=== PATIENT | female | born 1975 | race Caucasian/White ===

== ENCOUNTER 2018-06-25 12:13 | Emergency (ER) | payer SELFPAY ==
[2018-06-25 12:13] VITALS: BP 193/118; PULSE 82; RESP 16; TEMP 36.4; O2SAT 99; BMI 32.0
--- NOTE | 2018-06-25 12:44 | EKG12_ITS ---
Test Reason : Blood Pressure : / mmHG Vent. Rate : 066 BPM Atrial Rate : 066 BPM P-R Int : 138 ms QRS Dur : 080 ms QT Int : 394 ms P-R-T Axes : 026 -02 018 degrees QTc Int : 413 ms Normal sinus rhythm Normal ECG Confirmed by ZORAN HERNANDEZ, GRAEME ([id number]), multimedia editor BRETT DEL VALLE ([id number]) on 06/28/2018 2:37:04 PM Referred By: REINA Confirmed By:GRAEME MEEHAN MD
--- NOTE | 2018-06-25 12:44 | RAD_ITS ---
STUDY: X-RAY CHEST REASON FOR EXAM: Female, 42 years old. Chest pain. TECHNIQUE: PA and lateral views of the chest. COMPARISON: 05/19/2015. FINDINGS: The lungs are clear and expanded. There is no demonstrated pleural abnormality. Normal size heart. Normal mediastinum and cj. Normal visualized pulmonary arteries. Normal visualized aortic arch and descending thoracic aorta. There is a mild dextroscoliosis of the thoracic spine. Normal visualized ribs, clavicles, and shoulders. There is no demonstrated abnormality of the visualized soft tissue structures of the upper abdomen. RAD/Chest PA and Lateral IMPRESSION: No active pulmonary disease. Electronically Signed: Herberth Buckner MD at 13:16 EDT Tel , Service support ,
--- NOTE | 2018-06-25 12:48 | ED.DCSUM_ITS ---
- ER Visit Summary Date of Service: 06/25/18 Chief Complaint: [] Intermittent shortness of breath for over a year History of Present Illness: The patient is a 42 F [] patient reports for about a year or more she has had intermittent shortness of breath and chronic cough she is an evaluation the past was unremarkable, she reports for the last 2 weeks she has had which she feels is inked increasing exacerbations of intermittent shortness of breath that primarily occur in the morning, she also feels if she sleeps better if she sleeps upright, she has no history of cardiopulmonary disease, and history of LA PE DVT COPD asthma valvular heart disease, she denies any weight gain leg edema fever chronic cough is dry nonproductive, no chest or abdominal pain, she came in to be evaluated for all the above Physical Examination: [] On exam she had her vital signs are within normal range her blood pressure slightly high at 160/80 she has no known history of hypertension her pulse ox is 98% on room air and the rest of her vital signs are within normal range HEENT neck exam are negative the lungs sound clear the heart tones are normal the abdomen soft nontender upper lower extremities and back are unremarkable neurologically normal moving all 4 pulses are symmetric she sitting in the bed and she has no complaints no shortness of breath Test Results: [] Emergency Department Course and Treatment: [] Symptoms are long-standing for unspecified reasons they seem more bothersome to her over the last week or 2 no exacerbating factors, given all of her the the above screening labs x-ray Patient screening labs EKG chest x-ray are all generally unremarkable except her d-dimer returned at 0.5, high normal 0.49, discussed with her obtaining CTA to evaluate for PE other abnormality, that could be life-threatening, she declined that preferred outpatient management Is been in the emergency department her baseline blood pressure is been about 120/80 there are times when her blood pressure goes up to 170/80 and then spontaneously returns back to baseline she has no known history of hypertension, Given all the above she is comfortable discharge for outpatient management she does not have any providers, she is referred to pulmonary for the intermittent dyspnea and chronic cough and also primary care for further management all the above and she will return for change in symptoms, I explained to her that the emergency department setting cannot determine if an individual has hypertension and hence she needs to follow-up with her primary care providers and she will do so in the interim she will alter her diet to low-salt exercise and again return for change in symptoms Treatment Plan: [] Disposition: [] Home stable Impression: [] Intermittent dyspnea etiology unclear This note was generated with [employer] dictation software. It may contain incorrect words, spelling, and punctuation that were not noted in review of the chart prior to signing ED Disposition - Plan for ED Patient: Chief Complaint: Chest Pain
[2018-06-25 12:49] VITALS: O2SAT 97
[2018-06-25 12:55] LABS: Absolute Lymphocyte Count 1.87 X10^3/ul (0.83-4.51); Absolute Neutrophil Count 3.5 X10^3/uL (2.0-7.7); Basophil# 0.02 X10^3/uL; Basophil% 0.3 % (0-1); Eosinophil# 0.35 X10^3/uL; Eosinophils% 5.6 % (0-5); Hemoglobin 12.1 g/dl (12.0-15.0); Lymphocyte # 1.87 X10^3/ul (4.0); Mean Corp Hgb Conc 32.7 g/gl (32-36); Mean Corpuscular Hgb 27.4 pg (27.0-32.0); Mean Corpuscular Volume 83.7 fL (81-99); Mean Platelet Vol. 10.1 fl (6.2-12.0); Monocyte# 0.47 X10^3/uL; Monocyte% 7.5 % (0-10); Neutrophil # 3.52 X10^3/uL (2.7-7.7); Neutrophil % 56.4 % (47-70); Platelet Count 274 K/mm3 (150-450); RBC Distribution Width CV 13.3 % (11.6-14.6); RBC Distribution Width SD 40.6 fl (35.1-43.9); Red Blood Count 4.42 M/mm3 (4.2-5.4); White Blood Count 6.2 K/mm3 (4.4-11.0)
[2018-06-25 12:57] LABS: POSITIVE COUNT NO; POSITIVE DIFFERENTIAL NO; POSITIVE MORPHOLOGY NO
[2018-06-25 13:13] VITALS: BP 175/106; PULSE 70; PULSE 78; RESP 13; RESP 16; O2SAT 99
[2018-06-25 13:13] LABS: Anion Gap 10 (5-15); BUN 10 mg/dL (7-18); BUN/Creat Ratio 12.5 RATIO (10-20); Calcium,Total 8.1 mg/dL (8.5-10.1); Chloride 106 mmol/L (98-107); EST Glomerular Filtration Rate 83 mL/min (>60); Est Glom Filt Rate - Afr Amer 101 mL/min (>60); Estimated Creatinine Clearance 71.71 ml/min; Glucose 90 mg/dL (74-106); Potassium 3.7 mmol/L (3.5-5.1); Sodium Level 141 mmol/L (136-145)
[2018-06-25] MEDS: Ipratropium/Albuterol Sulfate 3 ML AMPUL.NEB INHALATION (13:13)
[2018-06-25 13:22] LABS: BNP,B-Type NATRIURETIC PEPTIDE 48.7 pg/mL (0-100)
--- NOTE | 2018-06-25 13:45 | ED.DEP ---
ED Disposition - Plan for ED Patient: Chief Complaint: Chest Pain Instructions: ED Dyspnea Shortness of Breath Referrals: Jai Archer MD [Primary Care Provider] - Julio Cain MD [STAFF PHYSICIAN] -
[2018-06-25 14:03] VITALS: BP 161/101; PULSE 84; RESP 20; O2SAT 97
--- NOTE | 2018-06-25 14:03 | ED.RN ---
REVIEWED D/C INSTRUCTIONS, FOLLOW UP CARE, AND S/S THAT WOULD WARRANT A RETURN TO THE ED WITH PT. PT VERBALIZED AN UNDERSTANDING AND DENIES FURTHER QUESTIONS FOR THIS RN. PT SKIN P/W/D, RESP EVEN AND UNLABORED, PT A&O X 3, NO DISTRESS NOTED. PT AMBULATED OUT OF ED, GAIT STEADY.
== END 2018-06-25 14:04 | disposition home or self-care (01) ==
PROVIDERS: Emergency Provider Emergency Medicine; Family Provider Family Medicine; PCP Family Medicine
DX: R06.00 Dyspnea, unspecified (principal); R05 Cough
CPT/HCPCS: 71046; 80048; 83880; 84484; 85025; 85379; 93005; 94640; 99284; A4216

== ENCOUNTER 2018-09-17 19:49 | Observation (INO) | payer SELFPAY ==
[2018-09-17] VITALS (9 sets, daily range): BP systolic 122–162; BP diastolic 74–119; PULSE 62–81; RESP 14–16; TEMP 36.4; O2SAT 97–100; BMI 30.9
--- NOTE | 2018-09-17 19:59 | CT_ITS ---
STUDY: CT ABDOMEN AND PELVIS WITHOUT CONTRAST REASON FOR EXAM: Female, 43 years old. Abdominal pain with nausea, vomiting and diarrhea for several days RADIATION DOSAGE (If Supplied By Facility): CTDIvol = ( 9.29 ) mGy, DLP = ( 489.64 ) mGycm TECHNIQUE: Transaxial images were obtained from the dome of the diaphragm to the symphysis pubis without oral contrast, and without intravenous contrast. Sagittal and coronal images were reconstructed. Individualized dose optimization techniques were used for this CT. COMPARISON: 01/11/2016 FINDINGS: The visualized lung bases are unremarkable. The visualized portions of the heart are within normal limits. Normal liver. Normal gallbladder and extrahepatic biliary system. Normal spleen. Normal pancreas. Normal bilateral adrenal glands. Normal right kidney. Normal left kidney. Normal visualized stomach. Normal small intestine. There are multiple colonic diverticula consistent with diverticulosis. The appendix is visualized and appears normal. Normal abdominal aorta. Normal inferior vena cava. Normal retroperitoneum. Normal urinary bladder. There is absence of the uterus consistent with a prior hysterectomy. 2.4 x 3.7 cm soft tissue mass in the left inguinal region has increased in size since the prior study. The mass appears to be contiguous with a left inguinal hernia (coronal image 40). Normal osseous structures. CT/Abdomen/Pelvis without Cont IMPRESSION: 1. No bowel wall thickening or bowel obstruction seen. Normal CT appearance of the appendix. 2. Left inguinal hernia with slightly larger soft tissue mass measuring 2.4 x 3.7 cm, as compared to the prior CT. The soft tissue structure could represent a large reactive lymph node/adenitis versus herniated intrapelvic structure such as ovary (uterus is not visible, correlate with surgical history). Unlikely to account for patient's presenting symptoms for the study. Electronically Signed: Sammy Jeronimo MD at 20:51 EST , Service support ,
--- NOTE | 2018-09-17 20:00 | ED.VISSUMM ---
- ER Visit Summary Date of Service: 09/17/18 Chief Complaint: [] Left lower quadrant pain since History of Present Illness: The patient is a 43 F [] who reports she ate a hamburger late and began having left-sided abdominal pain vomited once that day that symptoms seem to improve but intermittently she has had crampy left lower abdominal pain since the above, symptoms intensified today and she came in for evaluation, she has had 3 loose diarrheal bowel movements no blood no fever no cough no current nausea or vomiting, she is a prior hysterectomy her left ovary still in place, she has never had a colonoscopy, she has no GI conditions, she did was not exposed any tainted food or sick individuals or antibiotics she points directly to her left lower quadrant Physical Examination: [] 162/92, afebrile General, no distress resting comfortably HEENT is generally unremarkable The neck is supple no adenopathy Cardiovascular, regular rate and rhythm Lungs, clear bilateral Abdomen, soft there is mild pain to the left lower abdomen , she has some guarding, no rebound, there is a fullness nodularity to the left inguinal crease she is not sure she has had that before, she assures me her bowel habits been normal Extremities, no clubbing cyanosis or edema Neurologic, awake alert answering questions appropriately moving all 4 extremities Test Results: [] Emergency Department Course and Treatment: [] Screening labs IV fluids pain management CT CT scan shows left inguinal hernia with possibly the left ovary in the hernia sac, versus lymph node etc., see that report her labs are otherwise all unremarkable I spoke with Dr. Arteaga on-call for gynecology he recommended we contact general surgery, I paged Dr. Odell discussed the case with her in detail given all the above she recommended transfer to a facility that could evaluate the patient acutely tonight, I spoke with the patient she is acceptable for transfer to [facility], we spoke with [facility] transfer line they asked that all of her data be sent to them and will be arranging her transfer [facility] transfer line called back I was asked to speak with Dr. RENEE UMANZOR, who is the surgeon on-call who wanted additional information about the patient. I described the patient's history exam findings labs CAT scan etc. this physician felt that the patient could be managed at [facility] refused to accept her in transfer. I explained to him that the surgeon on-call felt for a variety of reasons, that it would be optimal for the patient to be transferred, [facility] understanding they had the capability to manage her, were open for transfers there were no equipment failures other hazards etc. but Dr Graves refused to accept her in transfer, I explained the potential EMTALA implications of his refusal to accept the patient when the transferring facility, [facility], had the capability to manage the patient's condition. Dr. Graves then stated that I was trying to dump her on [facility] due to insurance reasons, the transfer line individual was on the line with us I never mentioned the patient's insurance nor do I know what her insurance status is and I explained to him that her insurance status had nothing to do with the transfer it was related to concern to provide her optimal care on the part of the on-call surgeon that transfer was appropriate for optimal care. Dr. Graves then gave us his phone #[phone] and asked that the on-call surgeon Dr. Odell contact him. I spoke with Dr. Odell she will contact him and transfer options will be determined then. Addendum; Dr. Odell did come in to evaluate the patient asked that the patient be given conscious sedation for attempted reduction, the patient was underwent standard protocol for conscious sedation hyperoxygenation monitoring of her vital signs etc. she was given incremental doses of propofol Versed fentanyl and the doctor attempted reduction patient tolerated the procedure well with no complications vital signs all remained stable I explained to Dr. Odell that we could consider transfer to a different facility since [facility] Dr Graves had refused to accept her, and she stated she would evaluate all of the options herself and determine the patient's best disposition plan Treatment Plan: [] Disposition: [] Transfer to [facility] pending direct conversation between on-call physician and [facility] surgeon as above versus other treatment options or transfer options as above Impression: [] Left lower abdominal pain, left-sided inguinal hernia possibly incarcerated This note was generated with [employer] dictation software. It may contain incorrect words, spelling, and punctuation that were not noted in review of the chart prior to signing ED Disposition - Plan for ED Patient: Chief Complaint: Abd Pain Referrals: Jai Archer MD [Primary Care Provider] -
[2018-09-17] MEDS: Ondansetron 4 MG/2 ML Vial IV (20:13)
[2018-09-17] MEDS: 0.9% Normal Saline 1,000 ML 125 ML IV (20:13)
[2018-09-17 20:14] LABS: Bacteria 0 SEEN /hpf (None Seen); Mucous, Urine 0 SEEN /hpf (<or=2+); Red Blood Cells-Urine 0 SEEN /hpf (0-5)
[2018-09-17] MEDS: morphine 8 MG/ML Syringe IV ×2 (20:16→22:16)
[2018-09-17 20:20] LABS: Color, Urine Yellow (Yellow); Glucose, Dipstick Normal (Normal); Ketone-Dipstick Negative (Negative); Leukocyte Esterase-Dipstick Negative /ul (Negative); Nitrite-Dipstick Negative (Negative); Occult Blood-Urine Negative /ul (Negative); Protein-Dipstick Negative (Negative); Urine Bilirubin Dipstick Negative (Negative); Urine Clarity Clear (Clear); Urine Urobilinogen Normal (Normal)
[2018-09-17 20:27] LABS: Absolute Lymphocyte Count 2.79 X10^3/ul (0.83-4.51); Absolute Neutrophil Count 5.8 X10^3/uL (2.0-7.7); Basophil# 0.02 X10^3/uL; Basophil% 0.2 % (0-1); Eosinophil# 0.32 X10^3/uL; Eosinophils% 3.3 % (0-5); Hematocrit 39.5 % (37-47); Hemoglobin 12.9 g/dl (12.0-15.0); Lymphocyte # 2.79 X10^3/ul (4.0); Lymphocyte % 28.6 % (19-41); Mean Corp Hgb Conc 32.7 g/gl (32-36); Mean Corpuscular Hgb 27.2 pg (27.0-32.0); Mean Corpuscular Volume 83.3 fL (81-99); Mean Platelet Vol. 10.6 fl (6.2-12.0); Monocyte# 0.88 X10^3/uL; Neutrophil # 5.75 X10^3/uL (2.7-7.7); Neutrophil % 58.9 % (47-70); Platelet Count 275 K/mm3 (150-450); RBC Distribution Width CV 12.8 % (11.6-14.6); RBC Distribution Width SD 38.9 fl (35.1-43.9); Red Blood Count 4.74 M/mm3 (4.2-5.4); White Blood Count 9.8 K/mm3 (4.4-11.0)
[2018-09-17 20:28] LABS: POSITIVE COUNT NO; POSITIVE DIFFERENTIAL NO; POSITIVE MORPHOLOGY NO
[2018-09-17 20:30] LABS: Squamous Epithelial Cells - UA 0-5 SEEN /hpf (5-10); White Blood Cells 0-5 SEEN /hpf (0-5)
[2018-09-17 20:42] LABS: AST(SGOT) 17 U/L (15-37); Alanine Aminotransfer ALT/SGPT 23 U/L (13-56); Albumin, Serum 3.5 g/dL (3.2-5.0); Alkaline Phosphatase 58 U/L (45-117); Anion Gap 8 (5-15); BUN 16 mg/dL (7-18); BUN/Creat Ratio 17.4 RATIO (10-20); Bilirubin, Direct 0.13 mg/dL (0.00-0.30); Calcium,Total 8.8 mg/dL (8.5-10.1); Chloride 106 mmol/L (98-107); Creatinine, Serum 0.92 mg/dL (0.55-1.02); EST Glomerular Filtration Rate 71 mL/min (>60); Est Glom Filt Rate - Afr Amer 85 mL/min (>60); Estimated Creatinine Clearance 67.38 ml/min; Globulin 3.4 g/dL (2.2-4.2); Glucose 99 mg/dL (74-106); Lipase 153 U/L (73-393); Potassium 3.7 mmol/L (3.5-5.1); Protein, Total 6.9 g/dL (6.4-8.2); Sodium Level 138 mmol/L (136-145)
[2018-09-17] MEDS: fentaNYL 100 MCG/2 ML Ampul IV (23:21)
[2018-09-17] MEDS: Midazolam 2 MG/2 ML Syringe 2.5 MG IV (23:23)
[2018-09-17] MEDS: Propofol 200 MG/20 ML Vial 80 MG IV BOLUS (23:24)
--- NOTE | 2018-09-17 23:33 | PCM.HP.STD ---
History of Present Illness Date of Admission: 09/17/18 The patient is a 43 year old F presented to the ER due to left groin/lower quadrant crampiness and occasional sharp pain with coughing. Patient states that last she had possible food poisoning with some nausea and vomiting and then this she noticed left lower quadrant/groin discomfort which continued and today she started to feel like she did have some nausea again so came to the ER. She states the pain can range from 6?10/10. Patient underwent a CT abdomen pelvis was questioned whether there is a soft tissue mass possibly an ovary in the left inguinal hernia. On previous CTs patient did have a left inguinal hernia with appeared to be more like fluid in 2016. Patient denied noticing any kind of lump in the left groin until she came to the ER and it was pointed out by the ER doctor. Patient denies any actual abdominal pain or nausea or vomiting besides on Past Medical History Past Medical History (Chronic Problems): Chronic Problems GERD (gastroesophageal reflux disease) (Chronic) Allergies No Known Allergies Allergy (Verified 09/17/18 19:50) Home Medications: Ambulatory Orders Medication Instructions Recorded Omeprazole [Prilosec] 40 mg PO DAILY 01/11/16 Esomeprazole Mag Trihydrate 40 mg PO DAILY 06/25/18 [Nexium] Omeprazole [Prilosec] 40 mg PO BID 30 Days cap 09/19/18 Oxycodone HCl/Acetaminophen 1 - 2 tablet PO Q4H PRN PRN 4 Days 09/19/18 [Percocet 5/325] #40 tablet Surgical History: hysterectomy - With the possible right oophorectomy patient believes she still has the left, tonsillectomy, - - Psychiatric History: No pertinent psych hx 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 WELT 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 history Lives: With Family Smoking Status: Never smoker - *Family History Maternal History Items: No pertinent history Paternal History Items: Heart Disease Review of Systems Constitutional: Denies: Fever Eyes: Denies: Blurred vision VTE Information - Inpt Only VTE Present on Admission: Yes VTE Mechan Device Prophylaxis: SCD's VTE Pharm Prophylaxis ordered?: No Reason prophylaxis not ordered:: Treatment Not Indicated - Physical Exam General: Alert, Oriented x3, Cooperative, No apparent distress HEENT: Atraumatic Lungs: Normal air movement Cardiovascular: Regular rate Abdomen: Soft, Non Tender, Non-Distended, - - Left groin, positive bulge, tender to palpation, unable to reduce even with conscious sedation given by the ER doctor Extremities: No clubbing, No cyanosis, No edema Neurological: Cranial nerves II-XII grossly intact Psych/Mental Status: Normal Affect Vital Signs Temp Pulse Resp BP Pulse Ox 97.5 F L 76 14 159/81 H 100 09/17/18 19:50 09/17/18 23:23 09/17/18 23:23 09/17/18 23:23 09/17/18 23:20 Oxygen Flow Rate (L/min) [3] 15 Oxygen Flow Rate (L/min) [2] 15 Oxygen Flow Rate (L/min) [1 ( 15 Initial Baseline)] Oxygen Flow Rate (L/min) 15 Oxygen Delivery Method [3] Non-Rebreather Oxygen Delivery Method [2] Non-Rebreather Oxygen Delivery Method [1 ( Non-Rebreather Initial Baseline)] Oxygen Delivery Method Non-Rebreather Weight: 180 lb Body Mass Index (BMI) 30.9 Laboratory Tests Past 24 Hrs 09/17/18 09/17/18 09/17/18 20:05 20:12 20:12 WBC 9.8 RBC 4.74 Hgb 12.9 Hct 39.5 MCV 83.3 MCH 27.2 MCHC 32.7 RDW 12.8 RDW Differential 38.9 Plt Count 275 MPV 10.6 Immature Gran % (Auto) 0.000 Neut % (Auto) 58.9 Lymph % (Auto) 28.6 Worth % (Auto) 9.0 Eos % (Auto) 3.3 Baso % (Auto) 0.2 Absolute Neuts (auto) 5.8 Absolute Lymphs (auto) 2.79 Total Counted Not Reportable Sodium 138 Potassium 3.7 Chloride 106 Carbon Dioxide 24.0 Anion Gap 8 BUN 16 Creatinine 0.92 Estim Creat Clear Calc 67.38 Est GFR (MDRD) Af Amer 85 Est GFR (MDRD) Non-Af 71 BUN/Creatinine Ratio 17.4 Glucose 99 Calcium 8.8 Total Bilirubin 0.30 Direct Bilirubin 0.13 AST 17 ALT 23 Alkaline Phosphatase 58 Total Protein 6.9 Albumin 3.5 Globulin 3.4 Lipase 153 Urine Color Yellow Urine Clarity Clear Urine pH 6.0 Ur Specific [place] 1.020 Urine Protein Negative Urine Glucose (UA) Normal Urine Ketones Negative Urine Occult Blood Negative Urine Nitrite Negative Urine Bilirubin Negative Urine Urobilinogen Normal Ur Leukocyte Esterase Negative Urine RBC 0 SEEN Urine WBC 0-5 SEEN Ur Squamous Epith Cells 0-5 SEEN Urine Bacteria 0 SEEN Urine Mucus 0 SEEN Assessment/Plan All Active Problems Chest pain (Acute) 43-year-old female with incarcerated left inguinal hernia, wbc wnl 1. Left inguinal hernia?incarcerated, current labs are within normal limits, there is not appear to be bowel in the hernia unsure if it could possibly be the left ovary. Unable to reduce in the ER even with the help of conscious sedation. Reviewed the CT a/p w another radiologist and there is the right ovary present & pt states one was removed during hysterectomy and he also doesn't think that the left inguinal hernia contains an ovary. 2. We will keep the patient n.p.o./IV fluids and plan for surgery in the morning. Open left inguinal hernia repair, possible mesh, possible diagnostic laparoscopy. Discussed risks including but not limited to, injury to other organ (i.e. possible left ovary, small bowel, etc.), inflammation unable to place mesh, recurrent hernia which would be possibly more likely if no mesh was placed, bleeding/hematoma, infection. 3. Continue pain control with Dilaudid IV Ijeoma Escobedo M.D. Pager: [phone] [facility] [address] [place] [address], [facility], [address] [place] [address] Office: [phone] Code Visit Inpatient E&M: 27468 Init Hosp L2
--- NOTE | 2018-09-17 23:39 | HP.PCM_ITS ---
History of Present Illness Date of Admission: 09/17/18 The patient is a 43 year old F presented to the ER due to left groin/lower quadrant crampiness and occasional sharp pain with coughing. Patient states that last she had possible food poisoning with some nausea and vomiting and then this she noticed left lower quadrant/groin discomfort which continued and today she started to feel like she did have some nausea again so came to the ER. She states the pain can range from 6?10/10. Patient underwent a CT abdomen pelvis was questioned whether there is a soft tissue mass possibly an ovary in the left inguinal hernia. On previous CTs patient did have a left inguinal hernia with appeared to be more like fluid in 2016. Patient denied noticing any kind of lump in the left groin until she came to the ER and it was pointed out by the ER doctor. Patient denies any actual abdominal pain or nausea or vomiting besides on Past Medical History Past Medical History (Chronic Problems): Chronic Problems GERD (gastroesophageal reflux disease) (Chronic) Allergies No Known Allergies Allergy (Verified 09/17/18 19:50) Home Medications: Ambulatory Orders Medication Instructions Recorded Omeprazole [Prilosec] 40 mg PO DAILY 01/11/16 Esomeprazole Mag Trihydrate 40 mg PO DAILY 06/25/18 [Nexium] Omeprazole [Prilosec] 40 mg PO BID 30 Days cap 09/19/18 Oxycodone HCl/Acetaminophen 1 - 2 tablet PO Q4H PRN PRN 4 Days 09/19/18 [Percocet 5/325] #40 tablet Surgical History: hysterectomy - With the possible right oophorectomy patient believes she still has the left, tonsillectomy, - - Psychiatric History: No pertinent psych hx MANAGER CASE MANAGEMENT History: No pertinent MANAGER CASE MANAGEMENT history Lives: With Family Smoking Status: Never smoker - *Family History Maternal History Items: No pertinent history Paternal History Items: Heart Disease Review of Systems Constitutional: Denies: Fever Eyes: Denies: Blurred vision VTE Information - Inpt Only VTE Present on Admission: Yes VTE Mechan Device Prophylaxis: SCD's VTE Pharm Prophylaxis ordered?: No Reason prophylaxis not ordered:: Treatment Not Indicated - Physical Exam General: Alert, Oriented x3, Cooperative, No apparent distress HEENT: Atraumatic Lungs: Normal air movement Cardiovascular: Regular rate Abdomen: Soft, Non Tender, Non-Distended, - - Left groin, positive bulge, tender to palpation, unable to reduce even with conscious sedation given by the ER doctor Extremities: No clubbing, No cyanosis, No edema Neurological: Cranial nerves II-XII grossly intact Psych/Mental Status: Normal Affect Vital Signs Temp Pulse Resp BP Pulse Ox 97.5 F L 76 14 159/81 H 100 09/17/18 19:50 09/17/18 23:23 09/17/18 23:23 09/17/18 23:23 09/17/18 23:20 Oxygen Flow Rate (L/min) [3] 15 Oxygen Flow Rate (L/min) [2] 15 Oxygen Flow Rate (L/min) [1 ( 15 Initial Baseline)] Oxygen Flow Rate (L/min) 15 Oxygen Delivery Method [3] Non-Rebreather Oxygen Delivery Method [2] Non-Rebreather Oxygen Delivery Method [1 ( Non-Rebreather Initial Baseline)] Oxygen Delivery Method Non-Rebreather Weight: 180 lb Body Mass Index (BMI) 30.9 Laboratory Tests Past 24 Hrs 09/17/18 09/17/18 09/17/18 20:05 20:12 20:12 WBC 9.8 RBC 4.74 Hgb 12.9 Hct 39.5 MCV 83.3 MCH 27.2 MCHC 32.7 RDW 12.8 RDW Differential 38.9 Plt Count 275 MPV 10.6 Immature Gran % (Auto) 0.000 Neut % (Auto) 58.9 Lymph % (Auto) 28.6 Wirt % (Auto) 9.0 Eos % (Auto) 3.3 Baso % (Auto) 0.2 Absolute Neuts (auto) 5.8 Absolute Lymphs (auto) 2.79 Total Counted Not Reportable Sodium 138 Potassium 3.7 Chloride 106 Carbon Dioxide 24.0 Anion Gap 8 BUN 16 Creatinine 0.92 Estim Creat Clear Calc 67.38 Est GFR (MDRD) Af Amer 85 Est GFR (MDRD) Non-Af 71 BUN/Creatinine Ratio 17.4 Glucose 99 Calcium 8.8 Total Bilirubin 0.30 Direct Bilirubin 0.13 AST 17 ALT 23 Alkaline Phosphatase 58 Total Protein 6.9 Albumin 3.5 Globulin 3.4 Lipase 153 Urine Color Yellow Urine Clarity Clear Urine pH 6.0 Ur Specific [place] 1.020 Urine Protein Negative Urine Glucose (UA) Normal Urine Ketones Negative Urine Occult Blood Negative Urine Nitrite Negative Urine Bilirubin Negative Urine Urobilinogen Normal Ur Leukocyte Esterase Negative Urine RBC 0 SEEN Urine WBC 0-5 SEEN Ur Squamous Epith Cells 0-5 SEEN Urine Bacteria 0 SEEN Urine Mucus 0 SEEN Assessment/Plan All Active Problems Chest pain (Acute) 43-year-old female with incarcerated left inguinal hernia, wbc wnl 1. Left inguinal hernia?incarcerated, current labs are within normal limits, there is not appear to be bowel in the hernia unsure if it could possibly be the left ovary. Unable to reduce in the ER even with the help of conscious sedation. Reviewed the CT a/p w another radiologist and there is the right ovary present & pt states one was removed during hysterectomy and he also doesn't think that the left inguinal hernia contains an ovary. 2. We will keep the patient n.p.o./IV fluids and plan for surgery in the morning. Open left inguinal hernia repair, possible mesh, possible diagnostic laparoscopy. Discussed risks including but not limited to, injury to other organ (i.e. possible left ovary, small bowel, etc.), inflammation unable to place mesh, recurrent hernia which would be possibly more likely if no mesh was placed, bleeding/hematoma, infection. 3. Continue pain control with Dilaudid IV Ijeoma Escobedo M.D. Pager: [phone] [facility] [address] [place] [address], [facility], [address] [place] [address] Office: [phone] Code Visit Inpatient E&M: 27283 Init Hosp L2
[2018-09-18] VITALS (12 sets, daily range): BP systolic 109–160; BP diastolic 71–99; PULSE 52–84; RESP 16–18; TEMP 36.3–37.2; O2SAT 92–98; BMI 31.7
[2018-09-18] MEDS: HYDROmorphone 0.5 MG/0.5 ML SYRINGE IV ×7 (00:04→23:57)
--- NOTE | 2018-09-18 00:29 | NURSING ---
Per Dr. Escobedo's request, I called lab to advise them that the physician would like the labs done at 0500 rather than 0555. Lab acknowledged understanding.
--- NOTE | 2018-09-18 00:31 | NURSING ---
Lab called and stated that they were going to draw the pt's labs at 0400 so that they could be sure to get results in early.
[2018-09-18] MEDS: Lactated Ringers 1,000 ML 125 ML IV ×2 (00:58→08:16)
[2018-09-18 04:18] LABS: Absolute Lymphocyte Count 2.15 X10^3/ul (0.83-4.51); Absolute Neutrophil Count 4.3 X10^3/uL (2.0-7.7); Basophil# 0.02 X10^3/uL; Basophil% 0.3 % (0-1); Eosinophil# 0.21 X10^3/uL; Eosinophils% 2.8 % (0-5); Hematocrit 33.7 % (37-47); Lymphocyte # 2.15 X10^3/ul (4.0); Lymphocyte % 28.9 % (19-41); Mean Corp Hgb Conc 32.6 g/gl (32-36); Mean Corpuscular Hgb 27.6 pg (27.0-32.0); Mean Corpuscular Volume 84.5 fL (81-99); Mean Platelet Vol. 10.6 fl (6.2-12.0); Monocyte# 0.72 X10^3/uL; Monocyte% 9.7 % (0-10); Neutrophil # 4.32 X10^3/uL (2.7-7.7); Neutrophil % 58.2 % (47-70); Platelet Count 217 K/mm3 (150-450); Red Blood Count 3.99 M/mm3 (4.2-5.4); White Blood Count 7.4 K/mm3 (4.4-11.0)
[2018-09-18 04:27] LABS: Anion Gap 8 (5-15); BUN 12 mg/dL (7-18); BUN/Creat Ratio 14.3 RATIO (10-20); Calcium,Total 7.6 mg/dL (8.5-10.1); Chloride 109 mmol/L (98-107); Creatinine, Serum 0.84 mg/dL (0.55-1.02); EST Glomerular Filtration Rate 78 mL/min (>60); Est Glom Filt Rate - Afr Amer 95 mL/min (>60); Glucose 105 mg/dL (74-106); Potassium 3.8 mmol/L (3.5-5.1); Sodium Level 142 mmol/L (136-145)
[2018-09-18 04:33] LABS: POSITIVE COUNT NO; POSITIVE DIFFERENTIAL NO; POSITIVE MORPHOLOGY NO
--- NOTE | 2018-09-18 06:46 | PCM.PN.SRG ---
Subjective: Patient still complaining of pain in the left groin, denies any nausea or vomiting, pain controlled with pain meds. - Physical Exam General: Alert, Oriented x3, Cooperative, No apparent distress Abdomen: Soft, Non Tender, Non-Distended, - - Positive bulge in the left groin, none reducible Vital Signs Temp Pulse Resp BP Pulse Ox 97.9 F 72 16 112/74 97 09/18/18 04:22 09/18/18 04:22 09/18/18 04:22 09/18/18 04:22 09/18/18 04:22 Oxygen Flow Rate (L/min) [3] 15 Oxygen Flow Rate (L/min) [2] 15 Oxygen Flow Rate (L/min) [1 ( 15 Initial Baseline)] Oxygen Flow Rate (L/min) 2 Oxygen Delivery Method [3] Non-Rebreather Oxygen Delivery Method [2] Non-Rebreather Oxygen Delivery Method [1 ( Non-Rebreather Initial Baseline)] Oxygen Delivery Method Room Air Weight: 179 lb 3.773 oz Body Mass Index (BMI) 31.7 Intake and Output for Last 24 Hours 09/16/18 09/17/18 09/18/18 23:59 23:59 23:59 Intake Total 768 / 768 Balance 768 / 768 Laboratory Tests Past 24 Hrs 09/17/18 09/17/18 09/17/18 20:05 20:12 20:12 WBC 9.8 RBC 4.74 Hgb 12.9 Hct 39.5 MCV 83.3 MCH 27.2 MCHC 32.7 RDW 12.8 RDW Differential 38.9 Plt Count 275 MPV 10.6 Immature Gran % (Auto) 0.000 Neut % (Auto) 58.9 Lymph % (Auto) 28.6 Logan % (Auto) 9.0 Eos % (Auto) 3.3 Baso % (Auto) 0.2 Absolute Neuts (auto) 5.8 Absolute Lymphs (auto) 2.79 Total Counted Not Reportable Sodium 138 Potassium 3.7 Chloride 106 Carbon Dioxide 24.0 Anion Gap 8 BUN 16 Creatinine 0.92 Estim Creat Clear Calc 67.38 Est GFR (MDRD) Af Amer 85 Est GFR (MDRD) Non-Af 71 BUN/Creatinine Ratio 17.4 Glucose 99 Calcium 8.8 Total Bilirubin 0.30 Direct Bilirubin 0.13 AST 17 ALT 23 Alkaline Phosphatase 58 Total Protein 6.9 Albumin 3.5 Globulin 3.4 Lipase 153 Urine Color Yellow Urine Clarity Clear Urine pH 6.0 Ur Specific [place] 1.020 Urine Protein Negative Urine Glucose (UA) Normal Urine Ketones Negative Urine Occult Blood Negative Urine Nitrite Negative Urine Bilirubin Negative Urine Urobilinogen Normal Ur Leukocyte Esterase Negative Urine RBC 0 SEEN Urine WBC 0-5 SEEN Ur Squamous Epith Cells 0-5 SEEN Urine Bacteria 0 SEEN Urine Mucus 0 SEEN 09/18/18 09/18/18 03:38 03:38 WBC 7.4 RBC 3.99 L Hgb 11.0 L Hct 33.7 L MCV 84.5 MCH 27.6 MCHC 32.6 RDW 13.0 RDW Differential 40.0 Plt Count 217 MPV 10.6 Immature Gran % (Auto) 0.100 Neut % (Auto) 58.2 Lymph % (Auto) 28.9 Logan % (Auto) 9.7 Eos % (Auto) 2.8 Baso % (Auto) 0.3 Absolute Neuts (auto) 4.3 Absolute Lymphs (auto) 2.15 Total Counted Not Reportable Sodium 142 Potassium 3.8 Chloride 109 H Carbon Dioxide 25.0 Anion Gap 8 BUN 12 Creatinine 0.84 Estim Creat Clear Calc 70.70 Est GFR (MDRD) Af Amer 95 Est GFR (MDRD) Non-Af 78 BUN/Creatinine Ratio 14.3 Glucose 105 Calcium 7.6 L Total Bilirubin Direct Bilirubin AST ALT Alkaline Phosphatase Total Protein Albumin Globulin Lipase Urine Color Urine Clarity Urine pH Ur Specific [place] Urine Protein Urine Glucose (UA) Urine Ketones Urine Occult Blood Urine Nitrite Urine Bilirubin Urine Urobilinogen Ur Leukocyte Esterase Urine RBC Urine WBC Ur Squamous Epith Cells Urine Bacteria Urine Mucus Medical Necessity - Tobacco Use Smoking Status: Never smoker Assessment/Plan All Active Problems Chest pain (Acute) 43-year-old female with incarcerated left inguinal hernia 1. Left inguinal hernia?incarcerated, labs within normal limits 2. We will keep the patient n.p.o./IV fluids and plan for surgery today. Open left inguinal hernia repair, possible mesh, possible diagnostic laparoscopy possible exploratory laparotomy. Discussed risks including but not limited to, injury to other organ (i.e. colon, small bowel, etc.), inflammation unable to place mesh, recurrent hernia which would be possibly more likely if no mesh was placed, bleeding/hematoma, infection. 3. Continue pain control with Dilaudid IV Ijeoma Escobedo M.D. Pager: [phone] [facility] [address] [place] [address], [facility], [address] [place] [address] Office: [phone]
--- NOTE | 2018-09-18 06:49 | PN.SURG_ITS ---
Subjective: Patient still complaining of pain in the left groin, denies any nausea or vomiting, pain controlled with pain meds. - Physical Exam General: Alert, Oriented x3, Cooperative, No apparent distress Abdomen: Soft, Non Tender, Non-Distended, - - Positive bulge in the left groin, none reducible Vital Signs Temp Pulse Resp BP Pulse Ox 97.9 F 72 16 112/74 97 09/18/18 04:22 09/18/18 04:22 09/18/18 04:22 09/18/18 04:22 09/18/18 04:22 Oxygen Flow Rate (L/min) [3] 15 Oxygen Flow Rate (L/min) [2] 15 Oxygen Flow Rate (L/min) [1 ( 15 Initial Baseline)] Oxygen Flow Rate (L/min) 2 Oxygen Delivery Method [3] Non-Rebreather Oxygen Delivery Method [2] Non-Rebreather Oxygen Delivery Method [1 ( Non-Rebreather Initial Baseline)] Oxygen Delivery Method Room Air Weight: 179 lb 3.773 oz Body Mass Index (BMI) 31.7 Intake and Output for Last 24 Hours 09/16/18 09/17/18 09/18/18 23:59 23:59 23:59 Intake Total 768 / 768 Balance 768 / 768 Laboratory Tests Past 24 Hrs 09/17/18 09/17/18 09/17/18 20:05 20:12 20:12 WBC 9.8 RBC 4.74 Hgb 12.9 Hct 39.5 MCV 83.3 MCH 27.2 MCHC 32.7 RDW 12.8 RDW Differential 38.9 Plt Count 275 MPV 10.6 Immature Gran % (Auto) 0.000 Neut % (Auto) 58.9 Lymph % (Auto) 28.6 [place] % (Auto) 9.0 Eos % (Auto) 3.3 Baso % (Auto) 0.2 Absolute Neuts (auto) 5.8 Absolute Lymphs (auto) 2.79 Total Counted Not Reportable Sodium 138 Potassium 3.7 Chloride 106 Carbon Dioxide 24.0 Anion Gap 8 BUN 16 Creatinine 0.92 Estim Creat Clear Calc 67.38 Est GFR (MDRD) Af Amer 85 Est GFR (MDRD) Non-Af 71 BUN/Creatinine Ratio 17.4 Glucose 99 Calcium 8.8 Total Bilirubin 0.30 Direct Bilirubin 0.13 AST 17 ALT 23 Alkaline Phosphatase 58 Total Protein 6.9 Albumin 3.5 Globulin 3.4 Lipase 153 Urine Color Yellow Urine Clarity Clear Urine pH 6.0 Ur Specific [place] 1.020 Urine Protein Negative Urine Glucose (UA) Normal Urine Ketones Negative Urine Occult Blood Negative Urine Nitrite Negative Urine Bilirubin Negative Urine Urobilinogen Normal Ur Leukocyte Esterase Negative Urine RBC 0 SEEN Urine WBC 0-5 SEEN Ur Squamous Epith Cells 0-5 SEEN Urine Bacteria 0 SEEN Urine Mucus 0 SEEN 09/18/18 09/18/18 03:38 03:38 WBC 7.4 RBC 3.99 L Hgb 11.0 L Hct 33.7 L MCV 84.5 MCH 27.6 MCHC 32.6 RDW 13.0 RDW Differential 40.0 Plt Count 217 MPV 10.6 Immature Gran % (Auto) 0.100 Neut % (Auto) 58.2 Lymph % (Auto) 28.9 [place] % (Auto) 9.7 Eos % (Auto) 2.8 Baso % (Auto) 0.3 Absolute Neuts (auto) 4.3 Absolute Lymphs (auto) 2.15 Total Counted Not Reportable Sodium 142 Potassium 3.8 Chloride 109 H Carbon Dioxide 25.0 Anion Gap 8 BUN 12 Creatinine 0.84 Estim Creat Clear Calc 70.70 Est GFR (MDRD) Af Amer 95 Est GFR (MDRD) Non-Af 78 BUN/Creatinine Ratio 14.3 Glucose 105 Calcium 7.6 L Total Bilirubin Direct Bilirubin AST ALT Alkaline Phosphatase Total Protein Albumin Globulin Lipase Urine Color Urine Clarity Urine pH Ur Specific [place] Urine Protein Urine Glucose (UA) Urine Ketones Urine Occult Blood Urine Nitrite Urine Bilirubin Urine Urobilinogen Ur Leukocyte Esterase Urine RBC Urine WBC Ur Squamous Epith Cells Urine Bacteria Urine Mucus Medical Necessity - Tobacco Use Smoking Status: Never smoker Assessment/Plan All Active Problems Chest pain (Acute) 43-year-old female with incarcerated left inguinal hernia 1. Left inguinal hernia?incarcerated, labs within normal limits 2. We will keep the patient n.p.o./IV fluids and plan for surgery today. Open left inguinal hernia repair, possible mesh, possible diagnostic laparoscopy possible exploratory laparotomy. Discussed risks including but not limited to, injury to other organ (i.e. colon, small bowel, etc.), inflammation unable to place mesh, recurrent hernia which would be possibly more likely if no mesh was placed, bleeding/hematoma, infection. 3. Continue pain control with Dilaudid IV Ijeoma Escobedo M.D. Pager: [phone] [facility] [address] [place] [address], [facility], [address] [place] [address] Office: [phone]
--- NOTE | 2018-09-18 12:00 | CASEMGMT ---
Social Work Note SW met with pt as pt is listed as self-pay. SW introduced self and role at [facility]. Pt confirms that she is self-pay and PFS was in to speak with pt earlier today. Pt states that she completed Medicaid application and HCAP application with PFS. SW provided pt with financial resources including [employer], [employer], [facility], and prescription assistance resources. Pt denied additional needs or concerns at this time. Cherri Leong DUCT LAYER HELPER, MANAGER PE
--- NOTE | 2018-09-18 13:48 | NURSING ---
report called to [facility]A [place]ri[place] in for surgery
[2018-09-18] MEDS: Cefazolin 2 GM in 0.9% Normal Saline 100 ML IV (15:45)
[2018-09-18] MEDS: Bupiv/Epi 0.5% Mpf 30 ML Vial (16:06)
--- NOTE | 2018-09-18 16:49 | PCM.OPRPT ---
Report of Operation Date of Procedure: 09/18/18 Pre-Operative Diagnosis: Incarcerated left inguinal hernia Post-Operative Diagnosis: Incarcerated left femoral hernia Surgery/Procedure Performed:: Open left femoral hernia repair with mesh it applications manager: Erlinda Muse Type of Anesthesia:: General/Supplemental Anesthesiologist: Dionisio Burroughs Special Medications: Ancef 2 g IV x1 Specimen's removed: None Estimated Blood Loss (mL): <10 cc Fluids Replaced: 800 cc Description of Procedure: Indications: This is a 43-year-old female who who had left groin pain with a bulge, CT abdomen pelvis was consistent with left inguinal hernia, with a normal white blood cell count and no evidence of bowel including in the hernia on CT. Left inguinal hernia repair with possible mesh was elected with possible diagnostic laparoscopy. Description procedure: The patient was taken to the operating room. A timeout was completed verifying correct patient, procedure, site, positioning, and special equipment prior to beginning procedure. General anesthesia was induced. The bilateral groins and abdomen was prepped and draped in usual sterile fashion. An incision was marked in the natural skin crease and planned in the near the pubic tubercle on the left groin. A field block was produced by raising skin wheals along the proposed incision in a skin wound was raised about 1 cm medial to the anterior superior iliac spine using 0.5% Marcaine for a total of 20 mL. Skin incision was made with the knife and deepened through the Janet and Camper's fascia with electrocautery until the aponeurosis of the external oblique was a identified. This was cleaned; however the bulge was actually coming from below the inguinal ligament. The neck of the femoral hernia was able to be dissected and a finger was able to be passed into the abdomen through the femoral canal. The herniated contents appeared to be viable abdominal adipose tissue. This was able to be carefully reduced into the abdomen without needing to enlarge the femoral hernia neck. Ultra Pro Prolene mesh was rolled into a cigarette and placed into the femoral canal after all the contents were fully reduced. This was secured to the inguinal ligament and circumferentially careful to avoid the femoral vessels with 2-0 interrupted silk sutures. Hemostasis was checked and assured. The cavity was was irrigated with saline. Janet's fascia was closed with interrupted sutures of 3-0 Vicryl. Skin was closed running subcuticular suture of 4-0 Monocryl with Steri-Strips gauze and Tegaderm. Patient was extubated. Patient tolerated the procedure well and sent to the postanesthesia care in stable condition. Grafts/Implants Used: Ethicon ultra pro Prolene mesh - Complications none
--- NOTE | 2018-09-18 16:59 | DCINST_ITS ---
Discharge Diet: Light diet - advance as tolerated Discharge Activity: May not drive while taking narcotic pain medications. May shower in (days): 1 Lifting Restrictions: no lifting >20 lbs for 4 weeks, no strenous exercise for 8 weeks Call your doctor if your incision/area has: Continuous Slow Oozing, Sudden Increased Bleeding, Increased Pain/ Swelling, Increased Redness, Foul Smelling Discharge, Swelling at the incision site Call your doctor if you observe: Fever of 101 or Higher Remove Dressing in (days):: 2 Allergies/Adverse Reactions: Allergies No Known Allergies Allergy (Verified 09/17/18 19:50) Medications to take at Discharge Omeprazole [Prilosec] 40 mg PO DAILY 01/11/16 Esomeprazole Mag Trihydrate [Nexium] 40 mg PO DAILY 06/25/18 Omeprazole [Prilosec] 40 mg PO BID 30 Days cap 09/19/18 Oxycodone HCl/Acetaminophen [Percocet 5/325] 1 - 2 tablet PO Q4H PRN PRN 4 Days #40 tablet 09/19/18 The following prescriptions were given: Oxycodone HCl/Acetaminophen [Percocet 5/325] 1 - 2 tablet PO Q4H PRN PRN 4 Days #40 tablet PRN Reason: Pain Omeprazole [Prilosec] 40 mg PO BID 30 Days cap Primary Care Physician: Jai Archer MD [Primary Care Provider] - Test Results: Test results from this visit will be discussed in further detail at your follow- up appointment, if applicable. Please Follow Up With: Ijeoma Escobedo MD - After 5:00pm and on the weekends call [phone] with any concerns When: Call the office [phone] for appointment in 2 weeks. Proposed Discharge Date: 09/19/18
[2018-09-18] MEDS: oxyCODONE 5 MG Tablet PO ×2 (18:42→23:06)
[2018-09-18] MEDS: 0.9% NaCl Peripheral Flush Adult/Peds IV ×2 (20:05→23:58)
[2018-09-18] MEDS: Famotidine 20 MG Tablet PO (22:14)
[2018-09-19 04:10] VITALS: BP 108/85; PULSE 54; RESP 16; TEMP 36.9; O2SAT 94
[2018-09-19] MEDS: oxyCODONE 5 MG Tablet PO ×2 (04:14→08:23)
[2018-09-19] MEDS: 0.9% NaCl Peripheral Flush Adult/Peds IV (06:44)
[2018-09-19] MEDS: HYDROmorphone 0.5 MG/0.5 ML SYRINGE IV (06:44)
--- NOTE | 2018-09-19 07:36 | PCM.PN.SRG ---
Subjective: c/o Left groin pain, controlled w meds, kian PO - Physical Exam General: Alert, Oriented x3, Cooperative, No apparent distress Abdomen: Soft, Non Tender, Non-Distended, - - +ttp left groin, incision dressed c/d/i Extremities: No clubbing, No cyanosis, No edema Vital Signs Temp Pulse Resp BP Pulse Ox 98.5 F 54 L 16 108/85 H 94 09/19/18 04:10 09/19/18 04:10 09/19/18 04:10 09/19/18 04:10 09/19/18 04:10 Oxygen Flow Rate (L/min) [3] 15 Oxygen Flow Rate (L/min) [2] 15 Oxygen Flow Rate (L/min) [1 ( 15 Initial Baseline)] Oxygen Flow Rate (L/min) 1 Oxygen Delivery Method [3] Non-Rebreather Oxygen Delivery Method [2] Non-Rebreather Oxygen Delivery Method [1 ( Non-Rebreather Initial Baseline)] Oxygen Delivery Method Room Air Weight: 179 lb 3.773 oz Body Mass Index (BMI) 31.7 Intake and Output for Last 24 Hours 09/17/18 09/18/18 09/19/18 23:59 23:59 23:59 Intake Total 2589 / 2589 430 / 430 Balance 2589 / 2589 430 / 430 Medical Necessity - Tobacco Use Smoking Status: Never smoker Assessment/Plan All Active Problems Chest pain (Acute) 43-year-old female with incarcerated left femoral hernia, POD 1 s/p left femoral hernia repair w mesh 1. regular diet 2. Continue pain control with oxyIR, tylenol, ibu 3. If tolerates diet able to ambulate and pain controlled okay to DC home Ijeoma Escobedo M.D. Pager: [phone] [facility] [address] [place] [address], [facility], [address] [place] [address] Office: [phone]
--- NOTE | 2018-09-19 07:40 | PN.SURG_ITS ---
Subjective: c/o Left groin pain, controlled w meds, kian PO - Physical Exam General: Alert, Oriented x3, Cooperative, No apparent distress Abdomen: Soft, Non Tender, Non-Distended, - - +ttp left groin, incision dressed c/d/i Extremities: No clubbing, No cyanosis, No edema Vital Signs Temp Pulse Resp BP Pulse Ox 98.5 F 54 L 16 108/85 H 94 09/19/18 04:10 09/19/18 04:10 09/19/18 04:10 09/19/18 04:10 09/19/18 04:10 Oxygen Flow Rate (L/min) [3] 15 Oxygen Flow Rate (L/min) [2] 15 Oxygen Flow Rate (L/min) [1 ( 15 Initial Baseline)] Oxygen Flow Rate (L/min) 1 Oxygen Delivery Method [3] Non-Rebreather Oxygen Delivery Method [2] Non-Rebreather Oxygen Delivery Method [1 ( Non-Rebreather Initial Baseline)] Oxygen Delivery Method Room Air Weight: 179 lb 3.773 oz Body Mass Index (BMI) 31.7 Intake and Output for Last 24 Hours 09/17/18 09/18/18 09/19/18 23:59 23:59 23:59 Intake Total 2589 / 2589 430 / 430 Balance 2589 / 2589 430 / 430 Medical Necessity - Tobacco Use Smoking Status: Never smoker Assessment/Plan All Active Problems Chest pain (Acute) 43-year-old female with incarcerated left femoral hernia, POD 1 s/p left femoral hernia repair w mesh 1. regular diet 2. Continue pain control with oxyIR, tylenol, ibu 3. If tolerates diet able to ambulate and pain controlled okay to DC home Ijeoma Escobedo M.D. Pager: [phone] [facility] [address] [place] [address], [facility], [address] [place] [address] Office: [phone]
[2018-09-19] MEDS: Famotidine 20 MG Tablet PO (08:18)
[2018-09-19] MEDS: Acetaminophen 500 MG Tablet 1000 MG PO (08:22)
[2018-09-19 09:11] VITALS: BP 120/70; PULSE 60; RESP 18; TEMP 36.4; O2SAT 97
[2018-09-19] MEDS: Ibuprofen 600 MG Tablet PO (09:20)
[2018-09-19] MEDS: Gabapentin 300 MG Capsule PO (11:17)
== END 2018-09-19 12:08 | disposition home or self-care (01) ==
LOC: ED 22:43 → MS3 09-18 00:03
PROVIDERS: Admitting Provider Surgery; Emergency Provider Emergency Medicine; Family Provider Family Medicine; PCP Family Medicine; Referring Provider Surgery; Visit Provider Surgery
PROC: (CPT 49553; principal; 2018-09-18 14:30)
DX: K41.30 Unilateral femoral hernia, with obstruction, without gangrene, not specified as recurrent (principal); K21.9 Gastro-esophageal reflux disease without esophagitis; Z79.899 Other long term (current) drug therapy
CPT/HCPCS: 00830; 49553; 36415; 74176; 80048; 80076; 81001; 83690; 85025; 96361; 96365; 96366; 96375; 96376; 99218; 99283; J7030; J7120; A4216; C1781; G0378; J2405

== ENCOUNTER 2019-06-04 14:26 | Emergency (ER) | payer SELFPAY ==
[2018-09-18 13:36] VITALS: BMI 31.7
[2019-06-04 14:28] VITALS: BP 165/105; PULSE 85; RESP 16; TEMP 36.6; O2SAT 98; BMI 30.9
--- NOTE | 2019-06-04 14:41 | RAD_ITS ---
STUDY: X-RAY - LEFT ANKLE REASON FOR EXAM: Female, 43 years old. Pain following a fall. TECHNIQUE: 3 view(s) of the ankle. COMPARISON: None. FINDINGS: Normal visualized distal tibia and fibula. Normal medial and lateral malleoli. Normal tibiotalar articulation and ankle mortise. A spur is seen at the insertion of the Achilles tendon. The visualized subtalar, talonavicular, calcaneocuboid and tarsal articulations are normal. Diffuse lateral soft tissue swelling. Small joint effusion. RAD/Ankle min 3 Views IMPRESSION: Diffuse lateral soft tissue swelling and small joint effusion. Electronically Signed: Gene Prince, at 15:35 EDT , Service support ,
--- NOTE | 2019-06-04 14:41 | RAD_ITS ---
STUDY: X-RAY - LEFT TIBIA AND FIBULA REASON FOR EXAM: Female, 43 years old. Pain following a fall. TECHNIQUE: 2 view(s) of the tibia and fibula were obtained. COMPARISON: None. FINDINGS: Normal visualized tibia. Normal visualized fibula. The soft tissue structures are unremarkable. RAD/Tibia & Fibula 2 Views IMPRESSION: Normal x-ray examination of the tibia and fibula. Electronically Signed: Gene Prince, at 15:34 EDT , Service support ,
--- NOTE | 2019-06-04 14:47 | ED.VISSUMM ---
- ER Visit Summary Date of Service: 06/04/19 Chief Complaint: Ankle injury History of Present Illness: The patient is a 43 F states that she was walking by her camper today when she stepped in a hole sustaining an inversion injury. Patient notes pain from the knee down. No bleeding. No head injury. She denies any other injuries. Physical Examination: Afebrile vital signs stable Patient has tenderness over the fibular head. There is no tibial shaft pain. She has swelling over the lateral malleolus and tenderness. No fifth metatarsal tenderness. Neurovascular intact. The posterior medial malleolus symptoms. Test Results: X-rays of the tib-fib and ankle were obtained. This showed soft tissue swelling but no fracture. Emergency Department Course and Treatment: Aircast was applied.. The patient has crutches at home. She will follow-up with primary care if not improving. Ricem therapy. Impression: 1. Left ankle sprain This note was generated with [employer] dictation software. It may contain incorrect words, spelling, and punctuation that were not noted in review of the chart prior to signing ED Disposition - Plan for ED Patient: Disposition: Home or Assisted Living Instructions: Sprain, Ankle, with X-Ray Referrals: Jai Archer MD [NON-STAFF] - 10-14 Days if not better
[2019-06-04] MEDS: Ibuprofen 600 MG Tablet PO (15:24)
== END 2019-06-04 16:08 | disposition home or self-care (01) ==
PROVIDERS: Emergency Provider Emergency Medicine
DX: S93.402A Sprain of unspecified ligament of left ankle, initial encounter (principal); X50.1XXA Overexertion from prolonged static or awkward postures, initial encounter; Y93.01 Activity, walking, marching and hiking; Y92.9 Unspecified place or not applicable
CPT/HCPCS: 73590; 73610; 99283

== ENCOUNTER 2019-08-20 10:57 | Emergency (ER) | payer MEDICAID, SELFPAY ==
[2019-08-20 10:58] VITALS: BP 159/101; PULSE 82; RESP 16; TEMP 37.1; O2SAT 98; BMI 29.1
--- NOTE | 2019-08-20 11:06 | EKG12_ITS ---
Test Reason : CP Blood Pressure : / mmHG Vent. Rate : 070 BPM Atrial Rate : 070 BPM P-R Int : 142 ms QRS Dur : 082 ms QT Int : 396 ms P-R-T Axes : 040 001 031 degrees QTc Int : 427 ms Normal sinus rhythm Normal ECG Confirmed by UVALDO HERNANDEZ, KARO ([id number]), editor publications NERI BENAVIDES ([id number]) on 08/21/2019 1:53:04 PM Referred By: FLO Confirmed By:KARO BAILON MD
--- NOTE | 2019-08-20 11:06 | RAD_ITS ---
STUDY: X-RAY CHEST REASON FOR EXAM: Female, 43 years old. Cough and shortness of breath. TECHNIQUE: PA and lateral views of the chest. COMPARISON: Comparison is made with prior examination of June 25, 2018. FINDINGS: EKG electrodes are seen. The lungs are clear and expanded. Scattered calcified granulomas. There is no demonstrated pleural abnormality. Normal size heart. Normal mediastinum and cj. Normal visualized pulmonary arteries. Normal visualized aortic arch and descending thoracic aorta. Normal visualized thoracic spine. Normal visualized ribs, clavicles, and shoulders. There is no demonstrated abnormality of the visualized soft tissue structures of the upper abdomen. RAD/Chest PA and Lateral IMPRESSION: Normal x-ray examination of the chest. Electronically Signed: Gene Prince, at 12:15 EST , Service support ,
--- NOTE | 2019-08-20 11:07 | ED.DCSUM_ITS ---
- ER Visit Summary Date of Service: 08/20/19 Chief Complaint: Cough, left lower rib pain History of Present Illness: The patient is a 43 F who complains of a cough for 6 months. She states that her cough is productive and has been constantly annoying her for 6 months. 3 days ago she developed pain in the left lower ribs after coughing. This pain is not worse with coughing and movement. She took Aleve for it with no relief. She states that she has been waking up in the morning with bruises all over her body. She denies any trauma. She states that she also has nausea and vomits every night. She does not have a doctor and has not seen anybody about this. She denies any health problems. She has had a hysterectomy in the past. Physical Examination: Vital signs reviewed. HEENT exam unremarkable. Heart is regular rate and rhythm without murmurs. Lungs are clear to auscultation. She does have chest tenderness in the left lower rib area anteriorly to the axilla. Abdomen is soft and nontender. Extremities reveal no edema. Skin exam normal. Neurologic exam normal. Test Results: EKG is sinus rhythm with no ST changes. Chest x-ray normal. Laboratory studies normal. Emergency Department Course and Treatment: The patient is PERC negative. I feel this is likely a rib strain. I will give her an albuterol inhaler to help with her cough. Lidocaine patches to help with the rib pain. She will continue NSAIDs. I will give her a PCP to follow-up with. Treatment Plan: [] Disposition: Discharge Impression: Left rib pain This note was generated with [employer] dictation software. It may contain incorrect words, spelling, and punctuation that were not noted in review of the chart prior to signing ED Disposition - Plan for ED Patient: Referrals: Care Physician,No Primary [Primary Care Provider] -
[2019-08-20 11:25] VITALS: BP 156/114; PULSE 70; RESP 20; O2SAT 95
[2019-08-20 11:26] LABS: Absolute Lymphocyte Count 1.47 X10^3/uL (0.83-4.51); Absolute Neutrophil Count 3.6 X10^3/uL (2.0-7.7); Basophil# 0.03 X10^3/uL; Basophil% 0.5 % (0-1); Eosinophil# 0.31 X10^3/uL; Eosinophils% 5.2 % (0-5); Hematocrit 40.6 % (37-47); Hemoglobin 13.2 g/dL (12.0-15.0); Lymphocyte # 1.47 X10^3/ul (4.0); Lymphocyte % 24.9 % (19-41); Mean Corp Hgb Conc 32.5 g/dL (32-36); Mean Corpuscular Hgb 27.5 pg (27.0-32.0); Mean Corpuscular Volume 84.6 fL (81-99); Mean Platelet Vol. 10.2 fl (6.2-12.0); Monocyte# 0.45 X10^3/uL; Monocyte% 7.6 % (0-10); NRBC Flagged by Analyzer 0 % (0-5); Neutrophil # 3.64 X10^3/uL (2.7-7.7); Neutrophil % 61.6 % (47-70); Platelet Count 297 K/mm3 (150-450); RBC Distribution Width CV 12.3 % (11.6-14.6); RBC Distribution Width SD 37.6 fl (35.1-43.9); White Blood Count 5.9 K/mm3 (4.4-11.0)
[2019-08-20] MEDS: Ketorolac 30 MG/ML Syringe IV (11:29)
[2019-08-20 11:43] LABS: BUN 10 mg/dL (7-18); Creatinine, Serum 1.07 mg/dL (0.55-1.02); Estimated Creatinine Clearance 60.37 ml/min; Glucose 91 mg/dL (74-106)
[2019-08-20 11:44] LABS: Anion Gap 7 (5-15); BUN/Creat Ratio 9.3 RATIO (10-20); Calcium,Total 8.7 mg/dL (8.5-10.1); Chloride 105 mmol/L (98-107); EST Glomerular Filtration Rate 59 mL/min (>60); Est Glom Filt Rate - Afr Amer 71 mL/min (>60); Potassium 3.8 mmol/L (3.5-5.1); Sodium Level 138 mmol/L (136-145)
[2019-08-20 12:00] VITALS: BP 141/102; PULSE 67; RESP 12; O2SAT 96
--- NOTE | 2019-08-20 12:32 | ED.DEP ---
ED Disposition - Plan for ED Patient: Disposition: Home or Assisted Living Instructions: Rib Contusion Prescriptions: Lidocaine [Lidoderm Patch] 1 patch TOPICAL DAILY #10 patch Prescription Printed Albuterol Inhaler [Ventolin Hfa] 1 - 2 puff INHALATION Q4H PRN PRN #1 inhaler PRN Reason: Wheezing Prescription Printed Referrals: Care Physician,No Primary [Primary Care Provider] -
[2019-08-20 12:38] VITALS: BP 152/105; PULSE 68; RESP 14; O2SAT 97
--- NOTE | 2019-08-20 12:44 | ED.RN ---
REVIEWED D/C INSTRUCTIONS, FOLLOW UP CARE, PRESCRIPTIONS, AND S/S THAT WOULD WARRANT A RETURN TO THE ED WITH PT. PT VERBALIZED AN UNDERSTANDING AND DENIES FURTHER QUESTIONS FOR THIS RN. PT SKIN P/W/D, RESP EVEN AND UNLABORED, PT A7O X 3, NO DISTRESS NOTED. PT AMBULATED OUT OF ED, GAIT STEADY.
== END 2019-08-20 12:45 | disposition home or self-care (01) ==
PROVIDERS: Emergency Provider Emergency Medicine
DX: R07.81 Pleurodynia (principal); R05 Cough; R11.2 Nausea with vomiting, unspecified
CPT/HCPCS: 71046; 80048; 84484; 85025; 93005; 96374; 99284; A4216

== ENCOUNTER 2019-08-28 10:59 | Emergency (ER) | payer MEDICAID, SELFPAY ==
[2019-08-28 11:02] VITALS: BP 136/93; PULSE 83; RESP 16; TEMP 36.4; O2SAT 100; BMI 29.1
--- NOTE | 2019-08-28 11:21 | EKG12_ITS ---
Test Reason : FLANK PAIN Blood Pressure : / mmHG Vent. Rate : 068 BPM Atrial Rate : 068 BPM P-R Int : 132 ms QRS Dur : 088 ms QT Int : 406 ms P-R-T Axes : 012 004 026 degrees QTc Int : 431 ms Normal sinus rhythm Normal ECG Confirmed by MARITA HERNANDEZ, ZHOU ([id number]), map editor NERI BENAVIDES ([id number]) on 08/31/2019 12:18:26 PM Referred By: SHAN/MATA Confirmed By:CONOR KIRKLAND MD
--- NOTE | 2019-08-28 11:22 | CT_ITS ---
STUDY: CTA CHEST REASON FOR EXAM: Female, 43 years old. Left lower chest pain. Hemoptysis. RADIATION DOSAGE (If Supplied By Facility): CTDIvol = ( 10.16 ) mGy, DLP = ( 322.50 ) mGycm TECHNIQUE: The examination was performed with the intravenous administration of IV Isovue 370 100. Post-processing of the angiographic images was performed, with multiplanar reformation and 3D reconstruction. Individualized dose optimization techniques were used for this CT. COMPARISON: 08/20/2019. FINDINGS: HEART: Normal heart size. No significant coronary artery disease. No pericardial effusion. Minimal contrast reflux into the hepatic IVC. AORTA/GREAT VESSELS: Adequate contrast enhancement. No aneurysm. No dissection. Vascular calcifications. PULMONARY ARTERIES: Adequate contrast enhancement. No acute pulmonary embolism. LUNGS/AIRWAYS/PLEURA: Central airways patent. No focal patchy airspace opacities. No suspicious lung nodules. No lung mass. No pneumothorax. No pleural effusion. Granuloma (axial image 134 series 2). MEDIASTINUM/THYROID: Normal thyroid. Shotty mediastinal lymph nodes. No mediastinal hematoma. No pneumomediastinum. SOFT TISSUES: No acute process. OSSEOUS STRUCTURES: Mild degenerative findings. No acute process. Nonaggressive appearing sclerotic densities at the C6 vertebral body (sagittal image 157 series 602 and T3 posterior elements (sagittal image 59 series 602). No fracture. No cortical destruction. No dislocation. UPPER ABDOMEN/ESOPHAGUS: Small hiatal hernia. No acute process. CT/CTA Chest W/WO Contrast IMPRESSION: No acute pulmonary embolism, aortic aneurysm or aortic dissection No pneumonia, pleural effusion or pneumothorax Electronically Signed: Roland Suarez DO at 12:22 EST Tel , Service support ,
[2019-08-28 11:43] LABS: Absolute Lymphocyte Count 1.99 X10^3/uL (0.83-4.51); Absolute Neutrophil Count 4.8 X10^3/uL (2.0-7.7); Basophil# 0.04 X10^3/uL; Basophil% 0.5 % (0-1); Eosinophil# 0.51 X10^3/uL; Eosinophils% 6.4 % (0-5); Hematocrit 39.3 % (37-47); Hemoglobin 12.8 g/dL (12.0-15.0); Lymphocyte # 1.99 X10^3/ul (4.0); Lymphocyte % 25.2 % (19-41); Mean Corp Hgb Conc 32.6 g/dL (32-36); Mean Corpuscular Hgb 27.1 pg (27.0-32.0); Mean Corpuscular Volume 83.3 fL (81-99); Mean Platelet Vol. 10.6 fl (6.2-12.0); Monocyte# 0.61 X10^3/uL; Monocyte% 7.7 % (0-10); NRBC Flagged by Analyzer 0 % (0-5); Neutrophil # 4.75 X10^3/uL (2.7-7.7); Neutrophil % 60.1 % (47-70); Platelet Count 283 K/mm3 (150-450); RBC Distribution Width CV 12.6 % (11.6-14.6); RBC Distribution Width SD 38.4 fl (35.1-43.9); Red Blood Count 4.72 M/mm3 (4.2-5.4); White Blood Count 7.9 K/mm3 (4.4-11.0)
[2019-08-28 11:46] LABS: International Normalized Ratio 1.1; Prothrombin Time (Protime)PT. 13.6 SECONDS (11.7-14.9)
[2019-08-28 11:47] LABS: Partial Thromboplast Time 24.7 Seconds (24.1-36.2)
--- NOTE | 2019-08-28 11:47 | ED.VIS.GEN ---
History of Present Illness Chief Complaint: Other, Pain/Inj Informant: Patient Onset: Weeks - 1 Narrative: Presents here for evaluation persistent left lower chest pain for the past week. Reports that concerns of a lump there. Reports was having a cough. Reports seen in the ED at that time with the work-up that was negative. States she is concerned that there is more bulging of the left lower chest region that would come and go however none currently. Denies trauma. Reports intermittent hemoptysis. No tobacco history. No recent travel, surgeries, or immobilizations. No history of PE or DVT. Denies fever or rash in the area. No previous similar symptoms prior to a week ago. Just got established with insurance, however is unable to get in with a PCP at this point. Records reviewed from 8 days ago in the ED she had a cardiac work-up at negative. She was PERC negative at that time. Discharge with lidocaine patch inhaler, NSAIDs , and treatment for rib strain. Prior similar symptoms: Yes Past Medical History - Allergies and Home Meds Allergies/Adverse Reactions: Allergies No Known Allergies Allergy (Verified 08/28/19 11:02) Primary Care Physician: Care Physician,No Primary [Primary Care Provider] - Surgical History: hysterectomy - With the possible right oophorectomy patient believes she still has the left, tonsillectomy, - - Smoking Status: Never smoker - Family History Maternal Family History: Reports: No pertinent history Paternal Family History: Reports: Heart Disease Review of Systems General: Denies: Chills, Fever, Sweats Eyes: Denies: Visual changes - bilaterally, Diplopia ENT: Denies: Rhinorrhea, Sore throat Cardiovascular: Reports: Chest pain. Denies: Palpitations Respiratory: Reports: Cough. Denies: Dyspnea, Dyspnea on exertion Gastrointestinal: Denies: Abdominal pain, Nausea, Vomiting, Diarrhea, Melena, Hematochezia Genitourinary: Denies: Dysuria, Hematuria, Frequency Musculoskeletal: Denies: Back pain, Extremity Pain Skin: Denies: Rash, Wounds Neurological: Denies: Headache, Weakness, Numbness Physical Exam Vital Signs/Narrative: Vital Signs Temp Pulse Resp BP Pulse Ox 08/28/19 11:02 97.5 F L 83 16 136/93 H 100 Inital Vital Signs reviewed: Yes General: Well nourished, Well developed, No Acute Distress Head: Normocephalic, Atraumatic Eyes: Perrl, EOMI ENT: Moist mucous membranes, No rhinorrhea Neck: Supple, Nontender Cardiovascular: Regular rate, Regular rhythm, No murmurs Respiratory: No distress, CTA bilaterally, Chest tenderness, - - Reproducible left lower rib tenderness with no crepitus or ecchymosis. There is no rash. There is no abnormal bulging. Abdomen: Soft, Nontender, Nondistended, Normal bowel sounds Back: Nontender, Normal Inspection Extremities: Nontender, No edema Skin: Normal color, No rash Neurological: Alert, Oriented x3, Cranial nerves II-XII grossly intact, Normal Strength, Normal Sensation Psychological: Normal affect, Normal Mood Diagnostic/Tx/Re-eval Clinical Impression(s) from Imaging Studies Chest CTA 08/28/19 11:22 IMPRESSION: No acute pulmonary embolism, aortic aneurysm or aortic dissection No pneumonia, pleural effusion or pneumothorax Electronically Signed: Roland Suarez DO at 12:22 EST Tel , Service support , Abnormal Lab Results 08/28/19 08/28/19 08/28/19 11:30 11:30 11:30 WBC 7.9 RBC 4.72 Hgb 12.8 Hct 39.3 MCV 83.3 MCH 27.1 MCHC 32.6 RDW Std Deviation 38.4 RDW Coeff of [facility] 12.6 Plt Count 283 MPV 10.6 Immature Gran % (Auto) 0.100 Neut % (Auto) 60.1 Lymph % (Auto) 25.2 [place] % (Auto) 7.7 Eos % (Auto) 6.4 H Baso % (Auto) 0.5 Absolute Neuts (auto) 4.8 Absolute Lymphs (auto) 1.99 Nucleated RBC % 0 PT 13.6 INR 1.1 APTT 24.7 Sodium 138 Potassium 3.6 Chloride 106 Carbon Dioxide 26.0 Anion Gap 6 BUN 9 Creatinine 0.84 Estim Creat Clear Calc 76.90 Est GFR (MDRD) Af Amer 94 Est GFR (MDRD) Non-Af 78 BUN/Creatinine Ratio 10.7 Glucose 97 Calcium 8.9 Troponin I < 0.015 - EKG Initial EKG Interpretation: Sinus Rhythm - Sinus rate of 68, no ST changes. - Medical Decision Making Patient reproducible pain, however having continued persistent symptoms. She now reports hemoptysis and is currently PERC positive. With her persistent symptoms discussed cardiac work-up with CT scan for further evaluation. EKG with no acute changes. Cardiac work-up negative. CT scan negative for any acute process. Reports coughing for 6 months, will treat with antibiotics due to prolonged symptoms. Also short prescription for additional pain control. She will follow-up as an outpatient. She will monitor for any rash. All questions were answered. ED Disposition - Plan for ED Patient: Disposition: Home or Assisted Living Diagnosis: Chest wall pain, Bronchitis Instructions: Chest Wall Strain, Acute Bronchitis Prescriptions: Oxycodone HCl/Acetaminophen [Percocet 5/325] 1 tablet PO Q6H PRN PRN 3 Days #12 tablet PRN Reason: Pain Azithromycin [Zithromax Z-Hugo] 250 mg PO UD #1 box Referrals: Care Physician,No Primary [Primary Care Provider] - Additional Instructions: CTA chest negative. Follow up with your doctor.
[2019-08-28 11:52] LABS: Anion Gap 6 (5-15); BUN 9 mg/dL (7-18); BUN/Creat Ratio 10.7 RATIO (10-20); Calcium,Total 8.9 mg/dL (8.5-10.1); Chloride 106 mmol/L (98-107); Creatinine, Serum 0.84 mg/dL (0.55-1.02); EST Glomerular Filtration Rate 78 mL/min (>60); Est Glom Filt Rate - Afr Amer 94 mL/min (>60); Glucose 97 mg/dL (74-106); Potassium 3.6 mmol/L (3.5-5.1); Sodium Level 138 mmol/L (136-145)
[2019-08-28 13:08] VITALS: BP 159/89; PULSE 78; RESP 16; O2SAT 97
== END 2019-08-28 13:09 | disposition home or self-care (01) ==
PROVIDERS: Emergency Provider Emergency Medicine
DX: J40 Bronchitis, not specified as acute or chronic (principal); R07.89 Other chest pain
CPT/HCPCS: 71275; 80048; 84484; 85025; 85610; 85730; 93005; 99284; Q9967; A4216

== ENCOUNTER 2020-05-12 10:44 | Emergency (ER) | payer MEDICAID, SELFPAY ==
[2020-05-12 10:46] VITALS: BP 155/101; PULSE 72; RESP 17; TEMP 36.1; O2SAT 98; BMI 27.4
--- NOTE | 2020-05-12 11:10 | ED.DCSUM_ITS ---
History of Present Illness Chief Complaint: Abd Pain Informant: Patient Narrative: Patient is a 44-year-old female who presents to the emergency department for left lower quadrant abdominal pain. This has been present over the past week. She currently rates it as a 7 out of 10. She describes as a sharp pain. No radiation to her back. [place] does make the symptoms worse. She has had a few episodes of vomiting with this. She is been having 4-5 episodes of loose bowel movements per day. No blood in the stool or black tarry bowel movements. Nobody has similar symptoms. She denies any fevers or chills. She has had this pain before in the past that she relates to a history of ovarian cysts. She has had these operated on before. She does have a history of hysterectomy as well as hernia with mesh repair. She did develop some bleeding with intercourse as well recently. She denies any chest pain or shortness of breath. She has been taking Aleve for this which has not been giving much relief. She denies any recent traveling or antibiotic use. She denies any cough, cold, congestion. 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 Past Medical History - Allergies and Home Meds Allergies/Adverse Reactions: Allergies No Known Allergies Allergy (Verified 05/12/20 10:45) Primary Care Physician: Care Physician,No Primary [Primary Care Provider] - Prior records reviewed: Yes Surgical History: hysterectomy - With the possible right oophorectomy patient believes she still has the left, tonsillectomy, - - Smoking Status: Never smoker Drugs: None - Family History Maternal Family History: Reports: No pertinent history Paternal Family History: Reports: Heart Disease Review of Systems All systems negative except as indicated General: Denies: Chills, Fever, Sweats Eyes: Denies: Visual changes - bilaterally, Diplopia ENT: Denies: Rhinorrhea, Sore throat Cardiovascular: Denies: Chest pain, Palpitations Respiratory: Denies: Dyspnea, Cough, Dyspnea on exertion Gastrointestinal: Reports: Abdominal pain, Nausea, Vomiting, Diarrhea. Denies: Melena, Hematochezia Genitourinary: Denies: Dysuria, Hematuria, Frequency Musculoskeletal: Denies: Back pain, Extremity Pain Skin: Denies: Rash, Wounds Neurological: Denies: Headache, Weakness, Numbness Physical Exam Vital Signs/Narrative: Vital Signs Temp Pulse Resp BP Pulse Ox 05/12/20 10:46 96.9 F L 72 17 155/101 H 98 Inital Vital Signs reviewed: Yes General: Well nourished, Well developed, No Acute Distress Head: Normocephalic, Atraumatic Eyes: Perrl, EOMI ENT: Moist mucous membranes, No rhinorrhea Neck: Supple, Nontender Cardiovascular: Regular rate, Regular rhythm, No murmurs Respiratory: No distress, CTA bilaterally, Chest nontender Abdomen: Soft, Nondistended, Normal bowel sounds, Tender - Left lower quadrant to deep palpation.. Negative for: Guarding, Rebound tenderness, Vang's sign Back: Nontender, Normal Inspection Extremities: Nontender, No edema Skin: Normal color, No rash Neurological: Alert, Oriented x3, Cranial nerves II-XII grossly intact, Normal Strength, Normal Sensation Psychological: Normal affect, Normal Mood Diagnostic/Tx/Re-eval - Medical Decision Making Patient presents to the emerge department for abdominal pain and nausea/vomiting/diarrhea. Upon arrival vital signs within normal limits. She does not appear in any acute distress is nontoxic-appearing. She does have some left lower quadrant pain. She has had this pain before. Will check basic lab work along with ultrasound of the pelvis. Patient given Toradol and Zofran for symptomatic treatment. Urinalysis had bacteria and leukocyte Estrace without any white blood cells. She denies any dysuria or suprapubic pain. Will culture and hold off on treating with antibiotics. Initially planned on doing ultrasound but patient states that her left ovary uterus were removed. The left side is where her pain is that so instead we did a CT scan. This did not show any repeat hernia. She does have some diverticulosis without evidence of diverticulitis. Otherwise unremarkable CT sc an of the abdomen/pelvis. Toradol did give some slight relief. 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 Warning signs and symptoms for which to return to the emergency department are reviewed. At this time will discharge home in stable condition. She understands and is agreeable this plan. ED Disposition - Plan for ED Patient: Disposition: Home or Assisted Living Diagnosis: Abdominal pain, Dyspareunia Instructions: ED Abdominal Pain Unkn Cause Fem Referrals: Care Physician,No Primary [Primary Care Provider] - Bailey Dean MD [STAFF PHYSICIAN] -
[2020-05-12 11:51] LABS: Absolute Lymphocyte Count 1.39 X10^3/uL (0.83-4.51); Absolute Neutrophil Count 3.7 X10^3/uL (2.0-7.7); Basophil# 0.03 X10^3/uL; Basophil% 0.5 % (0-1); Eosinophil# 0.14 X10^3/uL; Eosinophils% 2.5 % (0-5); Hematocrit 39.6 % (37-47); Hemoglobin 12.7 g/dL (12.0-15.0); Lymphocyte # 1.39 X10^3/ul (4.0); Lymphocyte % 24.5 % (19-41); Mean Corp Hgb Conc 32.1 g/dL (32-36); Mean Corpuscular Hgb 27.7 pg (27.0-32.0); Mean Corpuscular Volume 86.3 fL (81-99); Mean Platelet Vol. 10.6 fl (6.2-12.0); Monocyte# 0.42 X10^3/uL; Monocyte% 7.4 % (0-10); NRBC Flagged by Analyzer 0 % (0-5); Neutrophil # 3.67 X10^3/uL (2.7-7.7); Neutrophil % 64.6 % (47-70); Platelet Count 274 K/mm3 (150-450); RBC Distribution Width CV 12.6 % (11.6-14.6); RBC Distribution Width SD 39.6 fl (35.1-43.9); Red Blood Count 4.59 M/mm3 (4.2-5.4); White Blood Count 5.7 K/mm3 (4.4-11.0)
[2020-05-12] MEDS: Ondansetron 4 MG/2 ML Vial IM (11:51)
[2020-05-12] MEDS: Ketorolac 30 MG/ML Syringe IM (11:51)
--- NOTE | 2020-05-12 12:04 | CT_ITS ---
STUDY: CT ABDOMEN AND PELVIS WITH CONTRAST REASON FOR EXAM: Female, 44 years old. LLQ PAIN, HX- HERNIA, DIVERTICULITIS, N/V/D X 2 WKS, BLEEDING WITH INTERCOURSE, PREV HYSTER, RADIATION DOSAGE (If Supplied By Facility): CTDIvol = ( 11.31 ) mGy, DLP = ( 678.65 ) mGycm TECHNIQUE: Transaxial images were obtained from the dome of the diaphragm to the symphysis pubis with oral contrast. Oral GASTROGRAFIN, 100 ML ISOVUE 300 was administered. Sagittal and coronal images were reconstructed. Individualized dose optimization techniques were used for this CT. COMPARISON: Comparison is made with prior examination dated 09/17/2018. FINDINGS: The visualized lung bases are unremarkable. The visualized portions of the heart are within normal limits. Normal liver. Normal gallbladder and extrahepatic biliary system. Normal spleen. Normal pancreas. Normal bilateral adrenal glands. Normal right kidney. Normal left kidney. Normal visualized stomach. Normal small intestine. There are scattered colonic diverticula consistent with diverticulosis. The appendix is visualized and appears normal. Normal abdominal aorta. Normal inferior vena cava. Normal retroperitoneum. Normal urinary bladder. There is absence of the uterus consistent with a prior hysterectomy. Normal abdominal wall. Status post left inguinal hernia repair. Normal osseous structures. CT/Abdomen/Pelvis WITH Contrast IMPRESSION: Scattered sigmoid diverticula. Electronically Signed: Gene Prince, at 14:28 EDT , Service support ,
[2020-05-12 12:05] LABS: AST(SGOT) 30 U/L (15-37); Alanine Aminotransfer ALT/SGPT 31 U/L (13-56); Albumin, Serum 3.4 g/dL (3.2-5.0); Alkaline Phosphatase 45 U/L (45-117); Anion Gap 5 (5-15); BUN 11 mg/dL (7-18); BUN/Creat Ratio 8.8 RATIO (10-20); Calcium,Total 8.4 mg/dL (8.5-10.1); Chloride 109 mmol/L (98-107); Creatinine, Serum 1.25 mg/dL (0.55-1.02); EST Glomerular Filtration Rate 49 mL/min (>60); Est Glom Filt Rate - Afr Amer 59 mL/min (>60); Estimated Creatinine Clearance 51.14 ml/min; Globulin 3.3 g/dL (2.2-4.2); Glucose 105 mg/dL (74-106); Lipase 121 U/L (73-393); Potassium 3.6 mmol/L (3.5-5.1); Protein, Total 6.7 g/dL (6.4-8.2); Sodium Level 142 mmol/L (136-145)
[2020-05-12 13:42] VITALS: RESP 18
[2020-05-12 14:08] LABS: Internal QC Validated? YES +Cl - CLEAR BKGD; Pregnancy, Urine Negative Negative
[2020-05-12 14:45] LABS: Mucous, Urine 0 SEEN /hpf (<or=2+); Red Blood Cells-Urine 0 SEEN /hpf (0-5); Squamous Epithelial Cells - UA 0 SEEN /hpf (5-10)
[2020-05-12 14:50] LABS: Color, Urine Yellow (Yellow); Glucose, Dipstick Normal (Normal); Ketone-Dipstick Negative (Negative); Leukocyte Esterase-Dipstick 500 /ul (Negative); Nitrite-Dipstick Negative (Negative); Occult Blood-Urine Negative /ul (Negative); Protein-Dipstick Negative (Negative); Specific Gravity, Urine 1.025 (1.002-1.030); Urine Bilirubin Dipstick Negative (Negative); Urine Clarity Turbid (Clear); Urine Urobilinogen Normal (Normal)
[2020-05-12 14:56] LABS: Amorphous Sediment 3+; Bacteria 2+ /hpf (None Seen); White Blood Cells 0-5 SEEN /hpf (0-5)
[2020-05-12 15:22] VITALS: RESP 18
== END 2020-05-12 15:23 | disposition home or self-care (01) ==
PROVIDERS: Emergency Provider Emergency Medicine
DX: R10.32 Left lower quadrant pain (principal); N94.10 Unspecified dyspareunia; R11.2 Nausea with vomiting, unspecified; R19.7 Diarrhea, unspecified; K57.30 Diverticulosis of large intestine without perforation or abscess without bleeding
CPT/HCPCS: 74177; 80053; 81001; 81025; 83690; 85025; 87086; 87088; 96372; 99283; Q9967; A4216; J2405

== ENCOUNTER → 2020-06-04 13:11 | Outpatient (CLI) | payer MEDICAID, SELFPAY ==
[2020-05-19 14:31] VITALS: BMI 27.9
--- NOTE | 2020-06-04 13:30 | SP.MBSS_ITS ---
PRIMARY / SECONDARY DIAGNOSIS: dysphagia (R13.10) CURRENT DIET (SOLIDS): regular textures (IDDSI: 7) CURRENT DIET (LIQUIDS): thin liquid diets (IDDSI: 0) DENTITION: natural upper / lower dentition MENTAL STATUS: intact RESPIRATORY STATUS: O2 via room air CURRENT FUNCTIONAL AMBULATION CATEGORY (FAC): 5 (ambulator- independent) REASON FOR REFERRAL: The Patient is a 44 year old female referred for a modified barium swallow (MBS) study to objectively assess the Patients oropharyngeal swallow function under fluoroscopy secondary to reported chronic coughing likely attributed to uncontrolled gastroesophageal reflux disease, with workup to rule out oropharyngeal phase dysphagia. MEDICAL HISTORY: Asthma, pneumonia, gastroesophageal reflux disease, anemia, diverticulitis PREVIOUS MODIFIED BARIUM SWALLOW STUDY RESULTS: None ASSESSMENT PARAMETERS: The Patient participated in a Modified Barium Swallow (MBS) study on 06/04/2020. This study was recorded in the lateral view and images were sent to PACs for storage. Scoring was completed through each trial using the 8- point Penetration-Aspiration Scale (PAS) and summarized via the Modified Barium Swallow Impairment Profile (MBSImP) and the Bolus Residue Scale (BRS), with severity scoring through the Dysphagia Severity Rating Scale (DSRS) and the Dysphagia Classification Scale (DCS), and recommended diet textures through the International Dysphagia Diet Standardisation Initiative (IDDSI) RESULTS OF THE EVALUATION: The Patient presents with mastication and deglutition abilities found to be grossly within functional limits (DSRS: 1) OBJECTIVE ASSESSMENT OF SWALLOW FUNCTION (QUANTITATIVE ? PER TRIAL): PENETRATION / ASPIRATION SCALE (CHIRINOS): 1 = does not enter airway 2 = enters airway/above vocal folds/ejected 3 = enters airway/above vocal folds/not ejected 4 = enters airway/contacts vocal folds/ejected 5 = enters airway/contacts vocal folds/not ejected 6 = enters airway/below vocal folds/ejected 7 = enters airway/below vocal folds/not ejected despite effort 8 = enters airway/below vocal folds/no effort PENETRATION / ASPIRATION SCALE (SCORE): Thin liquid - 5 mL tsp.: 1 Thin liquids via cup (single sip): 1 Thin liquids via cup (single sip): 1 Thin liquids via cup (single sip): 1 Pudding via spoon: 1 Regular textured cookie: 1 Thin liquids via straw (single sip): 1 OBJECTIVE ASSESSMENT OF SWALLOW FUNCTION (QUANTITATIVE ? AGGREGATE): MODIFIED BARIUM SWALLOW IMPAIRMENT PROFILE (MBSImP) LABIAL SEAL: 0 (of 4) no labial escape TONGUE CONTROL: 0 (of 3) cohesive bolus BOLUS PREPARATION / MASTICATION: 0 (of 3) timely and efficient BOLUS TRANSPORT / LINGUAL MOTION: 0 (of 4) brisk tongue motion ORAL RESIDUE: 1 (of 4) trace residue lining oral structures INITIATION OF PHARYNGEAL SWALLOW: 3 (of 4) pyriforms SOFT PALATE ELEVATION: 0 (of 4) no bolus between soft palate & pharyngeal wall LARYNGEAL ELEVATION: 1 (of 3) partial superior movement / approximation ANTERIOR HYOID EXCURSION: 1 (of 2) partial movement EPIGLOTTIC MOVEMENT: 0 (of 2) complete inversion LARYNGEAL VESTIBULE CLOSURE: 0 (of 2) complete closure PHARYNGEAL STRIPPING WAVE: 0 (of 2) present / complete PE SEGMENT OPENIN (of 3) minimal distension / duration; marked obstruction TONGUE BASE RETRACTION: 1 (of 4) trace column of contrast PHARYNGEAL RESIDUE: 1 (of 4) trace residue ESOPHAGEAL BOLUS CLEARANCE: could not view BOLUS RESIDUE SCALE (BRS): BRS SCORE: 1 (of 6) BRS SCORE DESCRIPTION: no residue OBJECTIVE ASSESSMENT OF SWALLOW FUNCTION (SEVERITY GRADING): DYSPHAGIA SEVERITY RATING SCALE (DSRS): DSRS CLASSIFICATION: 1 (within functional limits) DSRS CLASSIFICATION CHARACTERISTICS: instrumental exam shows slight deviance from a normal swallow; patient may report a change in sensation during swallow; no change in diet is required. DYSPHAGIA CLASSIFICATION SCALE (DCS): DCS CLASSIFICATION: D0 (normal) DCS CLASSIFICATION CHARACTERISTICS: without stasis or food consistency restrictions OBJECTIVE ASSESSMENT OF SWALLOW FUNCTION (QUALITATIVE): ORAL PREPARATORY PHASE: sufficient mastication rate and quality; sufficient anterior oral containment during oral manipulation; preserved management of breathing / bolus formation without disrupted E ? S ? E pattern ORAL TRANSITIONAL PHASE: no presence of transitional incompetence; no bolus consolidation impairments; sufficient oral containment across textures with no presence of premature posterior bolus loss PHARYNGEAL PHASE: mild pharyngeal phase dyssynchrony with no functional impact; appropriate hyolaryngeal excursion and laryngeal vestibule closure / pressure; appropriate pharyngeal motility; appropriate velopharyngeal functioning; ESOPHAGEAL PHASE: no obvious esophageal phase abnormalities observed. CONTRIBUTING / COMPLICATING FACTORS AND NOTABLE FINDINGS: intermittent coughing prior to, during, and following the study, with no attribution to intake; noted cervical osteophyte located at the C-6 level with mild bulge in soft tissue minimal to no impact on pharyngeal motility INTERVENTION RECOMMENDATIONS AND CONSIDERATIONS: The Patient presents with mastication and deglutition abilities found to be grossly within functional limits. No penetration or aspiration appreciated throughout consistencies trialed. POST ASSESSMENT EDUCATION: The results and recommendations were discussed with the Patient immediately following MBS completion, with the Patient verbalizing understanding and agreement with all recommendations and education provided. DIET TEXTURE RECOMMENDATIONS: Will recommend a regular textured (IDDSI: 7), thin liquid diet (IDDSI: 0) diet RECOMMENDED COMPENSATORY STRATEGIES: Reduced bolus volume / rate of ingestion, seated upright at 90 degrees during PO intake, remain upright for 30-60 minutes post meal (GERD precaution) IMAGE COUNT: [phone] Rosas M.A., YIN-JEWELRY APPRAISER, CBIS MBSImP Certified, LSVT Certified [facility] Speech-Language Pathology Department Email: [email or web address]
== END ==
PROVIDERS: Referring Provider Internal Medicine Critical Care Medicine; Visit Provider Internal Medicine Critical Care Medicine
DX: R13.10 Dysphagia, unspecified (principal)
CPT/HCPCS: 74230; 92611

== ENCOUNTER 2020-06-05 07:53 | Day surgery (SDC) | payer MEDICAID, SELFPAY ==
--- NOTE | 2020-05-19 06:25 | HP_ITS ---
Intake Vital Signs 05/19/20 Height 5 ft 5 in 05/19/20 Weight: 168 lb 05/19/20 BMI 27.9 05/19/20 BP 161/104 H 05/19/20 Blood Pressure Location Rt brachial 05/19/20 Position Sitting 05/19/20 Respiration 16 05/19/20 Pulse 80 05/19/20 Pulse Source Monitor 05/19/20 Temp 97.7 F L 05/19/20 Temp Source Temporal 05/19/20 Pulse Oximetry (%) 99 05/19/20 Oxygen Delivery Method room air Intake Visit Reasons: Esophagogastroduodenoscopy Chief Complaint: GERD/ Dysphagia Architectural Representative Required: No Is patient in pain?: No (LLQ pain) Allergies No Known Allergies Allergy (Verified 05/15/20 07:23) Medications albuterol sulfate 90 mcg/actuation aerosol inhaler 2 puff INHALATION Q4H PRN #1 device 05/15/20 [Rx Confirmed 05/19/20] omeprazole magnesium 20 mg tablet,delayed release 40 mg PO DAILY #60 tab 05/15/20 [Rx Confirmed 05/19/20] PFSH Medical History Diarrhea (Acute) Nausea & vomiting (Acute) LLQ abdominal pain (Acute) SOB (shortness of breath) (Acute) Anxiety (Acute) High blood pressure (Chronic) Dysphagia (Acute) Diverticulitis (Acute) Asthma (Acute) Pneumonia (Acute) Anemia (Acute) GERD (gastroesophageal reflux disease) (Acute) GERD (gastroesophageal reflux disease) (Chronic) Chest pain (Acute) Surgical History Hx of tonsillectomy (Resolved) H/O: hysterectomy (Resolved) history of femoral hernia repair (Resolved ~09/2018) Family History Father Heart disease COPD (chronic obstructive pulmonary disease) Asthma CVA (cerebral vascular accident) Sister Diabetes GERD (gastroesophageal reflux disease) Cancer Skin Cancer Social History (Updated 05/19/20 @ 18:[address] Filiberto Grimaldo MD) Smoking Status: Never smoker HPI HPI HPI: STEPHY RAMOSINGTON, is a 44 F who presents to the office today for HPI HPI Surgical H&P: Yes HPI: STEPHY MARTE, is a 44 F who presents to the office today for Reflux. The patient notes that she has been having cough and she has severe reflux at baseline. She is on a PPI and she says that it is not sufficient and she has regurgitation of food as well as severe acid reflux especially when laying down. She also has pain with eating. She also reports that she has dysphasia and she has been unable to swallow certain things especially liquids. ROS General General: No weight change or fatigue HEENT HEENT: Yes difficulty swallowing Skin Skin: Yes rash Cardio Cardiovascular: Yes high blood pressure; no murmur, pacemaker, heart disease, atrial fibrillation, heart attack, heart stent, palpitations, shortness of breat with exertion or chest pain Psych Psychiatric: Yes depression and anxiety Resp Respiratory: Yes shortness of breath, No sleep apnea, Yes cough, No COPD, Yes asthma, No emphysema, No wheezing Gastro Gastrointestinal: Yes abdominal pain, Yes nausea or vomiting, Yes diarrhea, Yes constipation, No blood in stool, Yes acid reflux, No hemorrhoids, No ulcers, No gallbladder problem, No black,tarry stools Yusuf Hematologic: No blood thinners, Yes anemia Exam Const General: cooperative Orientation: alert, oriented x3 Resp Effort & Inspection: normal respiratory effort Auscultation: clear to auscultation bilaterally Cardio Rate: regular rate Rhythm: regular rhythm Heart Sounds: no murmurs GI Inspection: non-distended Palpation: soft, nontender Assessment & Plan Problems 1. Diarrhea, unspecified type R19.7 2. Nausea and vomiting, intractability of vomiting not specified, unspecified vomiting type R11.2 3. Gastroesophageal reflux disease, esophagitis presence not specified K21.9 Plan The patient notes that she has severe acid reflux with cough. She says the PPI has not been sufficient. She was referred due to her chronic cough. She says that she has dysphasia and she is seeing someone else for this as well. She says she has difficulty swallowing. She also reports regurgitation nausea and vomiting. She has occasional diarrhea alternating with constipation. I discussed EGD with the patient but the patient would also be possibly interested in fundoplication. I discussed preoperative evaluation for fundoplication and I discussed EGD including pH probe as well as manometry. The patient would like to have fundoplication as an option and she will proceed with EGD with pH probe and manometry. I explained endoscopy in detail to the patient. I explained the risks including but not limited to stroke or heart attack with anesthesia, perforation of the GI tract, bleeding, infection. I explained that any of these could necessitate further emergency surgery. The patient understands and all questions were answered sufficiently. The patient wishes to proceed with procedure. We discussed the current risks associated with COVID-19. While it is understood that there is a community spread of COVID-19, the risk of bushra COVID-19 while at [facility] ([facility]) is very low; however, the risk cannot be completely mitigated because of the community spread of the disease. We discussed in detail the risk of exposure to and/or potential harm posed by the COVID-19 virus with having a surgery/procedure at this time versus the risk of delaying the surgery/procedure. It is not possible to know either the risk of delaying the surgery or procedure or chance of getting an infection with perfect accuracy, but a joint decision was made to proceed at this time with the scheduled surgery/procedure as indicated on the consent form. Patient was notified that we will need to comply with any screening or testing [facility] wishes to perform or that surgery may be delayed for any positive results. Filiberto Grimaldo MD Pager: [facility] [address] [place] [address], [address] [place] [address] Office: Orders Orders: EGD Today K21.9 Esophageal Manometry Today K21.9 Coding Level of Care Code Off vis,new,level 3 Diagnoses Diarrhea, unspecified type R19.7 ??Diarrhea type: unspecified type Nausea and vomiting, intractability of vomiting not specified, unspecified vomiting type R11.2 ??Vomiting Intractability: unspecified ??Vomiting type: unspecified Gastroesophageal reflux disease, esophagitis presence not specified K21.9 ??Esophagitis presence: esophagitis presence not specified 05/19/20 6019 <Electronically signed by Filiberto torres MD> Date _ Filiberto Grimaldo MD
[2020-05-19 14:31] VITALS: BMI 27.9
[2020-06-05 08:50] VITALS: BP 160/122; PULSE 80; RESP 16; TEMP 36.8; O2SAT 98
== END 2020-06-05 08:50 | disposition home or self-care (01) ==
LOC: EN 07:53
PROVIDERS: Referring Provider Surgery; Visit Provider Surgery
PROC: F00ZJWZ Instrumental Swallowing and Oral Function Assessment using Swallowing Equipment (ICD-10-PCS; CPT 43235; principal; 2020-06-05 07:55)
DX: K21.9 Gastro-esophageal reflux disease without esophagitis (principal); Z11.59 Encounter for screening for other viral diseases
CPT/HCPCS: 91010; 91013; 87635; 94799; U0003

== ENCOUNTER 2020-06-06 09:08 | Day surgery (SDC) | payer MEDICAID, SELFPAY ==
--- NOTE | 2020-05-19 06:25 | HP_ITS ---
Intake Vital Signs 05/19/20 Height 5 ft 5 in 05/19/20 Weight: 168 lb 05/19/20 BMI 27.9 05/19/20 BP 161/104 H 05/19/20 Blood Pressure Location Rt brachial 05/19/20 Position Sitting 05/19/20 Respiration 16 05/19/20 Pulse 80 05/19/20 Pulse Source Monitor 05/19/20 Temp 97.7 F L 05/19/20 Temp Source Temporal 05/19/20 Pulse Oximetry (%) 99 05/19/20 Oxygen Delivery Method room air Intake Visit Reasons: Esophagogastroduodenoscopy Chief Complaint: GERD/ Dysphagia Chrome Polisher Required: No Is patient in pain?: No (LLQ pain) Allergies No Known Allergies Allergy (Verified 05/15/20 07:23) Medications albuterol sulfate 90 mcg/actuation aerosol inhaler 2 puff INHALATION Q4H PRN #1 device 05/15/20 [Rx Confirmed 05/19/20] omeprazole magnesium 20 mg tablet,delayed release 40 mg PO DAILY #60 tab 05/15/20 [Rx Confirmed 05/19/20] PFSH Medical History Diarrhea (Acute) Nausea & vomiting (Acute) LLQ abdominal pain (Acute) SOB (shortness of breath) (Acute) Anxiety (Acute) High blood pressure (Chronic) Dysphagia (Acute) Diverticulitis (Acute) Asthma (Acute) Pneumonia (Acute) Anemia (Acute) GERD (gastroesophageal reflux disease) (Acute) GERD (gastroesophageal reflux disease) (Chronic) Chest pain (Acute) Surgical History Hx of tonsillectomy (Resolved) H/O: hysterectomy (Resolved) history of femoral hernia repair (Resolved ~09/2018) Family History Father Heart disease COPD (chronic obstructive pulmonary disease) Asthma CVA (cerebral vascular accident) Sister Diabetes GERD (gastroesophageal reflux disease) Cancer Skin Cancer Social History (Updated 05/19/20 @ 18:[address] Filiberto Grimaldo MD) Smoking Status: Never smoker HPI HPI HPI: STEPHY RAMOSINGTON, is a 44 F who presents to the office today for HPI HPI Surgical H&P: Yes HPI: STEPHY MARTE, is a 44 F who presents to the office today for Reflux. The patient notes that she has been having cough and she has severe reflux at baseline. She is on a PPI and she says that it is not sufficient and she has regurgitation of food as well as severe acid reflux especially when laying down. She also has pain with eating. She also reports that she has dysphasia and she has been unable to swallow certain things especially liquids. ROS General General: No weight change or fatigue HEENT HEENT: Yes difficulty swallowing Skin Skin: Yes rash Cardio Cardiovascular: Yes high blood pressure; no murmur, pacemaker, heart disease, atrial fibrillation, heart attack, heart stent, palpitations, shortness of breat with exertion or chest pain Psych Psychiatric: Yes depression and anxiety Resp Respiratory: Yes shortness of breath, No sleep apnea, Yes cough, No COPD, Yes asthma, No emphysema, No wheezing Gastro Gastrointestinal: Yes abdominal pain, Yes nausea or vomiting, Yes diarrhea, Yes constipation, No blood in stool, Yes acid reflux, No hemorrhoids, No ulcers, No gallbladder problem, No black,tarry stools Yusuf Hematologic: No blood thinners, Yes anemia Exam Const General: cooperative Orientation: alert, oriented x3 Resp Effort & Inspection: normal respiratory effort Auscultation: clear to auscultation bilaterally Cardio Rate: regular rate Rhythm: regular rhythm Heart Sounds: no murmurs GI Inspection: non-distended Palpation: soft, nontender Assessment & Plan Problems 1. Diarrhea, unspecified type R19.7 2. Nausea and vomiting, intractability of vomiting not specified, unspecified vomiting type R11.2 3. Gastroesophageal reflux disease, esophagitis presence not specified K21.9 Plan The patient notes that she has severe acid reflux with cough. She says the PPI has not been sufficient. She was referred due to her chronic cough. She says that she has dysphasia and she is seeing someone else for this as well. She says she has difficulty swallowing. She also reports regurgitation nausea and vomiting. She has occasional diarrhea alternating with constipation. I discussed EGD with the patient but the patient would also be possibly interested in fundoplication. I discussed preoperative evaluation for fundoplication and I discussed EGD including pH probe as well as manometry. The patient would like to have fundoplication as an option and she will proceed with EGD with pH probe and manometry. I explained endoscopy in detail to the patient. I explained the risks including but not limited to stroke or heart attack with anesthesia, perforation of the GI tract, bleeding, infection. I explained that any of these could necessitate further emergency surgery. The patient understands and all questions were answered sufficiently. The patient wishes to proceed with procedure. We discussed the current risks associated with COVID-19. While it is understood that there is a community spread of COVID-19, the risk of bushra COVID-19 while at [facility] ([facility]) is very low; however, the risk cannot be completely mitigated because of the community spread of the disease. We discussed in detail the risk of exposure to and/or potential harm posed by the COVID-19 virus with having a surgery/procedure at this time versus the risk of delaying the surgery/procedure. It is not possible to know either the risk of delaying the surgery or procedure or chance of getting an infection with perfect accuracy, but a joint decision was made to proceed at this time with the scheduled surgery/procedure as indicated on the consent form. Patient was notified that we will need to comply with any screening or testing [facility] wishes to perform or that surgery may be delayed for any positive results. Filiberto Grimaldo MD Pager: [facility] [address] [place] [address], [address] [place] [address] Office: Orders Orders: EGD Today K21.9 Esophageal Manometry Today K21.9 Coding Level of Care Code Off vis,new,level 3 Diagnoses Diarrhea, unspecified type R19.7 ??Diarrhea type: unspecified type Nausea and vomiting, intractability of vomiting not specified, unspecified vomiting type R11.2 ??Vomiting Intractability: unspecified ??Vomiting type: unspecified Gastroesophageal reflux disease, esophagitis presence not specified K21.9 ??Esophagitis presence: esophagitis presence not specified 05/19/20 2108 <Electronically signed by Filiberto torres MD> Date _ Filiberto Grimaldo MD I have re-examined the patient. There are no clinical changes since date of exam.
[2020-05-19 14:31] VITALS: BMI 27.9
--- NOTE | 2020-06-06 | ESO_PTH ---
PATIENT: STEPHY MARTE LOC: EN U#:[id number] AGE/SX: 44/F ROOM: RE06/06/[address]: Dr. Filiberto Grimaldo MD : 1975 BED: DIS: 06/06/2020 SPEC #: [id number] RECD: 06/06/20 13:49 STATUS: FELICIANO KHAI #: [id number] MONA: 06/06/20 00:[address]: Filiberto Grimaldo DEPT: SURGICAL PATHOLOGY RECD BY: Ed Barrios ENTERED: 06/06/20 13:50 SP TYPE: DONNY LAM DR: No Primary Care Phys Tissues: Esophagus, NOS Procedures: Special Stain Group II Surgery Specimen Level IV Alcian Blue/PAS (control) HEADER OPERATION: [place] [place] DIAGNOSIS: GERD, dysphagia TISSUE SUBMITTED: Proximal esophageal biopsy MICROSCOPIC DIAGNOSIS Proximal esophagus, biopsy: Consistent with reflux esophagitis. Junctional mucosa with mild chronic inflammation. No evidence of goblet cell metaplasia. See comment. AM:mannie 06/09/20 COMMENT Alcian blue/PAS stain with matched control supports the above diagnosis. MICROSCOPIC DESCRIPTION Slides are reviewed. GROSS DESCRIPTION Received in fixative is one container labeled with the patient's name and designated proximal esophageal biopsy. The specimen consists of multiple irregular fragments of light zhao soft tissue that in aggregate measure 0.7 x 0.3 x 0.1 cm. The specimen is totally submitted in one cassette. / AM:mannie 06/06/20 TC:3 CPT: 73858, 29913
[2020-06-06 09:31] VITALS: BP 154/103; PULSE 65; RESP 14; TEMP 36.7; O2SAT 100; BMI 27.6
[2020-06-06] MEDS: Lactated Ringers 1,000 ML 100 ML IV (09:49)
--- NOTE | 2020-06-06 10:32 | OP.CCLET_ITS ---
06/06/2020 No Primary Care Physician Re : Upper GI endoscopy procedure for Hortencia Brennan Dear Care Physician This procedure was performed on Saturday, June 06, 2020. 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 Biopsied. - Small hiatal hernia. - Normal examined duodenum. - The BALL pH capsule was positioned 30 cm from the incisors, which was 6 cm proximal to the GE junction. Recommendations : - Discharge patient to home. - Resume previous diet. - Continue present medications. - Await pathology results. - Refer to Primary care physcian at appointment to be scheduled. My findings are described in the full procedure note, which is enclosed. If I can be of further assistance, please feel free to contact me at Doctor phone number(s): , Work: . Sincerely, Filiberto Grimaldo MD 06/06/2020 10:31:57 AM This report has been signed electronically.
--- NOTE | 2020-06-06 10:32 | OP.EGD_ITS ---
Patient Name: Hortencia Brennna Procedure Date: 06/06/2020 10:04 AM Date of : 1975 Age: 44 Procedure: Upper GI endoscopy Indications: Suspected gastro-esophageal reflux disease, Gastro-esophageal reflux disease Providers: Filiberto Grimaldo MD Referring MD: Filiberto Grimaldo MD Medicines: Monitored Anesthesia Care Patient Profile: This is a 44 year old female. Refer to note in patient chart for documentation of history and physical. Complications: No immediate complications. Estimated blood loss: Minimal. Procedure: Pre-Anesthesia Assessment: - Prior to the procedure, a History and Physical was performed, and patient medications and allergies were reviewed. The patient's tolerance of previous anesthesia was also reviewed. The risks and benefits of the procedure and the sedation options and risks were discussed with the patient. All questions were answered, and informed consent was obtained. Prior Anticoagulants: The patient has taken no previous anticoagulant or antiplatelet agents. After reviewing the risks and benefits, the patient was deemed in satisfactory condition to undergo the procedure. After obtaining informed consent, the endoscope was passed under direct vision. Throughout the procedure, the patient's blood pressure, pulse, and oxygen saturations were monitored continuously. The gastroscope was introduced through the mouth, and advanced to the second part of duodenum. The upper GI endoscopy was accomplished without difficulty. The patient tolerated the procedure well. Scope In: 10:18:35 AM Scope Out: 10:25:37 AM Total Procedure Duration Time 0 hours 7 minutes 2 seconds Findings: [place] of salmon-colored mucosa were present at 15 cm. No other visible abnormalities were present. The maximum longitudinal extent of these esophageal mucosal changes was 4 cm in length. Biopsies were taken with a cold forceps for histology. A small hiatal hernia was present. The examined duodenum was normal. The BALL capsule with delivery system was introduced through the mouth and advanced into the esophagus, such that the BALL pH capsule was positioned 30 cm from the incisors, which was 6 cm proximal to the GE junction. Suction was applied to the well of the BALL pH capsule to suck in the adjacent mucosa of the esophagus using the external vacuum pump set at a minimum vacuum pressure of 550 mmHg for 30 seconds. The BALL pH capsule was then deployed by depressing the plunger on top of the handle to advance the locking pin into the mucosa, thereby attaching the capsule to the esophagus. The plunger was then rotated a quarter turn clockwise to release the capsule from the delivery system. The delivery system was then withdrawn. Endoscopy was utilized for probe placement and diagnostic evaluation. The scope was reinserted to evaluate placement of the BALL capsule. Visualization showed the BALL capsule to be in an appropriate position. 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 Biopsied. - Small hiatal hernia. - Normal examined duodenum. - The BALL pH capsule was positioned 30 cm from the incisors, which was 6 cm proximal to the GE junction. Recommendation: - Discharge patient to home. - Resume previous diet. - Continue present medications. - Await pathology results. - Refer to Primary care physcian at appointment to be scheduled. Procedure Code(s): --- Professional --- 97200, Esophagogastroduodenoscopy, flexible, transoral; with biopsy, single or multiple 20114, 51, Esophagus, gastroesophageal reflux test; with mucosal attached telemetry pH electrode placement, recording, analysis and interpretation Diagnosis Code(s): --- Professional --- K22.8, Other specified diseases of esophagus K44.9, Diaphragmatic hernia without obstruction or gangrene K21.9, Gastro-esophageal reflux disease without esophagitis CPT copyright 2017 [employer]. All rights reserved. The codes documented in this report are preliminary and upon shirt operator review may be revised to meet current compliance requirements. Filiberto Grimaldo MD 06/06/2020 10:31:57 AM This report has been signed electronically. Number of Addenda: 0 Note Initiated On: 06/06/2020 10:04 AM
[2020-06-06 10:37] VITALS: BP 122/87; BP 154/87; PULSE 85; RESP 16; TEMP 37.2; O2SAT 96
[2020-06-06 10:40] VITALS: BP 118/84; BP 154/87; PULSE 70; RESP 16; O2SAT 97
[2020-06-06 10:45] VITALS: BP 138/94; BP 154/87; PULSE 68; RESP 16; O2SAT 97
[2020-06-06 10:48] VITALS: BP 130/80; BP 154/87; PULSE 68; RESP 16; TEMP 37; O2SAT 97
[2020-06-06 11:31] VITALS: BP 154/87
== END 2020-06-06 11:33 | disposition home or self-care (01) ==
LOC: EN 09:09 → AC 09:11
PROVIDERS: Referring Provider Surgery; Visit Provider Surgery
PROC: (CPT 43239; principal; 2020-06-06 10:25)
DX: K22.8 Other specified diseases of esophagus (principal); K21.9 Gastro-esophageal reflux disease without esophagitis; K44.9 Diaphragmatic hernia without obstruction or gangrene; J45.909 Unspecified asthma, uncomplicated; Z87.01 Personal history of pneumonia (recurrent); Z86.2 Personal history of diseases of the blood and blood-forming organs and certain disorders involving the immune mechanism; Z87.19 Personal history of other diseases of the digestive system; Z85.828 Personal history of other malignant neoplasm of skin
CPT/HCPCS: 43239; 91035; 88305; 88313; J7120; J2405

== ENCOUNTER → 2020-07-24 06:51 | Outpatient (CLI) | payer MEDICAID, SELFPAY ==
--- NOTE | 2020-07-24 15:35 | PFTCOMP_ITS ---
COMPLETE PULMONARY FUNCTION TEST INTERPRETATION Brief HPI: Patient is a 44 year old female, currently under the care of Dr. Ty, who presents to [facility] for complete pulmonary function tests secondary to diagnosis of cough. Respiratory therapist reports good effort and reproducible results. However, patient was able to exhale only 1-1/2 to 2 seconds, likely underestimating FVC Interpretation: Forced expiration spirometry shows no large airways obstructive ventilatory defect with an FEV1 of 82% predicted. There is no significant bronchodilator response by strict ATS criteria. Spirograms are of poor quality and do not plateau, likely underestimating FVC. The respiratory flow volume loop shows a normal pattern. Lung volumes by body plethysmography show a normal total lung capacity at 4.16 L, 86% predicted. All other lung volumes are within normal limits. Diffusion capacity by carbon monoxide is normal at 91% predicted. The airway resistance is slightly elevated. No previous pulmonary function tests were available for review. Impression: These pulmonary function tests are grossly within normal limits.
== END ==
PROVIDERS: Referring Provider Internal Medicine Critical Care Medicine; Visit Provider Internal Medicine Critical Care Medicine
DX: R05 Cough (principal)
CPT/HCPCS: 94060; 94726; 94729

== ENCOUNTER → 2020-08-20 10:40 | Outpatient (CLI) | payer MEDICAID, SELFPAY ==
[2020-08-20 10:06] VITALS: BMI 28.2
[2020-08-20 12:13] LABS: HIV - WCH Non-Reactive (Nonreactive)
[2020-08-21 01:21] LABS: Rapid Plasmin Reagin (RPR) NONREACTIVE (NONREACTIVE)
[2020-08-22 04:12] LABS: HCV Quant. RNA PCR HCV Not Detected IU/mL (.)
[2020-08-22 08:41] LABS: HSV 2 IgG < 0.91 index (0.00-0.90)
[2020-08-22 20:08] LABS: Chlamydia By Nucleic Acid AMP Negative (Negative)
[2020-08-22 22:12] LABS: Gonococcus By Nucleic Acid AMP Negative (Negative)
== END ==
PROVIDERS: Referring Provider Nurse Practitioner Women's Health; Visit Provider Nurse Practitioner Women's Health
DX: N89.8 Other specified noninflammatory disorders of vagina (principal); Z11.3 Encounter for screening for infections with a predominantly sexual mode of transmission
CPT/HCPCS: 36415; 86592; 86695; 86696; 86703; 87070; 87205; 87491; 87522; 87591

== ENCOUNTER → 2020-10-01 10:38 | Outpatient (CLI) | payer MEDICAID, SELFPAY ==
[2020-08-20 10:06] VITALS: BMI 28.2
--- NOTE | 2020-10-01 10:39 | BI_ITS ---
MAMMOGRAPHY - BILATERAL SCREENING REASON FOR EXAM: Female, 45 years old. Routine annual screening examination. PERTINENT HISTORY: Aunt with breast cancer. TECHNIQUE: Digital bilateral breast catalina (3D mammographic acquisition) in the CC and MLO projections. 2-D mediolateral oblique (MLO) and craniocaudad (CC) views of both breasts were obtained. CAD: Full Field Digital Mammography with Computer Added Detection was performed. COMPARISON: Comparison is made with prior outside examination dated 02/16/2016. FINDINGS: Breast Composition: The breasts are heterogeneously dense, which may obscure small masses. There are no dominant masses or suspicious calcifications. No other significant abnormalities are identified. There has been no significant change since the prior study. BI/SCREEN MAMM (CAD) W/CATALINA BILAT IMPRESSION: Stable bilateral screening mammogram. Yearly follow-up mammogram recommended. (A) ASSESSMENT CATEGORY: BIRADS Category 1: Negative. A letter regarding these results will be sent to the patient by the facility within 30 days. Approximately 10% of breast cancers are not detected by mammography. A normal mammogram should not delay biopsy of a clinically suspicious abnormality. [id number] Electronically Signed: Gene Prince, at 13:04 EST , Service support ,
== END ==
PROVIDERS: Referring Provider Nurse Practitioner Women's Health; Visit Provider Nurse Practitioner Women's Health
DX: Z12.31 Encounter for screening mammogram for malignant neoplasm of breast (principal)
CPT/HCPCS: 77063; 77067

== ENCOUNTER → 2020-11-04 13:59 | Outpatient (CLI) | payer MEDICAID, SELFPAY ==
[2020-11-04 13:19] VITALS: BMI 28.3
[2020-11-04 15:40] LABS: Absolute Lymphocyte Count 1.64 X10^3/uL (0.83-4.51); Absolute Neutrophil Count 4.7 X10^3/uL (2.0-7.7); Basophil# 0.04 X10^3/uL; Basophil% 0.5 % (0-1); Eosinophil# 0.54 X10^3/uL; Eosinophils% 7.1 % (0-5); Hematocrit 39.4 % (37-47); Hemoglobin 12.3 g/dL (12.0-15.0); Lymphocyte # 1.64 X10^3/ul (4.0); Lymphocyte % 21.6 % (19-41); Mean Corp Hgb Conc 31.2 g/dL (32-36); Mean Corpuscular Hgb 27.2 pg (27.0-32.0); Mean Platelet Vol. 10.9 fl (6.2-12.0); Monocyte# 0.61 X10^3/uL; NRBC Flagged by Analyzer 0 % (0-5); Neutrophil # 4.72 X10^3/uL (2.7-7.7); Neutrophil % 62.4 % (47-70); Platelet Count 282 K/mm3 (150-450); RBC Distribution Width CV 12.7 % (11.6-14.6); RBC Distribution Width SD 40.6 fl (35.1-43.9); Red Blood Count 4.53 M/mm3 (4.2-5.4); White Blood Count 7.6 K/mm3 (4.4-11.0)
[2020-11-04 16:17] LABS: ALB/GLOB Ratio 1.1 RATIO (0.9-2.4); AST(SGOT) 17 U/L (15-37); Alanine Aminotransfer ALT/SGPT 29 U/L (13-56); Albumin, Serum 3.7 g/dL (3.2-5.0); Alkaline Phosphatase 55 U/L (45-117); Anion Gap 6 (5-15); BUN 20 mg/dL (7-18); BUN/Creat Ratio 21.4 RATIO (10-20); Chloride 105 mmol/L (98-107); Cholesterol 188 mg/dL (200); Creatinine, Serum 0.94 mg/dL (0.55-1.02); EST Glomerular Filtration Rate 69 mL/min (>60); Est Glom Filt Rate - Afr Amer 83 mL/min (>60); Globulin 3.5 g/dL (2.2-4.2); Glucose 97 mg/dL (74-106); High Density Lipoprotein 64 mg/dL; Potassium 4.3 mmol/L (3.5-5.1); Protein, Total 7.2 g/dL (6.4-8.2); Sodium Level 138 mmol/L (136-145); Triglycerides 245 mg/dL; Very Low Density Lipoprotein 49 mg/dL (5-40)
== END ==
PROVIDERS: PCP Internal Medicine; Referring Provider Internal Medicine; Visit Provider Internal Medicine
DX: I10 Essential (primary) hypertension (principal)
CPT/HCPCS: 36415; 80053; 80061; 85025

== ENCOUNTER → 2020-12-10 11:22 | Outpatient (CLI) | payer MEDICAID, SELFPAY ==
[2020-12-10 11:08] VITALS: BMI 28.3
[2020-12-10 12:05] LABS: Absolute Lymphocyte Count 1.37 X10^3/uL (0.83-4.51); Absolute Neutrophil Count 2.8 X10^3/uL (2.0-7.7); Basophil# 0.03 X10^3/uL; Basophil% 0.6 % (0-1); Eosinophil# 0.43 X10^3/uL; Eosinophils% 8.4 % (0-5); Hematocrit 44.2 % (37-47); Lymphocyte # 1.37 X10^3/ul (4.0); Lymphocyte % 26.7 % (19-41); Mean Corp Hgb Conc 31.7 g/dL (32-36); Mean Corpuscular Hgb 27.6 pg (27.0-32.0); Mean Corpuscular Volume 87.2 fL (81-99); Mean Platelet Vol. 10.4 fl (6.2-12.0); Monocyte# 0.47 X10^3/uL; Monocyte% 9.2 % (0-10); NRBC Flagged by Analyzer 0 % (0-5); Neutrophil # 2.81 X10^3/uL (2.7-7.7); Neutrophil % 54.7 % (47-70); Platelet Count 303 K/mm3 (150-450); RBC Distribution Width CV 12.7 % (11.6-14.6); RBC Distribution Width SD 40.1 fl (35.1-43.9); Red Blood Count 5.07 M/mm3 (4.2-5.4); White Blood Count 5.1 K/mm3 (4.4-11.0)
[2020-12-10 12:36] LABS: Anion Gap 7 (5-15); BUN 13 mg/dL (7-18); Chloride 103 mmol/L (98-107); EST Glomerular Filtration Rate 63 mL/min (>60); Est Glom Filt Rate - Afr Amer 77 mL/min (>60); Glucose 111 mg/dL (74-106); Potassium 4.3 mmol/L (3.5-5.1); Sodium Level 140 mmol/L (136-145)
== END ==
PROVIDERS: PCP Internal Medicine; Referring Provider Internal Medicine; Visit Provider Internal Medicine
DX: I10 Essential (primary) hypertension (principal); R07.9 Chest pain, unspecified
CPT/HCPCS: 36415; 80048; 84484; 85025

== ENCOUNTER → 2020-12-10 12:20 | Outpatient (CLI) | payer MEDICAID, SELFPAY ==
[2020-12-10 11:08] VITALS: BMI 28.3
--- NOTE | 2020-12-10 12:21 | EKG12_ITS ---
Test Reason : HTN Blood Pressure : / mmHG Vent. Rate : 069 BPM Atrial Rate : 069 BPM P-R Int : 146 ms QRS Dur : 086 ms QT Int : 416 ms P-R-T Axes : 056 021 033 degrees QTc Int : 445 ms Normal sinus rhythm Normal ECG Confirmed by ZORAN HERNANDEZ, GRAEME ([id number]), editorial director NERI BENAVIDES ([id number]) on 12/11/2020 1:06:28 PM Referred By: Shaheed Marie Confirmed By:GRAEME MEEHAN MD
== END ==
PROVIDERS: PCP Internal Medicine; Referring Provider Internal Medicine; Visit Provider Internal Medicine
DX: I10 Essential (primary) hypertension (principal); R07.9 Chest pain, unspecified
CPT/HCPCS: 36415; 80048; 84484; 85025; 93005

== ENCOUNTER → 2021-08-31 11:56 | Outpatient (CLI) | payer MEDICAID, SELFPAY ==
[2021-08-31 15:08] LABS: Absolute Lymphocyte Count 1.26 X10^3/uL (0.83-4.51); Absolute Neutrophil Count 3.9 X10^3/uL (2.0-7.7); Basophil# 0.01 X10^3/uL; Basophil% 0.2 % (0-1); Eosinophil# 0.23 X10^3/uL; Eosinophils% 3.9 % (0-5); Hematocrit 42.8 % (37-47); Hemoglobin 13.5 g/dL (12.0-15.0); Lymphocyte # 1.26 X10^3/ul (0.83-4.51); Lymphocyte % 21.5 % (19-41); Mean Corp Hgb Conc 31.5 g/dL (32-36); Mean Corpuscular Hgb 26.9 pg (27.0-32.0); Mean Corpuscular Volume 85.3 fL (81-99); Mean Platelet Vol. 10.7 fl (6.2-12.0); Monocyte# 0.47 X10^3/uL; NRBC Flagged by Analyzer 0 % (0-5); Neutrophil # 3.86 X10^3/uL (2.7-7.7); Neutrophil % 66.1 % (47-70); Platelet Count 299 K/mm3 (150-450); RBC Distribution Width CV 12.9 % (11.6-14.6); RBC Distribution Width SD 39.9 fl (35.1-43.9); Red Blood Count 5.02 M/mm3 (4.2-5.4); White Blood Count 5.9 K/mm3 (4.4-11.0)
[2021-08-31 15:24] LABS: Vitamin D,25 Hydroxy 10.9 ng/mL
[2021-08-31 15:35] LABS: AST(SGOT) 18 U/L (15-37); Alanine Aminotransfer ALT/SGPT 22 U/L (13-56); Albumin, Serum 3.6 g/dL (3.2-5.0); Alkaline Phosphatase 47 U/L (45-117); Anion Gap 7 (5-15); BUN 16 mg/dL (7-18); BUN/Creat Ratio 19.2 RATIO (10-20); Calcium,Total 9.1 mg/dL (8.5-10.1); Chloride 102 mmol/L (98-107); Creatinine, Serum 0.83 mg/dL (0.55-1.02); EST Glomerular Filtration Rate 78 mL/min (>60); Est Glom Filt Rate - Afr Amer 94 mL/min (>60); Globulin 3.7 g/dL (2.2-4.2); Glucose 116 mg/dL (74-106); Protein, Total 7.3 g/dL (6.4-8.2); Sodium Level 137 mmol/L (136-145); T4 Free Direct 0.96 ng/dL (0.76-1.46); Thyroid Stim Hormone (TSH) 2.38 uIU/mL (0.358-3.74)
== END ==
PROVIDERS: PCP Internal Medicine; Referring Provider Physician Assistant; Visit Provider Physician Assistant
DX: F32.A Depression, unspecified (principal); I10 Essential (primary) hypertension; F41.9 Anxiety disorder, unspecified; R53.83 Other fatigue
CPT/HCPCS: 36415; 80053; 82306; 84439; 84443; 85025

== ENCOUNTER 2022-01-18 14:44 | Outpatient (CLI) | payer MEDICAID, SELFPAY ==
--- NOTE | 2022-01-18 14:46 | BI_ITS ---
MAMMOGRAPHY - BILATERAL SCREENING REASON FOR EXAM: Female, 46 years old. Routine annual screening examination. PERTINENT HISTORY: Mother with breast cancer. Aunt with breast cancer. TECHNIQUE: Digital bilateral breast catalina (3D mammographic acquisition) in the CC and MLO projections. 2-D mediolateral oblique (MLO) and craniocaudad (CC) views of both breasts were obtained. CAD: Full Field Digital Mammography with Computer Added Detection was performed. COMPARISON: Comparison is made with prior examination dated 10/01/2020. FINDINGS: Breast Composition: The breasts are heterogeneously dense, which may obscure small masses. There are no dominant masses or suspicious calcifications. Stable small benign-appearing bilateral axillary lymph nodes. No other significant abnormalities are identified. There has been no significant change since the prior study. BI/SCRN MAMM (CAD)W/CATALINA BILAT IMPRESSION: Stable bilateral screening mammogram. Yearly follow-up mammogram recommended. (A) ASSESSMENT CATEGORY: BIRADS Category 2: Benign. A letter regarding these results will be sent to the patient by the facility within 30 days. Approximately 10% of breast cancers are not detected by mammography. A normal mammogram should not delay biopsy of a clinically suspicious abnormality. [id number] Electronically Signed: Gene Prince MD at 15:38 EDT ,
== END 2022-01-18 23:59 | disposition home or self-care (01) ==
PROVIDERS: PCP Internal Medicine; Visit Provider Physician Assistant
DX: Z12.31 Encounter for screening mammogram for malignant neoplasm of breast (principal)
CPT/HCPCS: 77063; 77067

== ENCOUNTER → 2022-02-12 | Outpatient (CLI) | payer MEDICAID, SELFPAY ==
[2022-02-12 12:08] LABS: Bacteria 0 SEEN /hpf (None Seen); Mucous, Urine 0 SEEN /hpf (<or=2+); Red Blood Cells-Urine 0 SEEN /hpf (0-5)
[2022-02-12 12:34] LABS: Absolute Lymphocyte Count 1.18 X10^3/uL (0.83-4.51); Absolute Neutrophil Count 7.1 X10^3/uL (2.0-7.7); Basophil# 0.05 X10^3/uL; Basophil% 0.5 % (0-1); Eosinophil# 0.19 X10^3/uL; Hematocrit 41.4 % (37-47); Hemoglobin 13.2 g/dL (12.0-15.0); Lymphocyte # 1.18 X10^3/ul (0.83-4.51); Lymphocyte % 12.5 % (19-41); Mean Corp Hgb Conc 31.9 g/dL (32-36); Mean Corpuscular Hgb 27.8 pg (27.0-32.0); Mean Corpuscular Volume 87.2 fL (81-99); Mean Platelet Vol. 10.6 fl (6.2-12.0); Monocyte# 0.88 X10^3/uL; Monocyte% 9.3 % (0-10); NRBC Flagged by Analyzer 0 % (0-5); Neutrophil # 7.11 X10^3/uL (2.7-7.7); Neutrophil % 75.2 % (47-70); Platelet Count 282 K/mm3 (150-450); RBC Distribution Width CV 12.3 % (11.6-14.6); RBC Distribution Width SD 39.5 fl (35.1-43.9); Red Blood Count 4.75 M/mm3 (4.2-5.4); White Blood Count 9.5 K/mm3 (4.4-11.0)
[2022-02-12 13:01] LABS: ALB/GLOB Ratio 0.9 RATIO (0.9-2.4); AST(SGOT) 14 U/L (15-37); Alanine Aminotransfer ALT/SGPT 22 U/L (13-56); Albumin, Serum 3.5 g/dL (3.2-5.0); Alkaline Phosphatase 55 U/L (45-117); Anion Gap 6 (5-15); BUN 14 mg/dL (7-18); Calcium,Total 9.1 mg/dL (8.5-10.1); Chloride 105 mmol/L (98-107); EST Glomerular Filtration Rate 63 mL/min (>60); Est Glom Filt Rate - Afr Amer 77 mL/min (>60); Globulin 3.7 g/dL (2.2-4.2); Glucose 88 mg/dL (74-106); Protein, Total 7.2 g/dL (6.4-8.2); Sodium Level 142 mmol/L (136-145)
[2022-02-12 14:53] LABS: Color, Urine Yellow (Yellow); Glucose, Dipstick Normal (Normal); Ketone-Dipstick Negative (Negative); Leukocyte Esterase-Dipstick 25 /ul (Negative); Nitrite-Dipstick Negative (Negative); Occult Blood-Urine Negative /ul (Negative); Protein-Dipstick Negative (Negative); Specific Gravity, Urine 1.015 (1.002-1.030); Urine Bilirubin Dipstick Negative (Negative); Urine Clarity Clear (Clear); Urine Urobilinogen Normal (Normal)
[2022-02-12 14:58] LABS: Squamous Epithelial Cells - UA 5-10 SEEN /hpf (5-10)
[2022-02-12 14:59] LABS: Amorphous Sediment 1+; White Blood Cells 0-5 SEEN /hpf (0-5)
== END | disposition home or self-care (01) ==
LOC: BIMLAB 11:45
PROVIDERS: PCP Internal Medicine; Referring Provider Physician Assistant; Visit Provider Physician Assistant
DX: R35.0 Frequency of micturition (principal); R50.9 Fever, unspecified; R05.9 Cough, unspecified; R06.02 Shortness of breath; I10 Essential (primary) hypertension; J02.9 Acute pharyngitis, unspecified; Z13.29 Encounter for screening for other suspected endocrine disorder; R68.89 Other general symptoms and signs
CPT/HCPCS: 87635; 36415; 80053; 81001; 84443; 85025; 87086; 87088; U0003; U0005

== ENCOUNTER → 2022-07-15 | Outpatient (CLI) | payer MEDICAID, SELFPAY ==
--- NOTE | 2022-07-15 09:11 | BI_ITS ---
MAMMOGRAPHY - UNILATERAL DIAGNOSTIC: LEFT BREAST REASON FOR EXAM: Female, 46 years old. Pain in the lower outer aspect of the left breast. PERTINENT HISTORY: Aunt with breast cancer. TECHNIQUE: Digital unilateral breast alvaro (3D mammographic acquisition) in the CC and MLO projections. 2-D mediolateral oblique (MLO) and craniocaudad (CC) views of both breasts were obtained. CAD: Full Field Digital Mammography with Computer Added Detection was performed. COMPARISON: Comparison is made with prior examination of 10/01/2020 and 01/18/2022. FINDINGS: Breast Composition: The breasts are heterogeneously dense, which may obscure small masses. There are no dominant masses or suspicious calcifications. No other significant abnormalities are identified. There has been no significant change since the prior study. BI/DIAG MAMM W/CAD, UNILAT IMPRESSION: Stable unilateral diagnostic mammogram. With the patient''s history of pain in the lower outer quadrant of the left breast, targeted ultrasound is recommended. ASSESSMENT CATEGORY: BIRADS Category 0: Incomplete. Need additional imaging evaluation. A letter regarding these results will be sent to the patient by the facility within 30 days. Approximately 10% of breast cancers are not detected by mammography. A normal mammogram should not delay biopsy of a clinically suspicious abnormality. Electronically Signed: Gene Prince MD at 10:54 EDT ,
--- NOTE | 2022-07-15 09:11 | US_ITS ---
STUDY: ULTRASOUND BREAST - LEFT REASON FOR EXAM: Female, 46 years old. Pain in the left breast. TECHNIQUE: Axial and longitudinal images of the LEFT breast were performed with a high resolution ultrasound transducer. # OF IMAGES: 39 COMPARISON: Comparison is made with prior mammogram done earlier in the day. FINDINGS: LEFT Breast: The lower half of the left breast was examined with ultrasound. There is a 6 mm x 10 mm x 5 mm cyst at the 4 o''clock position the breast at 3 cm from nipple. US/Breast Limited Unilateral IMPRESSION: 6 mm x 10 mm x 5 mm cyst at the 4 o''clock position of the breast at 3 cm from the nipple. ASSESSMENT CATEGORY: BIRADS Category 2: Benign. A letter regarding these results will be sent to the patient by the facility within 30 days. Electronically Signed: Gene Prince MD at 10:55 EDT ,
== END | disposition home or self-care (01) ==
PROVIDERS: PCP Internal Medicine; Visit Provider Nurse Practitioner Women's Health
DX: N64.4 Mastodynia (principal)
CPT/HCPCS: 77061; 76642; 77065; G0279

== ENCOUNTER → 2022-08-05 | Outpatient (CLI) | payer MEDICAID, SELFPAY ==
[2022-08-06 22:06] LABS: Chlamydia By Nucleic Acid AMP Negative (Negative)
[2022-08-07 09:50] LABS: Gonococcus By Nucleic Acid AMP Negative (Negative)
== END | disposition home or self-care (01) ==
LOC: LABSPEC 12:10
PROVIDERS: PCP Internal Medicine; Referring Provider Nurse Practitioner Women's Health; Visit Provider Nurse Practitioner Women's Health
DX: R30.0 Dysuria (principal); N89.8 Other specified noninflammatory disorders of vagina
CPT/HCPCS: 87070; 87086; 87088; 87205; 87491; 87591

== ENCOUNTER 2022-09-30 10:13 | Emergency (ER) | payer MEDICAID, SELFPAY ==
[2022-09-30 10:14] VITALS: BP 189/131; PULSE 89; RESP 16; TEMP 36.1; O2SAT 100; BMI 29.2
[2022-09-30 10:24] VITALS: BP 110/93; PULSE 82; RESP 19; O2SAT 98
[2022-09-30] MEDS: Mag Hydrox/Al Hydrox/Simeth 30 ML UDC PO (11:10)
[2022-09-30 11:13] VITALS: PULSE 70; RESP 14; O2SAT 97
[2022-09-30 11:14] LABS: Absolute Lymphocyte Count 0.96 X10^3/uL (0.83-4.51); Absolute Neutrophil Count 4.4 X10^3/uL (2.0-7.7); Basophil# 0.03 X10^3/uL; Basophil% 0.5 % (0-1); Eosinophil# 0.25 X10^3/uL; Hemoglobin 13.6 g/dL (12.0-15.0); Lymphocyte # 0.96 X10^3/ul (0.83-4.51); Lymphocyte % 15.3 % (19-41); Mean Corp Hgb Conc 31.6 g/dL (32-36); Mean Corpuscular Hgb 27.3 pg (27.0-32.0); Mean Corpuscular Volume 86.3 fL (81-99); Mean Platelet Vol. 10.8 fl (6.2-12.0); Monocyte# 0.61 X10^3/uL; Monocyte% 9.7 % (0-10); NRBC Flagged by Analyzer 0 % (0-5); Neutrophil # 4.39 X10^3/uL (2.7-7.7); Neutrophil % 70.2 % (47-70); Platelet Count 285 K/mm3 (150-450); RBC Distribution Width CV 12.9 % (11.6-14.6); RBC Distribution Width SD 40.2 fl (35.1-43.9); Red Blood Count 4.98 M/mm3 (4.2-5.4); White Blood Count 6.3 K/mm3 (4.4-11.0)
--- NOTE | 2022-09-30 11:20 | RAD_ITS ---
STUDY: X-RAY CHEST REASON FOR EXAM: Female, 47 years old. Chest pain left TECHNIQUE: PA and lateral views of the chest. COMPARISON: Comparison is made with prior study dated 08/20/2019. FINDINGS: EKG electrodes are seen. The lungs are clear and expanded. There is no demonstrated pleural abnormality. Normal size heart. Normal mediastinum and cj. Normal visualized pulmonary arteries. Normal visualized aortic arch and descending thoracic aorta. There is a mild dextroscoliosis of the thoracic spine. Normal visualized ribs, clavicles, and shoulders. There is no demonstrated abnormality of the visualized soft tissue structures of the upper abdomen. RAD/Chest PA and Lateral IMPRESSION: No acute abnormality is seen. Electronically Signed: Gene Prince MD at 12:21 EST ,
--- NOTE | 2022-09-30 11:25 | ED.VIS.CHEST ---
HPI History of Present Illness Chief Complaint: Chest Pain Informant: patient Onset/Context/Timing Onset: Days (2-3) Activity at onset: gradual and onset Timing: Continuous Quality: Positive for - (Squeezing) Location: Left Chest (Without radiation or discomfort elsewhere) Current Severity: Moderate Maximum Severity: Moderate Worsened By: Breathing (Sometimes, a little) and - (Lying down especially on either her left or her right side); Not Worsened By Exertion, Movement of Arm or Movement of Torso Relieved By: Nothing (Except sitting up when she was lying down before) Associated Symptoms: Positive for Dyspnea and Cough (Chronic unchanged nonproductive); Negative for Nausea, Vomiting, Diaphoresis, Fever, Lightheadedness or Palpitations Narrative Narrative: Patient experiencing left sided chest discomfort and feels like it is on the inside. Sometimes it is a little worse when she takes a deep breath but for the most part it is nonpleuritic and feels like squeezing. It is worse when she lies on her side and states as a result she is having trouble sleeping the last night or 2. She does not feel like she is sick with a respiratory illness. She has a chronic cough and states it does not seem any worse. She denies any leg swelling or pain, recent travel out of the area, immobilization, hospitalization, or surgery in the last several months, nor did she have a history of a DVT or PE or any other heart problems. She takes medicine for reflux and hypertension and nothing else and she is compliant with her medications. She states my reflux doctor told me not to take any antiacids. CVD Risk Factors: Positive for Hypertension; Negative for Diabetes, Hypercholesterolemia, Family History 1' </=55 or Smoking PE Risk Factors: Negative for Recent Travel/Surgery, Recent Immobilization, Prior DVT or PE, Cancer or OCP + Smoking + >/=35 PFSH PFSH Medical History Anemia Anxiety Asthma Carpal tunnel syndrome Diverticulitis GERD (gastroesophageal reflux disease) Headache, migraine High blood pressure history of breast lump/cyst History of gout Hypertension Hypertension Skin cancer skin cancer removal SOB (shortness of breath) Home Medications sumatriptan succinate 25 mg tablet (Imitrex) See Rx Instructions PO .COMPLEX #14 tabs 11/04/20 [Rx Last Taken Unknown] valacyclovir 1 gram tablet 1,000 mg PO Q12H PRN Mouth sores #60 tabs 11/04/20 [Rx Last Taken Unknown] blood pressure monitor #1 ea 09/08/21 [Rx Last Taken Unknown] duloxetine 30 mg capsule,delayed release (Cymbalta) 30 mg PO DAILY mood #60 caps 03/15/22 [Rx Last Taken Unknown] meloxicam 15 mg tablet 15 mg PO DAILY PRN pain #30 tabs 03/15/22 [Rx Last Taken Unknown] hydrochlorothiazide 25 mg tablet 25 mg PO DAILY 06/08/22 [History Last Taken Unknown] losartan 50 mg tablet 50 mg PO DAILY 06/08/22 [History Last Taken Unknown] albuterol sulfate 90 mcg/actuation aerosol inhaler 2 puff inhalation Q4H PRN cough #17 grams 07/17/22 [Rx Last Taken Unknown] omeprazole 40 mg capsule,delayed release 40 mg PO BID #180 caps 07/17/22 [Rx Last Taken Unknown] ibuprofen 600 mg tablet 600 mg PO Q8H PRN PRN pain #20 TABLETS 09/30/22 [Rx Last Taken Unknown] Allergy/AdvReac Type Severity Reaction Status Date / Time No Known Allergies Allergy Verified 09/22/22 08:17 Family History (Updated 09/22/22 @ 08:16 by Delicia Blankenship) Father Heart disease COPD (chronic obstructive pulmonary disease) Asthma CVA (cerebral vascular accident) Colon polyps Sister Diabetes GERD (gastroesophageal reflux disease) Cancer Skin Cancer Surgical History H/O: hysterectomy History of hernia repair Hx of tonsillectomy S/P Social History household members: significant other, children and other number of children: 3 current occupational status: unemployed history of recent travel: No sexually active: Yes other: oldest child - Lili adopted Smoking Status: Never smoker alcohol intake: current alcohol intake frequency: a few times a week substance use type: marijuana caffeine: Yes what type of physical activity do you participate in: none frequency: does not exercise seatbelt use: always do you feel safe at home: Yes additional social history: seperated ROS ROS ED Constitutional Constitutional ED: Denies chills or fever(s) Eyes Eyes: Denies change in vision or diplopia ENT ENT ED: Denies rhinorrhea or sore throat Cardiovascular Cardiovascular: Reports chest pain; Denies leg edema, orthopnea or palpitations Respiratory/Chest Respiratory/Chest: Reports cough, dyspnea and dyspnea on exertion; Denies orthopnea or sputum Gastrointestinal Gastrointestinal: Denies abdominal pain, diarrhea, nausea or vomiting Genitourinary Genitourinary ED: Denies dysuria or hematuria Musculoskeletal Musculoskeletal: Denies back pain or neck pain Integumentary Denies abscess or rash Neurologic Neurologic: Denies headache(s), paresthesias or weakness Psychiatric Psychiatric: Denies anxiety or suicidal thoughts EXAM Physical Exam Const Vital Signs: 09/30/22 10:14 09/30/22 10:24 09/30/22 10:24 Temperature 97.0 F L Temperature Source Temporal Pulse Rate 89 82 Respiratory Rate 16 19 H Respiratory Effort Normal Non-Labored Short of Breath Blood Pressure 189/131 H 110/93 H Blood Pressure Mean 150 98 Pulse Ox 100 98 Oxygen Delivery Method Room Air Room Air 09/30/22 11:02 09/30/22 11:13 Temperature Temperature Source Pulse Rate 70 Respiratory Rate 14 Respiratory Effort Blood Pressure Blood Pressure Mean Pulse Ox 97 Oxygen Delivery Method Room Air Room Air Positive well nourished and well developed General Appearance ED: well developed and NAD HEENT Reports moist mucous membranes normocephalic and atraumatic Eyes PERRL and EOMs intact bilaterally Neck full ROM, no lymphadenopathy, supple and no JVD Chest Wall inspection of chest normal Chest Narrative: Mildly tender left chest where she is having discomfort as well as her left upper back in the ribs below the scapula but she states this does not necessarily reproduce her pain. Resp normal respiratory effort and clear to auscultation bilaterally Cardio regular rate, regular rhythm and no murmurs Rate: Negative for tachycardic GI non-tender and non-distended Auscultation: normoactive bowel sounds Palpation: soft Back/Spine no CVA tenderness General Back: other FROM Extremity normal to inspection, no calf tenderness and no pedal edema General Extremety ED: Negative for edema, pulses abnormal or tenderness General Extremity: Negative for edema or pulses abnormal Neuro oriented x3, CN's II-XII intact bilaterally and no sensory deficits noted Sensorium / Orientation: awake and alert Motor Exam: strength 5/5 throughout Psych mental status grossly normal Skin no rashes or lesions noted and no wounds Heart Score History: Slightly/Non-Suspicious ECG: Normal Age: >45 - <65 years Risk Factors: 1 or 2 Risk Factors Troponin: </= Normal Limit Score: 2 MDM MDM MDM Narrative Medical decision making narrative: Work-up obtained, chest x-ray normal, potassium a little low unsure how that is related but I do not think it necessarily needs to be replaced right now since she does not have a reason for it to necessarily be low and her kidney function is normal, her troponin and EKG are normal, 2 view chest x-ray my interpretation normal radiology in agreement. No sign of pneumothorax or other shadows that are abnormal. Patient was given a GI cocktail which did not change anything and on reevaluation she states it is now more opposite that area of her chest and the left upper back and is more pleuritic. Her PERC score is 0. Therefore I do not think she needs further work-up for pulmonary embolus and I think this is probably pleurisy. We will give her a dose of Toradol and a prescription for high-dose ibuprofen advised to follow-up if she does not have resolution there is no evidence of pericarditis on her EKG which is normal. Lab Data Attestation: I reviewed the patient's lab results. Labs: Laboratory Results - last 24 hr 09/30/22 09/30/22 10:15 10:15 WBC 6.3 RBC 4.98 Hgb 13.6 Hct 43.0 MCV 86.3 MCH 27.3 MCHC 31.6 L RDW Std Deviation 40.2 RDW Coeff of [facility] 12.9 Plt Count 285 MPV 10.8 Immature Gran % (Auto) 0.300 Neut % (Auto) 70.2 H Lymph % (Auto) 15.3 L [place] % (Auto) 9.7 Eos % (Auto) 4.0 Baso % (Auto) 0.5 Absolute Neuts (auto) 4.4 Absolute Lymphs (auto) 0.96 Nucleated RBC % 0 Sodium 139 Potassium 3.0 L Chloride 105 Carbon Dioxide 28.0 Anion Gap 6 BUN 6 L Creatinine 0.95 Estim Creat Clear Calc 62.54 Est GFR (MDRD) Af Amer 81 Est GFR (MDRD) Non-Af 67 BUN/Creatinine Ratio 6.3 L Glucose 115 H Calcium 8.8 Troponin I High Sens 5 Radiography Diagnostic Testing: Clinical Impression(s) from Imaging Studies Chest X-Ray 09/30/22 11:20 IMPRESSION: No acute abnormality is seen. Electronically Signed: Gene Prince MD at 12:21 EST , Rhythm Strip Rhythm Strip: Sinus Rhythm Rate: 85 Ectopy: None EKG Initial EKG: Attestation: I personally reviewed and interpreted this EKG as follows: Interpretation: Sinus Rhythm and No Acute Injury Pattern Comments: Normal EKG Prior EKG tracings: available for review Prior: Unchanged Discharge Plan Triage Chief Complaint: Chest Pain ED Provider: Salvador Espinoza Dx/Rx/DC Orders Clinical Impression: Pleurisy Instructions: ED Pleurisy Prescriptions: New ibuprofen 600 mg tablet 600 mg PO Q8H PRN PRN (Reason: pain) Qty: 20 0RF No Action valacyclovir 1 gram tablet 1,000 mg PO Q12H PRN (Reason: Mouth sores) Qty: 60 1RF Rx Instructions: Use as needed for mouth sores. Do not take with Tizanidine sumatriptan succinate [Imitrex] 25 mg tablet See Rx Instructions PO .COMPLEX Qty: 14 0RF Rx Instructions: take 1 tab at onset of headache; if no relief may repeat 1 tab after at least 2 hrs; max = 4 tabs/24 hr PO duloxetine [Cymbalta] 30 mg capsule,delayed release(DR/EC) 30 mg PO DAILY Qty: 60 1RF losartan 50 mg tablet 50 mg PO DAILY hydrochlorothiazide 25 mg tablet 25 mg PO DAILY albuterol sulfate 90 mcg/actuation HFA aerosol inhaler 2 puff INHALATION Q4H PRN (Reason: cough) Qty: 17 3RF Rx Instructions: administer with spacer omeprazole 40 mg capsule,delayed release(DR/EC) 40 mg PO BID Qty: 180 0RF (DME) blood pressure monitor Kit See Rx Instructions .ROUTE .MEDSUPPLY Qty: 1 0RF Rx Instructions: Check blood pressure twice a day meloxicam 15 mg tablet 15 mg PO DAILY PRN (Reason: pain) Qty: 30 1RF Primary Care Provider: Shaheed Marie Referrals: Shaheed Marie MD [Primary Care Provider] - 3-5 Days if not improving Activity Restrictions/Additional Instructions: If you are still taking meloxicam, do not take the prescription along with it. One of the other. Disposition Disposition: Home, Self Care
[2022-09-30 11:27] LABS: Anion Gap 6 (5-15); BUN 6 mg/dL (7-18); BUN/Creat Ratio 6.3 RATIO (10-20); Calcium,Total 8.8 mg/dL (8.5-10.1); Chloride 105 mmol/L (98-107); Creatinine, Serum 0.95 mg/dL (0.55-1.02); EST Glomerular Filtration Rate 67 mL/min (>60); Est Glom Filt Rate - Afr Amer 81 mL/min (>60); Estimated Creatinine Clearance 62.54 ml/min; Glucose 115 mg/dL (74-106); Sodium Level 139 mmol/L (136-145); Troponin-I HS 5 pg/mL (3.0-54.0)
[2022-09-30 14:32] VITALS: BP 174/104; PULSE 74; O2SAT 97
[2022-09-30] MEDS: Ketorolac 30 MG/ML Syringe IV (14:46)
--- NOTE | 2022-09-30 14:56 | NURSING ---
pt with mod anxiety. refusing to wait a bit after iv toradol given to see if would help with pain 04/18. bp elavated d/t having worked self up and stated, im always like this. i cant just sit for hours like this. ill just go home and start the ibuprofen and drink some wine haha instructed to wait 8hrs before ibuprofen since toradol just given.
== END 2022-09-30 15:01 | disposition home or self-care (01) ==
PROVIDERS: Emergency Provider Emergency Medicine; PCP Internal Medicine; Visit Provider Emergency Medicine
DX: R09.1 Pleurisy (principal); F12.90 Cannabis use, unspecified, uncomplicated; K21.9 Gastro-esophageal reflux disease without esophagitis; Z79.899 Other long term (current) drug therapy
CPT/HCPCS: 71046; 80048; 84484; 85025; 93005; 96374; 99285; A4216

== ENCOUNTER 2022-11-11 09:49 | Day surgery (SDC) | payer MEDICAID, SELFPAY ==
--- NOTE | 2022-11-11 10:00 | PCM.HP.STD ---
HPI - General General Date of Admission: 11/11/22 Date of Service: 11/11/22 Chief Complaint: Screening colonoscopy HPI Narrative STEPHY MARTE, is a 47 F who presents today for screening colonoscopy and regarding a family history of polyps in her father. She is not having abdominal pain. She is not have any nausea vomiting or diarrhea. She not having any pressure in her abdomen. She is tolerating a good diet. All other 16 review systems negative except as per positive mentioned HPI. PFS Medical History Alcohol use Anemia Anxiety Anxiety Asthma Asthma Back pain Carpal tunnel syndrome Chronic cough Difficulty swallowing Diverticulitis Easy bruising Gastric reflux GERD (gastroesophageal reflux disease) Headache, migraine High blood pressure history of breast lump/cyst History of diverticulitis History of gout History of stress test Hypertension Hypertension Hypertension Low iron Marijuana use Migraine headache Non-smoker Shortness of breath on exertion Skin cancer skin cancer removal SOB (shortness of breath) Home Medications blood pressure monitor #1 ea 09/08/21 [Rx Last Taken Unknown] albuterol sulfate 90 mcg/actuation aerosol inhaler 2 puff inhalation Q4H PRN cough #17 grams 07/17/22 [Rx Last Taken Unknown] omeprazole 40 mg capsule,delayed release 40 mg PO BID #180 caps 07/17/22 [Rx Last Taken Unknown] ibuprofen 600 mg tablet 600 mg PO Q8H PRN PRN pain #20 TABLETS 09/30/22 [Rx Last Taken Unknown] sumatriptan succinate 25 mg tablet (Imitrex) 25 mg PO PRN PRN MIGRAINES 11/08/22 [History Last Taken Unknown] losartan 100 mg-hydrochlorothiazide 25 mg tablet 1 tab PO DAILY 11/11/22 [History Last Taken Unknown] Allergy/AdvReac Type Severity Reaction Status Date / Time No Known Allergies Allergy Verified 11/11/22 10:04 Family History Father Heart disease COPD (chronic obstructive pulmonary disease) Asthma CVA (cerebral vascular accident) Colon polyps Sister Diabetes GERD (gastroesophageal reflux disease) Cancer Skin Cancer Surgical History H/O: hysterectomy History of hernia repair Hx of esophagogastroduodenoscopy Hx of inguinal hernia repair Hx of tonsillectomy S/P Social History household members: significant other, children and other number of children: 3 current occupational status: unemployed history of recent travel: No sexually active: Yes other: oldest child - Lili adopted Smoking Status: Never smoker alcohol intake: current alcohol intake frequency: a few times a week substance use type: marijuana caffeine: Yes what type of physical activity do you participate in: none frequency: does not exercise seatbelt use: always do you feel safe at home: Yes additional social history: seperated ROS Review of Systems ROS Unobtainable: other Constitutional Constitutional: Denies fatigue, fever(s), poor appetite, weight gain or weight loss ENT HEENT: Denies mouth lesions Cardiovascular Cardiovascular: Denies abdominal bloating, abdominal edema or abdominal pain Respiratory/Chest Respiratory/Chest: Denies change in mental status, change in phlegm color, chest congestion or chest tightness Gastrointestinal Gastrointestinal: Denies belching, bloating, change in bowel habits, change in stool character, chewing difficulty, coffee ground emesis, constipation, cramping, diarrhea, dyspepsia, dysphagia, early satiety, excessive flatus, fecal incontinence, heartburn, hematemesis, hematochezia, hemorrhoids, loose stools, melena, nausea, odynophagia, rectal bleeding, tenesmus, vomiting or weight changes Genitourinary Genitourinary: Denies abdominal discomfort, burning urination or itching Musculoskeletal Musculoskeletal: Reports as per HPI; Denies muscle weakness or myalgias Integumentary Integumentary: Denies jaundice Neurologic Neurologic: Denies lack of coordination or weakness Psychiatric Psychiatric: Denies confusion, depression, memory loss, mood swings, paranoia or suicidal ideation Endocrine Endocrinology: Denies systems reviewed and no addt'l complaints, except as documented Hematologic/Lymphatic Hematologic/Lymphatic: Denies anemia, easy bleeding, easy bruising or lymphadenopathy Allergic/Immunologic Allergic/Immunologic: Denies systems reviewed and no addt'l complaints, except as documented Vital Signs Vital Signs Vital Signs: Weight Weight: 182 lb 15.739 oz Body Mass Index (BMI) 31.4 Physical Exam Const alert General Appearance: cooperative Orientation / Consciousness: oriented to person HEENT hearing grossly normal bilaterally Head and Scalp: normal to inspection Face and Sinus: face symmetric Nose: external nose normal Mouth: oral and palatal mucosa normal Eyes conjunctivae normal General Eye: normal appearance of both eyes Neck full ROM General: normal visual inspection Lymph Lymphatic: no lymphadenopathy noted Chest inspection of chest normal and palpation of chest normal Chest: symmetrical chest wall rise Resp normal respiratory effort Effort and Inspection: able to speak in complete sentences Cardio regular rate GI non-distended Percussion: normal to percussion Rectal Exam: deferred Neuro Speech: speech normal Gait (Neuro): normal gait Assessment & Plan Assessment/Plan (1) Encounter for screening for malignant neoplasm of colon: PLAN: She will undergo screening colonoscopy. She was explained alternatives, risk, benefits including not withstanding bleeding, infection, sepsis, perforation, need for emergent urgent . She will have an ASA 1.
[2022-11-11] MEDS: Lactated Ringers 1,000 ML 15 ML IV (10:05)
[2022-11-11 10:23] VITALS: BP 151/83; PULSE 74; RESP 16; TEMP 36.9; O2SAT 96; BMI 31.4
--- NOTE | 2022-11-11 11:15 | COLBX_PTH ---
PATIENT: STEPHY MARTE LOC: EN U#:[id number] AGE/SX: 47/F ROOM: RE11/11/[address]: Dr. Avelino Magdaleno DO : 1975 BED: DIS: 11/11/2022 SPEC #: [id number] RECD: 11/11/22 14:08 STATUS: FELICIANO KHAI #: [id number] MONA: 11/11/22 11:[address]: Avelino Magdaleno DEPT: SURGICAL PATHOLOGY RECD BY: Rafiq Cordoba ENTERED: 11/12/22 12:43 SP TYPE: COLON BX OTHR DR: Dr. Shaheed Marie MD Tissues: Ascending colon Procedures: Surgery Specimen Level IV HEADER OPERATION: Colonoscopy ? open access (MAC) PRE-OP DIAGNOSIS: Screening TISSUE SUBMITTED: Ascending colon biopsy MICROSCOPIC DIAGNOSIS Ascending colon, biopsy: Tubular adenoma. AM:mannie 11/15/2022 MICROSCOPIC DESCRIPTION Slides are reviewed. GROSS DESCRIPTION Received in fixative is one container labeled with the patient's name and designated ascending colon biopsy. The specimen consists of one irregular fragment of light zhao soft tissue that measures 0.3 x 0.3 x 0.1 cm. The specimen is totally submitted in one cassette. / SJ:rg 11/12/2022 TC:5 CPT: 66243
--- NOTE | 2022-11-11 11:34 | OP.COLON_ITS ---
Patient Name: Hortencia Brennan Procedure Date: 11/11/2022 11:11 AM Date of : 1975 Age: 47 Procedure: Colonoscopy Indications: Screening for colorectal malignant neoplasm Providers: Avelino Magdaleno DO Medicines: Monitored Anesthesia Care Patient Profile: This is a 47 year old female. Refer to note in patient chart for documentation of history and physical. Last Colonoscopy: none. The patient's first colonoscopy is today. Complications: No immediate complications. Procedure: Pre-Anesthesia Assessment: - Prior to the procedure, a History and Physical was performed, and patient medications and allergies were reviewed. The risks and benefits of the procedure and the sedation options and risks were discussed with the patient. All questions were answered and informed consent was obtained. Patient identification and proposed procedure were verified by the physician in the pre-procedure area. Mental Status Examination: alert and oriented. Airway Examination: normal oropharyngeal airway and neck mobility. Respiratory Examination: clear to auscultation. CV Examination: normal. Prophylactic Antibiotics: The patient does not require prophylactic antibiotics. Prior Anticoagulants: The patient has taken no previous anticoagulant or antiplatelet agents. After reviewing the risks and benefits, the patient was deemed in satisfactory condition to undergo the procedure. The anesthesia plan was to use monitored anesthesia care (MAC). Immediately prior to administration of medications, the patient was re-assessed for adequacy to receive sedatives. The heart rate, respiratory rate, oxygen saturations, blood pressure, adequacy of pulmonary ventilation, and response to care were monitored throughout the procedure. The physical status of the patient was re-assessed after the procedure. After I obtained informed consent, the scope was passed under direct vision. Throughout the procedure, the patient's blood pressure, pulse, and oxygen saturations were monitored continuously. The Colonoscope was introduced through the anus and advanced to the cecum, identified by appendiceal orifice and ileocecal valve. The colonoscopy was performed without difficulty. The patient tolerated the procedure well. The quality of the bowel preparation was adequate. Scope In: 11:20:50 AM Scope Withdrawal Time 0 hours 7 minutes 32 seconds Scope Out: 11:30:22 AM Total Procedure Duration Time 0 hours 9 minutes 32 seconds Findings: The perianal and digital rectal examinations were normal. A few small and large-mouthed diverticula were found in the recto-sigmoid colon and sigmoid colon. A 5 mm polyp was found in the ascending colon. The polyp was sessile. The polyp was removed with a jumbo cold forceps. Resection and retrieval were complete. Verification of patient identification for the specimen was done. Estimated blood loss was minimal. Impression: - Diverticulosis in the recto-sigmoid colon and in the sigmoid colon. - One 5 mm polyp in the ascending colon, removed with a jumbo cold forceps. Resected and retrieved. Recommendation: - Repeat colonoscopy in 5 years for surveillance. - Continue present medications. Procedure Code(s): --- Professional --- 44747, Colonoscopy, flexible; with biopsy, single or multiple CPT copyright 2017 [employer]. All rights reserved. The codes documented in this report are preliminary and upon nib inspector review may be revised to meet current compliance requirements. Avelino Magdaleno DO 11/11/2022 11:34:29 AM This report has been signed electronically. Number of Addenda: 0 Note Initiated On: 11/11/2022 11:11 AM
[2022-11-11 11:35] VITALS: BP 114/91; BP 151/83; PULSE 81; RESP 16; TEMP 37; O2SAT 96
--- NOTE | 2022-11-11 11:35 | OP.CCLET_ITS ---
11/11/2022 Shaheed Marie MD [address] [place] [address] [place] [address] Re : Colonoscopy procedure for Hortencia Brennan Dear Dr. Marie This procedure was performed on November. My impressions and recommendations are as follows: Impressions : - Diverticulosis in the recto-sigmoid colon and in the sigmoid colon. - One 5 mm polyp in the ascending colon, removed with a jumbo cold forceps. Resected and retrieved. Recommendations : - Repeat colonoscopy in 5 years for surveillance. - Continue present medications. My findings are described in the full procedure note, which is enclosed. If I can be of further assistance, please feel free to contact me at . Sincerely, Avelino Magdaleno, 11/11/2022 11:34:29 AM This report has been signed electronically.
[2022-11-11 11:40] VITALS: BP 121/88; BP 151/83; PULSE 66; RESP 16; O2SAT 97
[2022-11-11 11:45] VITALS: BP 126/90; BP 151/83; PULSE 68; RESP 16; O2SAT 95
[2022-11-11 11:50] VITALS: BP 131/83; BP 151/83; PULSE 61; RESP 16; TEMP 36.8; O2SAT 100
[2022-11-11 12:12] VITALS: BP 151/83
== END 2022-11-11 12:29 | disposition home or self-care (01) ==
LOC: EN 09:50 → AC 09:52
PROVIDERS: PCP Internal Medicine; Referring Provider Internal Medicine Gastroenterology; Visit Provider Internal Medicine Gastroenterology
PROC: 0DJD8ZZ Inspection of Lower Intestinal Tract, Via Natural or Artificial Opening Endoscopic (ICD-10-PCS; CPT 45378; principal; 2022-11-11 11:10)
DX: Z12.11 Encounter for screening for malignant neoplasm of colon (principal); D12.2 Benign neoplasm of ascending colon; K57.30 Diverticulosis of large intestine without perforation or abscess without bleeding; I10 Essential (primary) hypertension; K21.9 Gastro-esophageal reflux disease without esophagitis; J45.909 Unspecified asthma, uncomplicated; F41.9 Anxiety disorder, unspecified; Z83.71 Family history of colonic polyps
CPT/HCPCS: 45380; 88305; J7120; J2405

== ENCOUNTER → 2022-11-17 | Outpatient (CLI) | payer MEDICAID, SELFPAY ==
--- NOTE | 2022-11-18 10:22 | PFT ---
INTRODUCTION: The patient is a 47-year-old female that presents for pulmonary function studies secondary to a diagnosis of chronic cough. Respiratory therapy reported good patient effort. Bronchodilators were used during testing. INTERPRETATION: Forced expiration spirometry demonstrates no evidence of a large airways obstructive ventilatory defect. There was no significant response to aerosolized bronchodilators. Spirograms are of good quality and plateau normally. Body plethysmography was performed and revealed lung volumes to be within normal limits. Diffusing capacity by single breath CO is also within normal limits. IMPRESSION: Grossly normal pulmonary function studies.
== END | disposition home or self-care (01) ==
PROVIDERS: PCP Internal Medicine; Visit Provider Physician Assistant
DX: R05.3 Chronic cough (principal)
CPT/HCPCS: 94060; 94726; 94729

== ENCOUNTER → 2023-07-26 | Outpatient (CLI) | payer MEDICAID, SELFPAY ==
[2023-07-26 12:09] LABS: HIV - WCH Non-Reactive (Nonreactive); Hepatitis C Antibody Non-Reactive (Nonreactive); Syphilis Antibodies Non-reactive
[2023-07-27 07:08] LABS: HSV 2 IgG < 0.91 index (0.00-0.90)
== END | disposition home or self-care (01) ==
PROVIDERS: PCP Internal Medicine; Referring Provider Nurse Practitioner Women's Health; Visit Provider Nurse Practitioner Women's Health
DX: Z20.2 Contact with and (suspected) exposure to infections with a predominantly sexual mode of transmission (principal)
CPT/HCPCS: 36415; 86695; 86696; 86703; 86780; 86803; 87491; 87591

== ENCOUNTER → 2023-07-26 | Outpatient (CLI) | payer MEDICAID, SELFPAY ==
[2023-07-28 22:06] LABS: Chlamydia By Nucleic Acid AMP Negative (Negative); Gonococcus By Nucleic Acid AMP Negative (Negative)
== END | disposition home or self-care (01) ==
LOC: LABSPEC 15:57
PROVIDERS: PCP Internal Medicine; Referring Provider Nurse Practitioner Women's Health; Visit Provider Nurse Practitioner Women's Health
DX: Z20.2 Contact with and (suspected) exposure to infections with a predominantly sexual mode of transmission (principal)
CPT/HCPCS: 87491; 87591

== ENCOUNTER → 2023-08-18 | Outpatient (CLI) | payer MEDICAID, SELFPAY ==
--- NOTE | 2023-08-18 14:27 | BI_ITS ---
MAMMOGRAPHY - BILATERAL DIAGNOSTIC REASON FOR EXAM: Female, 47 years old. Left breast pain. PERTINENT HISTORY: Mother with breast cancer. Aunt with breast cancer. TECHNIQUE: Digital bilateral breast alvaro (3D mammographic acquisition) in the CC and MLO projections. 2-D mediolateral oblique (MLO) and craniocaudad (CC) views of both breasts were obtained. CAD: Full Field Digital Mammography with Computer Added Detection was performed. COMPARISON: Comparison is made with prior study July 15, 2022. FINDINGS: Breast Composition: The breasts are heterogeneously dense, which may obscure small masses. There is an 8.4 mm x 7.4 mm well-defined nodule in the slightly inferior lateral aspect of the left breast. Correlation with ultrasound is recommended. No other significant abnormalities are identified. BI/DIAG MAMM W/CAD, BILAT IMPRESSION: 8.4 mm x 7.4 mm well-defined nodule in the slightly inferior lateral aspect of the left breast. Correlation with ultrasound is recommended. ASSESSMENT CATEGORY: BIRADS Category 0: Incomplete. Need additional imaging evaluation. A letter regarding these results will be sent to the patient by the facility within 30 days. Approximately 10% of breast cancers are not detected by mammography. A normal mammogram should not delay biopsy of a clinically suspicious abnormality. Electronically Signed: Gene Prince MD at 15:38 EST ,
--- NOTE | 2023-08-18 14:27 | US_ITS ---
STUDY: ULTRASOUND BREAST - LEFT REASON FOR EXAM: Female, 47 years old. Pain in the left breast. TECHNIQUE: Axial and longitudinal images of the LEFT breast were performed with a high resolution ultrasound transducer. # OF IMAGES: 23 COMPARISON: Comparison is made with prior mammogram done earlier today and prior sonogram dated July 15, 2022. FINDINGS: LEFT Breast: The lower outer quadrant of the left breast was examined with ultrasound. There is a 7 mm x 9 mm x 4 mm cyst at the 4:00 position of the breast at 2 cm from the nipple. US/Breast Limited Unilateral IMPRESSION: 7 mm x 9 mm x 4 mm cyst at the 4:00 position of the breast at 2 cm from the nipple. ASSESSMENT CATEGORY: BIRADS Category 2: Benign. A letter regarding these results will be sent to the patient by the facility within 30 days. Electronically Signed: Gene Prince MD at 15:23 EST ,
== END | disposition home or self-care (01) ==
LOC: OPBI 14:26
PROVIDERS: PCP Internal Medicine; Referring Provider Nurse Practitioner Women's Health; Visit Provider Nurse Practitioner Women's Health
DX: N64.4 Mastodynia (principal)
CPT/HCPCS: 77062; 76642; 77066; G0279

== ENCOUNTER 2023-10-11 08:52 | Emergency (ER) | payer MEDICAID, SELFPAY ==
[2023-10-11 08:53] VITALS: BP 166/117; PULSE 94; RESP 16; TEMP 36.2; O2SAT 99; BMI 30.6
--- NOTE | 2023-10-11 09:05 | RAD_ITS ---
STUDY: X-RAY CHEST REASON FOR EXAM: Female, 48 years old. Left chest pain. TECHNIQUE: Frontal and lateral views of the chest. COMPARISON: September 30, 2022. FINDINGS: The lungs are clear and expanded. There is no demonstrated pleural abnormality. Normal size heart. Normal mediastinum and cj. Normal visualized pulmonary arteries. Normal visualized aortic arch and descending thoracic aorta. Normal visualized thoracic spine. Normal visualized ribs, clavicles, and shoulders. No abnormality of the visualized soft tissue structures of the upper abdomen. RAD/Chest PA and Lateral IMPRESSION: No interval change and no acute or active cardiopulmonary disease. Electronically Signed: Taye Pak MD at 9:28 EST ,
--- NOTE | 2023-10-11 09:06 | EDS_ITS ---
HPI History of Present Illness Chief Complaint: Chest Pain Informant: patient Narrative Narrative: Patient presents to the emergency department for pain in her left chest that has been there for 2 months. She states recently it started going into her left upper back. She states it feels like it is on the inside. It is there most of the time. Initially she thought it had something to do with her breast because it was just beneath it, so she saw her instructional technologist and had both an ultrasound and a mammogram and they were both fine. She states sometimes when the pain gets worse it takes her breath away makes her little short of breath but the discomfort is nonpleuritic does not get worse when she moves. She states it tends to hurt the worst at night and in the morning. No exertional worsening. No history of blood clots no recent leg pain or swelling, no recent long travel prior to the onset of this, no recent hospitalizations or surgeries. She states she has a known history of reflux and she takes omeprazole 40 mg twice a day. She also takes a lot of ibuprofen and has basically been taking that or Aleve for this pain and has not tried anything else. [facility] Medical History Alcohol use Anemia Anxiety Anxiety Asthma Asthma Back pain Carpal tunnel syndrome Chronic cough Difficulty swallowing Diverticulitis Easy bruising Gastric reflux GERD (gastroesophageal reflux disease) Headache, migraine history of breast lump/cyst History of diverticulitis History of gout History of stress test Hypertension Hypertension Hypertension Low iron Marijuana use Migraine headache Non-smoker Shortness of breath on exertion Skin cancer skin cancer removal SOB (shortness of breath) Home Medications blood pressure monitor #1 ea 09/08/21 [Rx Last Taken Unknown] sumatriptan succinate 25 mg tablet (Imitrex) 25 mg PO PRN PRN MIGRAINES 11/08/22 [History Last Taken Unknown] losartan 100 mg-hydrochlorothiazide 25 mg tablet 1 tab PO DAILY 11/11/22 [History Last Taken Unknown] albuterol sulfate 90 mcg/actuation aerosol inhaler 2 puff inhalation Q4H PRN cough #17 grams 06/10/23 [Rx Last Taken Unknown] ibuprofen 600 mg tablet 600 mg PO TID PRN pain #20 TABLETS 07/26/23 [Rx Last Taken Unknown] omeprazole 40 mg capsule,delayed release 40 mg PO BID #180 caps 07/26/23 [Rx L ast Taken Unknown] Allergy/AdvReac Type Severity Reaction Status Date / Time No Known Allergies Allergy Verified 10/11/23 09:27 Family History Father Heart disease COPD (chronic obstructive pulmonary disease) Asthma CVA (cerebral vascular accident) Colon polyps Sister Diabetes GERD (gastroesophageal reflux disease) Cancer Skin Cancer Surgical History H/O: hysterectomy History of hernia repair Hx of esophagogastroduodenoscopy Hx of inguinal hernia repair Hx of tonsillectomy S/P Social History household members: significant other, children and other number of children: 3 current occupational status: unemployed history of recent travel: No sexually active: Yes other: oldest child - Lili adopted Smoking Status: Never smoker alcohol intake: current alcohol intake frequency: a few times a week substance use type: marijuana caffeine: Yes what type of physical activity do you participate in: none frequency: does not exercise seatbelt use: always do you feel safe at home: Yes additional social history: seperated ROS ROS ED Constitutional Constitutional ED: Denies chills or fever(s) Eyes Eyes: Denies change in vision or diplopia ENT ENT ED: Denies rhinorrhea or sore throat Cardiovascular Cardiovascular: Reports chest pain; Denies leg edema or palpitations Respiratory/Chest Respiratory/Chest: Denies cough or dyspnea on exertion Gastrointestinal Gastrointestinal: Denies abdominal pain, diarrhea, nausea or vomiting Genitourinary Genitourinary ED: Denies dysuria or hematuria Musculoskeletal Musculoskeletal: Reports back pain; Denies neck pain Integumentary Denies abscess or rash Neurologic Neurologic: Denies headache(s), paresthesias or weakness Psychiatric Psychiatric: Denies suicidal ideation or suicidal thoughts EXAM Physical Exam Const Vital Signs: 10/11/23 08:53 10/11/23 09:30 10/11/23 11:00 Temperature 97.1 F L Temperature Source Temporal Pulse Rate 94 66 Respiratory Rate 16 20 H Blood Pressure 166/117 H 162/102 H Blood Pressure Mean 133 122 Pulse Ox 99 99 Oxygen Delivery Method Room Air Room Air Positive well nourished and well developed General Appearance ED: well developed and NAD HEENT Reports moist mucous membranes normocephalic and atraumatic Eyes PERRL and EOMs intact bilaterally Neck full ROM and supple Chest Wall inspection of chest normal and palpation of chest normal Resp normal respiratory effort and clear to auscultation bilaterally Cardio regular rate, regular rhythm and no murmurs Rate: Negative for tachycardic Peripheral Pulses: pulses 2+ throughout GI non-distended GI Narrative: Mild left upper quadrant tenderness otherwise benign abdomen. No guarding or rebound. Auscultation: normoactive bowel sounds Palpation: soft Back/Spine no CVA tenderness General Back: other FROM Extremity normal to inspection General Extremety ED: Negative for edema, pulses abnormal or tenderness General Extremity: Negative for edema or pulses abnormal Neuro oriented x3, CN's II-XII intact bilaterally and no sensory deficits noted Sensorium / Orientation: awake and alert Motor Exam: strength 5/5 throughout Psych mental status grossly normal Skin no rashes or lesions noted and no wounds Heart Score History: Slightly/Non-Suspicious ECG: Normal Age: >45 - <65 years Risk Factors: 1 or 2 Risk Factors Troponin: </= Normal Limit Score: 2 MDM MDM MDM Narrative Medical decision making narrative: Patient's EKG is normal in my interpretation, and her initial troponin is in the single digits 5, well within normal limits. 2 view chest x-ray normal in my interpretation without signs of infiltrate, pneumothorax, widened mediastinum. I also did a D-dimer because of the unilateral inside nature of the discomfort, although technically she meets PERC criteria to rule out PE, the D- dimer is within normal limits, firmly ruling out PE in this context. She was asking for something for the pain, at this time I recommend trying treatment for esophageal discomfort. She declined this initially but after I talk to her more about it she was willing to try it because she said that the pain was getting worse. After, her pain was significantly better, and her second troponin returned single digits also well within normal limits. At this time she stable for discharge I recommend following up with her doctor or GI. She is already on a PPI which she should continue. Lab Data Attestation: I reviewed the patient's lab results. Labs: Laboratory Results - last 24 hr 10/11/23 10/11/23 09:10 11:50 WBC 5.9 RBC 5.08 Hgb 14.0 Hct 43.4 MCV 85.4 MCH 27.6 MCHC 32.3 RDW Std Deviation 38.3 RDW Coeff of [facility] 12.3 Plt Count 322 MPV 10.2 Immature Gran % (Auto) 0.500 Neut % (Auto) 62.5 Lymph % (Auto) 22.5 Mcnairy % (Auto) 8.3 Eos % (Auto) 5.4 H Baso % (Auto) 0.8 Absolute Neuts (auto) 3.7 Absolute Lymphs (auto) 1.33 Nucleated RBC % 0 D-Dimer Quant (PE/DVT) < 0.27 L Sodium 140 Potassium 3.7 Chloride 105 Carbon Dioxide 31.0 Anion Gap 4 L BUN 11 Creatinine 0.94 Estim Creat Clear Calc 59.89 Est GFR (MDRD) Af Amer 81 Est GFR (MDRD) Non-Af 67 BUN/Creatinine Ratio 11.7 Glucose 87 Calcium 9.2 Troponin I High Sens 5 6 Radiography Diagnostic Testing: Clinical Impression(s) from Imaging Studies Chest X-Ray 10/11/23 09:05 IMPRESSION: No interval change and no acute or active cardiopulmonary disease. Electronically Signed: Taye Pak MD at 9:28 EST Reading Location ID and State: [address] [place] [address] , Service support , Rhythm Strip Rhythm Strip: Sinus Rhythm Rate: 94 Ectopy: None EKG Initial EKG: Attestation: I personally reviewed and interpreted this EKG as follows: Interpretation: Sinus Rhythm and No Acute Injury Pattern Comments: nml ekg Discharge Plan Triage Chief Complaint: Chest Pain ED Provider: Salvador Espinoza Dx/Rx/DC Orders Clinical Impression: Non-cardiac chest pain, GERD (gastroesophageal reflux disease) Instructions: ED Chest Pain, Noncardiac, ED GERD (Adult) Prescriptions: No Action ibuprofen 600 mg tablet 600 mg PO TID PRN (Reason: pain) Qty: 20 0RF omeprazole 40 mg capsule,delayed release(DR/EC) 40 mg PO BID Qty: 180 0RF sumatriptan succinate [Imitrex] 25 mg tablet 25 mg PO PRN PRN (Reason: MIGRAINES) losartan-hydrochlorothiazide 100-25 mg tablet 1 tab PO DAILY Patient Comments: TAKE 1 TABLET BY MOUTH EVERY DAY (DME) blood pressure monitor Kit See Rx Instructions .ROUTE .MEDSUPPLY Qty: 1 0RF Rx Instructions: Check blood pressure twice a day albuterol sulfate 90 mcg/actuation HFA aerosol inhaler 2 puff INHALATION Q4H PRN (Reason: cough) Qty: 17 3RF Rx Instructions: administer with spacer Primary Care Provider: Shaheed Marie Referrals: Shaheed Marie MD [Primary Care Provider] - As soon as possible Activity Restrictions/Additional Instructions: Continue your Nexium or Prilosec at least once daily, consider trying a 10-day course of twice-daily dosing and follow-up with your doctor, if this does not help you may need to be referred to gastroenterology for a scope. Disposition Disposition: Home, Self Care
[2023-10-11 09:25] LABS: Absolute Lymphocyte Count 1.33 X10^3/uL (0.83-4.51); Absolute Neutrophil Count 3.7 X10^3/uL (2.0-7.7); Basophil# 0.05 X10^3/uL; Basophil% 0.8 % (0-1); Eosinophil# 0.32 X10^3/uL; Eosinophils% 5.4 % (0-5); Hematocrit 43.4 % (37-47); Lymphocyte # 1.33 X10^3/ul (0.83-4.51); Lymphocyte % 22.5 % (19-41); Mean Corp Hgb Conc 32.3 g/dL (32-36); Mean Corpuscular Hgb 27.6 pg (27.0-32.0); Mean Corpuscular Volume 85.4 fL (81-99); Mean Platelet Vol. 10.2 fl (6.2-12.0); Monocyte# 0.49 X10^3/uL; Monocyte% 8.3 % (0-10); NRBC Flagged by Analyzer 0 % (0-5); Neutrophil % 62.5 % (47-70); Platelet Count 322 K/mm3 (150-450); RBC Distribution Width CV 12.3 % (11.6-14.6); RBC Distribution Width SD 38.3 fl (35.1-43.9); Red Blood Count 5.08 M/mm3 (4.2-5.4); White Blood Count 5.9 K/mm3 (4.4-11.0)
[2023-10-11 09:36] LABS: D-Dimer Quantitative (DVT/PE) < 0.27 FEU/ug/m (0.27-0.49)
[2023-10-11 09:42] LABS: Anion Gap 4 (5-15); BUN 11 mg/dL (7-18); BUN/Creat Ratio 11.7 RATIO (10-20); Calcium,Total 9.2 mg/dL (8.5-10.1); Chloride 105 mmol/L (98-107); Creatinine, Serum 0.94 mg/dL (0.55-1.02); EST Glomerular Filtration Rate 67 mL/min (>60); Est Glom Filt Rate - Afr Amer 81 mL/min (>60); Estimated Creatinine Clearance 59.89 ml/min; Glucose 87 mg/dL (74-106); Potassium 3.7 mmol/L (3.5-5.1); Sodium Level 140 mmol/L (136-145); Troponin-I HS (w/2H Reflex) 5 pg/mL (3.0-54.0)
[2023-10-11] MEDS: Dicyclomine 10 MG Capsule 20 MG PO (10:58)
[2023-10-11] MEDS: Mag Hydrox/Al Hydrox/Simeth 30 ML UDC PO (10:58)
[2023-10-11 11:00] VITALS: BP 162/102; PULSE 66; RESP 20; O2SAT 99
[2023-10-11 11:16] LABS: Reflex Troponin-HS? (from REC) Y
[2023-10-11 12:15] LABS: Troponin-I HS 6 pg/mL (3.0-54.0)
[2023-10-11 12:30] VITALS: BP 162/122; PULSE 64; RESP 16; TEMP 36.1; O2SAT 98
== END 2023-10-11 12:42 | disposition home or self-care (01) ==
PROVIDERS: Emergency Provider Emergency Medicine; PCP Internal Medicine; Visit Provider Emergency Medicine
DX: R07.89 Other chest pain (principal); K21.9 Gastro-esophageal reflux disease without esophagitis; I10 Essential (primary) hypertension; Z85.828 Personal history of other malignant neoplasm of skin; G43.909 Migraine, unspecified, not intractable, without status migrainosus; Z79.899 Other long term (current) drug therapy; Z90.710 Acquired absence of both cervix and uterus
CPT/HCPCS: 71046; 80048; 84484; 85025; 85379; 93005; 99285; A4216

== ENCOUNTER → 2023-10-13 | Outpatient (CLI) | payer MEDICAID, SELFPAY ==
[2023-10-13 14:20] LABS: Red Blood Cells-Urine 0 SEEN /hpf (0-5)
[2023-10-13 15:09] LABS: Color, Urine Yellow (Yellow); Glucose, Dipstick Normal (Normal); Ketone-Dipstick Negative (Negative); Leukocyte Esterase-Dipstick 25 /ul (Negative); Nitrite-Dipstick Negative (Negative); Occult Blood-Urine Negative /ul (Negative); Protein-Dipstick Negative (Negative); Urine Bilirubin Dipstick Negative (Negative); Urine Clarity Sl. Cloudy (Clear); Urine Urobilinogen 1 mg/dl (Normal)
[2023-10-13 15:17] LABS: Bacteria 1+ /hpf (None Seen); Mucous, Urine 1+ /hpf (<or=2+); Squamous Epithelial Cells - UA 5-10 SEEN /hpf (5-10); White Blood Cells 0-5 SEEN /hpf (0-5)
[2023-10-13 15:30] LABS: AST(SGOT) 30 U/L (15-37); Alanine Aminotransfer ALT/SGPT 45 U/L (13-56); Albumin, Serum 3.6 g/dL (3.2-5.0); Alkaline Phosphatase 71 U/L (45-117); Amylase 38 U/L (25-115); Bilirubin, Direct 0.11 mg/dL (0.00-0.30); Globulin 3.1 g/dL (2.2-4.2); Lipase 43 U/L (13-75); Protein, Total 6.7 g/dL (6.4-8.2)
--- OUTSIDE RECORDS SUMMARY | 2023-10-13 17:12 | XMS RPT_ITS | CCD ---
Author Name Unknown Address [address] [place] [address] Organization [facility] Care Team Providers Care Swatch Clerk Name Role Phone MARY GUTIERREZ Unavailable Unavailable PHYSICIAN, NONE Unavailable Unavailable Unavailable Primary Care Provider Unavailabl e Allergies Allergy Classification Reported Allergen(s) Allergy Type Date of Onset Reaction(s) Facility (2 sources) Penicillins; Translations: [PENICILLINS] Propensity to adverse reactions 09-04-2007 GI Upset [facility] Work Phone: Medications Current Medications Medication Drug Class(es) Dates Sig (Normalized) Sig (Original) azithromycin 250 mg oral tablet (1 source) Macrolide Antimicrobial Start: 03-26-2023 End: 03-31-2023 azithromycin (ZITHROMAX Z-BRISEIDA) 250 mg tablet Indications: Bronchitis Take 2 tablets day one, then, 1 tablet daily until gone. 6 tablet 0 03/26/2023 03/31/2023 Active Completed/Discontinued Medications Medication Drug Class(es) Dates Sig (Normalized) Sig (Original) betamethasone 0.5 mg/ml / clotrimazole 10 mg/ml topical cream (1 source) Azole Antifungal, Corticosteroid Start: 02-16-2016 clotrimazole-beta methasone (LOTRISONE) cream Apply 1 application to affected area twice daily. 15 g 0 02/16/2016 Active Problems Active Problems Problem Classification Problem Date Documented Da te Episodic/Chronic Anxiety disorders (1 source) Generalized anxiety disorder; Translations: [Generalized anxiety disorder] 08-24-2005 Chronic Chronic obstructive pulmonary disease and bronchiectasis (1 source) Bronchitis; Translations: [Bronchitis, not specified as acute or chronic] Episodic Esophageal disorders (2 sources) Gastro-esophageal reflux disease with esophagitis; Translations: [Gastroesophageal reflux disease with esophagitis without hemorrhage] Onset: 02-14-2012 Chronic Headache; including migraine (1 source) Migraine; Translations: [Other forms of migraine] 08-24-2005 Chronic Other gastrointestinal disorders (1 source) Irritable bowel syndrome; Translations: [Irritable bowel syndrome without diarrhea] 08-24-2005 Chronic Past or Other Problems Problem Classification Problem Date Documented Da te Episodic/Chronic Abdominal pain (1 source) Right lower quadrant pain; Translations: [Right lower quadrant pain] Onset: 09-29-2011 09-29-2011 Episodic Headache; including migraine (1 source) Headache; Translations: [Headache] Onset: 01-10-2012 01-10-2012 Episodic Mycoses (1 source) Candidiasis; Translations: [Candidiasis of skin and nail] Onset: 09-29-2011 09-29-2011 Episodic Nonmalignant breast conditions (1 source) Galactorrhea not associated with childbirth; Translations: [Galactorrhea not associated with childbirth] Onset: 12-06-2006 12-06-2006 Episodic Other and unspecified benign neoplasm (1 source) Benign neoplasm of skin of trunk; Translations: [Melanocytic nevi of trunk] Onset: 03-10-2012 10-05-2021 Episodic Results Test Name Value Interpretation Reference Range Facil ity Vital Signs Date Time Vital Sign Value Performing Clinician Luke lity 03-26-2023 10:24-0400 Body temperature 99.1 [degF] Elly Fontanez APRN.CNP Work Phone: [facility] 03-26-2023 10:24-0400 Body weight 84.19 kg Elly Fontanez APRN.CNP Work Phone: [facility] 03-26-2023 10:24-0400 Diastolic blood pressure 86 mm[Hg] Elly Fontanez APRN.CNP Work Phone: [facility] 03-26-2023 10:24-0400 Heart rate 94 /min Elly Fontanez APRN.CNP Work Phone: [facility] 03-26-2023 10:24-0400 Respiratory rate 18 /min Elly Fontanez APRN.CNP Work Phone: [facility] 03-26-2023 10:24-0400 SaO2% (BldA) [Mass fraction] 97 % Elly Fontanez APRN.CNP Work Phone: [facility] 03-26-2023 10:24-0400 Systolic blood pressure 144 mm[Hg] Elly Fontanez APRN.CNP Work Phone: [facility] Encounters Encounter Date Encounter Type Care Provider Facility Start: 03-26-2023 End: 03-26-2023 ambulatory Facility:[facility] Start: 03-26-2023 End: 03-26-2023 Patient encounter procedure Elly Fontanez APRN.CNP Work Phone: [facility] Procedures Date Procedure Procedure Detail Performing Clinician Start: 02-16-2016 Mammography Elly almodovar APRN.CNP Work Phone: Plan of Treatment Date Care Activity Detail Author Start: 06-10-2023 Influenza vaccination INFLUENZA (Sea son Ended) [facility] Start: 10-10-2022 DEPRESSION ASSESSMENT DEPRESSION ASS ESSMENT [facility] Start: 2019 COLOGUARD (FIT-DNA) COLOGUARD (FIT-D NA) [facility] Start: 2019 Colonoscopy COLONOSCOPY [facility] Start: 2019 COLORECTAL CANCER SCREENING COLORECTAL CANCER SCREENING [facility] Start: [address] COLONOGRAPHY [facility] Start: 2019 DIABETES SCREEN DIABETES SCREEN [facility] Start: 2019 FECAL OCCULT BLOOD FECAL OCCULT BLOO D [facility] Start: 2019 LIPID SCREEN LIPID SCREEN [facility] Start: 2019 SIGMOIDOSCOPY SIGMOIDOSCOPY [facility] Start: 02-15-2017 Mammography MAMMOGRAM [facility] Start: 1985 Urine microalbumin profile DTAP,TDAP ,TD (6 - Tdap) [facility] Start: 03-17-1975 COVID-19 VACCINE (#1) COVID-19 VACCI NE (#1) [facility] Start: 1974 HEPATITIS B (1 of 3 - 3-dose series) HEPATITIS B (1 of 3 - 3-dose series) [facility] Immunizations Immunization Date Immunization Notes Care Provider Aldair coles 03-19-1980 DTP-Haemophilus influenzae type b conjugate vaccine Elly Fontanez APRN.CNP Work Phone: [facility] Work Phone: 03-19-1980 trivalent poliovirus vaccine, live, oral Elly Tannhof [employer] FINISHING SUPERVISOR.LABOR RELATIONS TEACHER Work Phone: [facility] Work Phone: 05-18-1976 DTP-Haemophilus influenzae type b conjugate vaccine Elly Tannhof DIAMOND FINISHING SUPERVISOR.LABOR RELATIONS TEACHER Work Phone: [facility] Work Phone: 11-01-1975 measles and rubella virus vaccine Elly Tannhof DIAMOND FINISHING SUPERVISOR.LABOR RELATIONS TEACHER Work Phone: [facility] Work Phone: 07-09-1975 DTP-Haemophilus influenzae type b conjugate vaccine Elly Tannhof DIAMOND FINISHING SUPERVISOR.LABOR RELATIONS TEACHER Work Phone: [facility] Work Phone: 05-18-1975 trivalent poliovirus vaccine, live, oral Elly Tannhof DIAMOND FINISHING SUPERVISOR.LABOR RELATIONS TEACHER Work Phone: [facility] Work Phone: 03-07-1975 DTP-Haemophilus influenzae type b conjugate vaccine Elly Tannhof DIAMOND FINISHING SUPERVISOR.[facility] Work Phone: [facility] Work Phone: 03-07-1975 trivalent poliovirus vaccine, live, oral Elly Tannhof DIAMOND FINISHING SUPERVISOR.LABOR RELATIONS TEACHER Work Phone: [facility] Work Phone: 1974 DTP-Haemophilus influenzae type b conjugate vaccine Elly Tannhof DIAMOND FINISHING SUPERVISOR.LABOR RELATIONS TEACHER Work Phone: [facility] Work Phone: 1974 trivalent poliovirus vaccine, live, oral Elly Tannhof DIAMOND FINISHING SUPERVISOR.LABOR RELATIONS TEACHER Work Phone: [facility] Work Phone: 1974 trivalent poliovirus vaccine, live, oral Elly Tannhof DIAMOND FINISHING SUPERVISOR.LABOR RELATIONS TEACHER Work Phone: [facility] Work Phone: Payers Date Payer Category Payer Medicaid [id number] 2022 Medicaid [facility] MEDICAID [employer] [place] [id number] 2022-Present [phone] [address] [place] [address] Medicaid [id number] 2017 Self-pay Social History Date Type Detail Facility [facility]: [facility] Start: 07-01-2011 Tobacco use and exposure Smoke less tobacco non-user [facility] Start: 03-26-2023 Alcohol intake Current drinke r of alcohol (finding) [facility] Start: 03-26-2023 [facility] Start: 1975 Sex Assigned At Not on file [facility] Progress note 03-26-2023 Note Date & Type Note Facility 03-26-2023 Note HNO ID: [id number] Author: Elly Fontanez APRN.LABOR RELATIONS TEACHER Service: ? Author Type: Nurse Practitioner Type: Progress Notes Filed: 03/26/2023 10:49 AM Note Text: This is a 47 year old female who presents today with: Patient presents with: Cough: Cough and rib pain x 1 week HISTORY OF PRESENT ILLNESS: Hortencia Brennan is a 47 year old female. Patient presents with: Cough: Cough and rib pain x 1 week Cough has been chronic for years, but progressed in the past week. Cough is productive at times, clear mucus. SOB and wheezing. Refers that back hurts when coughing. Refers that she has been seen by pulmonology in the past. Trying to figure out cause of chronic cough. Chronic GERD, taking Priolosec 40mg BID, no improvement. Heartburn has been bad, occurring throughout the day. Watching diet. No tobacco use. 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 Dysthymic disorder Depression (non-psychotic) Generalized anxiety disorder Insomnia occasional Irritable bowel syndrome resolved Moderate dysplasia of cervix 1992 Other forms of migraine PAST SURGICAL HISTORY Procedure Laterality Date CAUTERY CERVIX CRYOCAUTERY INITIAL/REPEAT 1992 paps since [place] DELIVERY ONLY , low cervical x 2 COLPOSCOPY CERVIX UPPER/ADJACENT VAGINA 1991 Colposcopy/CRYoCAUTERY LIG/TRNSXJ FLP TUBE ABDL/VAG APPR UNI/BI Tubal ligation MAMMOGRAM BILATERAL 2009 TONSILLECTOMY HX TOTAL ABDOM HYSTERECTOMY 08/2011 LSO; menorrhagia/dysmenorrhea ALLERGIES Penicillins MEDICATIONS Current Outpatient Medications Medication Sig omeprazole magnesium (PRILOSEC OTC ORAL) Take by mouth. clotrimazole-betamethasone (LOTRISONE) cream Apply 1 application to affected area twice daily. (Patient not taking: Reported on 03/26/2023) predniSONE (DELTASONE) 20 mg tablet Take 1 tablet by mouth once daily. Take daily with food. pantoprazole DR (PROTONIX) 40 mg tablet Take 1 tablet by mouth daily before breakfast. Take on empty stomach, 1/2 hr before meal. (Patient not taking: Reported on 03/26/2023) PARoxetine (PAXIL) 20 mg tablet Take 1 tablet by mouth once daily. fluticasone 50 mcg/actuation nasal spray Use 2 Sprays in each nostril once daily. Rinse mouth after use. No current facility-administered medications for this visit. FAMILY HISTORY Problem Relation Age of Onset Ischemic Heart Disease Maternal Aunt Breast Cancer Maternal Aunt 35 Diabetes Maternal Grandfather Hypertension Father Cancer Maternal Aunt Great Aunt Diabetes Paternal Grandfather Cancer Mother Skin Diabetes Sister Cancer Paternal Grandmother Ischemic Heart Disease Father 54 stent Cancer Maternal Uncle Social History Tobacco Use Smoking status: Never Smokeless tobacco: Never Substance Use Topics Alcohol use: Yes Alcohol/week: 2.5 standard drinks Types: 1 Glasses of Wine (5oz) per week Comment: Occasionally Drug use: No REVIEW OF SYSTEMS GENERAL: No weight loss, malaise or fevers/chills HEENT: Negative for frequent or significant headaches, No changes in hearing or vision. NECK: Negative for lumps, goiter, pain and significant neck swelling RESPIRATORY: + SOB, Cough CARDIOVASCULAR: Negative for chest pain, leg swelling, orthopnea, or palpitations GI: + GERD : No history of dysuria, frequency or incontinence MUSCULOSKELETAL: Negative for joint pain or swelling. SKIN: Negative for lesions, rash, and itching ENDOCRINE: Negative for cold or heat intolerance, polyuria, polydipsia and goiter NEURO: No history of headaches, syncope, paralysis, seizures or tremors MOOD: Negative for depression, anxiety, or suicidal ideation. EXAM: BP 144/86 Pulse 94 Temp 37.3 ?C (99.1 ?F) (Tympanic) Resp 18 Wt 84.2 kg (185 lb 9.6 oz) LMP 07/27/2011 SpO2 97% BMI 31.37 kg/m? PHYSICAL EXAM: General Appearance: Well appearing, alert, in no acute distress, well-hydrated, well nourished. Skin: Skin color, texture, turgor normal, no suspicious rashes or lesions. Head: Normocephalic, no masses, lesions, tenderness or abnormalities. Eyes: Anicteric sclera. Pupils are equally round and reactive to light. Extraocular movements are intact. Ears: External ears normal, canals clear. TM's pearly lewis. Nose/Sinuses: Nares normal, septum midline, mucosa normal, no drainage or sinus tenderness. Oropharynx: Lips, mucosa, and tongue normal, teeth and gums normal, oropharynx normal. Neck: Supple, no adenopathy; thyroid symmetric, normal size, no bruits. Lungs: Cough, wheezing throughout, no rhonchi. Heart: RRR without murmur, gallop, or rubs. No ectopy. Abdomen: Normal abdominal exam, Abdomen soft, non-tender. Bowel sounds normal. No masses, organomegaly, Negative CVA tenderness. Extremities: No deformities, edema, skin discoloration, clubbing or cyanosis. Good capillary refill. . Periphera (more content not included)... [facility] Instructions 03-26-2023 Patient Instructions Note Date & Type Note Facility 03-26-2023 Instructions Elly Fontanez APRN.WARREN - 03/26/2023 10:37 AM EDT Start the zpack today Start Prednisone 40 mg daily for the next 5 days May use over the counter cold and cough medication as needed. Stay well hydrated. Continue to use albuterol inhaler as needed. Start Protonix 40 mg daily in the morning. If needed may use Pepcid 20 mg in the evening. Follow up with PCP for GERD. Follow up if symptoms do not improvement. documented in this encounter [facility] History of Present illness Narrative 03-26-2023 Elly Fontanez APRN.LABOR RELATIONS TEACHER - 03/26/2023 10:28 AM EDT Note Date & Type Note Facility 03-26-2023 History of Presen t illness Narrative This is a 47 year old female who presents today with: Patient presents with: Cough: Cough and rib pain x 1 week HISTORY OF PRESENT ILLNESS: Hortencia Brennan is a 47 year old female. Patient presents with: Cough: Cough and rib pain x 1 week Cough has been chronic for years, but progressed in the past week. Cough is productive at times, clear mucus. SOB and wheezing. Refers that back hurts when coughing. Refers that she has been seen by pulmonology in the past. Trying to figure out cause of chronic cough. Chronic GERD, taking Priolosec 40mg BID, no improvement. Heartburn has been bad, occurring throughout the day. Watching diet. No tobacco use. 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 Dysthymic disorder Depression (non-psychotic) Generalized anxiety disorder Insomnia occasional Irritable bowel syndrome resolved Moderate dysplasia of cervix 1991 Other forms of migraine PAST SURGICAL HISTORY Procedure Laterality Date CAUTERY CERVIX CRYOCAUTERY INITIAL/REPEAT 1992 paps since [place] DELIVERY ONLY , low cervical x 2 COLPOSCOPY CERVIX UPPER/ADJACENT VAGINA 1991 Colposcopy/CRYoCAUTERY LIG/TRNSXJ FLP TUBE ABDL/VAG APPR UNI/BI Tubal ligation MAMMOGRAM BILATERAL 2009 TONSILLECTOMY HX TOTAL ABDOM HYSTERECTOMY 08/2011 LSO; menorrhagia/dysmenorrhea ALLERGIES Penicillins MEDICATIONS Current Outpatient Medications Medication Sig omeprazole magnesium (PRILOSEC OTC ORAL) Take by mouth. clotrimazole-betamethasone (LOTRISONE) cream Apply 1 application to affected area twice daily. (Patient not taking: Reported on 03/26/2023) predniSONE (DELTASONE) 20 mg tablet Take 1 tablet by mouth once daily. Take daily with food. pantoprazole DR (PROTONIX) 40 mg tablet Take 1 tablet by mouth daily before breakfast. Take on empty stomach, 1/2 hr before meal. (Patient not taking: Reported on 03/26/2023) PARoxetine (PAXIL) 20 mg tablet Take 1 tablet by mouth once daily. fluticasone 50 mcg/actuation nasal spray Use 2 Sprays in each nostril once daily. Rinse mouth after use. No current facility-administered medications for this visit. FAMILY HISTORY Problem Relation Age of Onset Ischemic Heart Disease Maternal Aunt Breast Cancer Maternal Aunt 35 Diabetes Maternal Grandfather Hypertension Father Cancer Maternal Aunt Great Aunt Diabetes Paternal Grandfather Cancer Mother Skin Diabetes Sister Cancer Paternal Grandmother Ischemic Heart Disease Father 54 stent Cancer Maternal Uncle Social History Tobacco Use Smoking status: Never Smokeless tobacco: Never Substance Use Topics Alcohol use: Yes Alcohol/week: 2.5 standard drinks Types: 1 Glasses of Wine (5oz) per week Comment: Occasionally Drug use: No REVIEW OF SYSTEMS GENERAL: No weight loss, malaise or fevers/chills HEENT: Negative for frequent or significant headaches, No changes in hearing or vision. NECK: Negative for lumps, goiter, pain and significant neck swelling RESPIRATORY: + SOB, Cough CARDIOVASCULAR: Negative for chest pain, leg swelling, orthopnea, or palpitations GI: + GERD : No history of dysuria, frequency or incontinence MUSCULOSKELETAL: Negative for joint pain or swelling. SKIN: Negative for lesions, rash, and itching ENDOCRINE: Negative for cold or heat intolerance, polyuria, polydipsia and goiter NEURO: No history of headaches, syncope, paralysis, seizures or tremors MOOD: Negative for depression, anxiety, or suicidal ideation. EXAM: BP 144/86 Pulse 94 Temp 37.3 C (99.1 F) (Tympanic) Resp 18 Wt 84.2 kg (185 lb 9.6 oz) LMP 07/27/2011 SpO2 97% BMI 31.37 kg/m PHYSICAL EXAM: General Appearance: Well appearing, alert, in no acute distress, well-hydrated, well nourished. Skin: Skin color, texture, turgor normal, no suspicious rashes or lesions. Head: Normocephalic, no masses, lesions, tenderness or abnormalities. Eyes: Anicteric sclera. Pupils are equally round and reactive to light. Extraocular movements are intact. Ears: External ears normal, canals clear. TM's pearly lewis. Nose/Sinuses: Nares normal, septum midline, mucosa normal, no drainage or sinus tenderness. Oropharynx: Lips, mucosa, and tongue normal, teeth and gums normal, oropharynx normal. Neck: Supple, no adenopathy; thyroid symmetric, normal size, no bruits. Lungs: Cough, wheezing throughout, no rhonchi. Heart: RRR without murmur, gallop, or rubs. No ectopy. Abdomen: Normal abdominal exam, Abdomen soft, non-tender. Bowel sounds normal. No masses, organomegaly, Negative CVA tenderness. Extremities: No deformities, edema, skin discoloration, clubbing or cyanosis. Good capillary refill. . Peripheral Pulses: Normal, Capillary refill <2secs, strong peripheral pulses, Pulses palpable. Neurologic: Gait normal. Sensation grossly intact. ASSESSMENT/PLAN: 1. Bronchitis - ICD9: 490, ICD10: J40 (primary diagnosis) - Start Zpack, Prednisone 40 mg daily. - Continue albuterol inhaler - May use [id number] cold and cough medications as needed for symptom management. - AZITHROMYCIN 250 MG TABLET - PREDNISONE 20 MG TABLET 2. Gastroesophageal reflux disease with esophagitis without hemorrhage - ICD9: 530.81, 530.10, ICD10: K21.00 - Discussed lifestyle modifications including losing weight, limiting caffeine, no meals three hours before sleep, and head of bed elevation - Stop prilosec, start Protonix 40 mg daily. - May use pepcid 20 mg in the evening as needed. - Follow up with PCP. Follow up as needed if no improvement. Discussed treatment plan and patient voices understanding. Patient's questions answered appropriately. Medications and potential side effects were discussed and patient voices understanding. Elly Fontanez APRN.WARREN This note was partially generated using [employer] voice recognition system. Note was reviewed for accuracy. There may be minor misspellings or grammar miscues with [employer] voice recognition. documented in this encounter [facility] History of Past illness Narrative 12-06-2006 Note Date & Type Note Facility documented as of this encounter (statuses as of 03/26/2023) [facility] Evaluation note Note Date & Type Note Facility documented in this encounter [facility] Summary Purpose Family History No Family History Records FoundNo Family History Records Found Advance Directives No Advanced Directives Records FoundNo Advanced Directives Records Found Additional Source Comments INFORMATION SOURCE (unrecogn ized section and content) DATE CREATED AUTHOR AUTHOR'S J CARLOS LEDESMA 03/26/2023 [facility] Source Comments (unrecognize d section and content) In the event this informatio n is protected by the Federal Confidentiality of Alcohol and Drug Abuse Patient Records regulations: The Federal rules restrict any use of the information to criminally investigate or prosecute any alcohol or drug abuse patient.[facility] Reason for Visit (unrecogniz ed section and content) FOR RECORDS PERTAINING TO PATIENTS WHO ARE OR HAVE BEEN ENROLLED IN A CHEMICAL DEPENDENCY/SUBSTANCEABUSE PROGRAM, SOME INFORMATION MAY BE OMITTED. This clinical summary was aggregated from multiple sources. Caution should be exercised in using it in the provision of clinical care. This summary normalizes information from multiple sources, and as a consequence, information in this document may materially change the coding, format and clinical context of patient data. In addition, data may be omitted in some cases. CLINICAL DECISIONS SHOULD BE BASED ON THE PRIMARY CLINICAL RECORDS. [facility]. provides no warranty or guarantee of the accuracy or completeness of information in this document.
== END | disposition home or self-care (01) ==
LOC: BIMLAB 14:01
PROVIDERS: PCP Internal Medicine; Referring Provider Physician Assistant; Visit Provider Physician Assistant
DX: R10.12 Left upper quadrant pain (principal)
CPT/HCPCS: 36415; 80076; 81001; 82150; 83690

== ENCOUNTER 2023-10-17 05:59 | Emergency (ER) | payer MEDICAID, SELFPAY ==
[2023-10-17 06:00] VITALS: BP 195/126; PULSE 91; RESP 18; TEMP 36.1; O2SAT 98; BMI 28.0
--- NOTE | 2023-10-17 06:20 | EKG12_ITS ---
Test Reason : HTN/DIZZINESS Blood Pressure : / mmHG Vent. Rate : 071 BPM Atrial Rate : 071 BPM P-R Int : 154 ms QRS Dur : 080 ms QT Int : 392 ms P-R-T Axes : 038 -08 024 degrees QTc Int : 425 ms Normal sinus rhythm Normal ECG Confirmed by UVALDO HERNANDEZ, KARO ([id number]), communications editor JAKY PAREDES ([id number]) on 10/18/2023 9:56:58 AM Referred By: Confirmed By:KARO BAILON MD
[2023-10-17] MEDS: Labetalol (Prefilled) 20 MG/4 ML 10 MG IV (06:29)
[2023-10-17] MEDS: cloNIDine HCl 0.1 MG Tablet 0.100000000000000006 MG PO (06:29)
[2023-10-17 06:42] LABS: Absolute Lymphocyte Count 1.31 X10^3/uL (0.83-4.51); Absolute Neutrophil Count 2.7 X10^3/uL (2.0-7.7); Basophil# 0.05 X10^3/uL; Eosinophil# 0.35 X10^3/uL; Eosinophils% 7.2 % (0-5); Hematocrit 43.7 % (37-47); Hemoglobin 14.1 g/dL (12.0-15.0); Lymphocyte # 1.31 X10^3/ul (0.83-4.51); Mean Corp Hgb Conc 32.3 g/dL (32-36); Mean Corpuscular Hgb 27.2 pg (27.0-32.0); Mean Corpuscular Volume 84.2 fL (81-99); Mean Platelet Vol. 10.2 fl (6.2-12.0); Monocyte# 0.39 X10^3/uL; NRBC Flagged by Analyzer 0 % (0-5); Neutrophil # 2.74 X10^3/uL (2.7-7.7); Neutrophil % 56.4 % (47-70); Platelet Count 269 K/mm3 (150-450); RBC Distribution Width CV 12.4 % (11.6-14.6); RBC Distribution Width SD 37.8 fl (35.1-43.9); Red Blood Count 5.19 M/mm3 (4.2-5.4); White Blood Count 4.9 K/mm3 (4.4-11.0)
[2023-10-17] MEDS: Acetaminophen 500 MG Tablet 1000 MG PO (06:51)
--- OUTSIDE RECORDS SUMMARY | 2023-10-17 06:59 | XMS RPT_ITS | CCD ---
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 Name Role Phone MARY GUTIERREZ Unavailable Unavailable PHYSICIAN, NONE Unavailable Unavailable Unavailable Primary Care Provider Unavailabl e Allergies Allergy Classification Reported Allergen(s) Allergy Type Date of Onset Reaction(s) Facility (2 sources) Penicillins; Translations: [PENICILLINS] Propensity to adverse reactions 09-04-2007 GI Upset [facility] Work Phone: Medications Current Medications Medication Drug [...] 99.1 [degF] Elly Fontanez APRN.CNP Work Phone: [facility] 03-26-2023 10:24-0400 Body weight 84.19 kg Elly Fontanez APRN.CNP Work Phone: [facility] 03-26-2023 10:24-0400 Diastolic blood pressure 86 mm[Hg] Elly Fontanez APRN.CNP Work Phone: [facility] 03-26-2023 10:24-0400 Heart rate 94 /min Elly Fontanez APRN.CNP Work Phone: [facility] 03-26-2023 10:24-0400 Respiratory rate 18 /min Elly Fontanez APRN.CNP Work Phone: [facility] 03-26-2023 10:24-0400 SaO2% (BldA) [Mass fraction] 97 % Elly Fontanez APRN.CNP Work Phone: [facility] 03-26-2023 10:24-0400 Systolic blood pressure 144 mm[Hg] Elly Fontanez APRN.CNP Work Phone: [facility] Encounters Encounter Date Encounter Type Care Provider Facility Start: 03-26-2023 End: 03-26-2023 ambulatory Facility:[facility] Start: 03-26-2023 End: 03-26-2023 Patient encounter procedure Elly Fontanez APRN.CNP Work Phone: [facility] Procedures Date Procedure Procedure Detail Performing Clinician Start: 02-16-2016 Mammography Elly almodovar APRN.CNP Work Phone: Plan of Treatment Date Care Activity Detail Author Start: 06-10-2023 Influenza vaccination INFLUENZA (Sea son Ended) [facility] Start: 10-10-2022 DEPRESSION ASSESSMENT DEPRESSION ASS ESSMENT [facility] Start: 2019 COLOGUARD (FIT-DNA) COLOGUARD (FIT-D NA) [facility] Start: 2019 Colonoscopy COLONOSCOPY [facility] Start: 2019 COLORECTAL CANCER SCREENING COLORECTAL CANCER SCREENING [facility] Start: [address] COLONOGRAPHY [facility] Start: 2019 DIABETES SCREEN DIABETES SCREEN [facility] Start: 2019 FECAL OCCULT BLOOD FECAL OCCULT BLOO D [facility] Start: 2019 LIPID SCREEN LIPID SCREEN [facility] Start: 2019 SIGMOIDOSCOPY SIGMOIDOSCOPY [facility] Start: 02-15-2017 Mammography MAMMOGRAM [facility] Start: 1985 Urine microalbumin profile DTAP,TDAP ,TD (6 - Tdap) [facility] Start: 03-17-1975 COVID-19 VACCINE (#1) COVID-19 VACCI NE (#1) [facility] Start: 1974 HEPATITIS B (1 of 3 - 3-dose series) HEPATITIS B (1 of 3 - 3-dose series) [facility] Immunizations Immunization Date Immunization Notes Care Provider Aldair coles 03-19-1980 DTP-Haemophilus influenzae type b conjugate vaccine Elly Fontanez APRN.CNP Work Phone: [facility] Work Phone: 03-19-1980 trivalent poliovirus vaccine, live, oral Elly Tannhof REGULATORY ATTORNEY.SYSTEMS NAVIGATOR Work Phone: [facility] Work Phone: 05-18-1976 DTP-Haemophilus influenzae type b conjugate vaccine Elly Tannhof REGULATORY ATTORNEY.SYSTEMS NAVIGATOR Work Phone: [facility] Work Phone: 11-01-1975 measles and rubella virus vaccine Elly Tannhof REGULATORY ATTORNEY.SYSTEMS NAVIGATOR Work Phone: [facility] Work Phone: 07-09-1975 DTP-Haemophilus influenzae type b conjugate vaccine Elly Tannhof REGULATORY ATTORNEY.SYSTEMS NAVIGATOR Work Phone: [facility] Work Phone: 05-18-1975 trivalent poliovirus vaccine, live, oral Elly Tannhof REGULATORY ATTORNEY.SYSTEMS NAVIGATOR Work Phone: [facility] Work Phone: 03-07-1975 DTP-Haemophilus influenzae type b conjugate vaccine Elly Tannhof REGULATORY ATTORNEY.[facility] Work Phone: [facility] Work Phone: 03-07-1975 trivalent poliovirus vaccine, live, oral Elly Tannhof REGULATORY ATTORNEY.SYSTEMS NAVIGATOR Work Phone: [facility] Work Phone: 1975 DTP-Haemophilus influenzae type b conjugate vaccine Elly Tannhof REGULATORY ATTORNEY.SYSTEMS NAVIGATOR Work Phone: [facility] Work Phone: 1975 trivalent poliovirus vaccine, live, oral Elly Tannhof REGULATORY ATTORNEY.SYSTEMS NAVIGATOR Work Phone: [facility] Work Phone: 1975 trivalent poliovirus vaccine, live, oral Elly Tannhof REGULATORY ATTORNEY.SYSTEMS NAVIGATOR Work Phone: [facility] Work Phone: Payers Date Payer Category Payer Medicaid [id number] 2022 Medicaid [facility] MEDICAID UHC COMMUNITY [employer]AN MED[place] [id number] 2022-Present [phone] [address] [place] [address] Medicaid [id number] 2017 Self-pay Social History Date Type Detail Facility [facility]: [facility] Start: 07-01-2011 Tobacco use and exposure Smoke less tobacco non-user [facility] Start: 03-26-2023 Alcohol intake Current drinke r of alcohol (finding) [facility] Start: 03-26-2023 Alcohol intake [facility] Start: 1975 Sex Assigned At Not on file [facility] Progress note 03-26-2023 Note Date & Type Note Facility 03-26-2023 Note HNO ID: [id number] Author: Elly Fontanez APRN.SYSTEMS NAVIGATOR Service: ? Author Type: Nurse Practitioner Type: [...] refill. . [facility] (more content not included)... [facility] Instructions 03-26-2023 Patient Instructions Note Date [...] of Present illness Narrative 03-26-2023 Elly Fontanez APRN.SYSTEMS NAVIGATOR - 03/26/2023 10:28 AM EDT Note Date [...] - Continue albuterol inhaler - May use [id number] cold and cough medications as needed for [...] APRN.WARREN This note was partially generated using [employer] voice recognition system. Note was reviewed for accuracy. There may be minor misspellings or grammar miscues with [employer] voice recognition. documented in this encounter [facility] History of Past illness Narrative 12-06-2006 Note Date & Type Note Facility documented as of this encounter (statuses as of 03/26/2023) [facility] Evaluation note Note Date & Type Note Facility documented in this encounter [facility] Summary Purpose Family History No Family History Records FoundNo Family History Records Found Advance Directives No Advanced Directives Records FoundNo Advanced Directives Records Found Additional Source Comments INFORMATION SOURCE (unrecogn ized section and content) DATE CREATED AUTHOR AUTHOR'S J CARLOS LEDEMSA 03/26/2023 [facility] Source Comments (unrecognize d section and content) In the event this informatio n is protected by the Federal Confidentiality of Alcohol and Drug Abuse Patient Records regulations: The Federal rules restrict any use of the information to criminally investigate or prosecute any alcohol or drug abuse patient.[facility] Reason for Visit (unrecogniz ed section and [...] BE BASED ON THE PRIMARY CLINICAL RECORDS. [employer] [facility]. provides no warranty or guarantee of the accuracy or completeness of information in this document.
[2023-10-17 07:02] LABS: Anion Gap 3 (5-15); BUN 12 mg/dL (7-18); BUN/Creat Ratio 13.6 RATIO (10-20); Chloride 107 mmol/L (98-107); Creatinine, Serum 0.88 mg/dL (0.55-1.02); EST Glomerular Filtration Rate 72 mL/min (>60); Est Glom Filt Rate - Afr Amer 87 mL/min (>60); Estimated Creatinine Clearance 63.97 ml/min; Glucose 105 mg/dL (74-106); Potassium 4.1 mmol/L (3.5-5.1); Sodium Level 139 mmol/L (136-145); Troponin-I HS 5 pg/mL (3.0-54.0)
[2023-10-17] MEDS: DiphenhydrAMINE 50 MG/ML Syringe 25 MG IV (07:21)
--- NOTE | 2023-10-17 07:27 | EX.ED.DYSGE1 ---
HPI History of Present Illness Chief Complaint: Hypertension Informant: patient and spouse/S.O. Narrative Narrative: Patient is a 48-year-old female with past medical history of asthma hypertension GERD and migraines as well as anxiety. She states that years ago she was on medication for her blood pressure but was taken off. She states she has been monitoring her blood pressure at home and recently has been having elevated values with a systolic value around 160-170. She states that last night into this morning she was getting higher values of approximately 190. She states that there was no excessive stimulant or illicit drug use prior to the elevated BP readings. She denies any headache chest pain shortness of breath or change in vision associate with this either. She states however that as the blood pressure has been higher than previous and she has concerned she may need to be started back on hypertensive medications once again she comes in for evaluation [facility] Medical History Alcohol use Anemia Anxiety Anxiety Asthma Asthma Back pain Carpal tunnel syndrome Chronic cough Difficulty swallowing Diverticulitis Easy bruising Gastric reflux GERD (gastroesophageal reflux disease) Headache, migraine history of breast lump/cyst History of diverticulitis History of gout History of stress test Hypertension Hypertension Hypertension Low iron Marijuana use Migraine headache Non-smoker Shortness of breath on exertion Skin cancer skin cancer removal SOB (shortness of breath) Home Medications blood pressure monitor #1 ea 09/08/21 [Rx Last Taken Unknown] sumatriptan succinate 25 mg tablet (Imitrex) 25 mg PO PRN PRN MIGRAINES 11/08/22 [History Last Taken Unknown] albuterol sulfate 90 mcg/actuation aerosol inhaler 2 puff inhalation Q4H PRN cough #17 grams 06/10/23 [Rx Last Taken Unknown] omeprazole 40 mg capsule,delayed release 40 mg PO BID #180 caps 07/26/23 [Rx Last Taken Unknown] hydrochlorothiazide 25 mg tablet 25 mg PO DAILY 30 days #30 tabs 10/17/23 [Rx Last Taken Unknown] losartan 25 mg tablet 25 mg PO DAILY 30 days #30 tabs 10/17/23 [Rx Last Taken Unknown] Allergy/AdvReac Type Severity Reaction Status Date / Time No Known Allergies Allergy Verified 10/17/23 06:03 Family History Father Heart disease COPD (chronic obstructive pulmonary disease) Asthma CVA (cerebral vascular accident) Colon polyps Sister Diabetes GERD (gastroesophageal reflux disease) Cancer Skin Cancer Surgical History H/O: hysterectomy History of hernia repair Hx of esophagogastroduodenoscopy Hx of inguinal hernia repair Hx of tonsillectomy S/P Social History household members: significant other, children and other number of children: 3 current occupational status: unemployed history of recent travel: No sexually active: Yes other: oldest child - Lili adopted Smoking Status: Never smoker alcohol intake: current alcohol intake frequency: a few times a week substance use type: marijuana caffeine: Yes what type of physical activity do you participate in: none frequency: does not exercise seatbelt use: always do you feel safe at home: Yes additional social history: seperated ROS ROS ED Constitutional Constitutional ED: Denies chills or fever(s) Eyes Eyes: Denies change in vision ENT ENT ED: Denies sore throat Cardiovascular Cardiovascular: Denies chest pain, palpitations or racing heartbeat Respiratory/Chest Respiratory/Chest: Denies cough or dyspnea Gastrointestinal Gastrointestinal: Denies abdominal pain, diarrhea, nausea or vomiting Genitourinary Genitourinary ED: Denies dysuria Musculoskeletal Musculoskeletal: Denies myalgias Integumentary Denies rash Neurologic Neurologic: Denies headache(s) Psychiatric Psychiatric: Reports anxiety Hematologic/Lymphatic Hematologic/Lymphatic: Denies easy bleeding or easy bruising EXAM Physical Exam Const Vital Signs: 10/17/23 06:00 10/17/23 06:00 10/17/23 07:50 Temperature 97 F L Temperature Source Temporal Pulse Rate 91 63 Respiratory Rate 18 18 Respiratory Effort Normal Respiratory Pattern Normal Blood Pressure 195/126 H 155/106 H Blood Pressure Mean 149 122 Pulse Ox 98 97 Oxygen Delivery Method Room Air Room Air Positive well nourished and well developed General Appearance ED: well developed; Negative for pallor HEENT HEENT Narrative: Normocephalic atraumatic Eyes PERRL and EOMs intact bilaterally General Eye ED: Negative for scleral icterus Neck supple Neck Narrative: No nuchal rigidity or meningeal signs Resp normal respiratory effort and clear to auscultation bilaterally Cardio regular rate and regular rhythm Rate: other Other Details: Heart is regular rate and rhythm without murmurs rubs or gallops Radial and carotid pulses are equal and symmetric GI normal to inspection, nondistended, normoactive bowel sounds, non-tender, non-distended and no masses GI Narrative: No pulsatile mass Auscultation: normoactive bowel sounds Palpation: soft Extremity normal to inspection Extremity Narrative: No asymmetric edema no pitting edema negative Homans' sign bilaterally Neuro oriented x3, CN's II-XII intact bilaterally and no sensory deficits noted Neuro Narrative: No pronator drift no dysmetria no truncal ataxia NIH stroke scale score of 0 Sensorium / Orientation: alert Motor Exam: strength 5/5 throughout Psych Psych Narrative: Patient has a nervous/anxious affect Skin no rashes or lesions noted General Skin Exam: Negative for jaundice or pallor MDM MDM MDM Narrative Medical decision making narrative: Patient presented to the ER hypertensive but otherwise with stable vitals. She reported past medical history of hypertension but has no longer been on medication. Differential diagnosis is for accelerated hypertension secondary to lack of medication versus acute coronary syndrome versus acute kidney injury. There is also concern for hypertensive encephalopathy or acute CVA. She has a normal neurologic exam with no focal deficits and my concern for CVA is low especially with a normal neuroexam and no report of headache. She is awake alert and oriented this goes against hypertensive encephalopathy. In order to rule out acute coronary syndrome EKG was obtained which was normal and her troponin is normal as well. Blood work shows no signs of acute kidney injury or electrolyte derangement. She also had her left and right arm blood pressures taken at the same time with the left being a of 173/126 and the right being a value of 172/123 going against dissection. Patient was medicated with IV labetalol IV Benadryl as she did have mild anxiety component to exam and oral clonidine. She was watched in the ER and her blood pressure did reduce between 15 and 25% which is the targeted goal in ER. And on reevaluation she remained awake and alert with normal neurologic exam and therefore there is no need for admission and she can be discharged home and follow-up with her family doctor to discuss continued blood pressure control Chart review reveals that in 2020 she was on 25 mg of losartan and 25 mg of hydrochlorothiazide and therefore this will be prescribed as she has tolerated it well in the past History & Record Review Discussion w/independent historian: Patient Lab Data Attestation: I reviewed the patient's lab results. Labs: Laboratory Results - last 24 hr 10/17/23 06:38 WBC 4.9 RBC 5.19 Hgb 14.1 Hct 43.7 MCV 84.2 MCH 27.2 MCHC 32.3 RDW Std Deviation 37.8 RDW Coeff of [facility] 12.4 Plt Count 269 MPV 10.2 Immature Gran % (Auto) 0.400 Neut % (Auto) 56.4 Lymph % (Auto) 27.0 [place] % (Auto) 8.0 Eos % (Auto) 7.2 H Baso % (Auto) 1.0 Absolute Neuts (auto) 2.7 Absolute Lymphs (auto) 1.31 Nucleated RBC % 0 Sodium 139 Potassium 4.1 Chloride 107 Carbon Dioxide 29.0 Anion Gap 3 L BUN 12 Creatinine 0.88 Estim Creat Clear Calc 63.97 Est GFR (MDRD) Af Amer 87 Est GFR (MDRD) Non-Af 72 BUN/Creatinine Ratio 13.6 Glucose 105 Calcium 9.0 Troponin I High Sens 5 Discharge Plan Triage Chief Complaint: Hypertension ED Provider: Efrain Mayen Dx/Rx/DC Orders Clinical Impression: Accelerated hypertension, Anxiety, Asthma Instructions: ED Hypertension New Begin Treatment Prescriptions: New losartan 25 mg tablet 25 mg PO DAILY 30 Days Qty: 30 0RF hydrochlorothiazide 25 mg tablet 25 mg PO DAILY 30 Days Qty: 30 0RF No Action omeprazole 40 mg capsule,delayed release(DR/EC) 40 mg PO BID Qty: 180 0RF sumatriptan succinate [Imitrex] 25 mg tablet 25 mg PO PRN PRN (Reason: MIGRAINES) (DME) blood pressure monitor Kit See Rx Instructions .ROUTE .MEDSUPPLY Qty: 1 0RF Rx Instructions: Check blood pressure twice a day albuterol sulfate 90 mcg/actuation HFA aerosol inhaler 2 puff INHALATION Q4H PRN (Reason: cough) Qty: 17 3RF Rx Instructions: administer with spacer Stand Alone Forms: ED Work / School Excuse Primary Care Provider: Shaheed Marie Referrals: Shaheed Marei MD [Primary Care Provider] - Activity Restrictions/Additional Instructions: Please begin the blood pressure medications that were prescribed today. Continue to track your blood pressure and follow-up with your family doctor to discuss continued or medication changes and return to the ER should you have any further concerns Disposition Disposition: Home, Self Care
[2023-10-17 07:50] VITALS: BP 155/106; PULSE 63; RESP 18; O2SAT 97
[2023-10-17] MEDS: LORazepam 2 MG/ML Syringe 1 MG IV (08:06)
[2023-10-17 08:16] VITALS: BP 159/105; PULSE 64; RESP 16; O2SAT 99
== END 2023-10-17 08:17 | disposition home or self-care (01) ==
PROVIDERS: Emergency Provider Emergency Medicine; PCP Internal Medicine; Visit Provider Emergency Medicine
DX: I10 Essential (primary) hypertension (principal); F41.9 Anxiety disorder, unspecified; J45.909 Unspecified asthma, uncomplicated; G43.909 Migraine, unspecified, not intractable, without status migrainosus; Z79.899 Other long term (current) drug therapy; K21.9 Gastro-esophageal reflux disease without esophagitis; Z90.710 Acquired absence of both cervix and uterus
CPT/HCPCS: 80048; 84484; 85025; 93005; 96374; 96375; 99283; A4216

== ENCOUNTER 2023-12-07 07:21 | Day surgery (SDC) | payer MEDICAID, SELFPAY ==
--- NOTE | 2023-12-07 | IMM_PTH ---
PATHOLOGY RESULTS PATIENT: STEHPY MARTE LOC: EN U#:[id number] AGE/SX: 48/F ROOM: RE12/07/[address]: Dr. Ijeoma Escobedo MD : 1975 BED: DIS: 12/07/2023 SPEC #: [id number] RECD: 12/07/23 14:10 STATUS: FELICIANO REJoanie #: [id number] MONA: 12/07/23 00:[address]: Ijeoma Escobedo DEPT: IMMUNOHISTOCHEMISTRY RECD BY: Shelly Levin ENTERED: 12/07/23 14:11 SP TYPE: IMMUNO OTHR DR: Dr. Shaheed Marie MD Tissues: Gastric mucous membrane Procedures: H Pylori (initial) PHYSICIAN & INSTITUTION [place] [id number] SPECIMEN INFORMATION: Tissue Source: A - Gastric Antrum Clinical Info: GERD Specimen Number: [id number] CPT code: 43510 METHODOLOGY: Deparaffinized sections of prefer/formalin-fixed tissue or PAP/DQ stained slides are incubated with monoclonal/polyclonal antibodies/oligonucleotide probes. Localization is made via biotin free immunoperoxidase method. Appropriate controls are performed and reacted as expected. Results on target cell population are indicated in the following table: RESULTS: ANTIBODY / CLONE RESULT BLOCK A H Pylori (polyclonal) negative These tests were developed and their performance characteristics determined by [facility]. They may not have been cleared or approved by the U.S. Food and Drug Administration. The FDA has determined that such clearance or approval is not necessary. The above immunohistochemical/dualISH markers are ordered and reviewed by the Pathologist. INTERPRETATION: A. Gastric antrum, biopsy: Negative for Helicobacter pylori organisms. AM:mannie 12/08/2023
--- OUTSIDE RECORDS SUMMARY | 2023-12-07 07:25 | XMS RPT_ITS | CCD ---
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 Name Role Phone MARY GUTIERREZ Unavailable Unavailable PHYSICIAN, NONE Unavailable Unavailable Unavailable Primary Care Provider Unavailabl e Allergies Allergy Classification Reported Allergen(s) Allergy Type Date of Onset Reaction(s) Facility (2 sources) Penicillins; Translations: [PENICILLINS] Propensity to adverse reactions 09-04-2007 GI Upset [facility] Work Phone: Medications Current Medications [...] 99.1 [degF] Elly Fontanez APRN.CNP Work Phone: [facility] 03-26-2023 10:24-0400 Body weight 84.19 kg Elly Fontanez APRN.CNP Work Phone: [facility] 03-26-2023 10:24-0400 Diastolic blood pressure 86 mm[Hg] Elly Fontanez APRN.CNP Work Phone: [facility] 03-26-2023 10:24-0400 Heart rate 94 /min Elly Fontanez APRN.CNP Work Phone: [facility] 03-26-2023 10:24-0400 Respiratory rate 18 /min Elly Fontanez APRN.CNP Work Phone: [facility] 03-26-2023 10:24-0400 SaO2% (BldA) [Mass fraction] 97 % Elly Fontanez APRN.CNP Work Phone: [facility] 03-26-2023 10:24-0400 Systolic blood pressure 144 mm[Hg] Elly Fontanez APRN.CNP Work Phone: [facility] Encounters Encounter Date Encounter Type Care Provider Facility Start: 03-26-2023 End: 03-26-2023 ambulatory Facility:[facility] Start: 03-26-2023 End: 03-26-2023 Patient encounter procedure Elly Fontanez APRN.CNP Work Phone: [facility] Procedures Date Procedure Procedure Detail Performing Clinician Start: 02-16-2016 Mammography Elly almodovar APRN.CNP Work Phone: Plan of Treatment Date Care Activity Detail Author Start: 06-10-2023 Influenza vaccination INFLUENZA (Sea son Ended) [facility] Start: 10-10-2022 DEPRESSION ASSESSMENT DEPRESSION ASS ESSMENT [facility] Start: 2019 COLOGUARD (FIT-DNA) COLOGUARD (FIT-D NA) [facility] Start: 2019 Colonoscopy COLONOSCOPY [facility] Start: 2019 COLORECTAL CANCER SCREENING COLORECTAL CANCER SCREENING [facility] Start: [address] COLONOGRAPHY [facility] Start: 2019 DIABETES SCREEN DIABETES SCREEN [facility] Start: 2019 FECAL OCCULT BLOOD FECAL OCCULT BLOO D [facility] Start: 2019 LIPID SCREEN LIPID SCREEN [facility] Start: [address] [facility] Start: 02-15-2017 Mammography MAMMOGRAM [facility] Start: 1985 Urine microalbumin profile DTAP,TDAP ,TD (6 - Tdap) [facility] Start: 03-17-1975 COVID-19 VACCINE (#1) COVID-19 VACCI NE (#1) [facility] Start: 1975 HEPATITIS B (1 of 3 - 3-dose series) HEPATITIS B (1 of 3 - 3-dose series) [facility] Immunizations Immunization Date Immunization Notes Care Provider Aldair coles 03-19-1980 DTP-Haemophilus influenzae type b conjugate vaccine Elly Fontanez APRN.CNP Work Phone: [facility] Work Phone: 03-19-1980 trivalent poliovirus vaccine, live, oral Elly Tannhof [employer]SPORT SYSTEMS SPECIALIST.LOCAL FLATBED DRIVER Work Phone: [facility] Work Phone: 05-18-1976 DTP-Haemophilus influenzae type b conjugate vaccine Elly Tannhof CY[employer]SPORT SYSTEMS SPECIALIST.LOCAL FLATBED DRIVER Work Phone: [facility] Work Phone: 11-01-1975 measles and rubella virus vaccine Elly Tannhof CYBER TRANSPORT SYSTEMS SPECIALIST.LOCAL FLATBED DRIVER Work Phone: [facility] Work Phone: 07-09-1975 DTP-Haemophilus influenzae type b conjugate vaccine Elly Tannhof CYBER TRANSPORT SYSTEMS SPECIALIST.LOCAL FLATBED DRIVER Work Phone: [facility] Work Phone: 05-18-1975 trivalent poliovirus vaccine, live, oral Elly Tannhof CYBER TRANSPORT SYSTEMS SPECIALIST.LOCAL FLATBED DRIVER Work Phone: [facility] Work Phone: 03-07-1975 DTP-Haemophilus influenzae type b conjugate vaccine Elly Tannhof CYBER TRANSPORT SYSTEMS SPECIALIST.[facility] Work Phone: [facility] Work Phone: 03-07-1975 trivalent poliovirus vaccine, live, oral Elly Tannhof CYBER TRANSPORT SYSTEMS SPECIALIST.LOCAL FLATBED DRIVER Work Phone: [facility] Work Phone: 1975 DTP-Haemophilus influenzae type b conjugate vaccine Elly Tannhof CYBER TRANSPORT SYSTEMS SPECIALIST.LOCAL FLATBED DRIVER Work Phone: [facility] Work Phone: 1975 trivalent poliovirus vaccine, live, oral Elly Tannhof CYBER TRANSPORT SYSTEMS SPECIALIST.LOCAL FLATBED DRIVER Work Phone: [facility] Work Phone: 1975 trivalent poliovirus vaccine, live, oral Elly Tannhof CYBER TRANSPORT SYSTEMS SPECIALIST.LOCAL FLATBED DRIVER Work Phone: [facility] Work Phone: Payers Date Payer Category Payer Medicaid [id number] 2022 Medicaid [facility] MEDICAID UHC COMMUNITY [employer]AN MEDICA[place] [id number] 2022-Present [phone] [address] [place] [address] Medicaid [id number] 2017 Self-pay Social History Date Type Detail Facility [facility]: [facility] Start: 07-01-2011 Tobacco use and exposure Smoke less tobacco non-user [facility] Start: 03-26-2023 Alcohol intake Current drinke r of alcohol (finding) [facility] Start: [facility] Start: 1975 Sex Assigned At Not [facility] file [facility] Progress note 03-26-2023 Note Date & Type Note Facility 03-26-2023 Note HNO ID: [id number] Author: Elly Fontanez APRN.LOCAL FLATBED DRIVER Service: ? Author Type: Nurse Practitioner Type: [...] refill. . Periphera (more content not included)... [facility] Instructions 03-26-2023 Patient Instructions Note Date & [...] of Present illness Narrative 03-26-2023 Elly Fontanez APRN.LOCAL FLATBED DRIVER - 03/26/2023 10:28 AM EDT Note Date [...] - Continue albuterol inhaler - May use [id number] cold and cough medications as needed for [...] APRN.WARREN This note was partially generated using Pansieve voice recognition system. Note was reviewed for accuracy. There may be minor misspellings or grammar miscues with Pansieve voice recognition. documented in this encounter [facility] History of Past illness Narrative 12-06-2006 Note Date & Type Note Facility documented as of this encounter (statuses as of 03/26/2023) [facility] Evaluation note Note Date & Type Note Facility documented in this encounter [facility] Summary Purpose Family History No Family History Records FoundNo Family History Records Found Advance Directives No Advanced Directives Records FoundNo Advanced Directives Records Found Additional Source Comments INFORMATION SOURCE (unrecogn ized section and content) DATE CREATED AUTHOR AUTHOR'S J CARLOS LEDESMA 03/26/2023 [facility] Source Comments (unrecognize d section and content) In the event this informatio n is protected by the Federal Confidentiality of Alcohol and Drug Abuse Patient Records regulations: The Federal rules restrict any use of the information to criminally investigate or prosecute any alcohol or drug abuse patient.[facility] Reason for Visit (unrecogniz ed [...] BE BASED ON THE PRIMARY CLINICAL RECORDS. [facility]. provides no warranty or guarantee of the accuracy or completeness of information in this document.
[2023-12-07 07:53] VITALS: BP 165/107; PULSE 77; RESP 16; TEMP 37; O2SAT 100; BMI 27.6
[2023-12-07] MEDS: Lactated Ringers 1,000 ML 15 ML IV (08:01)
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
[2023-12-07 08:38] VITALS: BP 119/87; BP 165/107; PULSE 86; RESP 16; TEMP 36.8; O2SAT 96
[2023-12-07 08:40] VITALS: BP 112/86; BP 165/107; PULSE 97; RESP 16; O2SAT 95
[2023-12-07 08:45] VITALS: BP 120/93; BP 165/107; PULSE 90; RESP 16
[2023-12-07 08:51] VITALS: BP 137/109; BP 165/107; PULSE 84; RESP 16; TEMP 36.6; O2SAT 98
--- NOTE | 2023-12-07 09:00 | EGD_PTH ---
PATHOLOGY RESULTS PATIENT: STEPHY MARTE LOC: EN U#:[id number] AGE/SX: 48/F ROOM: RE12/07/[address]: Dr. Ijeoma Escobedo MD : 1975 BED: DIS: 12/07/2023 SPEC #: [id number] RECD: 12/07/23 12:55 STATUS: FELICIANO KHAI #: [id number] MONA: 12/07/23 09:[address]: Ijeoma Escobedo DEPT: SURGICAL PATHOLOGY RECD BY: Shelly Levin ENTERED: 12/07/23 12:56 SP TYPE: EGD BIOPSY OT DR: Dr. Shaheed Marie MD Tissues: Gastric mucous membrane Gastric mucous membrane Esophageal mucous membrane Esophageal mucous membrane Esophageal mucous membrane Procedures: Special Stain Group II Surgery Specimen Level IV Alcian Blue/PAS (control) HEADER OPERATION: EGD with biopsies and polypectomy PRE-OP DIAGNOSIS: GERD TISSUE SUBMITTED: A - Antrum biopsy for H. pylori and histology, B - Gastric polyp biopsy, C - Gastroesophageal junction biopsy, D - Distal esophagus biopsy, E - Upper esophagus biopsy 15.0 cm MICROSCOPIC DIAGNOSIS A. Gastric antrum, biopsy: Mild chronic gastritis. See comment. B. Gastric polyp, biopsy: Mild chronic gastritis. C. Gastroesophageal junction, biopsy: Mild chronic inflammation. Changes of reflux. No evidence of goblet cell metaplasia. See comment. D. Distal esophagus, biopsy: Consistent with reflux esophagitis. No evidence of goblet cell metaplasia. See comment. E. Upper esophagus, biopsy: Gastric mucosa with chronic inflammation. AM:mannie 12/08/2023 COMMENT A. The results of immunohistochemistry for Helicobacter pylori will be reported separately ([id number]). C. Alcian blue/PAS stain with matched control supports the above diagnosis. D. The specimen contains eosinophils that number greater than 20 per high power field. Clinical correlation is suggested. Alcian blue/PAS stain with matched control supports the above diagnosis. MICROSCOPIC DESCRIPTION Slides are reviewed. GROSS DESCRIPTION A - Received in fixative is one container labeled with the patient's name and designated antrum biopsy. The specimen consists of one irregular fragment of light zhao soft tissue that measures 0.3 x 0.3 x 0.1 cm. The specimen is totally submitted in one cassette. B - Received in fixative is one container labeled with the patient's name and designated gastric polyp. The specimen consists of one irregular fragment of light zhao soft tissue that measures 0.3 x 0.3 x 0.1 cm. The specimen is totally submitted in one cassette. C - Received in fixative is one container labeled with the patient's name and designated GE junction biopsy. The specimen consists of one irregular fragment of light zhao soft tissue that measures 0.3 x 0.3 x 0.1 cm. The specimen is totally submitted in one cassette. D - Received in fixative is one container labeled with the patient's name and designated distal esophagus biopsy. The specimen consists of one irregular fragment of light zhao soft tissue that measures 0.2 x 0.2 x 0.1 cm. The specimen is totally submitted in one cassette. E - Received in fixative is one container labeled with the patient's name and designated upper esophagus biopsy. The specimen consists of one irregular fragment of light zhao soft tissue that measures 0.3 x 0.2 x 0.1 cm. The specimen is totally submitted in one cassette. / SJ:rg 12/07/2023 TC:3 [facility]: [id number] x5, [id number] x2
[2023-12-07 09:04] VITALS: BP 165/107
--- NOTE | 2023-12-07 09:45 | OP.EGD_ITS ---
Patient Name: Hortencia Brennan Procedure Date: 12/07/2023 8:11 AM Date of : 1975 Age: 48 Procedure: Upper GI endoscopy Indications: Esophageal reflux Providers: Ijeoma Escobedo MD Referring MD: Ijeoma Escobedo MD Medicines: Monitored Anesthesia Care Patient Profile: This is a 48 year old female. Complications: No immediate complications. Procedure: Pre-Anesthesia Assessment: - Prior to the procedure, a History and Physical was performed, and patient medications and allergies were reviewed. The patient's tolerance of previous anesthesia was also reviewed. The risks and benefits of the procedure and the sedation options and risks were discussed with the patient. All questions were answered, and informed consent was obtained. Prior Anticoagulants: The patient has taken no anticoagulant or antiplatelet agents. ASA Grade Assessment: Per anesthesia. After reviewing the risks and benefits, the patient was deemed in satisfactory condition to undergo the procedure. After obtaining informed consent, the endoscope was passed under direct vision. Throughout the procedure, the patient's blood pressure, pulse, and oxygen saturations were monitored continuously. The Endoscope was introduced through the mouth, and advanced to the second part of duodenum. The upper GI endoscopy was accomplished without difficulty. The patient tolerated the procedure well. Scope In: 8:24:11 AM Scope Out: 8:35:35 AM Total Procedure Duration Time 0 hours 11 minutes 24 seconds Findings: Diffuse moderate mucosal changes characterized by inflammation were found in the lower third of the esophagus. Biopsies were taken with a cold forceps for histology. Localized mild mucosal changes characterized by discoloration were found in the proximal esophagus. Biopsies were taken with a cold forceps for histology. The examined duodenum was normal. Striped mildly erythematous mucosa without bleeding was found in the gastric antrum. Biopsies were taken with a cold forceps for histology. Biopsies were taken with a cold forceps for Helicobacter pylori cultures. The cardia and gastric fundus were normal on retroflexion. Multiple less than 5 mm sessile polyps with no bleeding and no stigmata of recent bleeding were found in the gastric fundus. The polyp was removed with a hot snare. Resection and retrieval were complete. Impression: - Inflamed mucosa in the esophagus. Biopsied. - Discolored mucosa in the esophagus. Biopsied. - Normal examined duodenum. - Erythematous mucosa in the antrum. Biopsied. - Multiple gastric polyps. Resected and retrieved. Recommendation: - Await pathology results. - Discharge patient to home. - Resume previous diet. - Continue present medications. - - Use Nexium (esomeprazole) 40 mg PO BID for 1 month. Then 40 mg PO daily after. - Await pathology results. - Discontinue alcohol consumption [Duration]. Procedure Code(s): --- Professional --- 56002, Esophagogastroduodenoscopy, flexible, transoral; with removal of tumor(s), polyp(s), or other lesion(s) by snare technique 85654, 59, Esophagogastroduodenoscopy, flexible, transoral; with biopsy, single or multiple Diagnosis Code(s): --- Professional --- K20.90, Esophagitis, unspecified without bleeding K22.89, Other specified disease of esophagus K31.89, Other diseases of stomach and duodenum K31.7, Polyp of stomach and duodenum K21.9, Gastro-esophageal reflux disease without esophagitis CPT copyright 2021 [employer]. All rights reserved. The codes documented in this report are preliminary and upon infection control manager review may be revised to meet current compliance requirements. MD Ijeoma Nick MD 12/07/2023 8:45:44 AM This report has been signed electronically. Number of Addenda: 0 Note Initiated On: 12/07/2023 8:11 AM
--- NOTE | 2023-12-07 09:45 | OP.CCLET_ITS ---
12/07/2023 Shaheed Marie MD [address] [place] [address] [place] [address] Re : Upper GI endoscopy procedure for Hortencia Brennan Dear Dr. Marie This procedure was performed on Thursday, December 07, 2023. My impressions and recommendations are as follows: Impressions : - Inflamed mucosa in the esophagus. Biopsied. - Discolored mucosa in the esophagus. Biopsied. - Normal examined duodenum. - Erythematous mucosa in the antrum. Biopsied. - Multiple gastric polyps. Resected and retrieved. Recommendations : - Await pathology results. - Discharge patient to home. - Resume previous diet. - Continue present medications. - - Use Nexium (esomeprazole) 40 mg PO BID for 1 month. Then 40 mg PO daily after. - Await pathology results. - Discontinue alcohol consumption [Duration]. My findings are described in the full procedure note, which is enclosed. If I can be of further assistance, please feel free to contact me at Doctor phone number(s): , Work: . Sincerely, MD Ijeoma Nick MD 12/07/2023 8:45:44 AM This report has been signed electronically.
== END 2023-12-07 09:08 | disposition home or self-care (01) ==
LOC: EN 07:22 → AC 07:23
PROVIDERS: PCP Internal Medicine; Referring Provider Internal Medicine; Visit Provider Surgery
PROC: 0DJ08ZZ Inspection of Upper Intestinal Tract, Via Natural or Artificial Opening Endoscopic (ICD-10-PCS; CPT 43235; principal; 2023-12-07 08:55)
DX: K20.90 Esophagitis, unspecified without bleeding (principal); I10 Essential (primary) hypertension; K31.7 Polyp of stomach and duodenum; F12.90 Cannabis use, unspecified, uncomplicated; K22.89 Other specified disease of esophagus; K31.89 Other diseases of stomach and duodenum; K21.9 Gastro-esophageal reflux disease without esophagitis; K29.50 Unspecified chronic gastritis without bleeding
CPT/HCPCS: 43239; 43251; 88305; 88313; 88342; J7120; J2405

== ENCOUNTER → 2023-12-19 | Outpatient (CLI) | payer MEDICAID, SELFPAY ==
--- NOTE | 2023-12-19 14:48 | RAD_ITS ---
STUDY: X-RAY - RIGHT ELBOW REASON FOR EXAM: Female, 48 years old. Right Elbow Pain TECHNIQUE: 3 views of the right elbow. COMPARISON: None. FINDINGS: Normal visualized humerus, radius and ulna. Normal radiocapitellar and ulnotrochlear articulations. The soft tissue structures are unremarkable. There is no demonstrated fracture. RAD/Elbow min 3 Views IMPRESSION: Normal x-ray examination of the elbow. Electronically Signed: John Barth MD at 15:19 EDT ,
== END | disposition home or self-care (01) ==
LOC: MTRAD 14:48
PROVIDERS: PCP Internal Medicine; Referring Provider Internal Medicine; Visit Provider Internal Medicine
DX: M25.521 Pain in right elbow (principal)
CPT/HCPCS: 73080

== ENCOUNTER 2024-05-10 10:35 | Emergency (ER) | payer SELFPAY ==
[2024-05-10 10:36] VITALS: BP 174/109; PULSE 71; RESP 16; TEMP 36.3; O2SAT 100; BMI 31.0
--- NOTE | 2024-05-10 11:00 | CT_ITS ---
STUDY: CT ABDOMEN AND PELVIS WITH CONTRAST REASON FOR EXAM: Female, 48 years old. RUQ pain and right flank pain. History of prior diverticulitis. RADIATION DOSAGE (If Supplied By Facility): CTDIvol = ( 14.97 ) mGy, DLP = ( 859.42 ) mGycm TECHNIQUE: Transaxial images were obtained from the dome of the diaphragm to the symphysis pubis without oral contrast. IV 100mL Isovue-300 was administered. Sagittal and coronal images were reconstructed. Individualized dose optimization techniques were used for this CT. COMPARISON: None. FINDINGS: The visualized lung bases are unremarkable. The visualized portions of the heart are within normal limits. There is decreased attenuation of the liver consistent with steatosis. Normal gallbladder and extrahepatic biliary system. Normal spleen. Normal pancreas. Normal bilateral adrenal glands. Normal right kidney. Normal left kidney. Normal visualized stomach. Normal small intestine. Scattered sigmoid diverticula. Moderate amount of fecal material is seen in the colon. The appendix is visualized and appears normal. Normal abdominal aorta. Normal inferior vena cava. Normal retroperitoneum. Normal urinary bladder. There is absence of the uterus consistent with a prior hysterectomy. Status post left inguinal hernia repair. Normal osseous structures. CT/Abdomen/Pelvis W IV Cont ONLY IMPRESSION: Fatty infiltration of the liver. Scattered sigmoid diverticula. Electronically Signed: Gene Prince MD at 12:33 EDT ,
--- NOTE | 2024-05-10 11:00 | RAD_ITS ---
STUDY: X-RAY CHEST REASON FOR EXAM: Female, 48 years old. Right rib pain TECHNIQUE: Single AP portable view of the chest. COMPARISON: Comparison is made with prior study dated 2023. FINDINGS: The lungs are clear and expanded. There is no demonstrated pleural abnormality. Normal size heart. Normal mediastinum and cj. Normal visualized pulmonary arteries. There is atherosclerotic tortuosity of the aortic arch and descending thoracic aorta. Normal visualized thoracic spine. Normal visualized ribs, clavicles, and shoulders. There is no demonstrated abnormality of the visualized soft tissue structures of the upper abdomen. RAD/Chest 1 View (Portable) IMPRESSION: Stable examination. No acute abnormality is seen. Electronically Signed: Gene Prince MD at 12:31 EDT ,
[2024-05-10 11:07] LABS: Red Blood Cells-Urine 0 SEEN /hpf (0-5)
[2024-05-10 11:09] LABS: Absolute Neutrophil Count 2.4 X10^3/uL (2.0-7.7); Basophil# 0.02 X10^3/uL; Basophil% 0.4 % (0-1); Eosinophil# 0.33 X10^3/uL; Eosinophils% 7.4 % (0-5); Hemoglobin 12.9 g/dL (12.0-15.0); Lymphocyte % 29.1 % (19-41); Mean Corp Hgb Conc 31.5 g/dL (32-36); Mean Corpuscular Hgb 26.8 pg (27.0-32.0); Mean Corpuscular Volume 85.2 fL (81-99); Mean Platelet Vol. 10.4 fl (6.2-12.0); Monocyte# 0.42 X10^3/uL; Monocyte% 9.4 % (0-10); NRBC Flagged by Analyzer 0 % (0-5); Neutrophil # 2.37 X10^3/uL (2.7-7.7); Neutrophil % 53.3 % (47-70); Platelet Count 266 K/mm3 (150-450); RBC Distribution Width CV 13.3 % (11.6-14.6); RBC Distribution Width SD 41.3 fl (35.1-43.9); Red Blood Count 4.81 M/mm3 (4.2-5.4); White Blood Count 4.5 K/mm3 (4.4-11.0)
--- NOTE | 2024-05-10 11:13 | EKG12_ITS ---
Test Reason : DYSRHYTHMIA Blood Pressure : / mmHG Vent. Rate : 063 BPM Atrial Rate : 063 BPM P-R Int : 106 ms QRS Dur : 082 ms QT Int : 408 ms P-R-T Axes : 009 028 044 degrees QTc Int : 417 ms Sinus rhythm with short SC Otherwise normal ECG When compared with ECG of 17-OCT-2023 06:29, SC interval has decreased Confirmed by Gamaliel Mandujano ([id number]), editorial cartoonist JAKY PAREDES ([id number]) on 05/16/2024 10:18:17 AM Referred By: EDOUARD Confirmed By:Gamaliel Mandujano
[2024-05-10] MEDS: Morphine 4 MG/ML Syringe IV (11:14)
[2024-05-10] MEDS: Ondansetron 4 MG/2 ML Vial IV (11:14)
[2024-05-10] MEDS: 0.9% Normal Saline (1000mL) 1,000 ML 999 ML IV (11:15)
[2024-05-10 11:27] LABS: Color, Urine Yellow (Yellow); Glucose, Dipstick Normal (Normal); Ketone-Dipstick 5 mg/dl (Negative); Leukocyte Esterase-Dipstick 25 /ul (Negative); Nitrite-Dipstick Negative (Negative); Occult Blood-Urine Negative /ul (Negative); Protein-Dipstick 15 mg/dl (Negative); Urine Bilirubin Dipstick Negative (Negative); Urine Clarity Clear (Clear); Urine Urobilinogen 4 mg/dl (Normal); Urine pH 6.5 (5.0 - 8.0)
[2024-05-10 11:30] LABS: AST(SGOT) 29 U/L (15-37); Alanine Aminotransfer ALT/SGPT 22 U/L (13-56); Albumin, Serum 3.5 g/dL (3.2-5.0); Alkaline Phosphatase 56 U/L (45-117); Anion Gap 6 (5-15); BUN 7 mg/dL (7-18); BUN/Creat Ratio 8.1 RATIO (10-20); Calcium,Total 8.4 mg/dL (8.5-10.1); Chloride 107 mmol/L (98-107); Creatinine, Serum 0.86 mg/dL (0.55-1.02); EST Glomerular Filtration Rate 74 mL/min (>60); Est Glom Filt Rate - Afr Amer 90 mL/min (>60); Estimated Creatinine Clearance 82.02 ml/min; Globulin 3.4 g/dL (2.2-4.2); Glucose 98 mg/dL (74-106); Lipase 30 U/L (13-75); Potassium 3.2 mmol/L (3.5-5.1); Protein, Total 6.9 g/dL (6.4-8.2); Sodium Level 141 mmol/L (136-145); Troponin-I HS 4 pg/mL (3.0-54.0)
--- NOTE | 2024-05-10 11:43 | EX.ED.DYSGE1 ---
HPI History of Present Illness Chief Complaint: Flank Pain Narrative Narrative: Patient is a 48-year-old female with past medical history of hypertension, GERD, anxiety, marijuana use, asthma who presented to the emergency department chief complaint of right-sided back pain. Patient states that her pain has been there for a significant time however has progressively been worsening over the past week and a half now. She states that she had been working outside a lot and doing a lot of heavy work. She states that if she pushes on the right side of her back it hurts. Patient denies any pain radiating down her lower extremities. Patient states that she tried to take some [id number] pain medication did not help with her symptoms prompting her to come here for further evaluation management. Patient states she periodically smokes marijuana denies any other drug use or IV drug use. Denies any fevers or chills. [facility] Medical History Right elbow pain History of cold sores Anxiety Marijuana use Alcohol use Low iron Easy bruising Back pain Migraine headache Difficulty swallowing History of diverticulitis Gastric reflux Non-smoker Asthma Shortness of breath on exertion Chronic cough Hypertension History of stress test Hypertension skin cancer removal Skin cancer GERD (gastroesophageal reflux disease) Hypertension Headache, migraine History of gout Carpal tunnel syndrome history of breast lump/cyst Anemia SOB (shortness of breath) Anxiety Diverticulitis Asthma Home Medications ?Medication ?Instructions ?Recorded ?Last Taken ?Type blood pressure monitor #1 ea 09/08/21 Unknown Rx sumatriptan succinate 25 mg tablet 25 mg PO PRN PRN MIGRAINES 11/08/22 Unknown History (Imitrex) albuterol sulfate 90 mcg/actuation 2 puff inhalation Q4H PRN cough 06/10/23 Unknown Rx aerosol inhaler #17 grams sucralfate 1 gram tablet 1 g PO QACHS #120 tabs 11/01/23 Unknown Rx valacyclovir 1 gram tablet 1,000 mg PO DAILY PRN cold sores 11/07/23 Unknown Rx (Valtrex) #60 tabs esomeprazole magnesium 40 mg 40 mg PO BID #60 caps 12/07/23 Unknown Rx capsule,delayed release gabapentin 100 mg capsule 100 mg PO BID #60 caps 12/19/23 Unknown Rx cyclobenzaprine 5 mg tablet 5 mg PO BID 5 days #10 tabs 05/10/24 Unknown Rx lidocaine 5 % topical patch 1 patch topical DAILY 5 days #5 ea 05/10/24 Unknown Rx (Lidoderm) Allergy/AdvReac Type Severity Reaction Status Date / Time No Known Allergies Allergy Verified 05/10/24 10:49 Family History Father Heart disease COPD (chronic obstructive pulmonary disease) Asthma CVA (cerebral vascular accident) Colon polyps Sister Diabetes GERD (gastroesophageal reflux disease) Cancer Skin Cancer Surgical History Hx of inguinal hernia repair Hx of esophagogastroduodenoscopy History of hernia repair S/P Hx of tonsillectomy H/O: hysterectomy Social History household members: significant other, children and other number of children: 3 current occupational status: unemployed history of recent travel: No sexually active: Yes other: oldest child - Lili adopted Smoking Status: Never smoker alcohol intake: current alcohol intake frequency: a few times a week substance use type: marijuana caffeine: Yes what type of physical activity do you participate in: none frequency: does not exercise seatbelt use: always do you feel safe at home: Yes additional social history: seperated ROS ROS ED ROS Narrative Constitutional: Denies fevers, chills, headaches, lightheadedness, dizziness Eyes: Denies changes in vision double vision blurry vision Cardiovascular: Denies chest pain or palpitations Respiratory: Denies coughing wheezing shortness of breath Abdomen: Denies abdominal pain nausea vomiting diarrhea. States that she has been having normal bowel movements : Denies painful urination, hematuria, polyuria. Patient denies any difficulty urinating. Neurological: Denies numbness, weakness, tingling Musculoskeletal: Complains of back pain as noted above Skin: Denies rashes or lesions EXAM Physical Exam Narrative Exam Narrative: General: Patient lying in bed rest comfortably did not appear to be in acute distress Head: Atraumatic, normocephalic Eyes: PERRL bilaterally, EOMI bilaterally, no conjunctival injection noted Neck: Soft, supple, trachea midline Cardiovascular: Regular rate and rhythm no murmurs gallops rubs noted Respiratory: Clear to auscultation bilaterally Abdomen: Soft, nondistended, mild tenderness palpation of the right upper quadrant no rebound or guarding on exam, bowel sounds present x 4 Musculoskeletal: Patient has tenderness palpation over the right rib cage on exam on the lateral aspect denies any trauma or injury to this area. Patient has some tenderness palpation in the right quadratus lumborum region. No tenderness palpation midline thoracic lumbar spine Extremities: +5/5 strength noted in the bilateral upper and lower extremities, no pedal edema on exam, radial pulses +2/4 in the bilateral upper extremities Neurological: Patient following commands knew that she was at [facility] year is 2023. Sensation grossly intact no saddle anesthesia noted Skin: Warm, dry, intact, no rashes or lesions noted Const Vital Signs: 05/10/24 10:36 05/10/24 12:41 Temperature 97.4 F L 97.2 F L Temperature Source Temporal Oral Pulse Rate 71 69 Respiratory Rate 16 15 Blood Pressure 174/109 H 124/76 H Blood Pressure Mean 130 92 Pulse Ox 100 97 Oxygen Delivery Method Room Air Room Air MDM MDM MDM Narrative Medical decision making narrative: Patient is a 48-year-old female who presents to the emergency department with chief complaint of right back pain. Patient will have a workup performed here on the differential diagnose includes but limited to ACS, pneumonia, rib fracture, cholecystitis, pancreatitis. Once workup is obtained reviewed she will be reevaluated. Patient CBC reviewed and showed no evidence of leukocytosis white blood count normal 4.5, hemoglobin stable 12.9, platelet count normal at 266. Patient's sodium normal 141, potassium was low at 3.2 she will be given potassium replacement here in the emergency department 40 mill equivalents, creatinine normal at 0.86. Patient's AST and ALT were 29 and 22 respectively. Patient's troponin normal at 4 EKG reviewed showed sinus rhythm rate 63 bpm. Patient's Eden score revised was noted to be 0 indicating low risk for PE., lipase normal at 38. Patient's urinalysis showed no evidence of blood, 25 leukocyte esterase 0-5 white blood cells noted and 1+ bacteria she does not have any urinary symptoms therefore will send for culture and hold off on treatment. Patient's test negative. Patient's chest x-ray reviewed and showed stable examination no acute abnormality was seen. Patient CT abdomen pelvis showed fatty infiltration of the liver scattered sigmoid diverticuli. On reevaluation of the patient and she states that she is feeling better and would like to go home. Patient was encouraged to follow-up with her primary care physician. Patient was encouraged to refrain from lifting anything heavy as she has been doing a lot of strenuous work recently for the next few days and then advance as tolerated. Patient was given prescriptions for Lidoderm, cyclobenzaprine and and was encouraged to use also ibuprofen and Tylenol [id number] for pain control. She was encouraged to return with worsening symptoms or other concerns. All question concerns answered she is discharged home in stable condition. Lab Data Labs: Laboratory Results - last 24 hr 05/10/24 10:55 WBC 4.5 RBC 4.81 Hgb 12.9 Hct 41.0 MCV 85.2 MCH 26.8 L MCHC 31.5 L RDW Std Deviation 41.3 RDW Coeff of [facility] 13.3 Plt Count 266 MPV 10.4 Immature Gran % (Auto) 0.400 Neut % (Auto) 53.3 Lymph % (Auto) 29.1 Calvert % (Auto) 9.4 Eos % (Auto) 7.4 H Baso % (Auto) 0.4 Absolute Neuts (auto) 2.4 Absolute Lymphs (auto) 1.30 Nucleated RBC % 0 Sodium 141 Potassium 3.2 L Chloride 107 Carbon Dioxide 28.0 Anion Gap 6 BUN 7 Creatinine 0.86 Estim Creat Clear Calc 82.02 Est GFR (MDRD) Af Amer 90 Est GFR (MDRD) Non-Af 74 BUN/Creatinine Ratio 8.1 L Glucose 98 Calcium 8.4 L Total Bilirubin 1.20 H AST 29 ALT 22 Alkaline Phosphatase 56 Troponin I High Sens 4 Total Protein 6.9 Albumin 3.5 Globulin 3.4 Albumin/Globulin Ratio 1.0 Lipase 30 Urine Color Yellow Urine Clarity Clear Urine pH 6.5 Ur Specific [place] 1.020 Urine Protein 15 H Urine Glucose (UA) Normal Urine Ketones 5 H Urine Occult Blood Negative Urine Nitrite Negative Urine Bilirubin Negative Urine Urobilinogen 4 H Ur Leukocyte Esterase 25 H Urine RBC 0 SEEN Urine WBC 0-5 SEEN Ur Squamous Epith Cells 5-10 SEEN Calcium Oxalate Crystal 2+ Urine Bacteria 1+ Urine Mucus 2+ Urine Test Negative Radiography Diagnostic Testing: Clinical Impression(s) from Imaging Studies Abdomen/Pelvis CT 05/10/24 11:00 IMPRESSION: Fatty infiltration of the liver. Scattered sigmoid diverticula. Electronically Signed: Gene Prince MD at 12:33 EDT , Chest X-Ray 05/10/24 11:00 IMPRESSION: Stable examination. No acute abnormality is seen. Electronically Signed: Gene Prince MD at 12:31 EDT , Discharge Plan Triage Chief Complaint: Flank Pain ED Provider: John Best Dx/Rx/DC Orders Clinical Impression: Back pain Instructions: Back Exercises: Back Release Prescriptions: New lidocaine [Lidoderm] 5 % adhesive patch,medicated 1 patch topical DAILY 5 Days Qty: 5 0RF Rx Instructions: leave on most painful area for up to 12 hrs cyclobenzaprine 5 mg tablet 5 mg PO BID 5 Days Qty: 10 0RF No Action valacyclovir [Valtrex] 1 gram tablet 1,000 mg PO DAILY PRN (Reason: cold sores) Qty: 60 1RF sucralfate 1 gram tablet 1 g PO QACHS Qty: 120 0RF Rx Instructions: Take an hour before meals and at bedtime gabapentin 100 mg capsule 100 mg PO BID Qty: 60 1RF sumatriptan succinate [Imitrex] 25 mg tablet 25 mg PO PRN PRN (Reason: MIGRAINES) esomeprazole magnesium 40 mg capsule,delayed release(DR/EC) 40 mg PO BID Qty: 60 3RF Rx Instructions: Take twice daily for a month and then daily (DME) blood pressure monitor Kit See Rx Instructions .ROUTE .MEDSUPPLY Qty: 1 0RF Rx Instructions: Check blood pressure twice a day albuterol sulfate 90 mcg/actuation HFA aerosol inhaler 2 puff INHALATION Q4H PRN (Reason: cough) Qty: 17 3RF Rx Instructions: administer with spacer Primary Care Provider: Shaheed Marie Referrals: Shaheed Marie MD [Primary Care Provider] - Activity Restrictions/Additional Instructions: Use Lidoderm patches. Use ibuprofen/Tylenol [id number] for pain control. Use muscle relaxers and do not operate anything under the influence of these. Follow-up on urine culture. Follow-up your primary care physician outpatient setting and return with worsening symptoms or other concerns. Take it easy over the next day or 2 and advance activity as tolerated Print Language: Bermudian Disposition Disposition: Home, Self Care
[2024-05-10 12:04] LABS: Squamous Epithelial Cells - UA 5-10 SEEN /hpf (5-10)
[2024-05-10 12:05] LABS: Bacteria 1+ /hpf (None Seen); Calcium Oxalate Crystals Ur 2+ /hpf (<or=2+); Internal QC Validated? YES +Cl - CLEAR BKGD; Mucous, Urine 2+ /hpf (<or=2+); Pregnancy, Urine Negative Negative; White Blood Cells 0-5 SEEN /hpf (0-5)
[2024-05-10 12:41] VITALS: BP 124/76; PULSE 69; RESP 15; TEMP 36.2; O2SAT 97
[2024-05-10] MEDS: Ketorolac 30 MG/ML Syringe IV (13:05)
[2024-05-10] MEDS: Potassium Chloride Oral Tablet 20 MEQ 40 MEQ PO (13:05)
== END 2024-05-10 13:42 | disposition home or self-care (01) ==
PROVIDERS: Emergency Provider Emergency Medicine; PCP Internal Medicine; Visit Provider Emergency Medicine
DX: M54.9 Dorsalgia, unspecified (principal); F12.90 Cannabis use, unspecified, uncomplicated; F41.9 Anxiety disorder, unspecified; I10 Essential (primary) hypertension; Z87.19 Personal history of other diseases of the digestive system; K21.9 Gastro-esophageal reflux disease without esophagitis; J45.909 Unspecified asthma, uncomplicated
CPT/HCPCS: 71045; 74177; 80053; 81001; 81025; 83690; 84484; 85025; 87086; 93005; 99283; J7030; Q9967; A4216; J2405

== ENCOUNTER → 2024-10-19 | Outpatient (CLI) | payer MEDICAID, SELFPAY ==
--- NOTE | 2024-10-19 10:47 | RAD_ITS ---
STUDY: X-RAY - RIGHT SHOULDER REASON FOR EXAM: Female, 49 years old. Right Shoulder Pain TECHNIQUE: 4 views of the right shoulder. COMPARISON: None. FINDINGS: Normal glenohumeral articulation. Normal acromioclavicular joint. Normal acromion. Normal humeral head and visualized proximal humerus. The soft tissue structures are unremarkable. There is no demonstrated fracture. Normal visualized pulmonary apex. RAD/Shoulder min 2 Views IMPRESSION: Normal x-ray examination of the right shoulder. Electronically Signed: John Barth MD at 16:03 EST ,
--- NOTE | 2024-10-19 10:47 | RAD_ITS ---
STUDY: X-RAY - LUMBAR SPINE REASON FOR EXAM: Female, 49 years old. Radiculopathy. TECHNIQUE: 4 view(s) of the lumbar spine were obtained. COMPARISON: None FINDINGS: Normal lumbar lordosis. Mild levoscoliosis. There is a normal alignment of the vertebrae. Diffuse moderate lower thoracic and lumbosacral facet sclerosis. Mild intervertebral disc space narrowing with osteophytes at L2-3 and L3-4. Phleboliths. RAD/L/S Spine Min 4 Views IMPRESSION: Levoscoliosis with mild lower lumbosacral spondylosis. Electronically Signed: Taye Pak MD at 16:59 EST ,
[2024-10-19 12:07] LABS: Absolute Lymphocyte Count 1.05 X10^3/uL (0.83-4.51); Absolute Neutrophil Count 4.6 X10^3/uL (2.0-7.7); Basophil# 0.03 X10^3/uL; Basophil% 0.5 % (0-1); Eosinophil# 0.16 X10^3/uL; Eosinophils% 2.5 % (0-5); Hemoglobin 13.5 g/dL (12.0-15.0); Lymphocyte # 1.05 X10^3/ul (0.83-4.51); Lymphocyte % 16.6 % (19-41); Mean Corp Hgb Conc 32.1 g/dL (32-36); Mean Corpuscular Hgb 27.2 pg (27.0-32.0); Mean Corpuscular Volume 84.7 fL (81-99); Mean Platelet Vol. 10.9 fl (6.2-12.0); Monocyte# 0.48 X10^3/uL; Monocyte% 7.6 % (0-10); NRBC Flagged by Analyzer 0 % (0-5); Neutrophil # 4.58 X10^3/uL (2.7-7.7); Neutrophil % 72.5 % (47-70); Platelet Count 295 K/mm3 (150-450); RBC Distribution Width CV 12.6 % (11.6-14.6); RBC Distribution Width SD 38.7 fl (35.1-43.9); Red Blood Count 4.96 M/mm3 (4.2-5.4); White Blood Count 6.3 K/mm3 (4.4-11.0)
[2024-10-19 12:40] LABS: AST(SGOT) 15 U/L (15-37); Alanine Aminotransfer ALT/SGPT 19 U/L (13-56); Albumin, Serum 3.6 g/dL (3.2-5.0); Alkaline Phosphatase 74 U/L (45-117); Anion Gap 5 (5-15); BUN 9 mg/dL (7-18); BUN/Creat Ratio 9.6 RATIO (10-20); Calcium,Total 9.4 mg/dL (8.5-10.1); Chloride 104 mmol/L (98-107); Cholesterol 163 mg/dL (200); Creatinine, Serum 0.94 mg/dL (0.55-1.02); EST Glomerular Filtration Rate 67 mL/min (>60); Est Glom Filt Rate - Afr Amer 81 mL/min (>60); Globulin 3.5 g/dL (2.2-4.2); Glucose 125 mg/dL (74-106); High Density Lipoprotein 65 mg/dL; Protein, Total 7.1 g/dL (6.4-8.2); Sodium Level 137 mmol/L (136-145); Triglycerides 111 mg/dL; Very Low Density Lipoprotein 22 mg/dL (5-40)
== END | disposition home or self-care (01) ==
PROVIDERS: PCP Internal Medicine; Referring Provider Internal Medicine; Visit Provider Internal Medicine
DX: M25.511 Pain in right shoulder (principal); M54.16 Radiculopathy, lumbar region; I10 Essential (primary) hypertension
CPT/HCPCS: 36415; 72110; 73030; 80053; 80061; 85025

== ENCOUNTER → 2024-10-25 | Outpatient (CLI) | payer MEDICAID, SELFPAY ==
--- NOTE | 2024-10-25 11:59 | BI_ITS ---
MAMMOGRAPHY - BILATERAL SCREENING REASON FOR EXAM: Female, 49 years old. Routine annual screening examination. PERTINENT HISTORY: Mother with breast cancer. Aunt with breast cancer. TECHNIQUE: Digital bilateral breast catalina (3D mammographic acquisition) in the CC and MLO projections. 2-D mediolateral oblique (MLO) and craniocaudad (CC) views of both breasts were obtained. CAD: Full Field Digital Mammography with Computer Added Detection was performed. COMPARISON: Comparison is made with prior study of January 18, 2022 and August 18, 2023. FINDINGS: Breast Composition: The breasts are heterogeneously dense, which may obscure small masses. There are no dominant masses or suspicious calcifications. Stable 8 mm x 7 mm well-defined nodule in the slightly inferior lateral aspect of the left breast. This was demonstrated to be a small cyst on prior sonogram. No other significant abnormalities are identified. There has been no significant change since the prior study. BI/SCRN MAMM (CAD)W/CATALINA BILAT IMPRESSION: Stable bilateral screening mammogram. Yearly follow-up mammogram recommended. (A) ASSESSMENT CATEGORY: BIRADS Category 2: Benign. A letter regarding these results will be sent to the patient by the facility within 30 days. Approximately 10% of breast cancers are not detected by mammography. A normal mammogram should not delay biopsy of a clinically suspicious abnormality. [id number] Electronically Signed: Gene Prince MD at 14:13 EST ,
== END | disposition home or self-care (01) ==
LOC: OPBI 11:58
PROVIDERS: PCP Internal Medicine; Referring Provider Nurse Practitioner Family; Visit Provider Nurse Practitioner Family
DX: Z12.31 Encounter for screening mammogram for malignant neoplasm of breast (principal); Z80.3 Family history of malignant neoplasm of breast
CPT/HCPCS: 77063; 77067

== ENCOUNTER → 2024-11-06 | Outpatient (CLI) | payer MEDICAID, SELFPAY ==
[2024-11-06 13:14] LABS: HIV - WCH Non-Reactive (Nonreactive); Hepatitis B Surface Antigen Non-Reactive (Nonreactive); Hepatitis C Antibody Non-Reactive (Nonreactive); Syphilis Antibodies Non-reactive
== END | disposition home or self-care (01) ==
LOC: BWCLAB 10:35
PROVIDERS: PCP Internal Medicine; Referring Provider Nurse Practitioner Women's Health; Visit Provider Nurse Practitioner Women's Health
DX: Z20.2 Contact with and (suspected) exposure to infections with a predominantly sexual mode of transmission (principal)
CPT/HCPCS: 36415; 86695; 86696; 86703; 86780; 86803; 87340

== ENCOUNTER → 2024-11-07 | Outpatient (CLI) | payer MEDICAID, SELFPAY ==
--- NOTE | 2024-11-07 09:45 | RAD_ITS ---
EXAM: Air contrast upper GI series and esophagram. CLINICAL HISTORY: Vomiting. Dysphagia. COMPARISON: None. TECHNIQUE: The patient ingested barium. Imaging of the esophagus stomach and duodenum was obtained. FINDINGS: The esophagus is unremarkable. No evidence of gastroesophageal reflux. No mass lesion is seen. The stomach and duodenum are unremarkable. The patient ingested a 12 mm tablet the barium. The tablet is trapped at the gastroesophageal juncti on. RAD/Upper GI w/BA Swallow IMPRESSION: Trapping of the 12 mm tablet the barium at the level of the gastroesophageal ju nction. Reading Location: [place] [id number]
== END | disposition home or self-care (01) ==
LOC: RAD 09:35
PROVIDERS: PCP Internal Medicine; Referring Provider Surgery; Visit Provider Surgery
DX: R47.02 Dysphasia (principal)
CPT/HCPCS: 74246

== ENCOUNTER 2024-12-04 08:47 | Day surgery (SDC) | payer MEDICAID, SELFPAY ==
--- NOTE | 2024-12-03 16:15 | PAT.ANE_ITS ---
Pre-Assessment Diagnosis/Proposed Procedure Planned Operative Procedure(s): EGD Anesthesia History Anesthesia History - advertising production manager: Anesthesia History - advertising production manager Hx Hospitalization No 12/03/24 08:22 Any Problems With Anesthesia No 12/03/24 08:22 Cholinesterase deficiency No 12/03/24 08:22 You/Your Family Experience No 12/03/24 08:22 fever (hyperthermia) with Relationship Recent Exposure to Contagious No 12/21/23 13:25 Disease Does patient have nerve No 12/03/24 08:22 stimulator Patient instructed to have device shut off --Does patient have Pacemaker or ICD? When Was Last Pacemaker Check QUESTION #4 FULL TEXT: You/Your Family Experience fever (hyperthermia) with Anesthesia Last Oral Intake Last Oral intake: Last Oral Intake NPO since Meds taken in AM with sips of water? Meds patient instructed to take am of surgery PONV PONV - advertising production manager: PONV - advertising production manager Female Yes 12/03/24 08:22 HX of Motion Sickness No 12/03/24 08:22 HX of N/V After Surgery No 12/03/24 08:22 Non-Smoker Yes 12/03/24 08:22 Duration of Surgery greater No 12/03/24 08:22 than 60 minutes Number of Risk Factors 2 12/03/24 08:22 PONV Score Moderate Risk 12/03/24 08:22 Height & Weight Height & Weight: Anesthesia: Height & Weight Height 5 ft 4 in 11/12/24 08:57 Respiratory Assessment Respiratory Assessment - advertising production manager: Respiratory Tract Infection Hx - advertising production manager Hx Respiratory Tract Infection No 12/03/24 08:22 STOP Sleep Apnea STOP Sleep Apnea - advertising production manager: STOP Sleep Apnea - advertising production manager Hx Hypertension No 12/03/24 08:22 Hx Sleep Apnea No 12/03/24 08:22 CPAP No 12/21/23 13:25 BIPAP No 12/21/23 13:25 Do you snore loudly (louder No 12/03/24 08:22 than talking or can be heard Do you often feel tired/ No 12/03/24 08:22 fatigued/ sleepy during daytime? Has anyone observed you stop No 12/03/24 08:22 breathing during sleep? STOP Results Negative 12/03/24 08:22 QUESTION #5 FULL TEXT : Do you snore loudly (louder than talking or can be heard through closed doors)? 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 - advertising production manager: Tobacco Use History - advertising production manager Tobacco Use Smoking Status Never smoker 12/03/24 08:22 Hx Tobacco Use No 12/03/24 08:22 Years Smoking Packs Smoked per Day Smoking Cessation Date was within the last 15 years Hx Smoking Cessation Date Hx Smoking Cessation Counseling Hematologic Medial History Hematologic Hx - advertising production manager: Hematologic Medical Hx - long term care pharmacist Hx of Blood Transfusion No 12/03/24 08:22 Hx of Transfusion in last 3 No 12/03/24 08:22 Months Date of Last Transfusion (if within last 3 months) Ever experience any problems No 12/03/24 08:22 with transfusion(s)? Specify any problems Hx of Preganancy in last 3 No 12/03/24 08:22 Months Nurse Filling Out Transfusion [email or web address] 12/03/24 08:22 & Questions: Date: 12/03/24 12/03/24 08:22 Time: 08:23 12/03/24 08:22 Patient unable to answer at this time (ie. confused, unrespo /Reproduction History /Reproductive History - advertising production manager: /Reproductive Hx- advertising production manager Hx Now Gestational Age (in weeks): EDC: Hx Hx Para Hx Section SAB No 05/10/24 10:36 PFSH Medical History Lumbar radiculopathy, right Right shoulder pain Right elbow pain History of cold sores Anxiety Marijuana use Alcohol use Low iron Easy bruising Back pain Migraine headache Difficulty swallowing History of diverticulitis Gastric reflux Non-smoker Asthma Shortness of breath on exertion Chronic cough Hypertension History of stress test Hypertension skin cancer removal Skin cancer GERD (gastroesophageal reflux disease) Hypertension Headache, migraine History of gout Carpal tunnel syndrome history of breast lump/cyst Anemia SOB (shortness of breath) Anxiety Diverticulitis Asthma Home Medications ?Medication ?Instructions ?Recorded ?Last Taken ?Type blood pressure monitor #1 ea 09/08/21 Unknown Rx albuterol sulfate 90 mcg/actuation 2 puff inhalation Q 4H PRN cough 06/10/23 Unknown Rx aerosol inhaler #17 grams esomeprazole magnesium 40 mg 40 mg PO BID #60 caps Unknown Rx capsule,delayed release lidocaine 5 % topical patch 1 patch topical DAILY 5 da ys #5 ea 05/10/24 Unknown Rx (Lidoderm) valacyclovir 1 gram tablet 1,000 mg PO DAILY PRN cold sores 10/11/24 Unknown Rx (Valtrex) #60 tabs cyclobenzaprine 10 mg tablet 10 mg PO BID PRN muscle s pasm #60 10/19/24 Unknown Rx tabs meloxicam 15 mg tablet 15 mg PO QDAY PRN pain #30 t abs 11/15/24 Unknown Rx gabapentin 100 mg capsule 100 mg PO BID PRN pain 12/03 Unknown History Allergy/AdvReac Type Severity Reaction Status Date / Time No Known Allergies Allergy Verified 12/03/24 08:19 Family History Father Heart disease COPD (chronic obstructive pulmonary disease) Asthma CVA (cerebral vascular accident) Colon polyps Sister Diabetes GERD (gastroesophageal reflux disease) Cancer Skin Cancer Surgical History Hx of inguinal hernia repair Hx of esophagogastroduodenoscopy History of hernia repair S/P Hx of tonsillectomy H/O: hysterectomy Social History household members: significant other, children and other number of children: 3 current occupational status: unemployed history of recent travel: No sexually active: Yes other: oldest child - Lili adopted Smoking Status: Never smoker alcohol intake: current alcohol intake frequency: a few times a week substance use type: marijuana caffeine: Yes what type of physical activity do you participate in: none frequency: does not exercise seatbelt use: always do you feel safe at home: Yes additional social history: seperated Audit: Pertinent Findings Pertinent Findings EKG Perinent findings: EKG from 05/10/2024: Vent. Rate : 063 BPM Atrial Rate : 063 BPM P-R Int : 106 ms QRS Dur : 082 ms QT Int : 408 ms P-R-T Axes : 009 028 044 degrees QTc Int : 417 ms Sinus rhythm with short NC Otherwise normal ECG When compared with ECG of 17-OCT-2023 06:29, NC interval has decreased Recommendation Anesthesia Recommendation Anesthesia recommendation: OPTIMIZED for anesthesia
[2024-12-04] VITALS (13 sets, daily range): BP systolic 106–198; BP diastolic 78–121; PULSE 73–92; RESP 16; TEMP 36.6–37.1; O2SAT 96–99; BMI 27.2
--- NOTE | 2024-12-04 09:06 | PRE.ANES_ITS ---
ASA Classification* ASA Classification ASA Classification: 3 Assessment & Plan Anesthesia* Anesthesia Assessment Anesthesia Assessment: Discussed sedation and/or anesthesia options, risks, benefits, and alternatives with patient/parents/legal guardian/POA. Questions invited. The patient/parents/legal guardian/POA seems to understand and agrees to proceed with anesthesia plan. Reviewed the physical assessment, medical history, allergy history and patient home medications list prior to surgery/procedure/anesthetic and documented any changes. Performed airway and anesthesia risk assessments. Anesthesia Type Anesthesia Type: MAC History Source History Obtained from:: Patient and Chart Anesthesia Focused Assessment* Temperature: 98.8 F Pulse Rate: 78 Blood Pressure: 165/106 Respiratory Rate: 16 Pulse Ox: 99 Oxygen Delivery Method: Room Air Airway Assessment Mouth opens: >3 cm Mallampati Score: IV Teeth Condition: Intact Neck Range of motion (ROM): Full ROM Focused Labs Anesthesia Preop lab: CBC WBC 6.3 K/mm3 (4.4-11.0) 10/19/24 10:12 10/19/24 RBC 4.96 M/mm3 (4.2-5.4) 10/19/24 10:12 10/19/24 Hgb 13.5 g/dL (12.0-15.0) 10/19/24 10:12 10/19/24 Hct 42.0 % (37-47) 10/19/24 10:12 10/19/24 Plt Count 295 K/mm3 (150-450) 10/19/24 10:12 10/19/24 CHEMISTRY Potassium 4.0 mmol/L (3.5-5.1) 10/19/24 10:12 10/19/24 Sodium 137 mmol/L (136-145) 10/19/24 10:12 10/19/24 BUN 9 mg/dL (7-18) 10/19/24 10:12 10/19/24 Creatinine 0.94 mg/dL (0.55-1.02) 10/19/24 10:12 10/19/24 Glucose 125 mg/dL (74-106) H 10/19/24 10:12 10/19/24 TSH 1.10 uIU/mL (0.358-3.74) 02/12/22 11:45 COAG PT 13.6 SECONDS (11.7-14.9) 08/28/19 11:30 Urine Test Negative Negative 05/10/24 10:55 05/10/24 Pre-Assessment Diagnosis/Proposed Procedure Planned Operative Procedure(s): EGD Anesthesia History Anesthesia History - trial examiner: Anesthesia History - trial examiner Hx Hospitalization No 12/03/24 08:22 Any Problems With Anesthesia No 12/03/24 08:22 Cholinesterase deficiency No 12/03/24 08:22 You/Your Family Experience No 12/03/24 08:22 fever (hyperthermia) with Relationship Recent Exposure to Contagious No 12/04/24 09:01 Disease Does patient have nerve No 12/03/24 08:22 stimulator Patient instructed to have device shut off --Does patient have Pacemaker No 12/04/24 09:01 or ICD? When Was Last Pacemaker Check QUESTION #4 FULL TEXT: You/Your Family Experience fever (hyperthermia) with Anesthesia Last Oral Intake Last Oral intake: Last Oral Intake NPO since 00:00 12/04/24 09:01 Meds taken in AM with sips of water? Meds patient instructed to take am of surgery PONV PONV - trial examiner: PONV - trial examiner Female Yes 12/03/24 08:22 HX of Motion Sickness No 12/03/24 08:22 HX of N/V After Surgery No 12/03/24 08:22 Non-Smoker Yes 12/03/24 08:22 Duration of Surgery greater No 12/03/24 08:22 than 60 minutes Number of Risk Factors 2 12/03/24 08:22 PONV Score Moderate Risk 12/03/24 08:22 Height & Weight Height & Weight: Anesthesia: Height & Weight Height 5 ft 4 in 12/04/24 09:01 Weight: 72 kg 12/04/24 09:01 Body Mass Index (BMI) 27.2 12/04/24 09:01 Respiratory Assessment Respiratory Assessment - trial examiner: Respiratory Tract Infection Hx - trial examiner Hx Respiratory Tract Infection No 12/03/24 08:22 STOP Sleep Apnea STOP Sleep Apnea - trial examiner: STOP Sleep Apnea - trial examiner Hx Hypertension No 12/03/24 08:22 Hx Sleep Apnea No 12/03/24 08:22 CPAP No 03/13/24 13:25 BIPAP No 12/21/23 13:25 Do you snore loudly (louder No 12/03/24 08:22 than talking or can be heard Do you often feel tired/ No 12/03/24 08:22 fatigued/ sleepy during daytime? Has anyone observed you stop No 12/03/24 08:22 breathing during sleep? STOP Results Negative 12/03/24 08:22 QUESTION #5 FULL TEXT : Do you snore loudly (louder than talking or can be heard through closed doors)? 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 Specify any problems Hx of Preganancy in last 3 No 12/03/24 08:22 Months Nurse Filling Out Transfusion [email or web address] 12/03/24 08:22 & Questions: Date: 12/03/24 12/03/24 08:22 Time: 08:23 12/03/24 08:22 Patient unable to answer at this time (ie. confused, unrespo /Reproduction History /Reproductive History - trial examiner: /Reproductive Hx- trial examiner Hx Now Gestational Age (in weeks): EDC: Hx Hx Para Hx Section SAB No 05/10/24 10:36 PFSH Medical History Lumbar radiculopathy, right Right shoulder pain Right elbow pain History of cold sores Anxiety Marijuana use Alcohol use Low iron Easy bruising Back pain Migraine headache Difficulty swallowing History of diverticulitis Gastric reflux Non-smoker Asthma Shortness of breath on exertion Chronic cough Hypertension History of stress test Hypertension skin cancer removal Skin cancer GERD (gastroesophageal reflux disease) Hypertension Headache, migraine History of gout Carpal tunnel syndrome history of breast lump/cyst Anemia SOB (shortness of breath) Anxiety Diverticulitis Asthma Home Medications ?Medication ?Instructions ?Recorded ?Last Taken ?Type blood pressure monitor #1 ea 09/08/21 Unknown Rx albuterol sulfate 90 mcg/actuation 2 puff inhalation Q 4H PRN cough 06/10/23 Unknown Rx aerosol inhaler #17 grams esomeprazole magnesium 40 mg 40 mg PO BID #60 caps Unknown Rx capsule,delayed release lidocaine 5 % topical patch 1 patch topical DAILY 5 da ys #5 ea 05/10/24 Unknown Rx (Lidoderm) valacyclovir 1 gram tablet 1,000 mg PO DAILY PRN cold sores 10/11/24 Unknown Rx (Valtrex) #60 tabs cyclobenzaprine 10 mg tablet 10 mg PO BID PRN muscle s pasm #60 10/19/24 Unknown Rx tabs meloxicam 15 mg tablet 15 mg PO QDAY PRN pain #30 t abs 11/15/24 Unknown Rx gabapentin 100 mg capsule 100 mg PO BID PRN pain 12/03 Unknown History Allergy/AdvReac Type Severity Reaction Status Date / Time No Known Allergies Allergy Verified 12/04/24 08:57 Family History Father Heart disease COPD (chronic obstructive pulmonary disease) Asthma CVA (cerebral vascular accident) Colon polyps Sister Diabetes GERD (gastroesophageal reflux disease) Cancer Skin Cancer Surgical History Hx of inguinal hernia repair Hx of esophagogastroduodenoscopy History of hernia repair S/P Hx of tonsillectomy H/O: hysterectomy Social History household members: significant other, children and other number of children: 3 current occupational status: unemployed history of recent travel: No sexually active: Yes other: oldest child - Lili adopted Smoking Status: Never smoker alcohol intake: current alcohol intake frequency: a few times a week substance use type: marijuana caffeine: Yes what type of physical activity do you participate in: none frequency: does not exercise seatbelt use: always do you feel safe at home: Yes additional social history: seperated Review of Systems (Anesthesia) ROS Narrative System reviewed and no additional complaints, except as documented.
--- NOTE | 2024-12-04 09:06 | PCM.HP.BLA ---
History and Physical Date of Admission: 12/04/24 Intake Vital Signs 10/19/2508:45 11/12/2507:57 Height 5 ft 4 in 5 ft 4 in Weight: 162 lb BMI 27.8 BP 150/100 H Blood Pressure Location Rt brachial Position Sitting Respiration 18 Pulse 100 Pulse Source Monitor Pulse Oximetry (%) 100 Oxygen Delivery Method room air Intake Visit Reasons: DISCUSS EGD W DILATATION Chief Complaint: Difficulty swallowing food discuss EGD with dilatation Is patient in pain?: No Allergies No Known Allergies Allergy (Verified 11/12/24 09:01) Medications ?Medication ?Instructions ?Recorded ?Confirmed ?Type blood pressure monitor #1 ea 09/08/21 11/12/24 Rx sumatriptan succinate 25 mg tablet 25 mg PO PRN PRN MIGRAINES 11/08/22 11/12/24 History (Imitrex) albuterol sulfate 90 mcg/actuation 2 puff inhalation Q4H PRN cough 06/10/23 11/12/24 Rx aerosol inhaler #17 grams sucralfate 1 gram tablet 1 g PO QACHS #120 tabs 11/01/23 11/12/24 Rx esomeprazole magnesium 40 mg 40 mg PO BID #60 caps 12/07/23 11/12/24 Rx capsule,delayed release gabapentin 100 mg capsule 100 mg PO BID #60 caps 12/19/23 11/12/24 Rx lidocaine 5 % topical patch 1 patch topical DAILY 5 days #5 ea 05/10/24 11/12/24 Rx (Lidoderm) valacyclovir 1 gram tablet 1,000 mg PO DAILY PRN cold sores 10/11/24 11/12/24 Rx (Valtrex) #60 tabs cyclobenzaprine 10 mg tablet 10 mg PO BID PRN muscle spasm #60 10/19/24 11/12/24 Rx tabs PFSH Medical History (Updated 11/12/24 @ 08:56 by Margot García) Lumbar radiculopathy, right Right shoulder pain Right elbow pain History of cold sores Anxiety Marijuana use Alcohol use Low iron Easy bruising Back pain Migraine headache Difficulty swallowing History of diverticulitis Gastric reflux Non-smoker Asthma Shortness of breath on exertion Chronic cough Hypertension History of stress test Hypertension skin cancer removal Skin cancer GERD (gastroesophageal reflux disease) Hypertension Headache, migraine History of gout Carpal tunnel syndrome history of breast lump/cyst Anemia SOB (shortness of breath) Anxiety Diverticulitis Asthma Surgical History Hx of inguinal hernia repair Hx of esophagogastroduodenoscopy History of hernia repair S/P Hx of tonsillectomy H/O: hysterectomy Family History Father Heart disease COPD (chronic obstructive pulmonary disease) Asthma CVA (cerebral vascular accident) Colon polypsSister Diabetes GERD (gastroesophageal reflux disease) Cancer Skin Cancer Social History household members: significant other, children and other number of children: 3 current occupational status: unemployed history of recent travel: No sexually active: Yes other: oldest child - Lili adopted Smoking Status: Never smoker alcohol intake: current alcohol intake frequency: a few times a week substance use type: marijuana caffeine: Yes what type of physical activity do you participate in: none frequency: does not exercise seatbelt use: always do you feel safe at home: Yes additional social history: seperated HPI HPI HPI: Patient is a 49-year-old female who has dysphagia. She was diagnosed with this a year ago and was diagnosed with eosinophilic esophagitis. She has not seen an supervisor compounding and finishing yet. She reports the food is still getting stuck especially out at restaurants. She had a barium swallow that showed trapping of the barium tablet. This was trapped at the GE junction. He is on a PPI. ROS General General: Yes fatigue; No weight change, appetite, colon cancer, breast cancer or weakness HEENT HEENT: Yes difficulty swallowing and swollen glands; No eye injury, eye surgery or hoarseness Endo Endocrine: No thyroid disease, diabetes mellitus, thyroid cancer, Hair loss, heat intolerance or cold intolerance Skin Skin: No rash or changing moles Musc Musculoskeletal: Yes back problems; No arthritis, rheumatoid arthritis, gout or joint pain Cardio Cardiovascular: No murmur, pacemaker, heart disease, atrial fibrillation, high blood pressure, heart attack, heart stent, palpitations, shortness of breat with exertion or chest pain Psych Psychiatric: No depression, anxiety or hearing voices Resp Respiratory: Yes shortness of breath, No sleep apnea, Yes cough, No COPD, No asthma, No emphysema and No wheezing Gastro Gastrointestinal: Yes abdominal pain, Yes nausea or vomiting, Yes diarrhea, No constipation, No blood in stool, Yes acid reflux, No hemorrhoids, No ulcers, No gallbladder problem and No black,tarry stools Yusuf Hematologic: No blood thinners, No blood disorders, No bleeding, Yes anemia and No blood clots Neuro Neurologic: No system reviewed and no additional complaints, except as documented, No as per HPI, No abnormal gait, No abnormal hearing, No abnormal movements, No abnormal speech, No behavioral changes, No burning sensations, No confusion, No convulsions, No disequilibrium, No dizziness, No localized weakness, No frequent falls, No headache(s), No lack of coordination, No loss of vision, No memory loss, Yes numbness, No other visual disturbances, No radicular pain, No restless legs, No sensory deficit, No syncope, Yes tingling, No tremor(s), No weakness and No other Exam Const General: cooperative Orientation: alert and oriented x3 HENMT Head: normal to inspection Neck Neck: normal visual inspection and full ROM Chest Chest palpation & inspection: normal inspection of the chest Resp Effort & Inspection: normal respiratory effort Auscultation: clear to auscultation bilaterally Cardio Rate: regular rate Rhythm: regular rhythm GI Inspection: non-distended Palpation: soft and nontender Skin General: no rashes or lesions noted Neuro General: patient alert and patient oriented x3 Extrem General: full ROM Psych Appearance: grossly normal Mental Status: mental status grossly normal Assessment and Plan Assessment and Plan (1) Difficulty swallowing: Status: Acute Comment: FOOD GETS STUCK Plan: Patient is having dysphagia and reports that she is having had dysphagia for over a year. She had a barium swallow that showed trapping of the barium tablet at the GE junction. I discussed EGD with possible dilation. I discussed the increased risk of bleeding and perforation with dilation. I explained endoscopy in detail to the patient. I explained the risks including but not limited to stroke or heart attack with anesthesia, perforation of the GI tract, bleeding, infection. I explained that any of these could necessitate further emergency surgery. The patient understands and all questions were answered sufficiently. The patient wishes to proceed with procedure. Filiberto Grimaldo MD Pager: [facility] [address] [place] [address], [address] [place] [address] Office: I have examined the patient and the H&P has been reviewed. There are no clinical changes since date of exam.
--- NOTE | 2024-12-04 11:00 | OP.EGD_ITS ---
Patient Name: Hortencia Brennan Procedure Date: 12/04/2024 9:07 AM Date of : 1975 Age: 49 Procedure: Upper GI endoscopy Indications: Dysphagia Providers: Filiberto Grimaldo MD Referring MD: Shaheed Marie MD Medicines: Propofol per Anesthesia Patient Profile: This is a 49 year old female. Refer to note in patient chart for documentation of history and physical. Complications: No immediate complications. Estimated blood loss: Minimal. Procedure: Pre-Anesthesia Assessment: - Prior to the procedure, a History and Physical was performed, and patient medications and allergies were reviewed. The patient's tolerance of previous anesthesia was also reviewed. The risks and benefits of the procedure and the sedation options and risks were discussed with the patient. All questions were answered, and informed consent was obtained. Prior Anticoagulants: The patient has taken no anticoagulant or antiplatelet agents. After reviewing the risks and benefits, the patient was deemed in satisfactory condition to undergo the procedure. After obtaining informed consent, the endoscope was passed under direct vision. Throughout the procedure, the patient's blood pressure, pulse, and oxygen saturations were monitored continuously. The gastroscope was introduced through the mouth, and advanced to the second part of duodenum. The upper GI endoscopy was accomplished without difficulty. The patient tolerated the procedure well. Scope In: 10:51:42 AM Scope Out: 10:55:03 AM Total Procedure Duration Time 0 hours 3 minutes 21 seconds Findings: One benign-appearing, intrinsic mild stenosis was found at the gastroesophageal junction. This stenosis measured less than one cm (in length). The stenosis was traversed. A TTS dilator was passed through the scope. Dilation with an 18-19-20 mm balloon dilator was performed to 18 mm. The dilation site was examined following endoscope reinsertion and showed moderate mucosal disruption. Estimated blood loss was minimal. The stomach was normal. The examined duodenum was normal. Impression: - Benign-appearing esophageal stenosis. Dilated. - Normal stomach. - Normal examined duodenum. - No specimens collected. Recommendation: - Discharge patient to home. - Soft diet for 2 days. - Continue present medications. Procedure Code(s): --- Professional --- 50303, Esophagogastroduodenoscopy, flexible, transoral; with transendoscopic balloon dilation of esophagus (less than 30 mm diameter) Diagnosis Code(s): --- Professional --- K22.2, Esophageal obstruction R13.10, Dysphagia, unspecified CPT copyright 2021 [employer]. All rights reserved. The codes documented in this report are preliminary and upon research and evaluation manager review may be revised to meet current compliance requirements. Filiberto Grimaldo MD 12/04/2024 10:59:59 AM This report has been signed electronically. Number of Addenda: 0 Note Initiated On: 12/04/2024 9:07 AM
--- NOTE | 2024-12-04 11:00 | OP.CCLET_ITS ---
12/04/2024 Shaheed Marie MD [address] [place] [address] [place] [address] Re : Upper GI endoscopy procedure for Hortencia [place] Dear Dr. Marie This procedure was performed on Wednesday, December 04, 2024. My impressions and recommendations are as follows: Impressions : - Benign-appearing esophageal stenosis. Dilated. - Normal stomach. - Normal examined duodenum. - No specimens collected. Recommendations : - Discharge patient to home. - Soft diet for 2 days. - Continue present medications. My findings are described in the full procedure note, which is enclosed. If I can be of further assistance, please feel free to contact me at Doctor phone number(s): , Work: . Sincerely, Filiberto Grimaldo MD 12/04/2024 10:59:59 AM This report has been signed electronically.
--- NOTE | 2024-12-04 11:07 | PCM.POST.ANE ---
Anesthesia: Postop Eval I Current Vital Signs Temperature: 98.1 F Pulse Rate: 81 Blood Pressure: 126/78 Respiratory Rate: 16 Pulse Ox: 99 Oxygen Delivery Method: Room Air Assessment Airway patent: Yes Spontaneous unlabored respirations: Yes Mental status: Awake and Calm nausea: No Vomiting: No Anesthesia Complication: No Fluid Hydration Crystalloid volume administer (ml): 550 Total IV fluid infused: 550 Progress Note Anesthesia document: Postop Eval 1 completed: Yes
--- NOTE | 2024-12-04 18:38 | PCM.POSTANE2 ---
Anesthesia Postop Eval I Sum Postop Eval Completion status Anesthesia document: Postop Eval 1 completed: Yes Anesthesia Postop Eval I Summary Anesthesia Postop Eval I Summary: Anesthesia Postop Eval I: Assessment Summary Airway patent Yes 12/04/24 11:08 [email or web address] Spontaneous unlabored Yes 12/04/24 11:08 [email or web address] respirations Mental status Awake,Calm 12/04/24 11:08 [email or web address] nausea No 12/04/24 11:08 [email or web address] Vomiting No 12/04/24 11:08 [email or web address] Anesthesia Postop Eval I: Fluid Summary Crystalloid volume administer 550 12/04/24 11:08 [email or web address] (ml) Colloids volume administered ( ml) Blood Product volume administered (ml) Total IV fluid infused 550 12/04/24 11:08 [email or web address] Anesthesia Postop Eval I: Summary Notes Anesthesia Complication No 12/04/24 11:08 [email or web address] Anesthesia Complication Comment: Post-operative progress note Anesthesia: Postop Eval II Evaluation Mental status: Awake and Calm Pain Level: 0 nausea: No Vomiting: No Progress Note Post-operative progress note: Blood pressure much improved in PACU after preop Versed and IV bolus of fluid. Complications Anesthesia Complication: No
== END 2024-12-04 11:29 | disposition home or self-care (01) ==
LOC: EN 08:48 → AC 08:49
PROVIDERS: PCP Internal Medicine; Referring Provider Internal Medicine; Visit Provider Surgery
PROC: 0DJ08ZZ Inspection of Upper Intestinal Tract, Via Natural or Artificial Opening Endoscopic (ICD-10-PCS; CPT 43235; principal; 2024-12-04 10:10)
DX: R13.10 Dysphagia, unspecified (principal); K22.2 Esophageal obstruction; G43.909 Migraine, unspecified, not intractable, without status migrainosus; I10 Essential (primary) hypertension; K21.9 Gastro-esophageal reflux disease without esophagitis; Z90.710 Acquired absence of both cervix and uterus; Z79.899 Other long term (current) drug therapy; Z85.828 Personal history of other malignant neoplasm of skin
CPT/HCPCS: 43249; A4216; J2405

== ENCOUNTER 2025-02-28 12:05 | Emergency (ER) | payer MEDICAID, SELFPAY ==
[2025-02-28 12:06] VITALS: BP 175/115; PULSE 84; RESP 16; TEMP 36.8; O2SAT 100; BMI 27.8
--- NOTE | 2025-02-28 12:23 | EX.ED.DYSGE1 ---
HPI History of Present Illness Chief Complaint: Ear Problem Detail of Chief Complaint: Injury to right ear Informant: patient Narrative Narrative: Patient presents the emergency department for an injury to her right ear. Patient states that she rolled out of bed and hit her ear on the end table last night about 10:30 PM. She denies loss of consciousness. She has noted a small amount of bleeding and swelling to the lower earlobe and about an hour ago was developed a mild headache so she comes in for evaluation. Patient is concerned that the blood might be coming from her brain. Patient not anticoagulated. Just describes a mild headache that is diffuse. [facility] Medical History Lumbar radiculopathy, right Right shoulder pain Right elbow pain History of cold sores Anxiety Marijuana use Alcohol use Low iron Easy bruising Back pain Migraine headache Difficulty swallowing History of diverticulitis Gastric reflux Non-smoker Asthma Shortness of breath on exertion Chronic cough Hypertension History of stress test Hypertension skin cancer removal Skin cancer GERD (gastroesophageal reflux disease) Hypertension Headache, migraine History of gout Carpal tunnel syndrome history of breast lump/cyst Anemia SOB (shortness of breath) Anxiety Diverticulitis Asthma Home Medications ?Medication ?Instructions ?Recorded ?Last Taken ?Type blood pressure monitor #1 ea 09/08/21 Unknown Rx albuterol sulfate 90 mcg/actuation 2 puff inhalation Q4H PRN cough 06/10/23 Unknown Rx aerosol inhaler #17 grams esomeprazole magnesium 40 mg 40 mg PO BID #60 caps 12/07/23 Unknown Rx capsule,delayed release lidocaine 5 % topical patch 1 patch topical DAILY 5 days #5 ea 05/10/24 Unknown Rx (Lidoderm) valacyclovir 1 gram tablet 1,000 mg PO DAILY PRN cold sores 10/11/24 Unknown Rx (Valtrex) #60 tabs cyclobenzaprine 10 mg tablet 10 mg PO BID PRN muscle spasm #60 10/19/24 Unknown Rx tabs meloxicam 15 mg tablet 15 mg PO QDAY PRN pain #30 tabs 11/15/24 Unknown Rx gabapentin 100 mg capsule 100 mg PO BID PRN pain 12/03/24 Unknown History Allergy/AdvReac Type Severity Reaction Status Date / Time No Known Allergies Allergy Verified 02/28/25 12:08 Family History Father Heart disease COPD (chronic obstructive pulmonary disease) Asthma CVA (cerebral vascular accident) Colon polyps Sister Diabetes GERD (gastroesophageal reflux disease) Cancer Skin Cancer Surgical History Hx of inguinal hernia repair Hx of esophagogastroduodenoscopy History of hernia repair S/P Hx of tonsillectomy H/O: hysterectomy Social History household members: significant other, children and other number of children: 3 current occupational status: unemployed history of recent travel: No sexually active: Yes other: oldest child - Lili adopted Smoking Status: Never smoker alcohol intake: current alcohol intake frequency: a few times a week substance use type: marijuana caffeine: Yes what type of physical activity do you participate in: none frequency: does not exercise seatbelt use: always do you feel safe at home: Yes additional social history: seperated ROS ROS ED Review of Systems ROS Unobtainable: other Constitutional Constitutional ED: Reports lethargy; Denies chills, fever(s), sweats or weight loss Eyes Eyes: Denies blurry vision, change in vision or diplopia ENT ENT ED: Reports other Details: Bleeding/injury right ear ; Denies rhinorrhea or sore throat Cardiovascular Cardiovascular: Reports chest pain and racing heartbeat; Denies orthopnea Respiratory/Chest Respiratory/Chest: Reports dyspnea and dyspnea on exertion; Denies cough, orthopnea or sputum Gastrointestinal Gastrointestinal: Denies abdominal pain, diarrhea, nausea or vomiting Genitourinary Genitourinary ED: Denies dysuria, hematuria or urinary frequency Musculoskeletal Musculoskeletal: Denies arthralgias, back pain, myalgias or neck pain Integumentary Denies abscess, Abrasions or rash Neurologic Neurologic: Reports headache(s); Denies weakness Psychiatric Psychiatric: Denies anxiety, depression or suicidal thoughts Endocrine Endocrinology: Denies polydipsia, polyphagia or polyuria Hematologic/Lymphatic Hematologic/Lymphatic: Denies easy bleeding, easy bruising or lymphadenopathy Allergic/Immunologic Allergic/Immunologic ED: Denies mouth swelling, tongue swelling or urticaria EXAM Physical Exam Const Vital Signs: 02/28/25 12:06 Temperature 98.3 F Temperature Source Oral Pulse Rate 84 Respiratory Rate 16 Blood Pressure 175/115 H Blood Pressure Mean 135 Pulse Ox 100 Oxygen Delivery Method Room Air Positive well nourished and well developed General Appearance ED: well developed and NAD HEENT Reports TM's clear and moist mucous membranes normocephalic and atraumatic; Negative for trauma or tenderness Tympanic Membrane ED: Yes TM's clear Eyes PERRL and EOMs intact bilaterally Eyes Narrative: Right ear-patient does have some mild soft tissue swelling and edema of the lower earlobe. There is a superficial 5 mm abrasion with no active bleeding to the inner aspect of the lower earlobe. Ear canals intact and normal. Tympanic membrane intact and normal without evidence of bleeding or perforation. She has no significant tenderness over the mastoid. No other significant injuries noted General Eye ED: Negative for pale conjunctiva or scleral icterus Neck no lymphadenopathy, supple and no JVD General: Negative for tenderness Chest Wall inspection of chest normal and palpation of chest normal Chest: Negative for tenderness Resp normal respiratory effort and clear to auscultation bilaterally Effort and Inspection: Negative for respiratory distress or pain with movement Auscultation: Negative for rhonchi, wheezes or diminished lung sounds Cardio regular rate, regular rhythm, S1 normal heart sound, S2 normal heart sound and no murmurs Peripheral Pulses: pulses 2+ throughout GI normal to inspection, nondistended, normoactive bowel sounds, soft to palpation, non-tender, non-distended and no masses Back/Spine no CVA tenderness and no thoracic nor lumbar tenderness Extremity normal to inspection General Extremety ED: Negative for edema General Extremity: Negative for edema Neuro oriented x3, CN's II-XII intact bilaterally, no sensory deficits noted and gait normal Sensorium / Orientation: awake, alert, oriented to person, oriented to place and oriented to time Motor Exam: strength 5/5 throughout and strength abnormal Psych mental status grossly normal Skin no rashes or lesions noted and no wounds MDM MDM MDM Narrative Medical decision making narrative: Patient presents with injury to the right ear that occurred last evening around 10:30 PM. She looks well. There is a superficial abrasion to the right lower earlobe with some soft tissue swelling. I suspect a contusion to this area. Recommended using ice to the area and Tylenol for discomfort. I did not feel any imaging was indicated and she is comfortable with this plan. Advised to follow-up with her primary care physician within the next 5 to 7 days. Patient unsure of her last tetanus but this is not a tetanus prone wound and patient does not want to have a tetanus shot Discharge Plan Triage Chief Complaint: Ear Problem ED Provider: Yolanda Louis Dx/Rx/DC Orders Clinical Impression: Contusion of right ear, Abrasion of right ear Instructions: Bruises (Contusions), ED Abrasion Prescriptions: No Action cyclobenzaprine 10 mg tablet 10 mg PO BID PRN (Reason: muscle spasm) Qty: 60 0RF esomeprazole magnesium 40 mg capsule,delayed release(DR/EC) 40 mg PO BID Qty: 60 3RF Rx Instructions: Take twice daily for a month and then daily lidocaine [Lidoderm] 5 % adhesive patch,medicated 1 patch topical DAILY 5 Days Qty: 5 0RF Rx Instructions: leave on most painful area for up to 12 hrs gabapentin 100 mg capsule 100 mg PO BID PRN (Reason: pain) (DME) blood pressure monitor Kit See Rx Instructions .ROUTE .MEDSUPPLY Qty: 1 0RF Rx Instructions: Check blood pressure twice a day albuterol sulfate 90 mcg/actuation HFA aerosol inhaler 2 puff INHALATION Q4H PRN (Reason: cough) Qty: 17 3RF Rx Instructions: administer with spacer valacyclovir [Valtrex] 1 gram tablet 1,000 mg PO DAILY PRN (Reason: cold sores) Qty: 60 0RF meloxicam 15 mg tablet 15 mg PO QDAY PRN (Reason: pain) Qty: 30 1RF Primary Care Provider: Shaheed Marie Referrals: Shaheed Marie MD [Primary Care Provider] - 5-7 Days Print Language: Macedonian Disposition Disposition: Home, Self Care
[2025-02-28 12:25] VITALS: BP 175/115; PULSE 84; RESP 16; TEMP 36.8; O2SAT 100
== END 2025-02-28 12:29 | disposition home or self-care (01) ==
PROVIDERS: Emergency Provider Emergency Medicine; PCP Internal Medicine; Visit Provider Emergency Medicine
DX: S00.431A Contusion of right ear, initial encounter (principal); I10 Essential (primary) hypertension; S00.411A Abrasion of right ear, initial encounter; W06.XXXA Fall from bed, initial encounter; Z85.828 Personal history of other malignant neoplasm of skin; K21.9 Gastro-esophageal reflux disease without esophagitis; Z79.899 Other long term (current) drug therapy; Z90.710 Acquired absence of both cervix and uterus
CPT/HCPCS: 99282

== ENCOUNTER → 2025-06-04 | Outpatient (CLI) | payer MEDICAID, SELFPAY ==
[2025-06-04 17:29] LABS: HIV Nonreactive (Nonreactive); Syphilis Antibodies Nonreactive (Nonreactive)
[2025-06-06 16:09] LABS: HCV Quant. RNA PCR HCV Not Detected IU/mL (.)
[2025-06-07 05:07] LABS: Chlamydia By Nucleic Acid AMP Negative (Negative); Gonococcus By Nucleic Acid AMP Negative (Negative)
== END | disposition home or self-care (01) ==
PROVIDERS: PCP Internal Medicine; Visit Provider Nurse Practitioner Women's Health
DX: Z20.2 Contact with and (suspected) exposure to infections with a predominantly sexual mode of transmission (principal)
CPT/HCPCS: 36415; 86695; 86696; 86703; 86780; 87491; 87522; 87591

== ENCOUNTER → 2025-06-14 | Outpatient (CLI) | payer MEDICAID, SELFPAY ==
--- NOTE | 2025-06-14 15:21 | MRI_ITS ---
PROCEDURE: UPPER EXT JOINT ONLY(ROUTINE) 06/14/2025 REASON FOR EXAM: PAIN, UNABLE TO EXTEND IP JOINT, LIMITED ROM [facility]MC TECHNIQUE: Procedure Code: [id number] Modality: MR Procedure: UPPER EXT JOINT ONLY(ROUTINE) Multiplanar and multisequence images were obtained without IV contrast administration. COMPARISON: COMPARISON: None FINDINGS: Bone Marrow: Normal bone marrow signal. No edema to suggest underlying fracture. Effusion: Small effusion involving the 1st MCP joint with mild degenerative changes. Mild degenerative changes of the basal joint. Soft Tissues: No soft tissue mass. No abnormal fluid collection. Ligaments and Tendons: Normal flexor and extensor tendons. No tear. MRI/Upper Ext Joint Only(Routine) IMPRESSION: Mild degenerative changes of the 1st MCP joint and basal joint. No acute fracture. Normal ligaments, flexor and extensor tendons. Reading Location: [facility]
--- OUTSIDE RECORDS SUMMARY | 2025-06-14 20:36 | XMS RPT_ITS | CCD ---
Author Organization [facility] Care Team Providers Care Cabinet Finisher Name Role Phone MARY GUTIERREZ Unavailable Unavailable PHYSICIAN, NONE Unavailable Unavailable Dr. Shaheed Marie Primary Care Provider [phone] Dr. Shaheed Marie Referring Provider [phone] [place] SOLAR HOT WATER INSTALLER, SOLAR HOT WATER INSTALLER-Casey Hdez Attending Provider [phone] VARGAS Bonilla Attending Provider Roof SOLAR HOT WATER INSTALLER, SOLAR HOT WATER INSTALLER-Casey Aleman Attending Provider Dr. Shaheed Marie Primary Care Provider [phone] Dr. Shaheed Marie Referring Provider [phone] [place] SOLAR HOT WATER INSTALLER, TUNDE-Casey Hdez Attending Provider [phone] VARGAS Bonilla Attending Provider Roof SOLAR HOT WATER INSTALLER, SOLAR HOT WATER INSTALLER-C Blas Aleman Attending Provider Delicia Blankenship Attending Provider Unavailable Dr. Shaheed Marie Primary Care Provider [phone] Delicia Blankenship Attending Provider Unavailable Dr. Shaheed Marie Referring Provider [phone] VARGAS Rodriguez Attending Provider Unavailab Dr. Avelino Bryant Attending Provider [phone] VARGAS Rodriguez Other Provider Unavailable Dr. Navi Ty Attending Provider [phone] Dr. Navi Ty Referring Provider Unavailable Primary Care Provider UnavailDr. Shaheed Leon Primary Care Provider [phone] Dr. Shaheed Marie Referring Provider [phone] [place] SOL[employer] HOT WATER INSTALLER, SOLAR HOT WATER INSTALLER-C Ketty Attending Provider [phone] Dr. Shaheed Marie Primary Care Provider [phone] Frank, Dr. Hummel Referring Provider [phone] [place] SOLAR HOT WATER INSTALLER, SOLAR HOT WATER INSTALLER-C Ketty Attending Provider [phone] VARGAS Garcia Attending Provider [phone] Dr. Shaheed Marie Primary Care Provider [phone] Dr. Shaheed Marie Referring Provider [phone] Dr. Shaheed Marie Attending Provider [phone] Dr. Ijeoma Escobedo Attending Provider Dr. Salvador Espinoza Referring Provider Dr. Ijeoma Escobedo Other Provider Dr. Shaheed Marie Primary Care Provider [phone] Dr. Shaheed Marie Referring Provider [phone] VARGAS Garcia Attending Provider [phone] Dr. Shaheed Marie Attending Provider [phone] Dr. Ijeoma Escobedo Attending Provider Dr. Salvador Espinoza Referring Provider Dr. Ijeoma Escobedo Other Provider Unavailable Primary Care Provider UnavailBUDDY Bassett Referring Unavailable BUDDY BLANKENSHIP Attending Unavailable Dr. Shaheed Marie MD Primary Care Provider Dr. Yolanda Louis DO Attending Provider Dr. Yolanda Louis DO Emergency Provider Dr. Shaheed Marie MD Referring Provider [phone] Juan Miguel SOLAR HOT WATER INSTALLER-C, Jackelin Attending Provider [phone] [place] SOLAR HOT WATER INSTALLER-C, Ketty Attending Provider Blair GRIFFITHS-CSanna Attending Provider [place] SOLAR HOT WATER INSTALLER, Ketty Referring Unavailable [place] SOLAR HOT WATER INSTALLERKetty Attending Unavailable Oleghe, Efewongbe Primary Care Unavailable Oleghe, Efewongbe Primary Care Unavailable Oleghe, Efewongbe Referring Unavailable [place] SOLAR HOT WATER INSTALLER, Ketty Attending Unavailable Oleghe, Efewongbe Attending Unavailable Oleghe, Efewongbe Primary Care Unavailable Oleghe, Efewongbe Referring Unavailable Oleghe, Efewongbe Referring Unavailable Oleghe, Efewongbe Primary Care Unavailable Filiberto Grimaldo Attending Unavailable Oleghe, Efewongbe Referring Unavailable Jackelin Bullard Attending Unavailable Oleghe, Efewongbe Primary Care Unavailable Oleghe, Efewongbe Referring Unavailable [place] SOLAR HOT WATER INSTALLERKetty Attending Unavailable Oleghe, Efewongbe Primary Care Unavailable Oleghe, Efewongbe Primary Care Unavailable Oleghe, Efewongbe Referring Unavailable Sanna Pinto Attending Unavailable Robotham, Ijeoma Attending Unavailable Oleghe, Efewongbe Primary Care Unavailable Oleghe, Efewongbe Referring Unavailable Oleghe, Efewongbe Attending Unavailable Oleghe, Efewongbe Primary Care Unavailable Oleghe, Efewongbe Referring Unavailable Oleghe, Efewongbe Referring Unavailable Oleghe, Efewongbe Primary Care Unavailable Filiberto Grimaldo Attending Unavailable Filiberto Grimaldo Consulting Unavailable Oleghe, Efewongbe Primary Care Unavailable [place] SOLAR HOT WATER INSTALLERKetty Attending Unavailable Oleghe, Efewongbe Primary Care Unavailable Barkman Buffy Referring Unavailable BarkmanBuffy Attending Unavailable Oleghe, Efewongbe Attending Unavailable Oleghe, Efewongbe Primary Care Unavailable Oleghe, Efewongbe Referring Unavailable Robotham, Ijeoma Attending Unavailable Oleghe, Efewongbe Primary Care Unavailable Robotham, Ijeoma Referring Unavailable Oleghe, Efewongbe Primary Care Unavailable Yolanda Louis Attending Unavailable Oleghe, Efewongbe Referring Unavailable Oleghe, Efewongbe Primary Care Unavailable Filiberto Grimaldo Attending Unavailable Oleghe, Efewongbe Attending Unavailable Oleghe, Efewongbe Primary Care Unavailable Oleghe, Efewongbe Primary Care Unavailable Sanna Pinto Referring Unavailable Sanna Pinto Attending Unavailable Allergies Allergy Classification Reported Allergen(s) Allergy Type Date of Onset Reaction(s) Facility (2 sources) Penicillins; Translations: [PENICILLINS] Propensity to adverse reactions 09-04-2007 GI Upset [facility] Work Phone: (2 sources) Penicillins Propensity to adverse reactions 09-04-2007 GI Upset [facility] Medications Current Medications Medication Drug Class(es) Dates Sig (Normalized) Sig (Original) azithromycin 250 mg oral tablet (14 sources) Macrolide Antimicrobial Start: 03-26-2023 End: 03-31-2023 azithromycin (ZITHROMAX Z-BRISEIDA) 250 mg tablet Indications: Bronchitis Take 2 tablets day one, then, 1 tablet daily until gone. 6 tablet 0 03/26/2023 03/31/2023 Active Start: 08-28-2019 End: 05-15-2020 take 2 tablets by mouth once daily, then take 1 tablet by mouth once daily Azithromycin 250 MG tablet Discontinued 250 mg PO DIRECTED August 28, 2019 1:00am May 15, 2020 7:46am TAKE 2 TABLETS 1ST DAY THEN 1 TABLET DAILY FOR NEXT 4 DAYS. Comment on above: Take 2 tablets day o ne, then, 1 tablet daily until gone. betamethasone 0.5 mg/ml / clotrimazole 10 mg/ml topical cream (3 sources) Azole Antifungal, Corticosteroid Start: 02-16-2016 clotrimazole-betametha sone (LOTRISONE) cream Apply 1 application to affected area twice daily. 15 g 0 02/16/2016 Active Comment on above: Apply 1 application to affected area twice daily. Blood Pressure Monitor (9 sources) Start: 09-08-2021 Blood Pressure Monitor Active 0 .ROUTE .MEDSUPPLY September 08, 2021 12:00am Check blood pressure twice a day Start: 09-08-2021 Blood Pressure Monitor Active 0 .ROUTE .MEDSUPPLY September 08, 2021 1:00am Check blood pressure twice a day Blood Pressure Monitor kit (4 sources) Start: 09-08-2021 Blood Pressure Monitor kit Active 0 .ROUTE .MEDSUPPLY 1 0 September 08, 2021 1:00am Hypertension Essential (primary) hypertension blood pressure Check blood pressure twice a day cyclobenzaprine hydrochloride 10 mg oral tablet (11 sources) Muscle Relaxant Start: 10-19-2024 End: 05-14-2025 take 1 tablet by mouth twice daily as needed for muscle spasms Cyclobenzaprine 10 mg tablet Active 10 mg PO TWICE A DAY as needed for muscle spasm 60 0 May 14, 2025 3:56pm Start: 05-10-2024 End: 10-19-2024 take 1 tablet by mouth twice daily Cyclobenzaprine 5 mg tablet Discontinued 5 mg PO TWICE A DAY 10 5 0 May 10, 2024 12:00am October 19, 2024 11:01am diclofenac sodium 0.01 mg/mg topical gel (1 source) Nonsteroidal Anti-inflammatory Drug Start: 06-05-2025 Diclofenac Sodium (Arthritis Pain (Diclofenac)) 1 % gel Active 2 g TOPICAL 4 times daily as needed for pain, swelling, stiffness 50 0 June 05, 2025 12:00am apply to single hand/thumb esomeprazole 40 mg delayed release oral capsule (20 sources) Proton Pump Inhibitor Start: 12-07-2023 End: 05-14-2025 Esomeprazole Magnesium 40 mg capsule,delayed release(DR/EC) Active 40 mg PO TWICE A DAY 60 3 May 14, 2025 3:56pm Take twice daily for a month and then daily Start: 06-25-2018 End: 09-28-2018 take 1 capsule by mouth once daily Esomeprazole Magnesium 40 MG capsule Discontinued 40 mg PO DAILY June 25, 2018 12:00am September 28, 2018 11:19am hydroCHLOROthiazide 25 mg oral tablet (20 sources) Thiazide Diuretic Start: 10-17-2023 take 25 mg by mouth once daily Hydrochlorothiazide Active 25 MG PO DAILY October 17, 2023 12:00am Start: 06-08-2022 take 25 mg by mouth once daily Hydrochlorothiazide Active 25 MG PO DAILY June 07, 2022 11:00pm Start: 12-04-2020 End: 03-15-2022 take 1 tablet by mouth once daily in the morning Hydrochlorothiazide 25 mg tablet Discontinued 25 mg PO EVERY MORNING 30 0 August 26, 2021 4:48pm August 31, 2021 12:38pm methylPREDNISolone 4 mg oral tablet (1 source) Corticosteroid Start: 06-05-2025 take 1 tablet by mouth once Methylprednisolone (Medrol (Briseida)) 4 mg tablets,dose pack Active 0 PO per package directions 21 0 June 05, 2025 12:00am PO PER PKG DIR for 6 days PARoxetine hydrochloride 20 mg oral tablet (3 sources) Serotonin Reuptake Inhibitor Start: 07-31-2014 take 1 tablet by mouth once daily PARoxetine (PAXIL) 20 mg tablet Indications: Anxiety Take 1 tablet by mouth once daily. 30 tablet 3 07/31/2014 Active Comment on above: Take 1 tablet by marcelino once daily. predniSONE 20 mg oral tablet (2 sources) Start: 03-26-2023 End: 03-31-2023 take 2 tablets by mouth once daily predniSONE (DELTASONE) 20 mg tablet Indications: Bronchitis Take 2 tablets by mouth once daily for 5 days. 10 tablet 0 03/26/2023 03/31/2023 Active Start: 11-19-2015 End: 03-26-2023 take 1 tablet by mouth once daily at mealtime predniSONE (DELTASONE) 20 mg tablet Take 1 tablet by mouth once daily. Take daily with food. 4 tablet 0 11/19/2015 03/26/2023 Discontinued Comment on above: Take 2 tablets by mo [facility] once daily for 5 days. Take 1 tablet by marcelino once daily. Take daily with food. salicylic acid 170 mg/ml topical solution (3 sources) Start: 05-14-2025 Salicylic Acid (Cheriton-Callus Remover) 17 % liquid Active 1 NMA TOPICAL AT BEDTIME 9.8 0 May 14, 2025 12:00am valACYclovir 1000 mg oral tablet (12 sources) Herpesvirus Nucleoside Analog DNA Polymerase Inhibitor, Herpes Simplex Virus Nucleoside Analog DNA Polymerase Inhibitor, Herpes Zoster Virus Nucleoside Analog DNA Polymerase Inhibitor Start: 11-07-2023 End: 10-11-2024 Valacyclovir (Valtrex) 1 gram tablet Active 1000 mg PO DAILY as needed for cold sores 60 0 October 11, 2024 11:33am Start: 11-04-2020 take 1000 mg by mout h every twelve hours as needed Valacyclovir Active 1000 MG PO Q12H 60 November 04, 2020 12:00am Use as needed for mouth sores. Do not take with Tizanidine Completed/Discontinued Medications Medication Drug Class(es) Dates Sig (Normalized) Sig (Original) acetaminophen 325 mg / oxyCODONE hydrochloride 5 mg oral tablet (20 sources) Opioid Agonist Start: 08-28-2019 End: 09-06-2019 Oxycodone-Acetamino phen 1 TABLET tablet Discontinued 1 {tbl} PO EVERY 6 HOURS NEEDED as needed for Pain 12 3 0 August 28, 2019 August 30, 2019 1:00am September 06, 2019 1:08am Chest pain Chest pain, unspecified Start: 08-28-2019 End: 09-06-2019 take 1 tablet by mouth every six hours as needed Oxycodone-Acetaminophen Discontinued 1 TABLET PO EVERY 6 HOURS NEEDED 12 3 August 28, 2019 September 06, 2019 1:08am Start: 09-19-2018 End: 09-23-2018 Oxycodone-Acetaminophen 1 TA BLET tablet Discontinued 1 - 2 {tbl} PO EVERY 4 HOURS NEEDED as needed for Pain 40 4 September 19, 2018 8:42am September 22, 2018 1:00am September 23, 2018 1:14am Postoperative pain Other acute postprocedural pain Start: 09-19-2018 End: 09-23-2018 take 1 tablet by mouth every four hours as needed Oxycodone-Acetaminophen Discontinued 1 - 2 TABLET PO EVERY 4 HOURS NEEDED 40 4 September 19, 2018 8:42am September 23, 2018 1:14am [id number] 200 actuat albuterol 0.09 mg/actuat metered dose inhaler (20 sources) beta2-Adrenergic Agonist Start: 08-20-2019 End: 05-14-2025 Albuterol Sulfate 90 mcg/actuation HFA aerosol inhaler Discontinued 2 NMA INHALATION Q4H as needed for cough 17 June 10, 2023 10:46am May 14, 2025 3:59pm administer with spacer Start: 08-20-2019 End: 06-10-2023 take 1 puff(s) by inhalation every four hours Albuterol Sulfate Discontinued 2 PUFF INHALATION Q4H July 17, 2022 9:39am June 10, 2023 10:46am administer with spacer amitriptyline hydrochloride 25 mg oral tablet (13 sources) Tricyclic Antidepressant Start: 11-04-2020 End: 08-26-2021 take 1 tablet by mouth at bedtime Amitriptyline 25 mg tablet Discontinued 25 mg PO AT BEDTIME 30 November 04, 2020 1:00am August 26, 2021 11:05am amLODIPine 5 mg oral tablet (13 sources) Dihydropyridine Calcium Channel Lindsey Start: 11-04-2020 End: 12-10-2020 take 1 tablet by mouth once daily Amlodipine 5 mg tablet Discontinued 5 mg PO DAILY 30 November 04, 2020 1:00am December 10, 2020 1:35pm amoxicillin 875 mg / clavulanate 125 mg oral tablet (13 sources) Penicillin-class Antibacterial Start: 02-12-2022 End: 03-15-2022 Amoxicillin-Pot Clavulanate 875-125 mg tablet Discontinued 1 {tbl} PO TWICE A DAY 14 February 12, 2022 12:00am March 15, 2022 8:04am Start: 02-12-2022 End: 03-15-2022 take 1 tablet by mouth twice daily Amoxicillin-Pot Clavulanate Discontinued 1 TABLET PO TWICE A DAY February 12, 2022 12:00am March 15, 2022 8:04am benzonatate 200 mg oral capsule (20 sources) Non-narcotic Antitussive Start: 02-12-2022 End: 03-15-2022 Benzonatate 200 mg capsule Discontinued 200 mg PO 2 to 3 times per day as needed for cough 30 February 12, 2022 12:00am March 15, 2022 8:28am Start: 08-20-2019 End: 05-15-2020 take 2 capsules by mouth three times daily as needed for cough Benzonatate 100 MG capsule Discontinued 200 mg PO 3 TIMES DAILY NEEDED as needed for Cough 20 August 20, 2019 1:00am May 15, 2020 7:46am Start: 08-20-2019 End: 05-15-2020 take 200 mg by mouth three times daily as needed Benzonatate Discontinued 200 MG PO 3 TIMES DAILY NEEDED August 20, 2019 1:00am May 15, 2020 7:46am Budesonide (Eohilia) 2 mg/10 mL suspension in packet (4 sources) Start: 10-25-2024 End: 11-12-2024 take 1 mL by mouth twice daily in the morning Budesonide (Eohilia) 2 mg/10 mL suspension in packet Discontinued 4 mL PO TWICE A DAY 672 84 0 October 25, 2024 1:00am January 16, 2025 12:00am November 12, 2024 10:03am administer in the morning and evening calcium carbonate 500 mg chewable tablet (13 sources) Start: 05-20-2015 End: 05-20-2015 take 1 tablet by mouth every six hours as needed for gastroesophageal reflux disease Calcium Carbonate 500 MG tablet Discontinued 500 mg PO EVERY 6 HOURS NEEDED as needed for Heartburn Or Indigestion May 20, 2015 12:00am May 20, 2015 1:02pm cephalexin 500 mg oral tablet (10 sources) Cephalosporin Antibacterial Start: 07-26-2023 End: 08-02-2023 take 1 tablet by mouth twice daily Cephalexin 500 mg tablet Discontinued 500 mg PO TWICE A DAY 14 7 0 July 26, 2023 12:00am August 01, 2023 12:00am August 02, 2023 12:05am cetirizine hydrochloride 10 mg oral capsule (13 sources) Histamine-1 Receptor Antagonist Start: 07-31-2020 End: 08-26-2021 take 1 capsule by mouth at bedtime Cetirizine 10 mg capsule Discontinued 10 mg PO BEDTIME 30 July 31, 2020 12:00am August 26, 2021 11:05am DULoxetine 30 mg delayed release oral capsule (20 sources) Serotonin and Norepinephrine Reuptake Inhibitor Start: 08-31-2021 End: 10-13-2022 take 1 capsule by mouth once daily Duloxetine (Cymbalta) 30 mg capsule,delayed release(DR/EC) Discontinued 30 mg PO DAILY 30 September 08, 2021 11:42am January 11, 2022 3:08pm Anxiety Anxiety disorder, unspecified mood 2 ml dupilumab 150 mg/ml auto-injector (4 sources) Interleukin-4 Receptor alpha Antagonist Start: 10-22-2024 End: 11-12-2024 Dupilumab (Dupixent Pen) 300 mg/2 mL pen injector Discontinued 300 mg SC EVERY WEEK 8 October 22, 2024 1:00am November 12, 2024 10:03am Eosinophilic esophagitis Asthma Eosinophilic esophagitis Unspecified asthma, uncomplicated fluticasone propionate 0.05 mg/actuat metered dose nasal spray (16 sources) Corticosteroid Start: 07-31-2020 End: 11-04-2020 Fluticasone Propionate 50 mcg/actuation spray,suspension Discontinued 2 NMA INTRANASAL DAILY 16 3 July 31, 2020 12:00am November 04, 2020 2:10pm Start: 07-31-2020 End: 11-04-2020 Fluticasone Propionate Disco ntinued 2 SPRAY INTRANASAL DAILY July 31, 2020 12:00am November 04, 2020 2:10pm Start: 02-02-2013 take 2 spray(s) by m outh once daily fluticasone 50 mcg/actuation nasal spray Use 2 Sprays in each nostril once daily. Rinse mouth after use. 1 Bottle 11 02/02/2013 Active Comment on above: Use 2 Sprays in each nostril once daily. Rinse mouth after use. gabapentin 100 mg oral capsule (12 sources) Anti-epileptic Agent Start: 024 End: take 1 capsule by mouth twice daily as needed for pain Gabapentin 100 mg capsule Discontinued 100 mg PO TWICE A DAY as needed for pain December 03, 2024 1:00am May 14, 2025 3:59pm hydroCHLOROthiazide 25 mg / losartan potassium 100 mg oral tablet (20 sources) Thiazide Diuretic, Angiotensin 2 Receptor Lindsey Start: 023 End: Losartan-Hydrochlor othiazide 100-25 mg tablet Discontinued 1 {tbl} PO DAILY November 11, 2022 1:00am October 13, 2023 2:49pm Start: 11-11-2022 End: 10-13-2023 take 1 tablet by mouth once daily Losartan-Hydrochlorothiazide Discontinue d 1 TABLET PO DAILY November 11, 2022 1:00am October 13, 2023 2:49pm Start: 03-15-2022 End: 06-08-2022 Losartan-Hydrochlorothiazide 100-25 mg tablet Discontinued 1 {tbl} PO DAILY March 15, 2022 12:00am June 08, 2022 1:04pm Start: 03-15-2022 End: 06-08-2022 take 1 tablet by mouth once daily Losartan-Hydrochlorothiazide Discontinue d 1 TABLET PO DAILY March 15, 2022 12:00am June 08, 2022 1:04pm ibuprofen 600 mg oral tablet (20 sources) Nonsteroidal Anti-inflammatory Drug Start: 07-26-2023 End: 10-17-2023 take 1 tablet by mouth three times daily as needed for pain Ibuprofen 600 mg tablet Discontinued 600 mg PO THREE TIMES A DAY as needed for pain 20 0 July 26, 2023 10:41am October 17, 2023 7:04am Start: 09-30-2022 End: 07-26-2023 take 1 tablet by mouth every eight hours as needed for pain Ibuprofen 600 mg tablet Discontinued 600 mg PO EVERY 8 HOURS NEEDED as needed for pain 20 0 September 30, 2022 1:00am July 26, 2023 10:42am lidocaine 0.05 mg/mg medicated patch (20 sources) Antiarrhythmic, Amide Local Anesthetic Start: 05-10-2024 End: 06-05-2025 Lidocaine (Lidoderm) 5 % adhesive patch,medicated Discontinued 1 NMA TOPICAL DAILY 5 5 0 May 14, 2025 3:57pm June 05, 2025 3:17pm leave on most painful area for up to 12 hrs Start: 08-20-2019 End: 05-15-2020 Lidocaine 1 PATCH patch Disc ontinued 1 NMA TOPICAL DAILY 10 0 August 20, 2019 1:00am May 15, 2020 7:46am losartan potassium 25 mg oral tablet (20 sources) Angiotensin 2 Receptor Lindsey Start: 10-17-2023 End: 11-07-2023 take 1 tablet by mouth once daily Losartan 25 mg tablet Discontinued 25 mg PO DAILY 30 30 0 October 17, 2023 1:00am November 07, 2023 4:57pm Start: 06-08-2022 End: 10-13-2022 take 1 tablet by mouth once daily Losartan 50 mg tablet Discontinued 50 mg PO DAILY June 08, 2022 12:00am October 13, 2022 10:12am Start: 01-11-2022 End: 03-15-2022 take 1 tablet by mouth once daily Losartan 50 mg tablet Discontinued 50 mg PO DAILY 90 0 February 12, 2022 11:16am March 15, 2022 8:26am Start: 12-10-2020 End: 01-11-2022 take 1 tablet by mouth once daily Losartan 25 mg tablet Discontinued 25 mg PO DAILY 30 0 August 26, 2021 4:48pm August 31, 2021 12:38pm meloxicam 15 mg oral tablet (9 sources) Nonsteroidal Anti-inflammatory Drug Start: 11-15-2024 End: 06-05-2025 take 1 tablet by mouth once daily as needed for pain Meloxicam 15 mg tablet Discontinued 15 mg PO daily as needed for pain 30 May 14, 2025 3:57pm June 05, 2025 3:17pm Start: 03-15-2022 take 15 mg by mouth once daily Meloxicam Active 15 MG PO DAILY March 14, 2022 11:00pm metroNIDAZOLE 500 mg oral tablet (13 sources) Nitroimidazole Antimicrobial Start: 08-20-2020 End: 11-04-2020 take 1 tablet by mouth twice daily Metronidazole (Flagyl) 500 mg tablet Discontinued 500 mg PO TWICE A DAY 14 0 August 20, 2020 1:00am November 04, 2020 2:10pm Miscellaneous Medical Supply (Blood Pressure Cuff) misc (13 sources) Start: 08-31-2021 End: 09-08-2021 Miscellaneous Medical Supply (Blood Pressure Cuff) misc Discontinued 0 .ROUTE .MEDSUPPLY 1 0 August 31, 2021 1:00am September 08, 2021 11:42am Hypertension Essential (primary) hypertension blood pressure Take blood pressure twice a day Start: 08-31-2021 End: 09-08-2021 Miscellaneous Medical Supply (Blood Pressure Cuff) misc Discontinued 0 .ROUTE .MEDSUPPLY 1 August 31, 2021 12:00am September 08, 2021 10:42am Take blood pressure twice a day Start: 08-31-2021 End: 09-08-2021 Miscellaneous Medical Supply (Blood Pressure Cuff) misc Discontinued 0 .ROUTE .MEDSUPPLY 1 August 31, 2021 1:00am September 08, 2021 11:42am Take blood pressure twice a day omeprazole 40 mg delayed release oral capsule (20 sources) Proton Pump Inhibitor Start: 11-04-2020 End: 11-01-2023 take 1 capsule by mouth twice daily Omeprazole 40 mg capsule,delayed release(DR/EC) Discontinued 40 mg PO TWICE A DAY 180 0 January 03, 2023 11:47am July 26, 2023 10:42am Start: 05-15-2020 End: 11-04-2020 Omeprazole Magnesium (Prilos ec Otc) 20 mg tablet,delayed release (DR/EC) Discontinued 40 mg PO DAILY 60 3 May 15, 2020 12:00am November 04, 2020 2:45pm Start: 09-19-2018 End: 09-28-2018 take 2 capsules by mouth twice daily Omeprazole 20 MG capsule Discontinued 40 mg PO TWICE A DAY 30 September 19, 2018 1:00am October 18, 2018 1:00am September 28, 2018 11:19am no generic Start: 09-19-2018 End: 09-28-2018 take 40 mg by mouth twice daily Omeprazole Discontinue d 40 MG PO TWICE A DAY September 19, 2018 1:00am September 28, 2018 11:19am no generic Start: 01-11-2016 End: 05-19-2020 take 1 capsule by mouth once daily Omeprazole 40 MG capsule Discontinued 40 mg PO DAILY January 11, 2016 12:00am May 19, 2020 2:31pm Start: 05-20-2015 End: 05-20-2015 take 1 capsule by mouth once daily Omeprazole (Prilosec) 40 MG capsule Discontinued 40 mg PO DAILY May 20, 2015 12:00am May 20, 2015 1:02pm End: 03-26-2023 omeprazole magnesium (PRILOS EC OTC ORAL) Take by mouth. 0 03/26/2023 Discontinued Comment on above: Take by mouth. pantoprazole 40 mg delayed release oral tablet (12 sources) Proton Pump Inhibitor Start: 12-07-2023 End: 12-07-2023 Pantoprazole 40 mg tablet,delayed release (DR/EC) Discontinued mg PO December 07, 2023 1:00am December 07, 2023 9:37am Start: 12-07-2023 End: 12-07-2023 Pantoprazole Discontinued MG PO December 07, 2023 1:00am December 07, 2023 9:37am Start: 11-19-2015 End: 04-25-2023 take 1 tablet by mouth once daily before breakfast pantoprazole DR (PROTONIX) 40 mg tablet Take 1 tablet by mouth daily before breakfast. Take on empty stomach, 1/2 hr before meal. 30 tablet 3 03/26/2023 Active Comment on above: Take 1 tablet by marcelino th daily before breakfast. Take on empty stomach, 1/2 hr before meal. sucralfate 1000 mg oral tablet (6 sources) Aluminum Complex Start: End: take 1 tablet by mouth once at bedtime Sucralfate 1 gram tablet Discontinued 1 g PO before meals and at bedtime 120 0 November 01, 2023 1:00am November 27, 2024 4:23pm Take an hour before meals and at bedtime Sucralfate (Carafate) 100 mg/mL suspension (7 sources) Start: End: take 1 mL by mouth four times daily Sucralfate (Carafate) 100 mg/mL suspension Discontinued 10 mL PO .QID 420 October 14, 2023 1:00am October 17, 2023 7:04am Start: 10-14-2023 End: 10-17-2023 take 1 mL by mouth four times daily Sucralfate (Carafate) 100 mg/mL suspension Discontinued 10 ML PO .QID 420 October 14, 2023 1:00am October 17, 2023 7:04am Start: 10-14-2023 End: 10-17-2023 take 1 mL by mouth four times daily Sucralfate (Carafate) 100 mg/mL suspension Discontinued 10 ML PO .QID 420 October 14, 2023 12:00am October 17, 2023 6:04am SUMAtriptan 25 mg oral tablet (20 sources) Serotonin-1b and Serotonin-1d Receptor Agonist Start: 11-04-2020 End: 12-03-2024 Sumatriptan Succinate (Imitrex) 25 mg tablet Discontinued 25 mg PO NEEDED as needed for MIGRAINES November 08, 2022 3:30pm December 03, 2024 9:21am tiZANidine 2 mg oral tablet (13 sources) Central alpha-2 Adrenergic Agonist Start: 11-04-2020 End: 08-26-2021 take 1 tablet by mouth twice daily as needed Tizanidine 2 mg tablet Discontinued 2 mg PO TWICE A DAY as needed for muscle spasticity 60 November 04, 2020 1:00am August 26, 2021 11:05am Problems Active Problems Problem Classification Problem Date Documented Da te Episodic/Chronic Abdominal pain (20 sources) Abdominal pain; Translations: [Unspecified abdominal pain] Onset: 05-13-2020 Episodic Anxiety disorders (17 sources) Anxiety; Translations: [Anxiety disorder, unspecified] 10-15-2022 Chronic Asthma (14 sources) Asthma; Translations: [Unspecified asthma, uncomplicated] 01-13-2022 Chronic Comment on above: INHALER PRN Chronic obstructive pulmonary disease and bronchiectasis (14 sources) Bronchitis; Translations: [Bronchitis, not specified as acute or chronic] 08-29-2019 Episodic Diverticulosis and diverticulitis (13 sources) Diverticulitis; Translations: [Diverticulitis of intestine, part unspecified, without perforation or abscess without bleeding] 05-15-2020 Chronic Esophageal disorders (20 sources) Gastroesophageal reflux disease; Translations: [Gastro-esophageal reflux disease without esophagitis] Onset: 2 07-31-2020 Chronic Essential hypertension (20 sources) Hypertensive disorder; Translations: [Essential (primary) hypertension] Onset: 5 07-31-2020 Chronic Genitourinary symptoms and ill-defined conditions (1 source) Frequency of micturition; Translations: [Urinary frequency] Episodic Headache; including migraine (19 sources) Migraine; Translations: [Migraine, unspecified, not intractable, without status migrainosus] Onset: 5 11-04-2020 Chronic Immunizations and screening for infectious disease (14 sources) Contact with or exposure to other viral diseases; Translations: [Close exposure to COVID-19 virus] Onset: 5 Episodic Nonmalignant breast conditions (20 sources) Mastodynia; Translations: [Pain of left breast] Onset: 7 Episodic Comment on above: imaging Nonspecific chest pain (20 sources) Chest wall pain; Translations: [Other chest pain] 08-29-2019 Episodic Osteoarthritis (3 sources) Arthropathy of joint of hand; Translations: [Primary osteoarthritis, unspecified hand] Onset: 5 06-05-2025 Chronic Other connective tissue disease (2 sources) Pain in right hand; Translations: [Pain in right hand] 05-09-2025 Episodic Other connective tissue disease (1 source) Pain in right hand; Translations: [Pain of right hand] Onset: 5 Episodic Other connective tissue disease (6 sources) Pain in thumb ; Translations: [Pain in right finger(s)] 06-04-2025 Episodic Other connective tissue disease (4 sources) Tendinitis of hand; Translations: [Other enthesopathies, not elsewhere classified] 06-05-2025 Episodic Comment on above: Concern for prolonge d symptoms and inability to extend the IP joint Other connective tissue disease (2 sources) Trigger thumb of right hand; Translations: [Trigger thumb, right thumb] 06-05-2025 Episodic Other connective tissue disease (1 source) Other enthesopathies, not elsewhere classified; Translations: [Other enthesopathies, not elsewhere classified] Onset: Episodic Other connective tissue disease (1 source) Trigger thumb, right thumb; Translations: [Trigger thumb, right thumb] Onset: 5 Episodic Other female genital disorders (13 sources) Dyspareunia; Translations: [Dyspareunia] 05-13-2020 Chronic Other female genital disorders (1 source) Other specified noninflammatory disorders of vagina; Translations: [Other specified symptoms associated with female genital organs] Episodic Other female genital disorders (10 sources) Cyst of vulva; Translations: [Vulvar cyst] 07-26-2023 Episodic Other female genital disorders (4 sources) Vulvar cyst; Translations: [Other specified noninflammatory disorders of vulva and perineum] 07-26-2023 Episodic Other gastrointestinal disorders (3 sources) Irritable bowel syndrome; Translations: [Irritable bowel syndrome without diarrhea] 08-24-2005 Chronic Other gastrointestinal disorders (4 sources) Dysphagia; Translations: [Dysphagia, unspecified] 11-12-2024 Episodic Comment on above: FOOD GETS STUCK Other infections; including parasitic (6 sources) H/O: viral illness; Translations: [Personal history of other infectious and parasitic diseases] 11-07-2023 Episodic Other infections; including parasitic (2 sources) Personal history of other infectious and parasitic diseases; Translations: [Personal history of other infectious and parasitic diseases] 11-07-2023 Episodic Other lower respiratory disease (13 sources) Dyspnea; Translations: [Shortness of breath] 05-19-2020 Episodic Other lower respiratory disease (4 sources) Cough; Translations: [Cough] 07-31-2020 Episodic Other non-traumatic joint disorders (5 sources) Pain in elbow; Translations: [Pain in right elbow] 12-19-2023 Episodic Other non-traumatic joint disorders (1 source) Pain in right elbow; Translations: [Pain in joint, upper arm] 12-19-2023 Episodic Other skin disorders (1 source) Rash and other nonspecific skin eruption; Translations: [Rash and other nonspecific skin eruption] 10-13-2022 Episodic Pleurisy; pneumothorax; pulmonary collapse (13 sources) Pleurisy; Translations: [Pleurisy] 10-08-2022 Episodic Unclassified (3 sources) Pain of right thumb Unclassified (3 sources) Right lumbar radiculopathy Unclassified (3 sources) M79.644 - Pain in right finger(s),M54.16 - Radiculopathy, lumbar region,M54.9 - Dorsalgia, unspecified Urinary tract infections (1 source) Urinary tract infection, site not specified; Translations: [Urinary tract infection, site not specified] Episodic Past or Other Problems Problem Classification Problem Date Documented Da te Episodic/Chronic Headache; including migraine (3 sources) Headache; Translations: [Headache] Onset: 01-10-2012 01-10-2012 Episodic Mycoses (3 sources) Candidiasis; Translations: [Candidiasis of skin and nail] Onset: 09-29-2011 09-29-2011 Episodic Other and unspecified benign neoplasm (1 source) Benign neoplasm of skin of trunk; Translations: [Melanocytic nevi of trunk] Onset: 03-10-2012 10-05-2021 Episodic Other and unspecified benign neoplasm (2 sources) Melanocytic nevus of skin of breast; Translations: [Melanocytic nevi of trunk] Onset: 03-10-2012 10-05-2021 Episodic Other female genital disorders (2 sources) Cervical intraepithelial neoplasia grade 2; Translations: [Moderate cervical dysplasia] Onset: 12-06-2006 Resolved: 11-08-2014 11-08-2014 Episodic Other gastrointestinal disorders (1 source) Dysphagia, unspecified; Translations: [Dysphagia, unspecified] Onset: 12-17-2024 Episodic Other nervous system disorders (1 source) Dysphasia; Translations: [Dysphasia] Onset: 11-27-2024 Episodic Other non-traumatic joint disorders (6 sources) Pain in right shoulder; Translations: [Right shoulder pain] Onset: 10-24-2024 10-19-2024 Episodic Other screening for suspected conditions (not mental disorders or infectious disease) (4 sources) Patient encounter status; Translations: [Encounter for screening for malignant neoplasm of colon] Onset: 11-15-2024 09-22-2022 Episodic Spondylosis; intervertebral disc disorders; other back problems (20 sources) Backache; Translations: [Dorsalgia, unspecified] Onset: 10-24-2024 11-07-2023 Episodic Superficial injury; contusion (9 sources) Abrasion of right ear, initial encounter; Translations: [Abrasion of right ear] Onset: 03-02-2025 03-08-2025 Episodic Unclassified (13 sources) history of breast lump/cyst 04-29-2022 Unclassified (13 sources) skin cancer removal 04-29-2022 Results Test Name Value Interpretation Reference Range Facility Chlamydia/GC ALBERTO aptimaon CHLAMY,NUC ACID Negative Normal Negative [facility] Comment on above: Performed By: #### L 7000.1800 #### [facility] [address] [place], [place], [address] GC BY NUC ACID Negative Normal Negative [facility] Comment on above: Result Comment: Perf ormed at: =G - [facility] [address] [id number] Napping Machine Operator: Abiola Ray MD, Phone: [phone] Performed By: #### L 7000.1800 #### [facility] [address] [place], [address] HSV 1 AND 2 IgGon 06-06-2025 HSV 1 IgG Reactive Abnormal Non Reactive [facility] Comment on above: Result Comment: Pl ease note reference interval change HSV-1 IgG testing performed using the [employer] HSV-1 IgG assay. Performed By: #### L 3890.6006, L3400.1610, L509.8002, L7000.7000 ####[facility] [address] [place], [address] HSV 2 IgG Non-Reactive Normal Non Reactive [facility] Comment on above: Result Comment: Pl ease note reference interval change Current guidelines and recommendations do not recommend routine screening for HSV-2 in asymptomatic individuals, including those that are . The detection of HSV-2 IgG antibodies in a single sample indicates previous exposure to HSV-2 but does not give information as to the site of HSV infection or the timing of exposure. The predictive value of positive and negative results depends on the population's prevalence and the pretest likelihood of HSV-2. HSV-2 IgG testing performed using the [employer] HSV-2 IgG assay. Performed at: [address] [id number] Napping Machine Operator: Jhon Flores PhD, Phone: [phone] Performed By: #### L 3890.6006, L3400.1610, L509.8002, L7000.7000 ####[facility] [address] 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 [facility] Comment on above: Performed By: #### L 3890.6006, L3400.1610, L509.8002, L7000.7000 ####[facility] [address] [place], [address] HCV QT RNA PCR Not detected Normal . [facility] Comment on above: Performed By: #### L 3890.6006, L3400.1610, L509.8002, L7000.7000 ####[facility] [address] [place], [place], [id number] TEST INFO: Comment Normal . [facility] Comment on above: Result Comment: The quantitative range of this assay is 15 IU/mL to 100 million IU/mL. Performed By: #### L 3890.6006, L3400.1610, L509.8002, L7000.7000 ####[facility] [address] [place], [place], [address] Orthopedic Visit Reporton Orthopedic Visit Report [facility] [address] [place] [address] [address] [place], [place] [address] OFFICE VISIT Date of Service: 06/05/25 MR#: [id number] Acct: [id number] Name: HORTENCIA MARTE Rep #: [id number] : 1975 Provider: MARVIN massey Age/Sex: 49/F [place] [facility] [place] Status: Signed Intake Vital Signs 05/14/25 15:09 06/04/25 15:20 06/05/25 15:14 Height 5 ft 4 in 5 ft 4 in 5 ft 4 in Weight: 139 lb 6 oz BMI 23.9 Intake Visit Reasons: RIGHT HAND Chief Complaint: Right hand and lower back Accompanied by: Self Is patient in pain?: Yes Pain scale (1-10): 10 Allergies No Known Allergies Allergy (Verified 06/05/25 15:17) Medications ???Medication ???Instructions ???Recorded ???Confirmed ???Type blood pressure monitor #1 ea 09/08/21 06/05/25 Rx valacyclovir 1 gram tablet 1,000 mg PO DAILY PRN cold sores 0 10/11/24 06/04/25 Rx (Valtrex) #60 tabs albuterol sulfate 90 mcg/actuation 2 puff inhalation Q4H PRN cough 05/14/25 06/05/25 Rx aerosol inhaler #17 grams cyclobenzaprine 10 mg tablet 10 mg PO BID PRN muscle spasm #60 05/14/25 06/05/25 Rx tabs esomeprazole magnesium 40 mg 40 mg PO BID #60 caps 05/14/25 Rx capsule,delayed release salicylic acid 17 % topical liquid 1 applic topical QHS #9.8 mL 03/0306/05/25 Rx (Cheriton-Callus Remover) diclofenac sodium 1 % topical gel 2 g topical 4XD PRN pain, 5 06/05/25 Rx (Arthritis Pain (diclofenac)) swelling, stiffness #50 grams methylprednisolone 4 mg tablets in See Rx Instructions PO PER PKG D IR 06/05/25 06/05/25 Rx a dose pack (Medrol (Briseida)) #21 tabs Have you fallen in the past year?: No PFSH Medical History Lumbar radiculopathy, right Right shoulder pain Right elbow pain History of cold sores Anxiety Marijuana use Alcohol use Low iron Easy bruising Back pain Migraine headache Difficulty swallowing History of diverticulitis Gastric reflux Non-smoker Asthma Shortness of breath on exertion Chronic cough Hypertension History of stress test Hypertension skin cancer removal Skin cancer GERD (gastroesophageal reflux disease) Hypertension Headache, migraine History of gout Carpal tunnel syndrome history of breast lump/cyst Anemia SOB (shortness of breath) Anxiety Diverticulitis Asthma Surgical History S/P hysterectomy S/P tonsillectomy Hx of inguinal hernia repair Hx of esophagogastroduodenoscop y History of hernia repair S/P Family History Father Heart disease COPD (chronic obstructive pulmonary disease) Asthma CVA (cerebral vascular accident) Colon polyps Sister Diabetes GERD (gastroesophageal reflux disease) Cancer Skin Cancer Social History household members: significant other, children and other number of children: 3 current occupational status: unemployed history of recent travel: No sexually active: Yes other: oldest child - Lili adopted Smoking Status: Never smoker alcohol intake: current alcohol intake frequency: a few times a week substance use type: marijuana caffeine: Yes what type of physical activity do you participate in: none frequency: does not exercise seatbelt use: always do you feel safe at home: Yes additional social history: seperated HPI RIGHT HAND Details: This documentation accurately reflects the service provided and the decisions made by me, Sanna Pinto SOLAR HOT WATER INSTALLER-C 06/05/25 2876. Part of today???s visit was documented by Sharon Adorno MA, acting as scribe. HORTENCIA MARTE is a 49 year old F here today for right hand pain mostly to the thumb area over the last 4 months. There is no identified injury and sudden progressively worsening pain. Describes a deep, sharp, stabbing pain and only some level of discomfort. Reports it feels like her thumb will pop out of place, unable to straighten at IP joint. Reports decreasing function of the thumb including unable to squeeze shampoo bottle, twisting or opening jars, difficulty with gripping and grasping. 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 Patient has attempted ice, heat, OTC ibuprofen, Aleve, Tylenol and prescriptions of meloxicam and muscle relaxers per her PCP with no symptom improvement. Occasional heat will provide short-term improvement. Pyyeh-ojeh-ffossnsp. Is using left hand more with routine tasks and ADLs. Denies any prior injuries or surgeries to this hand or thumb. ROS Const All sy (more content not included)... Normal [facility] Chlamydia trachomatis rRNA d etection by probe and target amplification methodOrdered By: Ketty Borrego on 06-04-2025 C. trachomatis rRNA ALBERTO+probe Ql (Unsp spec) Negative Negative [facility] HIVon 06-04-2025 HIV Non-Reactive Normal Nonreactive [facility] Comment on above: Result Comment: Non- Reactive Reactive Repeatedly reactive samples must be confirmed according to CDC recommended confirmatory algorithms. The subresults for either HIVAG or AHIV can be used as an aid in the selection of the confirmation algorithm for reactive samples. Send out specimens with Reactive results to [facility] for confirmation. Order the HIV antibody detection and differentiation: #[id number] Performed By: #### L 3890.6006, L3400.1610, L509.8002, L7000.7000 ####[facility] [address] [place], [place], [address] Neisseria gonorrhoeae nuclei c acid detection by amplified probe techniqueOrdered By: Ketty Borrego on 06-04-2025 N. gonorrhoeae DNA ALBERTO+probe Ql (Unsp spec) Negative Negative [facility] Comment on above: Performed at: =[address] [id number] Director: Abiola Ray MD, Phone: [phone] No Panel InformationOrdered By: Ketty Borrego on 06-04-2025 Addendum Document Comment . [facility] Comment on above: The quantitative ran ge of this assay is 15 IU/mL to 100million IU/mL. HIV (1&2) Antibody Non-Reactive Nonreactive [facility] Comment on above: Non-ReactiveReactive Repeatedly reactive samples must be confirmed according to CDC recommended confirmatory algorithms. The subresults for either HIVAG or AHIV can be used as an aid in the selection of the confirmation algorithm for reactive samples.Send out specimens with Reactive results to [facility] for confirmation.Order the HIV antibody detection and differentiation: #[id number] POC Trichomonas (Rapid) Negative [facility] Director Educational Radio Office Visit Reporton 06-04-2025 Director Educational Radio Office Visit Report [facility] [address], [address] [place] [address] OFFICE VISIT Date of Service: 06/04/25 MR#: [id number] Acct: [id number] Name: HORTENCIA MARTE Rep #: [id number] : 1975 Provider: MARVIN shaw Age/Sex: 49/F Location: [facility] [place] Status: Signed Intake Vital Signs 05/14/25 15:09 06/04/25 15:19 06/04/25 15:20 Height 5 ft 4 in 5 ft 4 in 5 ft 4 in Weight: 146 lb 142 lb 4 oz BMI 25.0 24.4 BP 122/84 H 132/90 H Blood Pressure Location Lt brachial Position Sitting Respiration 16 Pulse 68 Pulse Source Monitor Temp 97.6 F L Pulse Oximetry (%) 96 Oxygen Delivery Method room air 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 [employer] Dedicated [employer] Driver Required: No Is patient in pain?: No Allergies No Known Allergies Allergy (Verified 06/04/25 15:19) Medications ???Medication ???Instructions ???Recorded ???Confirmed ???Type blood pressure monitor #1 ea 09/08/21 06/04/25 Rx valacyclovir 1 gram tablet 1,000 mg PO DAILY PRN cold sores 0 10/11/24 06/04/25 Rx (Valtrex) #60 tabs albuterol sulfate 90 mcg/actuation 2 puff inhalation Q4H PRN cough 05/14/25 06/04/25 Rx aerosol inhaler #17 grams cyclobenzaprine 10 mg tablet 10 mg PO BID PRN muscle spasm #60 05/14/25 06/04/25 Rx tabs esomeprazole magnesium 40 mg 40 mg PO BID #60 caps 05/14/25 Rx capsule,delayed release gabapentin 100 mg capsule 100 mg PO BID PRN pain 30 days #60 05/14/25 06/04/25 Rx caps lidocaine 5 % topical patch 1 patch topical DAILY 5 days #5 ea 05/14/25 06/04/25 Rx (Lidoderm) meloxicam 15 mg tablet 15 mg PO QDAY PRN pain #30 tabs 06/04/25 Rx salicylic acid 17 % topical liquid 1 applic topical QHS #9.8 mL 03/0306/04/25 Rx (Cheriton-Callus Remover) Is last menstrual period known: No Post menopausal: Yes Patient : No : No PFSH Medical History Lumbar radiculopathy, right Right shoulder pain Right elbow pain History of cold sores Anxiety Marijuana use Alcohol use Low iron Easy bruising Back pain Migraine headache Difficulty swallowing History of diverticulitis Gastric reflux Non-smoker Asthma Shortness of breath on exertion Chronic cough Hypertension History of stress test Hypertension skin cancer removal Skin cancer GERD (gastroesophageal reflux disease) Hypertension Headache, migraine History of gout Carpal tunnel syndrome history of breast lump/cyst Anemia SOB (shortness of breath) Anxiety Diverticulitis Asthma Surgical History S/P hysterectomy S/P tonsillectomy Hx of inguinal hernia repair Hx of esophagogastroduodenoscop y History of hernia repair S/P Family History Father Heart disease COPD (chronic obstructive pulmonary disease) Asthma CVA (cerebral vascular accident) Colon polyps Sister Diabetes GERD (gastroesophageal reflux disease) Cancer Skin Cancer Social History household members: significant other, children and other number of children: 3 current occupational status: unemployed history of recent travel: No sexually active: Yes other: oldest child - Lili adopted Smoking Status: Never smoker alcohol intake: current alcohol intake frequency: a few times a week substance use type: marijuana caffeine: Yes what type of physical activity do you participate in: none frequency: does not exercise seatbelt use: always do you feel safe at home: Yes additional social history: seperated History 2 Elective abortions Hx Para 2 Spontaneous abortions Hx # Term Pregnancies Ectopic pregnancies Hx # Pregnancies Multiple births # of living children 2 Past Pregnancies Del. Date Name GA/Weeks Outcome Route Bth Weight Infant Gen Labor Lgth Anesthesia Del Locatn Provider FOB Unknown 07/27/98 Elly Unknown 08/19/00 John HPI Encounter for routine gynecological examination Details: HORTENCIA MARTE is a 49 year old who presents for annual exam. Wanting STD screen. Just reconciled with and he had other partners. Note elevated BP today. States feels it is up do to rushing for work. Seen by PCP 3 weeks ago and was ok. Takes at home and is normal. Denies headaches. Recent weight loss 30# in 4 months-now working at [employer] and getting over 13,000 steps a day and stop drinking all pop. Last PAP: hyst History of abnormal PAP: no Last mammogram: 10/2024 History of abnormal mammogram: benign bx Colon cancer screenin Other preventative health c (more content not included)... Normal [facility] Serum herpes simplex virus 2 antibody assay by immunoassay (units/volume)Ordered By: Ketty Borrego on 06-04-2025 HSV 2 Ab IA Qn (S) Non-Reactive Non Reactive [facility] Comment on above: Please note refere nce interval changeCurrent guidelines and recommendations do not recommendroutine screening for HSV-2 in asymptomatic individuals,including those that are . The detection of HSV-2IgG antibodies in a single sample indicates previousexposure to HSV-2 but does not give information as to thesite of HSV infection or the timing of exposure. Thepredictive value of positive and negative results dependson the population's prevalence and the pretest likelihoodof HSV-2. HSV-2 IgG testing performed using the [employer] HSV-2 IgG assay.Performed at: [address] [id number] Director: Jhon Flores PhD, Phone: [phone] Serum or plasma hepatitis C virus RNA measurement by probe and target amplification mOrdered By: Ketty Borrego on 06-04-2025 HCV RNA ALBERTO+probe Qn Not detected . [facility] Syphilis Antibodieson 2024 Syphilis Abs Non-Reactive Normal Nonreactive [facility] Comment on above: Performed By: #### L 3890.6006, L3400.1610, L509.8002, L7000.7000 #### [facility] [address] [place], [address] Internal Medicine Office Vis iton 05-14-2025 Internal Medicine Office Visit [facility] [address] [place], [place] [address] OFFICE VISIT Date of Service: 05/14/25 MR#: [id number] Acct: [id number] Name: HORTENCIA MARTE Rep #: [id number] : 1975 Provider: MARVIN crawford Age/Sex: 49/F [place] [facility] [place] Status: Signed Intake Vital Signs 02/28/25 12:06 05/14/25 15:09 Height 5 ft 4 in 5 ft 4 in Weight: 146 lb BMI 25.0 BP 122/84 H Blood Pressure Location Lt brachial Position Sitting Respiration 16 Pulse 68 Pulse Source Monitor Temp 97.6 F L Temp Source Temporal Pulse Oximetry (%) 96 Oxygen Delivery Method room air Intake Visit Reasons: ACUTE RIGHT THUMB PAIN [employer] Dedicated [employer] Driver Required: No Is patient in pain?: Yes (R thumb) Pain scale (1-10): 9 Allergies No Known Allergies Allergy (Verified 05/14/25 14:52) Medications ???Medication ???Instructions ???Recorded ???Confirmed ???Type blood pressure monitor #1 ea 09/08/21 05/14/25 Rx valacyclovir 1 gram tablet 1,000 mg PO DAILY PRN cold sores 0 10/11/24 05/14/25 Rx (Valtrex) #60 tabs albuterol sulfate 90 mcg/actuation 2 puff inhalation Q4H PRN cough 05/14/25 05/14/25 Rx aerosol inhaler #17 grams cyclobenzaprine 10 mg tablet 10 mg PO BID PRN muscle spasm #60 05/14/25 05/14/25 Rx tabs esomeprazole magnesium 40 mg 40 mg PO BID #60 caps 05/14/2503/03 Rx capsule,delayed release gabapentin 100 mg capsule 100 mg PO BID PRN pain 30 days #60 05/14/25 05/14/25 Rx caps lidocaine 5 % topical patch 1 patch topical DAILY 5 days #5 ea 05/14/25 05/14/25 Rx (Lidoderm) meloxicam 15 mg tablet 15 mg PO QDAY PRN pain #30 tabs 05/14/25 Rx salicylic acid 17 % topical liquid 1 applic topical QHS #9.8 mL 03/0305/14/25 Rx (Cheriton-Callus Remover) PFSH Medical History Lumbar radiculopathy, right Right shoulder pain Right elbow pain History of cold sores Anxiety Marijuana use Alcohol use Low iron Easy bruising Back pain Migraine headache Difficulty swallowing History of diverticulitis Gastric reflux Non-smoker Asthma Shortness of breath on exertion Chronic cough Hypertension History of stress test Hypertension skin cancer removal Skin cancer GERD (gastroesophageal reflux disease) Hypertension Headache, migraine History of gout Carpal tunnel syndrome history of breast lump/cyst Anemia SOB (shortness of breath) Anxiety Diverticulitis Asthma Surgical History Hx of inguinal hernia repair Hx of esophagogastroduodenoscop y History of hernia repair S/P Hx of tonsillectomy H/O: hysterectomy Family History Father Heart disease COPD (chronic obstructive pulmonary disease) Asthma CVA (cerebral vascular accident) Colon polyps Sister Diabetes GERD (gastroesophageal reflux disease) Cancer Skin Cancer Social History household members: significant other, children and other number of children: 3 current occupational status: unemployed history of recent travel: No sexually active: Yes other: oldest child - Liil adopted Smoking Status: Never smoker alcohol intake: current alcohol intake frequency: a few times a week substance use type: marijuana caffeine: Yes what type of physical activity do you participate in: none frequency: does not exercise seatbelt use: always do you feel safe at home: Yes additional social history: seperated HPI HPI Details: HORTENCIA MARTE, is a 49 F who presents to the office today for multiple complaints. Pt states she had previously spoke to pcp in regards to possible nerve damage in her back and her hand. She states that her R hand, the thumb is is terribly hard to bend. She describes the pain as sharp with movement of the thumb and sometimes and numb. She states that it started about a month or 2 ago. It is getting worse. Pt states she feels the joint in the thumb gets stuck and she has to pull it for relief. Pt has tried ice, tylneol , wrist wrap and heat which has not helped. Pt denies any specific injury prior to pain occurring. Pt states mornings and evenings the pain is worse and it is accompanied with heat and swelling. There is also tingling where the spot is that does not radiate. Pt has trouble using hands due to pain and states pain intensifies if she moves it the wrong way, or hits it. Pt described pain as stabbing. Pt states it is a constant 9 and at it's worst it is well above a 10. Pt went to [facility] urgent care a week ago and they did xrays which were negative for fracture but was told to follow w/pcp office. Patient states (more content not included)... [facility] Visit ([facility]) ----- HORTENCIA MARTE ([id number]) 1975 F Date Time Provider Department 05/09/25 3:00 PM BUDDY BLANKENSHIP During your visit today, we recorded the following information about you: Temperature Pulse Respiration Blood pressure 98 degrees 70/minute 18/minute 154/100 Weight 65.7 kg Buddy Blankenship APRN.ADULT SERVICES LIBRARIAN 05/09/2025 4:30 PM Signed [facility] Subjective HPI HPI Hortencia Queen Rosanna is a 49 year old female who presents today for CC of right hand pain, limited rom. This started 1 month ago. Has tried otc medication for relief. Risk factors started new job, heavy hand/wrist usage. Denies injury. .Patient presents with: Hand Pain: R hand pain x1 month, denies injury, recently started new job and lifts alot PAST MEDICAL HISTORY Diagnosis Date Atypical nevus [...] HYSTERECTOMY 08/2011 LSO; menorrhagia/dysmenorrhea ALLERGIES Penicillins MEDICATIONS pantoprazole DR (PROTONIX) 40 mg tablet Take 1 tablet by mouth daily before breakfast. Take on empty stomach, 1/2 hr before meal. clotrimazole-betamethason e (LOTRISONE) cream Apply 1 application to affected area twice daily. (Patient not taking: Reported on 03/26/2023) pantoprazole DR (PROTONIX) 40 mg tablet Take 1 tablet by mouth daily before breakfast. Take on empty stomach, 1/2 hr before meal. (Patient not taking: Reported on 03/26/2023) PARoxetine (PAXIL) 20 mg tablet Take 1 tablet by mouth once daily. fluticasone 50 mcg/actuation nasal spray Use 2 Sprays in each nostril once daily. Rinse mouth after use. FAMILY HISTORY Problem Relation Age of Onset [...] Substance Use Topics Alcohol use: Yes Alcohol/week: 1.0 standard drink of alcohol Types: 1 Glasses of Wine (5oz) per week Comment: Occasionally Drug use: No Review of Systems Objective BP 154/100 Pulse 70 Temp 36.7 ?C (98 ?F) Resp 18 Wt 65.7 kg (144 lb 13.5 oz) LMP 07/27/2011 SpO2 100% BMI 24.48 kg/m? Physical Exam Constitutional: General: She is not in acute distress. Appearance: She is not toxic-appearing or diaphoretic. HENT: Head: Normocephalic and atraumatic. Pulmonary: Effort: Pulmonary effort is normal. No accessory muscle usage or respiratory distress. Musculoskeletal: Hands: Neurological: Mental Status: She is alert and oriented to person, place, and time. {ASSESSMENT/PLAN: 1. Pain of right hand - ICD9: 729.5, ICD10: M79.641 -no bony abnormality noted on xray -Rest, Ice, Compression, Elevation discussed -discussed use of ibuprofen -follow up with primary care if symptoms persist/worsen in 10-14 days - XR HAND GENERAL 3V PA/LAT/OBL RIGHT IMPRESSION IMPRESSION: Unremarkable right hand x-ray. Dictated by : MD Buddy SMITH APRN.ADULT SERVICES LIBRARIAN History and Record Review External record(s) reviewed: prior outpatient record. Disposition The patient was discharged. Procedures Allergies As of Date: 05/09/2025 Noted Allergy Reaction PENICILLINS 09/04/2007 8 - GI Upset Date Reviewed: 05/09/2025 Reviewed by: Mariia Henriquez MA - Fully Assessed Reason for Visit: Hand Pain [1581] Cmt: R hand pain x1 month, denies injury, recently started new job and lifts alot Primary Visit Diagnosis:Pain of right hand [M79.641] Order(s):XR HAND GENERAL 3V PA/LAT/OBL RIGHT [[id number]] Order #: [id number]. #:[id number] Prescriptions as of 05/09/2025 - pantoprazole DR (PROTONIX) 40 mg tablet Take 1 tablet by mouth daily before breakfast. Take on empty stomach, 1/2 hr before meal. - clotrimazole-betamethason e (LOTRISONE) cream Apply 1 application to affected area twice daily. - pantoprazole DR (PROTONIX) 40 mg tablet Take 1 tablet by mouth daily before breakfast. Take on empty stomach, 1/2 hr before meal. - PARoxetine (PAXIL) 20 mg tablet Take 1 tablet by mouth once daily. - fluticasone 50 mcg/actuation (more content not included)... Normal [facility] XR HAND 3V PA/LAT/OBL RTon 0 7- XR HAND 3V PA/LAT/OBL RT * * *Final Report* * * DATE OF EXAM: May 09 2025 3:34PM WOX [id number] - XR HAND 3V PA/LAT/OBL RT / PROCEDURE REASON: Pain of right hand * * * * Physician Interpretation * * * * EXAM TITLE: XR HAND 3V PA/LAT/OBL RT EXAM DATE/TIME: 05/09/2025 3:34 PM COMPARISON: None. CLINICAL INDICATION/HISTORY: Right hand pain. TECHNIQUE: PA, lateral and oblique views of the right hand are presented. FINDINGS: No fractures or subluxations are noted. A few accessory bones are visualized. The joint spaces are well preserved. The mineralization of the bones is normal. There is no significant soft tissue swelling. IMPRESSION: Unremarkable right hand x-ray. Tax Compliance Agent: EL Transcribe Date/Time: May 09 2025 3:38P Dictated by : CHRISTINE GARZON MD This examination was interpreted and the report reviewed and electronically signed by: CHRISTINE GARZON MD on May 09 2025 3:41PM EST [id number] Normal [facility] XR Hand - right PA and Later al and Obliqueon 05-09-2025 IMPRESSION: Unremark able right hand x-ray. Tax Compliance Agent: [facility] Transcribe Date/Time: May 09 2025 3:38P Dictated by : CHRISTINE GARZON MD This examination was interpreted and the report reviewed and electronically signed by: CHRISTINE GARZON MD on May 09 2025 3:41PM EST DIVISION OF RADIOLOGY * * *Final Report* * * DATE OF EXAM: May 09 2025 3:34PM WOX 5346 - XR HAND 3V PA/LAT/OBL RT / PROCEDURE REASON: Pain of right hand * * * * Physician Interpretation * * * * EXAM TITLE: XR HAND 3V PA/LAT/OBL RT EXAM DATE/TIME: 05/09/2025 3:34 PM COMPARISON: None. CLINICAL INDICATION/HISTORY: Right hand pain. TECHNIQUE: PA, lateral and oblique views of the right hand are presented. FINDINGS: No fractures or subluxations are noted. A few accessory bones are visualized. The joint spaces are well preserved. The mineralization of the bones is normal. There is no significant soft tissue swelling. DIVISION OF RADIOLOGY [facility] * * *Final Report* * * DATE OF EXAM: May 09 2025 3:34PM WOX 5346 - XR HAND 3V PA/LAT/OBL RT / PROCEDURE REASON: Pain of right hand * * * * Physician Interpretation * * * * EXAM TITLE: XR HAND 3V PA/LAT/OBL RT EXAM DATE/TIME: 05/09/2025 3:34 PM COMPARISON: None. CLINICAL INDICATION/HISTORY: Right hand pain. TECHNIQUE: PA, lateral and oblique views of the right hand are presented. FINDINGS: No fractures or subluxations are noted. A few accessory bones are visualized. The joint spaces are well preserved. The mineralization of the bones is normal. There is no significant soft tissue swelling. IMPRESSION IMPRESSION: Unremarkable right hand x-ray. Tax Compliance Agent: EL Transcribe Date/Time: May 09 2025 3:38P Dictated by : CHRISTINE GARZON MD This examination was interpreted and the report reviewed and electronically signed by: CHRISTINE GARZON MD on May 09 2025 3:41PM EST [facility] Radiology Study observation (narrative) [facility] XR Hand - right PA and Later al and ObliqueOrdered By: [facility] Provider on 05-09-2025 [facility] Emergency Department Summary on 02-28-2025 Emergency Department Summary [facility] Medical Records Department [address] [place] [address] Emergency Department Summary 02/28/25 MR#: [id number] Acct: [id number] Name: HORTENCIA MARTE Rep #: [id number] : 1975 49 From: Yolanda Louis DO PCP: Dr. Shaheed Marie MD Status:DEP ER Location: ED HPI History of Present Illness Chief Complaint: Ear Problem Detail of Chief Complaint: Injury to right ear Informant: patient Narrative Narrative: Patient presents the emergency department for an injury to her right ear. Patient states that she rolled out of bed and hit her ear on the end table last night about 10:30 PM. She denies loss of consciousness. She has noted a small amount of bleeding and swelling to the lower earlobe and about an hour ago was developed a mild headache so she comes in for evaluation. Patient is concerned that the blood might be coming from her brain. Patient not anticoagulated. Just describes a mild headache that is diffuse. [facility] Medical History Lumbar radiculopathy, right Right shoulder pain Right elbow pain History of cold sores Anxiety Marijuana use Alcohol use Low iron Easy bruising Back pain Migraine headache Difficulty swallowing History of diverticulitis Gastric reflux Non-smoker Asthma Shortness of breath on exertion Chronic cough Hypertension History of stress test Hypertension skin cancer removal Skin cancer GERD (gastroesophageal reflux disease) Hypertension Headache, migraine History of gout Carpal tunnel syndrome history of breast lump/cyst Anemia SOB (shortness of breath) Anxiety Diverticulitis Asthma Home Medications ???Medication ???Instructions ???Recorded ???Last Taken ???Type blood pressure monitor #1 ea 09/08/21 Unknown Rx albuterol sulfate 90 mcg/actuation 2 puff inhalation Q4H PRN cough 06/10/23 Unknown Rx aerosol inhaler #17 grams esomeprazole magnesium 40 mg 40 mg PO BID #60 caps 12/07/23 Unk nown Rx capsule,delayed release lidocaine 5 % topical patch 1 patch topical DAILY 5 days #5 ea 05/10/24 Unknown Rx (Lidoderm) valacyclovir 1 gram tablet 1,000 mg PO DAILY PRN cold sores 0 10/11/24 Unknown Rx (Valtrex) #60 tabs cyclobenzaprine 10 mg tablet 10 mg PO BID PRN muscle spasm #60 10/19/24 Unknown Rx tabs meloxicam 15 mg tablet 15 mg PO QDAY PRN pain #30 tabs Unknown Rx gabapentin 100 mg capsule 100 mg PO BID PRN pain 12/03/24 Un known History Allergy/AdvReac Type Severity Reaction Status Date / Time No Known Allergies Allergy Verified 02/28/25 12:08 Family History Father Heart disease COPD (chronic obstructive pulmonary disease) Asthma CVA (cerebral vascular accident) Colon polyps Sister Diabetes GERD (gastroesophageal reflux disease) Cancer Skin Cancer Surgical History Hx of inguinal hernia repair Hx of esophagogastroduodenoscop y History of hernia repair S/P Hx of tonsillectomy H/O: hysterectomy Social History household members: significant other, children and other number of children: 3 current occupational status: unemployed history of recent travel: No sexually active: Yes other: oldest child - Lili adopted Smoking Status: Never smoker alcohol intake: current alcohol intake frequency: a few times a week substance use type: marijuana caffeine: Yes what type of physical activity do you participate in: none frequency: does not exercise seatbelt use: always do you feel safe at home: Yes additional social history: seperated ROS ROS ED Review of Systems ROS Unobtainable: other Constitutional Constitutional ED: Reports lethargy; Denies chills, fever(s), sweats or weight loss Eyes Eyes: Denies blurry vision, change in vision or diplopia ENT ENT ED: Reports other Details: Bleeding/injury right ear ; Denies rhinorrhea or sore throat Cardiovascular Cardiovascular: Reports chest pain and racing heartbeat; Denies orthopnea Respiratory/Chest Respiratory/Chest: Reports dyspnea and dyspnea on exertion; Denies cough, orthopnea or sputum Gastrointestinal Gastrointestinal: Denies abdominal pain, diarrhea, nausea or vomiting Genitourinary Genitourinary ED: Denies dysuria, hematuria or urinary frequency Musculoskeletal Musculoskeletal: Denies arthralgias, back pain, myalgias or neck pain Integumentary Denies abscess, Abrasions or rash Neurologic Neurologic: Reports headache(s); Denies weakness Psychiatric Psychiatric: Denies anxiety, depression or suicidal thoughts Endocrine Endocrinology: Denies polydipsia, polyphagia or polyuria Hematologic/Lymphat (more content not included)... Normal [facility] EGD Reporton 12-04-2024 EGD Report [facility] Medical Records Department [address] [place] [address] EGD Report MR#: [id number] Acct: [id number] Name: HORTENCIA MARTE Rep #: [id number] : 1975 49 From: Filiberto Grimaldo MD PCP: Dr. Shaheed Marie MD Status:[facility] Patient Name: Hortencia Marte Procedure Date: 12/04/2024 9:07 AM Date of : 1975 Age: 49 Procedure: Upper GI endoscopy Indications: Dysphagia Providers: Filiberto Grimaldo MD Referring MD: Shaheed Marie MD Medicines: Propofol per Anesthesia Patient Profile: This is a 49 year old female. Refer to note in patient chart for documentation of history and physical. Complications: No immediate complications. Estimated blood loss: Minimal. Procedure: Pre-Anesthesia Assessment: - Prior to the procedure, a History and Physical was performed, and patient medications and allergies were reviewed. The patient's tolerance of previous anesthesia was also reviewed. The risks and benefits of the procedure and the sedation options and risks were discussed with the patient. All questions were answered, and informed consent was obtained. Prior Anticoagulants: The patient has taken no anticoagulant or antiplatelet agents. After reviewing the risks and benefits, the patient was deemed in satisfactory condition to undergo the procedure. After obtaining informed consent, the endoscope was passed under direct vision. Throughout the procedure, the patient's blood pressure, pulse, and oxygen saturations were monitored continuously. The gastroscope was introduced through the mouth, and advanced to the second part of duodenum. The upper GI endoscopy was accomplished without difficulty. The patient tolerated the procedure well. Scope In: 10:51:42 AM Scope Out: 10:55:03 AM Total Procedure Duration Time 0 hours 3 minutes 21 seconds Findings: One benign-appearing, intrinsic mild stenosis was found at the gastroesophageal junction. This stenosis measured less than one cm (in length). The stenosis was traversed. A TTS dilator was passed through the scope. Dilation with an 18-19-20 mm balloon dilator was performed to 18 mm. The dilation site was examined following endoscope reinsertion and showed moderate mucosal disruption. Estimated blood loss was minimal. The stomach was normal. The examined duodenum was normal. Impression: - Benign-appearing esophageal stenosis. Dilated. - Normal stomach. - Normal examined duodenum. - No specimens collected. Recommendation: - Discharge patient to home. - Soft diet for 2 days. - Continue present medications. Procedure Code(s): --- Professional --- 24848, Esophagogastroduodenoscop y, flexible, transoral; with transendoscopic balloon dilation of esophagus (less than 30 mm diameter) Diagnosis Code(s): --- Professional --- K22.2, Esophageal obstruction R13.10, Dysphagia, unspecified CPT copyright 2021 [employer]. All rights reserved. The codes documented in this report are preliminary and upon wood coater review may be revised to meet current compliance requirements. Filiberto Grimaldo MD 12/04/2024 10:59:59 AM This report has been signed electronically. Number of Addenda: 0 Note Initiated On: 12/04/2024 9:07 AM 12/04/24 1100 Date [facility] Signature: Date (if indicated) CC: Dr. Filiberto Grimaldo MD; Dr. Shaheed Marie MD Date Dictated: 12/04/24906 Date Transcribed: Tax Compliance Agent: KIMBERLY [facility] MR/POSTOP.RACQUEL 12-04-2024 MR/POSTOP.[facility] Medical Records Department [address] [place] [address] Anesthesia Postop Eval I 12/04/241106 MR#: [id number] Acct: [id number] Name: HORTENCIA MARTE Rep #: [id number] : 1975 49 From: Taye Best PCP: Dr. Shaheed Marie MD Status:[facility] Y Race: C Location: [place] [address] Anesthesia: Postop Eval I Current Vital Signs Temperature: 98.1 F Pulse Rate: 81 Blood Pressure: 126/78 Respiratory Rate: 16 Pulse Ox: 99 Oxygen Delivery Method: Room Air Assessment Airway patent: Yes Spontaneous unlabored respirations: Yes Mental status: Awake and Calm nausea: No Vomiting: No Anesthesia Complication: No Fluid Hydration Crystalloid volume administer (ml): 550 Total IV fluid infused: 550 Progress Note Anesthesia document: Postop Eval 1 completed: Yes 12/04/241107 Date Taye Breen Signature: Date CC: Signed Normal [facility] MR/[id number] 12-04-2024 MR/POSTOPAN2 [facility] Medical Records Department [address] [place] [address] Anesthesia Postop Eval II 12/04/24 1838 MR#: [id number] Acct: [id number] Name: HORTENCIA MARTE Rep #: [id number] : 1975 49 From: Dionisio Burroughs MD PCP: Dr. Shaheed Marie MD Status:[facility] Y Race: C Location: [place] Anesthesia Postop Eval I Sum Postop Eval Completion status Anesthesia document: Postop Eval 1 completed: Yes Anesthesia Postop Eval I Summary Anesthesia Postop Eval I Summary: Anesthesia Postop Eval I: Assessment Summary Airway patent Yes 12/04/24 11:08 [email or web address] Spontaneous unlabored Yes 12/04/24 11:08 [email or web address] respirations Mental status Awake,Calm 12/04/24 11:08 [email or web address] nausea No 12/04/24 11:08 [email or web address] Vomiting No 12/04/24 11:08 [email or web address] Anesthesia Postop Eval I: Fluid Summary Crystalloid volume administer 550 12/04/24 11:08 [email or web address] (ml) Colloids volume administered ( ml) Blood Product volume administered (ml) Total IV fluid infused 550 12/04/24 11:08 [email or web address] Anesthesia Postop Eval I: Summary Notes Anesthesia Complication No 12/04/24 11:08 [email or web address] Anesthesia Complication Comment: Post-operative progress note Anesthesia: Postop Eval II Evaluation Mental status: Awake and Calm Pain Level: 0 nausea: No Vomiting: No Progress Note Post-operative progress note: Blood pressure much improved in PACU after preop Versed and IV bolus of fluid. Complications Anesthesia Complication: No 12/04/24 1839 Date Dionisio Breen Signature: Date CC: Signed Normal [facility] MR/PAT.RACQUELon 12-03-2024 MR/PAT.[facility] Medical Records Department [address] [place] [address] PAT - Anesthesia 12/03/24 1615 MR#: [id number] Acct: [id number] Name: HORTENCIA MARTE Rep #: [id number] : 1975 49 From: Jose D Levin MD PCP: Dr. 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 When Was Last Pacemaker Check QUESTION #4 FULL TEXT: You/Your Family Experience fever (hyperthermia) with Anesthesia Last Oral Intake Last Oral intake: Last Oral Intake NPO since Meds taken in AM with sips of water? 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 Female Yes 12/03/24 08:22 HX of Motion Sickness No 12/03/24 08:22 HX of N/V After Surgery No 12/03/24 08:22 Non-Smoker Yes 12/03/24 08:22 Duration of Surgery greater No 12/03/24 08:22 than 60 minutes Number of Risk Factors 2 12/03/24 08:22 PONV Score Moderate Risk 12/03/24 08:22 Height Weight Height Weight: Anesthesia: Height Weight Height 5 ft 4 in 11/12/24 08:57 Respiratory Assessment Respiratory Assessment - wrestling coach: Respiratory Tract Infection Hx - wrestling coach Hx Respiratory Tract Infection No 12/03/24 08:22 STOP Sleep Apnea STOP Sleep Apnea - wrestling coach: STOP Sleep Apnea - wrestling coach Hx Hypertension No 12/03/24 08:22 Hx Sleep Apnea No 12/03/24 08:22 CPAP No 12/21/23 13:25 BIPAP No 12/21/23 13:25 Do you snore loudly (louder No 12/03/24 08:22 than talking or can be heard Do you often feel tired/ No 12/03/24 08:22 fatigued/ sleepy during daytime? Has anyone observed you stop No 12/03/24 08:22 breathing during sleep? STOP Results Negative 12/03/24 08:22 QUESTION #5 FULL TEXT : Do you snore loudly (louder than talking or can be heard through closed doors)? 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 Specify any problems Hx of Preganancy in last 3 No 12/03/24 08:22 Months Nurse Filling Out Transfusion [email or web address] 12/03/24 08:22 Questions: Date: 12/03/24 12/03/24 08:22 Time: 08:23 12/03/24 08:22 Patient unable to answer at this time (ie. 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 Hx Now Gestational Age (in weeks): EDC: Hx Hx Para Hx Section SAB No 05/10/24 10:36 PFSH Medical History Lumbar radiculopathy, right Right shoulder pain Right elbow pain History of cold sores Anxiety Marijuana use Alcohol use Low iron Easy bruising Back pain Migraine headache Difficulty swallowing History of diverticulitis Gastric reflux Non-smoker Asthma Shortness of breath on exertion Chronic cough Hypertension History of stress test Hypertension skin cancer removal Skin cancer GERD (gastroesophageal reflux disease) Hypertension Headache, migraine History of gout Carpal tunnel syndrome history of breast lump/cyst Anemia SOB (shortness of breath) Anxiety Diverticulitis Asthma Home Medications ???Medication ???Instructions ???Recorded ???Last Taken ???Type blood pressure monitor #1 ea 09/08/21 Unknown Rx albuterol sulfate 90 mcg/actuation 2 puff inhalation Q4H PRN cough 06/10/23 Unknown Rx aerosol inhaler #17 grams esomeprazole magne (more content not included)... Normal [facility] Surgery Visit Reporton 11-12 Surgery Visit Report [facility] [address] [place] [address] OFFICE VISIT Date of Service: 11/12/24 MR#: [id number] Acct: [id number] Name: HORTENCIA MARTE Rep #: [id number] : 1975 Provider: Dr. Filiberto bentno MD Age/Sex: 49/F Location: [facility] Status: Signed Intake Vital Signs 10/19/24 09:45 11/12/24 08:57 Height 5 ft 4 in 5 ft 4 in Weight: 162 lb BMI 27.8 BP 150/100 H Blood Pressure Location Rt brachial Position Sitting Respiration 18 Pulse 100 Pulse Source Monitor Pulse Oximetry (%) 100 Oxygen Delivery Method room air Intake Visit Reasons: DISCUSS EGD W DILATATION Chief Complaint: Difficulty swallowing food discuss EGD with dilatation Is patient in pain?: No Allergies No Known Allergies Allergy (Verified 11/12/24 09:01) Medications ???Medication ???Instructions ???Recorded ???Confirmed ???Type blood pressure monitor #1 ea 09/08/21 11/12/24 Rx sumatriptan succinate 25 mg tablet 25 mg PO PRN PRN MIGRAINES 11/0811/12/24 History (Imitrex) albuterol sulfate 90 mcg/actuation 2 puff inhalation Q4H PRN cough 06/10/23 11/12/24 Rx aerosol inhaler #17 grams sucralfate 1 gram tablet 1 g PO QACHS #120 tabs 11/01/23 Rx esomeprazole magnesium 40 mg 40 mg PO BID #60 caps 12/07/2301/01 Rx capsule,delayed release gabapentin 100 mg capsule 100 mg PO BID #60 caps 12/19/23 Rx lidocaine 5 % topical patch 1 patch topical DAILY 5 days #5 ea 05/10/24 11/12/24 Rx (Lidoderm) valacyclovir 1 gram tablet 1,000 mg PO DAILY PRN cold sores 0 10/11/24 11/12/24 Rx (Valtrex) #60 tabs cyclobenzaprine 10 mg tablet 10 mg PO BID PRN muscle spasm #60 10/19/24 11/12/24 Rx tabs PFSH Medical History (Updated 11/12/24 @ 08:56 by Margot García) Lumbar radiculopathy, right Right shoulder pain Right elbow pain History of cold sores Anxiety Marijuana use Alcohol use Low iron Easy bruising Back pain Migraine headache Difficulty swallowing History of diverticulitis Gastric reflux Non-smoker Asthma Shortness of breath on exertion Chronic cough Hypertension History of stress test Hypertension skin cancer removal Skin cancer GERD (gastroesophageal reflux disease) Hypertension Headache, migraine History of gout Carpal tunnel syndrome history of breast lump/cyst Anemia SOB (shortness of breath) Anxiety Diverticulitis Asthma Surgical History Hx of inguinal hernia repair Hx of esophagogastroduodenoscop y History of hernia repair S/P Hx of tonsillectomy H/O: hysterectomy Family History Father Heart disease COPD (chronic obstructive pulmonary disease) Asthma CVA (cerebral vascular accident) Colon polyps Sister Diabetes GERD (gastroesophageal reflux disease) Cancer Skin Cancer Social History household members: significant other, children and other number of children: 3 current occupational status: unemployed history of recent travel: No sexually active: Yes other: oldest child - Lili adopted Smoking Status: Never smoker alcohol intake: current alcohol intake frequency: a few times a week substance use type: marijuana caffeine: Yes what type of physical activity do you participate in: none frequency: does not exercise seatbelt use: always do you feel safe at home: Yes additional social history: seperated HPI HPI HPI: Patient is a 49-year-old female who has dysphagia. She was diagnosed with this a year ago and was diagnosed with eosinophilic esophagitis. She has not seen an minister yet. She reports the food is still getting stuck especially out at restaurants. She had a barium swallow that showed trapping of the barium tablet. This was trapped at the GE junction. He is on a PPI. ROS General General: Yes fatigue; No weight change, appetite, colon cancer, breast cancer or weakness HEENT HEENT: Yes difficulty swallowing and swollen glands; No eye injury, eye surgery or hoarseness Endo Endocrine: No thyroid disease, diabetes mellitus, thyroid cancer, Hair loss, heat intolerance or cold intolerance Skin Skin: No rash or changing moles Musc Musculoskeletal: Yes back problems; No arthritis, rheumatoid arthritis, gout or joint pain Cardio Cardiovascular: No murmur, pacemaker, heart disease, atrial fibrillation, high blood pressure, heart attack, heart stent, palpitations, shortness of breat with exertion or chest pain Psych Psychiatric: No depression, anxiety or hearing voices Resp Respiratory: Yes shortness of breath, No sleep apnea, Yes cough, No COPD, No asthma, No emphysema and No wh (more content not included)... Normal [facility] HSV 1 AND 2 IgGon 11-07-2024 HSV 2 IgG Normal [facility] Comment on above: Result Comment: RESU LT: NON-REACTIVE Please note reference interval change Current guidelines and recommendations do not recommend routine screening for HSV-2 in asymptomatic individuals, including those that are . The detection of HSV-2 IgG antibodies in a single sample indicates previous exposure to HSV-2 but does not give information as to the site of HSV infection or the timing of exposure. The predictive value of positive and negative results depends on the population's prevalence and the pretest likelihood of HSV-2. HSV-2 IgG testing performed using the [employer] HSV-2 IgG assay. Performed at: [facility] [address] [id number] Napping Machine Operator: Jhon Flores PhD, Phone: [phone] Performed By: #### L 3890.6005, L3400.1610, L3890.6300, L3890.6100, L509.8000 ####[facility] [address] [place], [place], [address] HSV 1 IgG Normal [facility] Comment on above: Result Comment: RESU LT: REACTIVE Please note reference interval change HSV-1 IgG testing performed using the [employer] HSV-1 IgG assay. Performed By: #### L 3890.6005, L3400.1610, L3890.6300, L3890.6100, L509.8000 ####[facility] [address] [place], [place], [address] Upper GI w/BA Swallowon 10-11 Upper GI w/BA Swallow [facility] [address] [place], [place] [address] Upper GI w/BA Swallow MR#: [id number] Acct: [id number] Name: HORTENCIA MARTE Rep #: [id number] : 1975 F 49 From: Gene lee MD PCP: Dr. Shaheed Marie MD Status: [facility] CLI Study: Upper GI w/BA Swallow Date of Exam: 11/07/24 Exam# [id number] Ordering Dr: Ijeoma Escobedo MD EXAM: Air contrast upper GI series and esophagram. CLINICAL HISTORY: Vomiting. Dysphagia. COMPARISON: None. TECHNIQUE: The patient ingested barium. Imaging of the esophagus stomach and duodenum was obtained. FINDINGS: The esophagus is unremarkable. No evidence of gastroesophageal reflux. No mass lesion is seen. The stomach and duodenum are unremarkable. The patient ingested a 12 mm tablet the barium. The tablet is trapped at the gastroesophageal junction. RAD/Upper GI w/BA Swallow IMPRESSION: Trapping of the 12 mm tablet the barium at the level of the gastroesophageal junction. Reading Location: [place] [address] CC: Dr. Shaheed Marie MD; Dr. Ijeoma Escobedo MD Tax Compliance Agent: Signed Normal [facility] HIV - WCHon 11-06-2024 HIV Non-Reactive Normal Nonreactive [facility] Comment on above: Order Comment: Reaso n for Exam: std exposureReason for Exam: STD exposure Performed By: #### L 3890.6005, L3400.1610, L3890.6300, L3890.6100, L509.8000 ####[facility] [address] [place], [place], [id number] Hepatitis B Surface Antigeno n 11-06-2024 HEP B Surf Ag Non-Reactive Normal Nonreactive [facility] Comment on above: Order Comment: Reaso n for Exam: std exposureReason for Exam: STD exposure Performed By: #### L 3890.6005, L3400.1610, L3890.6300, L3890.6100, L509.8000 ####[facility] [address] [place], [place], [id number] Hepatitis C Antibodyon 11-06 Hepatitis C AB Non-Reactive Normal Nonreactive [facility] Comment on above: Order Comment: Reaso n for Exam: std exposureReason for Exam: STD exposure Result Comment: Non Reactive: < 0.8 Equivocal: >/= 0.8 to < 1.0 Reactive: >/= 1.0 The CDC requires that a reactive/equivocal HCV antibody result be sent out for confirmation. HCV Quant by PCR testing. Performed By: #### L 3890.6005, L3400.1610, L3890.6300, L3890.6100, L509.8000 ####[facility] [address] [place], [place], [id number] L509.8000on 11-06-2024 Syphilis Abs Non-Reactive Normal [facility] Comment on above: Order Comment: Reaso n for Exam: std exposureReason for Exam: STD exposure Performed By: #### L 3890.6005, L3400.1610, L3890.6300, L3890.6100, L509.8000 ####[facility] [address] [place], [address] SCRN MAMM (CAD)W/CATALINA BILATo n 10-25-2024 SCRN MAMM (CAD)W/CATALINA BILAT [facility] [address] [place] [address] SCRN MAMM (CAD)W/CATALINA BILAT MR#: [id number] Acct: [id number] Name: HORTENCIA MARTE Rep #: [id number] : 1975 F 49 From: Gene lee MD PCP: Dr. 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 Routine annual screening examination. PERTINENT HISTORY: Mother with breast cancer. Aunt with breast cancer. TECHNIQUE: Digital bilateral breast catalina (3D mammographic acquisition) in the CC and MLO projections. 2-D mediolateral oblique (MLO) and craniocaudad (CC) views of both breasts were obtained. CAD: Full Field Digital Mammography with Computer Added Detection was performed. COMPARISON: Comparison is made with prior study of January 18, 2022 and August 18, 2023. FINDINGS: Breast Composition: The breasts are heterogeneously dense, which may obscure small masses. There are no dominant masses or suspicious calcifications. Stable 8 mm x 7 mm well-defined nodule in the slightly inferior lateral aspect of the left breast. This was demonstrated to be a small cyst on prior sonogram. No other significant abnormalities are identified. There has been no significant change since the prior study. BI/SCRN MAMM (CAD)W/CATALINA BILAT IMPRESSION: Stable bilateral screening mammogram. Yearly follow-up mammogram recommended. (A) ASSESSMENT CATEGORY: BIRADS Category 2: Benign. A letter regarding these results will be sent to the patient by the facility within 30 days. Approximately 10% of breast cancers are not detected by mammography. A normal mammogram should not delay biopsy of a clinically suspicious abnormality. [id number] Electronically Signed: Gene Prince MD at 14:13 EST Reading Location ID and State: [address] [place] [address] , Service support , CC: MARVIN Jackson; Dr. Shaheed Marie MD Tax Compliance Agent: Signed Normal [facility] Surgery Visit Reporton 10-22 Surgery Visit Report [facility] [address] [place], [place] [address] OFFICE VISIT Date of Service: 10/22/24 MR#: [id number] Acct: [id number] Name: HORTENCIA MARTE Rep #: [id number] : 1975 Provider: Dr. Ijeoma lemus MD Age/Sex: 49/F Location: [facility] Status: Signed Intake Vital Signs 05/10/24 10:36 10/19/24 09:45 Height 5 ft 4 in 5 ft 4 in Intake Visit Reasons: CONTINUING REFLUX, MED CHECK Chief Complaint: Difficulty swallowing food [employer]icated [employer] Driver Required: No Is patient in pain?: No Allergies No Known Allergies Allergy (Verified 10/22/24 12:49) Medications ???Medication ???Instructions ???Recorded ???Confirmed ???Type blood pressure monitor #1 ea 09/08/21 10/22/24 Rx sumatriptan succinate 25 mg tablet 25 mg PO PRN PRN MIGRAINES 11/08/22 10/22/24 History (Imitrex) albuterol sulfate 90 mcg/actuation 2 puff inhalation Q4H PRN cough 06/10/23 10/22/24 Rx aerosol inhaler #17 grams sucralfate 1 gram tablet 1 g PO QACHS #120 tabs 11/01/23 10/22/24 Rx esomeprazole magnesium 40 mg 40 mg PO BID #60 caps 12/07/23 10/22/24 Rx capsule,delayed release gabapentin 100 mg capsule 100 mg PO BID #60 caps 12/19/23 10/22/24 Rx lidocaine 5 % topical patch 1 patch topical DAILY 5 days #5 ea 05/10/24 10/22/24 Rx (Lidoderm) valacyclovir 1 gram tablet 1,000 mg PO DAILY PRN cold sores 10/11/24 10/22/24 Rx (Valtrex) #60 tabs cyclobenzaprine 10 mg tablet 10 mg PO BID PRN muscle spasm #60 10/19/24 10/22/24 Rx tabs dupilumab 300 mg/2 mL subcutaneous 300 mg (2 mL) subcut QWEEK #8 mL 10/22/24 10/22/24 Rx pen injector (Dupixent) Have you fallen in the past year?: No PFSH Medical History Lumbar radiculopathy, right Right shoulder pain Right elbow pain History of cold sores Anxiety Marijuana use Alcohol use Low iron Easy bruising Back pain Migraine headache Difficulty swallowing History of diverticulitis Gastric reflux Non-smoker Asthma Shortness of breath on exertion Chronic cough Hypertension History of stress test Hypertension skin cancer removal Skin cancer GERD (gastroesophageal reflux disease) Hypertension Headache, migraine History of gout Carpal tunnel syndrome history of breast lump/cyst Anemia SOB (shortness of breath) Anxiety Diverticulitis Asthma Surgical History Hx of inguinal hernia repair Hx of esophagogastroduodenoscop y History of hernia repair S/P Hx of tonsillectomy H/O: hysterectomy Family History Father Heart disease COPD (chronic obstructive pulmonary disease) Asthma CVA (cerebral vascular accident) Colon polyps Sister Diabetes GERD (gastroesophageal reflux disease) Cancer Skin Cancer Social History household members: significant other, children and other number of children: 3 current occupational status: unemployed history of recent travel: No sexually active: Yes other: oldest child - Lili adopted Smoking Status: Never smoker alcohol intake: current alcohol intake frequency: a few times a week substance use type: marijuana caffeine: Yes what type of physical activity do you participate in: none frequency: does not exercise seatbelt use: always do you feel safe at home: Yes additional social history: seperated HPI HPI HPI: 49-year-old female presents due to reflux and worsening symptoms. Patient has been on Nexium 40 mg p.o. twice daily as well as Carafate 2-3 times a day. Patient states she is still noting some dysphagia with food feels like it catches in her upper esophagus can also feel like after she drinks pop she will have dizziness up in her upper esophagus as well. Occasionally she will need to vomit to feel better. Patient states that the meds are not improving the symptoms. Patient's last EGD was in November 2023. Patient's distal esophageal biopsy did show eosinophils greater than 20 on high-power review proximal esophagus only showed chronic information. ROS General General: Yes fatigue; No weight change, appetite, colon cancer, breast cancer or weakness HEENT HEENT: Yes difficulty swallowing and swollen glands; No eye injury, eye surgery or hoarseness Endo Endocrine: No thyroid disease, diabetes mellitus, thyroid cancer, Hair loss, heat intolerance or cold intolerance Skin Skin: No rash or changing moles Breast Breast: No left breast lump, right breast lump, nipple discharge, breast pain, abnormal mammogram, abnormal US or breast enlargement Musc Musculoskeletal: Yes back problems; No arthritis, rheumatoid arthritis, gout or joint pain Cardio Cardiovascular: No mur (more content not included)... Normal [facility] CBC W/Diff, Automatedon 10-10 Absolute Lymph 1.05 X10 3/uL Normal 0.83-4.51 [facility] Comment on above: Performed By: #### L 500.4100, L100.0100, L500.4050 ####[facility] [address] [place], [address] Absolute Neut 4.6 X10 3/uL Normal 2.0-7.7 [facility] Comment on above: Performed By: #### L 500.4100, L100.0100, L500.4050 ####[facility] [address] [place], [address] Basophils/100 WBC (Bld) 0.5 % Normal 0-1 [facility] Comment on above: Performed By: #### L 500.4100, L100.0100, L500.4050 ####[facility] [address] [place], [address] Eosinophils/100 WBC (Bld) 2.5 % Normal 0-5 [facility] Comment on above: Performed By: #### L 500.4100, L100.0100, L500.4050 ####[facility] [address] [place], [address] Erythrocyte distribution width (RBC) [Ratio] 12.6 % Normal 11.6-14.6 [facility] Comment on above: Performed By: #### L 500.4100, L100.0100, L500.4050 ####[facility] [address] [place], [address] Hematocrit (Bld) [Volume fraction] 42.0 % Normal 37-47 [facility] Comment on above: Performed By: #### L 500.4100, L100.0100, L500.4050 ####[facility] [address] [place], [address] Hemoglobin (Bld) [Mass/Vol] 13.5 g/dL Normal 12.0-15.0 [facility] Comment on above: Performed By: #### L 500.4100, L100.0100, L500.4050 ####[facility] [address] [place], [address] IG% 0.300 Normal 0.0-0.9 [facility] Comment on above: Result Comment: IG% - Immature Granulocytes (promyelocytes, myelocytes and metamyelocytes) > 1% indicates that a LEFT SHIFT is Present. Performed By: #### L 500.4100, L100.0100, L500.4050 ####[facility] [address] [place], [address] Lymphocytes/100 WBC (Bld) 16.6 % Low 19-41 [facility] Comment on above: Performed By: #### L 500.4100, L100.0100, L500.4050 ####[facility] [address] [place], [address] MCH (RBC) [Entitic mass] 27.2 pg Normal 27.0-32.0 [facility] Comment on above: Performed By: #### L 500.4100, L100.0100, L500.4050 ####[facility] [address] [place], [address] MCHC (RBC) [Mass/Vol] 32.1 g/dL Normal 32-36 [facility] Comment on above: Performed By: #### L 500.4100, L100.0100, L500.4050 ####[facility] [address] [place], [address] MCV (RBC) [Entitic vol] 84.7 fL Normal 81-99 [facility] Comment on above: Performed By: #### L 500.4100, L100.0100, L500.4050 ####[facility] [address] [place], [address] Monocytes/100 WBC (Bld) 7.6 % Normal 0-10 [facility] Comment on above: Performed By: #### L 500.4100, L100.0100, L500.4050 ####[facility] [address] [place], [address] Neutrophils/100 WBC (Bld) 72.5 % High 47-70 [facility] Comment on above: Performed By: #### L 500.4100, L100.0100, L500.4050 ####[facility] [address] [place], [address] Nucleated RBC (Bld) [#/Vol] 0 10*3/uL Normal 0-5 [facility] Comment on above: Performed By: #### L 500.4100, L100.0100, L500.4050 ####[facility] [address] [place], [address] Platelet mean volume (Bld) [Entitic vol] 10.9 fL Normal 6.2-12.0 [facility] Comment on above: Performed By: #### L 500.4100, L100.0100, L500.4050 ####[facility] [address] [place], [address] Platelets (Bld) [#/Vol] 295 10*3/uL Normal 150-450 [facility] Comment on above: Performed By: #### L 500.4100, L100.0100, L500.4050 ####[facility] [address] [place], [address] RBC (Bld) [#/Vol] 4.96 10*6/uL Normal 4.2-5.4 [facility] Comment on above: Performed By: #### L 500.4100, L100.0100, L500.4050 ####[facility] [address] [place], [address] RDW SD 38.7 fl Normal 35.1-43.9 [facility] Comment on above: Performed By: #### L 500.4100, L100.0100, L500.4050 ####[facility] [address] [place], [address] WBC (Bld) [#/Vol] 6.3 10*3/uL Normal 4.4-11.0 [facility] Comment on above: Performed By: #### L 500.4100, L100.0100, L500.4050 ####[facility] [address] [place], [address] Comprehensive Metabolic Prof ilon 10-19-2024 Albumin [Mass/Vol] 3.6 g/dL Normal 3.2-5.0 [facility] Comment on above: Performed By: #### L 500.4100, L100.0100, L500.4050 ####[facility] [address] [place], [address] Albumin/Globulin [Mass ratio] 1.0 {ratio} Normal 0.9-2.4 [facility] Comment on above: Performed By: #### L 500.4100, L100.0100, L500.4050 ####[facility] [address] [place], [address] ALK P 74 U/L Normal 45-117 [facility] Comment on above: Performed By: #### L 500.4100, L100.0100, L500.4050 ####[facility] [address] [place], [address] ALT [Catalytic activity/Vol] 19 U/L Normal 13-56 [facility] Comment on above: Performed By: #### L 500.4100, L100.0100, L500.4050 ####[facility] [address] [place], [address] AST [Catalytic activity/Vol] 15 U/L Normal 15-37 [facility] Comment on above: Performed By: #### L 500.4100, L100.0100, L500.4050 ####[facility] [address] [place], [address] Bilirubin [Mass/Vol] 0.50 mg/dL Normal 0.20-1.00 [facility] Comment on above: Result Comment: For patients on eltrombopag therapy, use of Dimension Holcomb TBIL is not recommended. Performed By: #### L 500.4100, L100.0100, L500.4050 ####[facility] [address] [place], [address] BUN/CRE 9.6 RATIO Low 10-20 [facility] Comment on above: Performed By: #### L 500.4100, L100.0100, L500.4050 ####[facility] [address] [place], [address] CA,Total 9.4 mg/dL Normal 8.5-10.1 [facility] Comment on above: Performed By: #### L 500.4100, L100.0100, L500.4050 ####[facility] [address] [place], [address] Chloride [Moles/Vol] 104 mmol/L Normal 98-107 [facility] Comment on above: Performed By: #### L 500.4100, L100.0100, L500.4050 ####[facility] [address] [place], [address] CO2 [Moles/Vol] 28.0 mmol/L Normal 21.0-32.0 [facility] Comment on above: Performed By: #### L 500.4100, L100.0100, L500.4050 ####[facility] [address] [place], [address] Creatinine [Mass/Vol] 0.94 mg/dL Normal 0.55-1.02 [facility] Comment on above: Result Comment: The validity of the calculated GFR GFRAA in patients over 70 years has not been determined. Clinical correlation is essential. Performed By: #### L 500.4100, L100.0100, L500.4050 ####[facility] [address] [place], [address] EST GFR - AA 81 mL/min Normal >60 [facility] Comment on above: Result Comment: Afri can Swedish GFR Calc Performed By: #### L 500.4100, L100.0100, L500.4050 ####[facility] [address] [place], [address] GAP 5 Normal 5-15 [facility] Comment on above: Performed By: #### L 500.4100, L100.0100, L500.4050 ####[facility] [address] [place], [address] GFR/1.73 sq M.predicted among non-blacks MDRD (S/P/Bld) [Vol rate/Area] 67 mL/min/{1.73_m2} Normal >60 [facility] Comment on above: Result Comment: Non- GFR Calc Performed By: #### L 500.4100, L100.0100, L500.4050 ####[facility] [address] [place], [address] Globulin (S) [Mass/Vol] 3.5 g/dL Normal 2.2-4.2 [facility] Comment on above: Performed By: #### L 500.4100, L100.0100, L500.4050 ####[facility] [address] [place], [address] Glucose [Mass/Vol] 125 mg/dL High 74-106 [facility] Comment on above: Result Comment: Fast ing Glucose result from 100 to 125 mg/dL suggests IMPAIRED HOMEOSTASIS per A.D.A. criteria. Performed By: #### L 500.4100, L100.0100, L500.4050 ####[facility] [address] [place], [address] Potassium [Moles/Vol] 4.0 mmol/L Normal 3.5-5.1 [facility] Comment on above: Performed By: #### L 500.4100, L100.0100, L500.4050 ####[facility] [address] [place], [address] Sodium [Moles/Vol] 137 mmol/L Normal 136-145 [facility] Comment on above: Performed By: #### L 500.4100, L100.0100, L500.4050 ####[facility] [address] [place], [address] T PROT 7.1 g/dL Normal 6.4-8.2 [facility] Comment on above: Performed By: #### L 500.4100, L100.0100, L500.4050 ####[facility] [address] [place], [address] Urea nitrogen [Mass/Vol] 9 mg/dL Normal 7-18 [facility] Comment on above: Performed By: #### L 500.4100, L100.0100, L500.4050 ####[facility] [address] [place], [address] Internal Medicine Office Vis tucker 10-19-2024 Internal Medicine Office Visit [facility] [address] [place] [address] [place] [address] OFFICE VISIT Date of Service: 10/19/24 MR#: [id number] Acct: [id number] Name: HORTENCIA MARTE Rep #: [id number] : 1975 Provider: Dr. Shaheed cobb MD Age/Sex: 49/F [place] [facility] [place]: Signed Intake Vital Signs 05/10/24 10:36 10/19/24 09:45 Height 5 ft 4 in 5 ft 4 in Weight: 161 lb BMI 27.6 BP 140/82 H Blood Pressure Location Lt brachial Position Sitting Respiration 16 Pulse 93 Pulse Source Monitor Temp 97.8 F Temp Source Temporal Pulse Oximetry (%) 99 Oxygen Delivery Method room air Intake Visit Reasons: FOLLOW UP Chief Complaint: Shoulder and back pain [employer] Required: No Accompanied by: Self Is patient in pain?: Yes (back pain) Pain scale (1-10): 10 Allergies No Known Allergies Allergy (Verified 10/19/24 09:41) Medications ???Medication ???Instructions ???Recorded ???Confirmed ???Type blood pressure monitor #1 ea 09/08/21 10/19/24 Rx sumatriptan succinate 25 mg tablet 25 mg PO PRN PRN MIGRAINES 11/08/22 10/19/24 History (Imitrex) albuterol sulfate 90 mcg/actuation 2 puff inhalation Q4H PRN cough 06/10/23 10/19/24 Rx aerosol inhaler #17 grams sucralfate 1 gram tablet 1 g PO QACHS #120 tabs 11/01/23 10/19/24 Rx esomeprazole magnesium 40 mg 40 mg PO BID #60 caps 12/07/23 10/19/24 Rx capsule,delayed release gabapentin 100 mg capsule 100 mg PO BID #60 caps 12/19/23 10/19/24 Rx lidocaine 5 % topical patch 1 patch topical DAILY 5 days #5 ea 05/10/24 10/19/24 Rx (Lidoderm) valacyclovir 1 gram tablet 1,000 mg PO DAILY PRN cold sores 10/11/24 10/19/24 Rx (Valtrex) #60 tabs cyclobenzaprine 10 mg tablet 10 mg PO BID PRN muscle spasm #60 10/19/24 10/19/24 Rx tabs PFSH Medical History (Updated 10/19/24 @ 12:[address] Shaheed Marie MD) Lumbar radiculopathy, right Right shoulder pain Right elbow pain History of cold sores Anxiety Marijuana use Alcohol use Low iron Easy bruising Back pain Migraine headache Difficulty swallowing History of diverticulitis Gastric reflux Non-smoker Asthma Shortness of breath on exertion Chronic cough Hypertension History of stress test Hypertension skin cancer removal Skin cancer GERD (gastroesophageal reflux disease) Hypertension Headache, migraine History of gout Carpal tunnel syndrome history of breast lump/cyst Anemia SOB (shortness of breath) Anxiety Diverticulitis Asthma Surgical History Hx of inguinal hernia repair Hx of esophagogastroduodenoscop y History of hernia repair S/P Hx of tonsillectomy H/O: hysterectomy Family History Father Heart disease COPD (chronic obstructive pulmonary disease) Asthma CVA (cerebral vascular accident) Colon polyps Sister Diabetes GERD (gastroesophageal reflux disease) Cancer Skin Cancer Social History household members: significant other, children and other number of children: 3 current occupational status: unemployed history of recent travel: No sexually active: Yes other: oldest child - Lili adopted Smoking Status: Never smoker alcohol intake: current alcohol intake frequency: a few times a week substance use type: marijuana caffeine: Yes what type of physical activity do you participate in: none frequency: does not exercise seatbelt use: always do you feel safe at home: Yes additional social history: seperated HPI HPI Chief Complaint: Shoulder and back pain Details: HORTENCIA MARTE, is a 49 F who presents to the office today with some concerns She reports right shoulder pain which has been going on for about a month. Worse with movement. 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 Following this, she has also noted significant lower back pain. Getting comfortable at night becoming increasingly difficult and so has not been sleeping as well. No significant numbness or tingling down her legs. No change in bowel or bladder habit. History of hypertension, she reports better readings at home. Blood pressure today is at 140/82 mmHg. No chest pain, palpitation or shortness of breath. Other chronic medical conditions are stable. ROS Const Constitutional: No body ache, chills, excessive sweating, fatigue, fever(s), frequent falls, headache(s), snoring, weakness or change in appetite Eyes Eyes: No blurry vision, change in vision, bulging eyes, floaters, visual disturbances, eye pain or Light sensitivity ENT ENT: No abnormal hearing, ear or mastoid pain, tinnitus, balance problems, nosebleed/epistaxis, nasal congestion, headache(s), neck pain or sore throat (more content not included)... Normal [facility] L/S Spine Min 4 Viewson 10-10 L/S Spine Min 4 Views [facility] [address] [place], [place] [address] L/S Spine Min 4 Views MR#: [id number] Acct: [id number] Name: HORTENCIA MARTE Rep #: [id number] : 1975 F 49 From: Taye Pak MD PCP: Dr. Shaheed Marie MD Status: REG CLI Study: L/S Spine Min 4 Views Date of Exam: 10/19/24 Exam# [id number] Ordering Dr: Shaheed Marie MD [id number] STUDY: X-RAY - LUMBAR SPINE REASON FOR EXAM: Female, 49 years old. Radiculopathy. TECHNIQUE: 4 view(s) of the lumbar spine were obtained. COMPARISON: None FINDINGS: Normal lumbar lordosis. Mild levoscoliosis. There is a normal alignment of the vertebrae. Diffuse moderate lower thoracic and lumbosacral facet sclerosis. Mild intervertebral disc space narrowing with osteophytes at L2-3 and L3-4. Phleboliths. RAD/L/S Spine Min 4 Views IMPRESSION: Levoscoliosis with mild lower lumbosacral spondylosis. Electronically Signed: Taye Pak MD at 16:59 EST , CC: Dr. Shaheed Marie MD Tax Compliance Agent: Signed Normal [facility] Lipid Profileon 10-19-2024 Cholesterol [Mass/Vol] 163 mg/dL Normal 200 [facility] Comment on above: Result Comment: <200 mg/dL Desirable 200-240 mg/dL Borderline >240 mg/dL High Risk Performed By: #### L 500.4100, L100.0100, L500.4050 ####[facility] [address] [place], [address] Cholesterol in HDL [Mass/Vol] 65 mg/dL Normal [facility] Comment on above: Result Comment: The drugs N-Acetylcysteine and Metamizole may falsely depress this assay. Reference Range HDL <40 mg/dL Low HDL Cholesterol HDL >or= 60 mg/dL High HDL Cholesterol Performed By: #### L 500.4100, L100.0100, L500.4050 ####[facility] [address] [place], [address] Cholesterol in LDL [Mass/Vol] 76 mg/dL Normal 0-130 [facility] Comment on above: Performed By: #### L 500.4100, L100.0100, L500.4050 ####[facility] [address] [place], [address] Cholesterol in VLDL [Mass/Vol] 22 mg/dL Normal 5-40 [facility] Comment on above: Performed By: #### L 500.4100, L100.0100, L500.4050 ####[facility] [address] [place], [address] Triglyceride [Mass/Vol] 111 mg/dL Normal [facility] Comment on above: Result Comment: The drugs N-Acetylcysteine and Metamizole may falsely depress this assay. Serum Triglycerides Reference Interval Normal <150 mg/dL Borderline high 150 - 199 mg/dL High 200 - 499 mg/dL Very High > or = 500 mg/dL Performed By: #### L 500.4100, L100.0100, L500.4050 ####[facility] [address] [place], [address] Shoulder min 2 Viewson 10-19 Shoulder min 2 Views [facility] [address] [place] [address] Shoulder min 2 Views MR#: [id number] Acct: [id number] Name: HORTENCIA MARTE Rep #: [id number] : 1975 F 49 From: John Barth MD PCP: Dr. Shaheed Marie MD Status: REG CLI Study: Shoulder min 2 Views Date of Exam: 10/19/24 Exam# [id number] Ordering Dr: Shaheed Marie MD [id number] STUDY: X-RAY - RIGHT SHOULDER REASON FOR EXAM: Female, 49 years old. Right Shoulder Pain TECHNIQUE: 4 views of the right shoulder. COMPARISON: None. FINDINGS: Normal glenohumeral articulation. Normal acromioclavicular joint. Normal acromion. Normal humeral head and visualized proximal humerus. The soft tissue structures are unremarkable. There is no demonstrated fracture. Normal visualized pulmonary apex. RAD/Shoulder min 2 Views IMPRESSION: Normal x-ray examination of the right shoulder. Electronically Signed: John Barth MD at 16:03 EST Reading Location ID and State: [address] [place] [address] , Service support , CC: Dr. Shaheed Marie MD Tax Compliance Agent: Signed Normal [facility] Absolute lymphocyte countOrd ered By: Efrain Mayen on 10-17-2023 Lymphocytes Auto (Unsp spec) [#/Vol] 1.31 10*3/uL 0.83-4.51 [facility] Basophil percentageOrdered B y: Efrain Mayen on 10-17-2023 Basophils/100 WBC (Bld) 1.0 % 0-1 [facility] Chloride [Moles/Vol] 107 mmol/L 98-107 [facility] Eosinophils/100 WBC (Bld) 7.2 % 0-5 [facility] Glucose [Mass/Vol] 105 mg/dL 74-106 [facility] Comment on above: Fasting Glucose resu lt from 100 to 125 mg/dL suggests IMPAIRED HOMEOSTASIS per A.D.A. criteria. Neutrophils (Bld) [#/Vol] 2.7 10*3/uL 2.0-7.7 [facility] Neutrophils/100 WBC (Bld) 56.4 % 47-70 [facility] Potassium [Moles/Vol] 4.1 mmol/L 3.5-5.1 [facility] Sodium [Moles/Vol] 139 mmol/L 136-145 [facility] WBC (Bld) [#/Vol] 4.9 10*3/uL 4.4-11.0 [facility] Blood erythrocytes count (nu mber/volume)Ordered By: Efrain Mayen on 10-17-2023 RBC (Bld) [#/Vol] 5.19 10*6/uL 4.2-5.4 [facility] Blood hemoglobin measurement (mass/volume)Ordered By: Efrain Mayen on 10-17-2023 Hemoglobin (Bld) [Mass/Vol] 14.1 g/dL 12.0-15.0 [facility] Blood lymphocytes/100 leukoc ytesOrdered By: Efrain Mayen on 10-17-2023 Lymphocytes/100 WBC (Bld) 27.0 % 19-41 [facility] Blood monocytes/100 leukocyt esOrdered By: Efrain Mayen on 10-17-2023 Monocytes/100 WBC (Bld) 8.0 % 0-10 [facility] Blood platelet mean volumeOr dered By: Efrain Mayen on 10-17-2023 Platelet mean volume (Bld) [Entitic vol] 10.2 fL 6.2-12.0 [facility] Determination of erythrocyte mean corpuscular volume (MCV)Ordered By: Efrain Mayen on 10-17-2023 MCV (RBC) [Entitic vol] 84.2 fL 81-99 [facility] Hematocrit Auto (Bld) [Volum e fraction]Ordered By: Efrain Mayen on 10-17-2023 Hematocrit (Bld) [Volume fraction] 43.7 % 37-47 [facility] Laboratory - Chemistry and C hemistry - challengeOrdered By: Efrain Mayen on 10-17-2023 CO2 [Moles/Vol] 29.0 mmol/L 21.0-32.0 [facility] Urea nitrogen/Creatinine [Mass ratio] 13.6 mg/mg 10-20 [facility] Laboratory - Hematology and Cell countsOrdered By: Efrain Mayen on 10-17-2023 Erythrocyte distribution width (RBC) [Entitic vol] 37.8 fL 35.1-43.9 [facility] Erythrocyte distribution width (RBC) [Ratio] 12.4 % 11.6-14.6 [facility] Immature granulocytes/100 WBC (Bld) 0.400 % 0.0-0.9 [facility] Comment on above: IG% - Immature Granu locytes (promyelocytes, myelocytes and metamyelocytes) > 1% indicates that a LEFT SHIFT is Present. MCH (RBC) [Entitic mass] 27.2 pg 27.0-32.0 [facility] Nucleated RBC/100 WBC (Bld) [Ratio] 0 % 0-5 [facility] MCHC Auto (RBC) [Mass/Vol]Or dered By: Efrain Mayen on 10-17-2023 MCHC (RBC) [Mass/Vol] 32.3 g/dL 32-36 [facility] No Panel InformationOrdered By: Efrain Mayen on 10-17-2023 Estimated Creatinine Clearance Calc 63.97 ml/min [facility] Estimated GFR (MDRD) Amer 87 mL/min >60 [facility] Comment on above: GFR Calc Estimated GFR (MDRD) Non-Af Amer 72 mL/min >60 [facility] Comment on above: Non- GFR Calc Troponin I High Sensitivity 5 pg/mL 3.0-54.0 [facility] Comment on above: Please Note: New Sophie t Units and Gender Specific Reference Ranges. For more information see Policy Stat Procedure [place] High Sensitivity Troponin (TNIH) and attachments. Platelets bldOrdered By: Jad Mayen on 10-17-2023 Platelets (Bld) [#/Vol] 269 10*3/uL 150-450 [facility] Serum or plasma calcium kala urement (mass/volume)Ordered By: Efrain Mayen on 10-17-2023 Calcium [Mass/Vol] 9.0 mg/dL 8.5-10.1 [facility] Serum or plasma creatinine m easurement (mass/volume)Ordered By: Efrain Mayen on 10-17-2023 Creatinine [Mass/Vol] 0.88 mg/dL 0.55-1.02 [facility] Comment on above: The validity of the calculated GFR & GFRAA in patients over 70 years has not been determined. Clinical correlation is essential. Serum or plasma urea nitroge n measurement (mass/volume)Ordered By: Efrain Mayen on 10-17-2023 Urea nitrogen [Mass/Vol] 12 mg/dL 7-18 [facility] Thin prep Papanicolaou smear with manual screeningOrdered By: Efrain Mayen on 10-17-2023 Thin prep Papanicolaou smear with manual screening 3 5-15 [facility] Basophil percentageOrdered B y: Jj Herrera on 10-13-2023 Basophil percentage 0-5 SEEN /hpf 0-5 [facility] Amylase [Catalytic activity/Vol] 38 U/L 25-115 [facility] Bilirubin [Mass/Vol] 0.40 mg/dL 0.20-1.00 [facility] Comment on above: For patients on eltr ombopag therapy, use of Dimension [place]comb TBIL is not recommended. Protein [Mass/Vol] 6.7 g/dL 6.4-8.2 [facility] Bilirubin Test strip Ql (U)O rdered By: Jj Herrera on 10-13-2023 Bilirubin Ql (U) Negative Negative [facility] Direct bilirubinOrdered By: Jj Herrera on 10-13-2023 Bilirubin.direct [Mass/Vol] 0.11 mg/dL 0.00-0.30 [facility] Ketones Test strip Ql (U)Ord ered By: Jj Herrera on 10-13-2023 Ketones Ql (U) Negative Negative [facility] Laboratory - Chemistry and C hemistry - challengeOrdered By: jJ Herrera on 10-13-2023 ALP [Catalytic activity/Vol] 71 U/L 45-117 [facility] ALT [Catalytic activity/Vol] 45 U/L 13-56 [facility] Globulin (S) [Mass/Vol] 3.1 g/dL 2.2-4.2 [facility] Lipase [Catalytic activity/Vol] 43 U/L 13-75 [facility] Comment on above: Please note:LIPASE r evised reference range effective 23. New Lipase methodology. Expected to produce lower values than the previous assay method. NEW Reference Range: 13 - 75 U/L Mucus LM Ql (Urine sed)Order ed By: Jj Herrera on 10-13-2023 Mucus Ql (Urine sed) 1+ /hpf [facility] Nitrite Test strip Ql (U)Ord ered By: Jj Herrera on 10-13-2023 Nitrite Ql (U) Negative Negative [facility] Protein Test strip Ql (U)Ord ered By: Jj Herrera on 10-13-2023 Protein Ql (U) Negative Negative [facility] Serum or plasma albumin kala urement (mass/volume)Ordered By: Jj Herrera on 10-13-2023 Albumin [Mass/Vol] 3.6 g/dL 3.2-5.0 [facility] Squamous epithelial cells de tection in urine sediment by light microscopyOrdered By: Jj Herrera on 10-13-2023 Epithelial cells.squamous LM Ql (Urine sed) 5-10 SEEN /hpf 5-10 [facility] Thin prep Papanicolaou smear with manual screeningOrdered By: Jj Herrera on 10-13-2023 Thin prep Papanicolaou smear with manual screening 30 U/L 15-37 [facility] Urine blood detectionOrdered By: Jj Herrera on 10-13-2023 RBC Ql (U) Negative Negative [facility] RBC Ql (U) 0 SEEN /hpf 0-5 [facility] Urine clarityOrdered By: Edward Herrera on 10-13-2023 Clarity (U) Sl. Cloudy Clear [facility] Urine color determinationOrd ered By: Jj Herrera on 10-13-2023 Color (U) Yellow Yellow [facility] Urine glucose detectionOrder ed By: Jj Herrera on 10-13-2023 Glucose Ql (U) Normal mg/dl Normal [facility] Urine leukocyte esterase det ection by dipstickOrdered By: Jj Herrera on 10-13-2023 Leukocyte esterase Test strip Ql (U) 25 /ul Negative [facility] Urine pHOrdered By: Jj Herrera on 10-13-2023 pH (U) 7.0 [pH] 5.0 - 8.0 [facility] Urine sediment bacteria coun t by microscopy (number/high power field)Ordered By: Jj Herrera on 10-13-2023 Bacteria LM.HPF (Urine sed) [#/Area] 1 /[HPF] None Seen [facility] Urine specific gravity measu rementOrdered By: Jj Herrera on 10-13-2023 Specific gravity (U) [Rel density] 1.010 1.002-1.030 [facility] Urobilinogen Auto test strip Ql (U)Ordered By: Jj Herrera on 10-13-2023 Urobilinogen Ql (U) 1 mg/dl Normal [facility] Absolute lymphocyte countOrd ered By: Salvador Espinoza on 10-11-2023 Lymphocytes Auto (Unsp spec) [#/Vol] 1.33 10*3/uL 0.83-4.51 [facility] Basophil percentageOrdered B y: Salvador Espinoza on 10-11-2023 Basophils/100 WBC (Bld) 0.8 % 0-1 [facility] Chloride [Moles/Vol] 105 mmol/L 98-107 [facility] Eosinophils/100 WBC (Bld) 5.4 % 0-5 [facility] Glucose [Mass/Vol] 87 mg/dL 74-106 [facility] Neutrophils (Bld) [#/Vol] 3.7 10*3/uL 2.0-7.7 [facility] Neutrophils/100 WBC (Bld) 62.5 % 47-70 [facility] Potassium [Moles/Vol] 3.7 mmol/L 3.5-5.1 [facility] Sodium [Moles/Vol] 140 mmol/L 136-145 [facility] WBC (Bld) [#/Vol] 5.9 10*3/uL 4.4-11.0 [facility] Blood erythrocytes count (nu mber/volume)Ordered By: Salvador Espinoza on 10-11-2023 RBC (Bld) [#/Vol] 5.08 10*6/uL 4.2-5.4 [facility] Blood hemoglobin measurement (mass/volume)Ordered By: Salvador Espinoza on 10-11-2023 Hemoglobin (Bld) [Mass/Vol] 14.0 g/dL 12.0-15.0 [facility] Blood lymphocytes/100 leukoc ytesOrdered By: Salvador Espinoza on 10-11-2023 Lymphocytes/100 WBC (Bld) 22.5 % 19-41 [facility] Blood monocytes/100 leukocyt esOrdered By: Salvador Espinoza on 10-11-2023 Monocytes/100 WBC (Bld) 8.3 % 0-10 [facility] Blood platelet mean volumeOr dered By: Salvador Espinoza on 10-11-2023 Platelet mean volume (Bld) [Entitic vol] 10.2 fL 6.2-12.0 [facility] Determination of erythrocyte mean corpuscular volume (MCV)Ordered By: Salvador Espinoza on 10-11-2023 MCV (RBC) [Entitic vol] 85.4 fL 81-99 [facility] [facility] Auto (Bld) [Volum e fraction]Ordered By: Salvador Espinoza on 10-11-2023 Hematocrit (Bld) [Volume fraction] 43.4 % 37-47 [facility] Laboratory - Chemistry and C hemistry - challengeOrdered By: Salvador Espinoza on 10-11-2023 CO2 [Moles/Vol] 31.0 mmol/L 21.0-32.0 [facility] Urea nitrogen/Creatinine [Mass ratio] 11.7 mg/mg 10-20 [facility] Laboratory - Hematology and Cell countsOrdered By: Salvador Espinoza on 10-11-2023 Erythrocyte distribution width (RBC) [Entitic vol] 38.3 fL 35.1-43.9 [facility] Erythrocyte distribution width (RBC) [Ratio] 12.3 % 11.6-14.6 [facility] Immature granulocytes/100 WBC (Bld) 0.500 % 0.0-0.9 [facility] Comment on above: IG% - Immature Granu locytes (promyelocytes, myelocytes and metamyelocytes) > 1% indicates that a LEFT SHIFT is Present. MCH (RBC) [Entitic mass] 27.6 pg 27.0-32.0 [facility] Nucleated RBC/100 WBC (Bld) [Ratio] 0 % 0-5 [facility] MCHC Auto (RBC) [Mass/Vol]Or dered By: Salvador Espinoza on 10-11-2023 MCHC (RBC) [Mass/Vol] 32.3 g/dL 32-36 [facility] No Panel InformationOrdered By: Salvador Espinoza on 10-11-2023 Troponin I High Sensitivity 6 pg/mL 3.0-54.0 [facility] Comment on above: Please Note: New Sophie t Units and Gender Specific Reference Ranges. For more information see Policy Stat Procedure [place]comb High Sensitivity Troponin (TNIH) and attachments. D-Dimer Quantitative (PE/DVT) < 0.27 FEU/ug/m 0.27-0.49 [facility] Comment on above: NORMAL D-Dimer level (<0.50) indicates no DVT or PE. Estimated Creatinine Clearance Calc 59.89 ml/min [facility] Estimated GFR (MDRD) Amer 81 mL/min >60 [facility] Comment on above: GFR Calc Estimated GFR (MDRD) Non-Af Amer 67 mL/min >60 [facility] Comment on above: Non- GFR Calc Platelets bldOrdered By: Randee Espinoza on 10-11-2023 Platelets (Bld) [#/Vol] 322 10*3/uL 150-450 [facility] Serum or plasma calcium kala urement (mass/volume)Ordered By: Salvador Espinoza on 10-11-2023 Calcium [Mass/Vol] 9.2 mg/dL 8.5-10.1 [facility] Serum or plasma creatinine m easurement (mass/volume)Ordered By: Salvador Espinoza on 10-11-2023 Creatinine [Mass/Vol] 0.94 mg/dL 0.55-1.02 [facility] Comment on above: The validity of the calculated GFR & GFRAA in patients over 70 years has not been determined. Clinical correlation is essential. Serum or plasma urea nitroge n measurement (mass/volume)Ordered By: Salvador Espinoza on 10-11-2023 Urea nitrogen [Mass/Vol] 11 mg/dL 7-18 [facility] Thin prep Papanicolaou smear with manual screeningOrdered By: Salvador Espinoza on 10-11-2023 Thin prep Papanicolaou smear with manual screening 4 - [facility] Chlamydia trachomatis rRNA d etection by probe and target amplification methodOrdered By: Ketty Borrego on 07-26-2023 C. trachomatis rRNA ALBERTO+probe Ql (Unsp spec) Negative Negative [facility] HIV 1 and HIV-2 antibody ass ay with HIV-1 p24 antigen detectionOrdered By: Ketty Borrego on 07-26-2023 HIV 1+2 Ab+HIV1 p24 Ag IA Ql Non-Reactive Nonreactive [facility] Laboratory - Microbiology an d Antimicrobial susceptibilityOrdered By: Ketty Borrego on 07-26-2023 N. gonorrhoeae DNA ALBERTO+probe Ql (Unsp spec) Negative Negative [facility] Comment on above: Performed at: =[address] [id number] Director: Abiola Ray MD, Phone: [phone] No Panel Informationon 07-26 POC Trichomonas (Rapid) Negative [facility] No Panel InformationOrdered By: Ketty Borrego on 07-26-2023 Hepatitis C Antibody Non-Reactive Nonreactive [facility] Comment on above: Non Reactive: < 0.8 Equivocal: >/= 0.8 to < 1.0 Reactive: >/= 1.0The [facility] recommends that a reactive/equivocal HCV antibody result be followed up by the HCV Nucleic Acid Amplificationtest (568666) Herpes Simplex Virus I IgG Antibody 39.30 index 0.00-0.90 [facility] Comment on above: Negative <0.91 Equiv ocal 0.91 - 1.09 Positive >1.09 Note: Negative indicates no antibodies detected to HSV-1. Equivocal may suggest early infection. If clinically appropriate, retest at later date. Positive indicates antibodies detected to HSV-1. Serum Treponema species anti body detectionOrdered By: Ketty Borrego on 07-26-2023 Treponema sp Ab Ql (S) Non-Reactive [facility] Serum herpes simplex virus 2 antibody assay by immunoassay (units/volume)Ordered By: Ketty Borrego on 07-26-2023 HSV 2 Ab IA Qn (S) < 0.91 index 0.00-0.90 [facility] Comment on above: Negative <0.91 Equiv ocal 0.91 - 1.09 Positive >1.09 HSV-2 Antibody Interpretation: Negative indicates no detectable antibodies to HSV-2 were found. If recent exposure is suspected, retest in 4-6 weeks. Equivocal samples should be retested in 4-6 weeks. Positive indicates the presence of detectable IgG antibody to HSV-2. False positive results may occur. Repeat testing, or testing by a different method, may be indicated in some settings (e.g. patients with low likelihood of HSV infection). If clinically appropriate, retest 4-6 weeks later.Performed at: [facility] [employer] [id number] Director: Jhon Flores PhD, Phone: [phone] Absolute lymphocyte countOrd ered By: Dr. Espinoza on 09-30-2022 Lymphocytes Auto (Unsp spec) [#/Vol] 0.96 10*3/uL 0.83-4.51 [facility] Basophil percentageOrdered B y: Dr. Espinoza on 09-30-2022 Basophils/100 WBC (Bld) 0.5 % 0-1 [facility] Chloride [Moles/Vol] 105 mmol/L 98-107 [facility] Eosinophils/100 WBC (Bld) 4.0 % 0-5 [facility] Glucose [Mass/Vol] 115 mg/dL 74-106 [facility] Comment on above: Fasting Glucose resu lt from 100 to 125 mg/dL suggests IMPAIRED HOMEOSTASIS per A.D.A. criteria. Neutrophils (Bld) [#/Vol] 4.4 10*3/uL 2.0-7.7 [facility] Neutrophils/100 WBC (Bld) 70.2 % 47-70 [facility] Potassium [Moles/Vol] 3.0 mmol/L 3.5-5.1 [facility] Sodium [Moles/Vol] 139 mmol/L 136-145 [facility] WBC (Bld) [#/Vol] 6.3 10*3/uL 4.4-11.0 [facility] Blood erythrocytes count (nu mber/volume)Ordered By: Dr. Espinoza on 09-30-2022 RBC (Bld) [#/Vol] 4.98 10*6/uL 4.2-5.4 [facility] Blood hemoglobin measurement (mass/volume)Ordered By: Dr. Espinoza on 09-30-2022 Hemoglobin (Bld) [Mass/Vol] 13.6 g/dL 12.0-15.0 [facility] Blood lymphocytes/100 leukoc ytesOrdered By: Dr. Espinoza on 09-30-2022 Lymphocytes/100 WBC (Bld) 15.3 % 19-41 [facility] Blood monocytes/100 leukocyt esOrdered By: Dr. Espinoza on 09-30-2022 Monocytes/100 WBC (Bld) 9.7 % 0-10 [facility] Blood platelet mean volumeOr dered By: Dr. Espinoza on 09-30-2022 Platelet mean volume (Bld) [Entitic vol] 10.8 fL 6.2-12.0 [facility] Determination of erythrocyte mean corpuscular volume (MCV)Ordered By: Dr. Espinoza on 09-30-2022 MCV (RBC) [Entitic vol] 86.3 fL 81-99 [facility] Hematocrit Auto (Bld) [Volum e fraction]Ordered By: Dr. Espinoza on 09-30-2022 Hematocrit (Bld) [Volume fraction] 43.0 % 37-47 [facility] Laboratory - Chemistry and C hemistry - challengeOrdered By: Dr. Espinoza on 09-30-2022 CO2 [Moles/Vol] 28.0 mmol/L 21.0-32.0 [facility] Urea nitrogen/Creatinine [Mass ratio] 6.3 mg/mg 10-20 [facility] Laboratory - Hematology and Cell countsOrdered By: Dr. Espinoza on 09-30-2022 Erythrocyte distribution width (RBC) [Entitic vol] 40.2 fL 35.1-43.9 [facility] Erythrocyte distribution width (RBC) [Ratio] 12.9 % 11.6-14.6 [facility] Immature granulocytes/100 WBC (Bld) 0.300 % 0.0-0.9 [facility] Comment on above: IG% - Immature Granu locytes (promyelocytes, myelocytes and metamyelocytes) > 1% indicates that a LEFT SHIFT is Present. MCH (RBC) [Entitic mass] 27.3 pg 27.0-32.0 [facility] Nucleated RBC/100 WBC (Bld) [Ratio] 0 % 0-5 [facility] MCHC Auto (RBC) [Mass/Vol]Or dered By: Dr. Espionza on 09-30-2022 MCHC (RBC) [Mass/Vol] 31.6 g/dL 32-36 [facility] No Panel InformationOrdered By: Dr. Espinoza on 09-30-2022 Estimated Creatinine Clearance Calc 62.54 ml/min [facility] Estimated GFR (MDRD) Amer 81 mL/min >60 [facility] Comment on above: GFR Calc Estimated GFR (MDRD) Non-Af Amer 67 mL/min >60 [facility] Comment on above: Non- GFR Calc Troponin I High Sensitivity 5 pg/mL 3.0-54.0 [facility] Comment on above: Please Note: New Sophie t Units and Gender Specific Reference Ranges. For more information see Policy Stat Procedure [place] High Sensitivity Troponin (TNIH) and attachments. Platelets bldOrdered By: Dr. Espinoza on 09-30-2022 Platelets (Bld) [#/Vol] 285 10*3/uL 150-450 [facility] Serum or plasma calcium kala urement (mass/volume)Ordered By: Dr. Espinoza on 09-30-2022 Calcium [Mass/Vol] 8.8 mg/dL 8.5-10.1 [facility] Serum or plasma creatinine m easurement (mass/volume)Ordered By: Dr. Espinoza on 09-30-2022 Creatinine [Mass/Vol] 0.95 mg/dL 0.55-1.02 [facility] Comment on above: The validity of the calculated GFR & GFRAA in patients over 70 years has not been determined. Clinical correlation is essential. Serum or plasma urea nitroge n measurement (mass/volume)Ordered By: Dr. Espinoza on 09-30-2022 Urea nitrogen [Mass/Vol] 6 mg/dL 7-18 [facility] Thin prep Papanicolaou smear with manual screeningOrdered By: Dr. Espinoza on 09-30-2022 Thin prep Papanicolaou smear with manual screening 6 5-15 [facility] Chlamydia trachomatis rRNA d etection by probe and target amplification methodon 08-05-2022 C. trachomatis rRNA ALBERTO+probe Ql (Unsp spec) Negative Negative [facility] Work Phone: Laboratory - Chemistry and C hemistry - challengeon 08-05-2022 Glucose Ql (U) Negative [facility] Work Phone: Ketones Ql (U) Negative [facility] Work Phone: Specific gravity (U) [Rel density] >1.030 [facility] Work Phone: Laboratory - Hematology and Cell countson 08-05-2022 Hemoglobin Ql (U) Negative [facility] Work Phone: Laboratory - Microbiology an d Antimicrobial susceptibilityon 08-05-2022 N. gonorrhoeae DNA ALBERTO+probe Ql (Unsp spec) Negative Negative [facility] Work Phone: Comment on above: Performed at: =[address] [id number] Director: Abiola Ray MD, Phone: [phone] Laboratory - Specimen inform ationon 08-05-2022 Clarity (U) Clear [facility] Work Phone: Color (U) DARK YELLOW [facility] Work Phone: Laboratory - Urinalysison Nitrite Ql (U) Negative [facility] Work Phone: Protein Ql (U) Negative [facility] Work Phone: No Panel Informationon 08-05 POC Bacterial Vaginitis (Rapid) Negative [facility] Work Phone: POC Trichomonas (Rapid) Negative [facility] Work Phone: Urine Leukocytes Negatve [facility] Work Phone: Urine Non-Hemolyzed Blood Negative [facility] Work Phone: Laboratory - Microbiology an d Antimicrobial susceptibilityon 07-17-2022 SARS-CoV-2 (COVID-19) RNA ALBERTO+probe Ql (Unsp spec) Not detected [facility] Work Phone: No Panel Informationon 07-17 Influenza Types A,B Rapid (Clinic) Not detected [facility] Work Phone: [facility] Note on 06-22-2017 [facility] Normal [facility] [place] Patient Summary Documentson 06-22-2017 Patient Summary Documents Normal [facility] [place] XR CHEST 2 VIEWSon 7 XR CHEST 2 VIEWS ORIGINALXR CHEST 2 V IEWS CLINICAL STATEMENT: cough was 1 month, shortness of breath COMPARISON: None FINDINGS: The cardiomediastinal contours are normal. Aorta is mildly tortuous. There is no consolidation, vascular congestion, pleural effusion, or pneumothorax. Bony structures are unremarkable. IMPRESSION: No acute process. I have personally reviewed the images of this examination and agree with the resident's findings and interpretation. Interpreted By: Gamaliel Workman [facility] Report By: Stuart Jj DOElectronically Signed By: Gamaliel Workman MD Dictated Date: 06/21/2017 9:56:36 PM Prelim Date: 06/21/2017 9:56:55 PM Sign Date: 06/21/2017 10:24:04 PM Normal [facility] ([place]) Culture, urine Bacteria identified Cx Nom (U) Positive [facility] Work Phone: Gram stain for investigation of transfusion reaction Microscopic observation Gram stain Nom (Unsp spec) [facility] Work Phone: Thin prep Papanicolaou smear with manual screening Thin prep Papanicolaou smear with manual screening [facility] Work Phone: Vital Signs Date Time Vital Sign Value Performing Clinician Facility 06-05-2025 15:14-0400 Body height 162.[address] Shaheed Marie MD Work Phone: [facility] 06-05-2025 15:14-0400 Body mass index (BMI) [Ratio] 23.9 kg/m2 Dr. Shaheed Marie MD Work Phone: [facility] 06-05-2025 15:14-0400 Body weight 63.[address] Shaheed Marie MD Work Phone: [facility] 06-04-2025 15:20-0400 Body height 162.[address] Shaheed Marie MD Work Phone: [facility] 06-04-2025 15:19-0400 Body mass index (BMI) [Ratio] 24.4 kg/m2 Dr. Shaheed Marie MD Work Phone: [facility] 06-04-2025 15:19-0400 Body weight 64.[address] Shhaeed Marie MD Work Phone: [facility] 06-04-2025 15:19-0400 Diastolic blood pressure 90 mm[Hg] Dr. Shaheed Marie MD Work Phone: [facility] 06-04-2025 15:19-0400 Systolic blood pressure 132 mm[Hg] Dr. Shaheed Marie MD Work Phone: [facility] 05-14-2025 15:09-0400 Body height 162.[address] Shaheed Marie MD Work Phone: [facility] 05-14-2025 15:09-0400 Body mass index (BMI) [Ratio] 25 kg/m2 Dr. Shaheed Marie MD Work Phone: [facility] 05-14-2025 15:09-0400 Body temperature 97.6 [degF] Dr. Shaheed Marie MD Work Phone: [facility] 05-14-2025 15:09-0400 Body weight 66.[address] Shaheed Marie MD Work Phone: [facility] 05-14-2025 15:09-0400 Diastolic blood pressure 84 mm[Hg] Dr. Shaheed Marie MD Work Phone: [facility] 05-14-2025 15:09-0400 Heart rate 68 /min Dr. Shaheed Marie MD Work Phone: [facility] 05-14-2025 15:09-0400 Respiratory rate 16 /min Dr. Shaheed Marie MD Work Phone: [facility] 05-14-2025 15:09-0400 SaO2% (BldA) [Mass fraction] 96 % Dr. Shaheed Marie MD Work Phone: [facility] 05-14-2025 15:09-0400 Systolic blood pressure 122 mm[Hg] Dr. Shaheed Marie MD Work Phone: [facility] 05-09-2025 15:10-0400 Body mass index (BMI) [Ratio] 24.48 kg/m2 Buddy Krzysztof MANAGER [employer] SERVICES [employer]IAN Work Phone: [facility] 05-09-2025 15:10-0400 Body temperature 98.01 [degF] Buddy Krzysztof MANAGER [employer].ADULT SERVICES LIBRARIAN Work Phone: [facility] 05-09-2025 15:10-0400 Body weight 65.7 kg Buddy Krzysztof MANAGER [employer].ADULT SERVICES LIBRARIAN Work Phone: [facility] 05-09-2025 15:10-0400 Diastolic blood pressure 100 mm[Hg] Buddy Krzysztof MANAGER [employer].ADULT SERVICES LIBRARIAN Work Phone: [facility] 05-09-2025 15:10-0400 Heart rate 70 /min Buddy Krzysztof MANAGER [employer].ADULT SERVICES LIBRARIAN Work Phone: [facility] 05-09-2025 15:10-0400 Respiratory rate 18 /min Buddy Krzysztof MANAGER [employer].ADULT SERVICES LIBRARIAN Work Phone: [facility] 05-09-2025 15:10-0400 SaO2% (BldA) [Mass fraction] 100 % Buddy Krzysztof MANAGER [employer].ADULT SERVICES LIBRARIAN Work Phone: [facility] 05-09-2025 15:10-0400 Systolic blood pressure 154 mm[Hg] Buddy Krzysztof MANAGER [employer].ADULT SERVICES LIBRARIAN Work Phone: [facility] 02-28-2025 12:25-0400 Body temperature 98.3 [degF] Dr. Shaheed Marie MD Work Phone: [facility] 02-28-2025 12:25-0400 Diastolic blood pressure 115 mm[Hg] Dr. Shaheed Marie MD Work Phone: [facility] 02-28-2025 12:25-0400 Heart rate 84 /min Dr. Shaheed Marie MD Work Phone: [facility] 02-28-2025 12:25-0400 Respiratory rate 16 /min Dr. Shaheed Marie MD Work Phone: [facility] 02-28-2025 12:25-0400 SaO2% (BldA) [Mass fraction] 100 % Dr. Shaheed Marie MD Work Phone: [facility] 02-28-2025 12:25-0400 Systolic blood pressure 175 mm[Hg] Dr. Shaheed Marie MD Work Phone: [facility] 02-28-2025 12:06-0400 Body mass index (BMI) [Ratio] 27.8 kg/m2 Dr. Shaheed Marie MD Work Phone: [facility] 02-28-2025 12:06-0400 Body weight 73.[address] Shaheed Marie MD Work Phone: [facility] 12-19-2023 14:05-0400 Body mass index (BMI) [Ratio] 27.9 kg/m2 Dr. Shaheed Marie Work Phone: [facility] 12-19-2023 14:05-0400 Body temperature 97.9 [degF] Dr. Shaheed Marie Work Phone: [facility] 12-19-2023 14:05-0400 Body weight 73.[address] Shaheed Marie Work Phone: [facility] 12-19-2023 14:05-0400 Diastolic blood pressure 80 mm[Hg] Dr. Shaheed Marie Work Phone: [facility] 12-19-2023 14:05-0400 Heart rate 80 /min Dr. Shaheed Marie Work Phone: [facility] 12-19-2023 14:05-0400 Respiratory rate 16 /min Dr. Shaheed Marie Work Phone: [facility] 12-19-2023 14:05-0400 SaO2% (BldA) [Mass fraction] 97 % Dr. Shaheed Marie Work Phone: [facility] 12-19-2023 14:05-0400 Systolic blood pressure 136 mm[Hg] Dr. Shaheed Marie Work Phone: [facility] 12-07-2023 08:51-0500 Body temperature 97.9 [degF] Dr. Shaheed Marie Work Phone: [facility] 12-07-2023 08:51-0500 Diastolic blood pressure 109 mm[Hg] Dr. Shaheed Marie Work Phone: [facility] 12-07-2023 08:51-0500 Heart rate 84 /min Dr. Shaheed Marie Work Phone: [facility] 12-07-2023 08:51-0500 Respiratory rate 16 /min Dr. Shaheed Marie Work Phone: [facility] 12-07-2023 08:51-0500 SaO2% (BldA) [Mass fraction] 98 % Dr. Shaheed Marie Work Phone: [facility] 12-07-2023 08:51-0500 Systolic blood pressure 137 mm[Hg] Dr. Shaheed Marie Work Phone: [facility] 12-07-2023 07:53-0500 Body height 162.[address] Shaheed Marie Work Phone: [facility] 12-07-2023 07:53-0500 Body mass index (BMI) [Ratio] 27.6 kg/m2 Dr. Shaheed Marie Work Phone: [facility] 12-07-2023 07:53-0500 Body weight [address] Shaheed Marie Work Phone: [facility] 11-07-2023 14:37-0500 Body mass index (BMI) [Ratio] 27.6 kg/m2 Dr. Shaheed Marei Work Phone: [facility] 11-07-2023 14:37-0500 Body temperature 97.6 [degF] Dr. Shaheed Marie Work Phone: [facility] 11-07-2023 14:37-0500 Body weight 70.[address] Shaheed Marie Work Phone: [facility] 11-07-2023 14:37-0500 Diastolic blood pressure 80 mm[Hg] Dr. Shaheed Marie Work Phone: [facility] 11-07-2023 14:37-0500 Heart rate 92 /min Dr. Shaheed Marie Work Phone: [facility] 11-07-2023 14:37-0500 Respiratory rate 16 /min Dr. Shaheed Marie Work Phone: [facility] 11-07-2023 14:37-0500 SaO2% (BldA) [Mass fraction] 97 % Dr. Shaheed Marie Work Phone: [facility] 11-07-2023 14:37-0500 Systolic blood pressure 126 mm[Hg] Dr. Shaheed Marie Work Phone: [facility] 11-01-2023 13:39-0500 Body mass index (BMI) [Ratio] 27.6 kg/m2 Dr. Shaheed Marie Work Phone: [facility] 11-01-2023 13:39-0500 Body weight 70.[address] Shaheed Marie Work Phone: [facility] 11-01-2023 13:39-0500 Diastolic blood pressure 74 mm[Hg] Dr. Shaheed Marie Work Phone: [facility] 11-01-2023 13:39-0500 Heart rate 156 /min Dr. Shaheed Marie Work Phone: [facility] 11-01-2023 13:39-0500 Respiratory rate 16 /min Dr. Shaheed Marie Work Phone: [facility] 11-01-2023 13:39-0500 Systolic blood pressure 115 mm[Hg] Dr. Shaheed Marie Work Phone: [facility] 10-18-2023 15:15-0500 Diastolic blood pressure 96 mm[Hg] Dr. Shaheed Marie Work Phone: [facility] 10-18-2023 15:15-0500 Systolic blood pressure 154 mm[Hg] Dr. Shaheed Marie Work Phone: [facility] 10-17-2023 08:16-0500 Diastolic blood pressure 105 mm[Hg] Dr. Shaheed Marie Work Phone: [facility] 10-17-2023 08:16-0500 Heart rate 64 /min Dr. Shaheed Marie Work Phone: [facility] 10-17-2023 08:16-0500 Respiratory rate 16 /min Dr. Shaheed Marie Work Phone: [facility] 10-17-2023 08:16-0500 SaO2% (BldA) [Mass fraction] 99 % Dr. Shaheed Marie Work Phone: [facility] 10-17-2023 08:16-0500 Systolic blood pressure 159 mm[Hg] Dr. Shaheed Marie Work Phone: [facility] 10-17-2023 06:00-0500 Body height 160.[address] Shaheed Marie Work Phone: [facility] 10-17-2023 06:00-0500 Body mass index (BMI) [Ratio] 28 kg/m2 Dr. Shaheed Marie Work Phone: [facility] 10-17-2023 06:00-0500 Body temperature 97 [degF] Dr. Shaheed Marie Work Phone: [facility] 10-17-2023 06:00-0500 Body weight 71.[address] Shaheed Marie Work Phone: [facility] 10-13-2023 13:58-0500 Diastolic blood pressure 110 mm[Hg] Dr. Shaheed Marie Work Phone: [facility] 10-13-2023 13:58-0500 Systolic blood pressure 160 mm[Hg] Dr. Shaheed Marie Work Phone: [facility] 10-13-2023 13:22-0500 Body mass index (BMI) [Ratio] 28 kg/m2 Dr. Shaheed Marie Work Phone: [facility] 10-13-2023 13:22-0500 Body temperature 97.7 [degF] Dr. Shaheed Marie Work Phone: [facility] 10-13-2023 13:22-0500 Body weight 71.[address] Shaheed Marie Work Phone: [facility] 10-13-2023 13:22-0500 Heart rate 84 /min Dr. Shaheed Marie Work Phone: [facility] 10-13-2023 13:22-0500 Respiratory rate 16 /min Dr. Shaheed Marie Work Phone: [facility] 10-13-2023 13:22-0500 SaO2% (BldA) [Mass fraction] 98 % Dr. Shaheed Marie Work Phone: [facility] 10-11-2023 12:30-0500 Body temperature 97 [degF] Dr. Shaheed Marie Work Phone: [facility] 10-11-2023 12:30-0500 Diastolic blood pressure 122 mm[Hg] Dr. Shaheed Marie Work Phone: [facility] 10-11-2023 12:30-0500 Heart rate 64 /min Dr. Shaheed Marie Work Phone: [facility] 10-11-2023 12:30-0500 Respiratory rate 16 /min Dr. Shaheed Marie Work Phone: [facility] 10-11-2023 12:30-0500 SaO2% (BldA) [Mass fraction] 98 % Dr. Shaheed Marie Work Phone: [facility] 10-11-2023 12:30-0500 Systolic blood pressure 162 mm[Hg] Dr. Shaheed Marie Work Phone: [facility] 10-11-2023 08:53-0500 Body height 160.[address] Shaheed Marie Work Phone: [facility] 10-11-2023 08:53-0500 Body mass index (BMI) [Ratio] 30.6 kg/m2 Dr. Shaheed Marie Work Phone: [facility] 10-11-2023 08:53-0500 Body weight 78.[address] Shaheed Marie Work Phone: [facility] 07-26-2023 10:30-0400 Body height 162.[address] Shaheed Marie Work Phone: [facility] 07-26-2023 10:23-0400 Body mass index (BMI) [Ratio] 29.8 kg/m2 Dr. Shaheed Marie Work Phone: [facility] 07-26-2023 10:23-0400 Body weight 78.[address] Sahheed Marie Work Phone: [facility] 07-26-2023 10:23-0400 Diastolic blood pressure 82 mm[Hg] Dr. Shaheed Marie Work Phone: [facility] 07-26-2023 10:23-0400 Systolic blood pressure 130 mm[Hg] Dr. Shaheed Marie Work Phone: [facility] 03-26-2023 10:24-0400 Body temperature 99.1 [degF] Elly Fontanez MANAGER GARAGE.ADULT SERVICES LIBRARIAN Work Phone: [facility] 03-26-2023 10:24-0400 Body weight 84.19 kg Elly Fontanez MANAGER GARAGE.ADULT SERVICES LIBRARIAN Work Phone: [facility] 03-26-2023 10:24-0400 Diastolic blood pressure 86 mm[Hg] Elly Christiansenhof MANAGER [employer]ARAGE.ADULT SERVICES LIBRARIAN Work Phone: [facility] 03-26-2023 10:24-0400 Heart rate 94 /min Elly Fontanez MANAGER [employer]ARAGE.ADULT SERVICES LIBRARIAN Work Phone: [facility] 03-26-2023 10:24-0400 Respiratory rate 18 /min Elly Fontanez MANAGER [employer]ARAGE.ADULT SERVICES LIBRARIAN Work Phone: [facility] 03-26-2023 10:24-0400 SaO2% (BldA) [Mass fraction] 97 % Elly Fontanez MANAGER [employer]AR[employer].ADULT SERVICES LIBRARIAN Work Phone: [facility] 03-26-2023 10:24-0400 Systolic blood pressure 144 mm[Hg] Elly Christiansenhof MANAGER [employer]ARAGE.ADULT SERVICES LIBRARIAN Work Phone: [facility] 11-11-2022 11:50-0500 Body temperature 98.3 [degF] Dr. Shaheed Marie Work Phone: [facility] 11-11-2022 11:50-0500 Diastolic blood pressure 83 mm[Hg] Dr. Shaheed Marie Work Phone: [facility] 11-11-2022 11:50-0500 Heart rate 61 /min Dr. Shaheed Marie Work Phone: [facility] 11-11-2022 11:50-0500 Respiratory rate 16 /min Dr. Shaheed Marie Work Phone: [facility] 11-11-2022 11:50-0500 SaO2% (BldA) [Mass fraction] 100 % Dr. Shaheed Marie Work Phone: [facility] 11-11-2022 11:50-0500 Systolic blood pressure 131 mm[Hg] Dr. Shaheed Marie Work Phone: [facility] 11-11-2022 10:23-0500 Body height 162.[address] Shaheed Marie Work Phone: [facility] 11-11-2022 10:23-0500 Body mass index (BMI) [Ratio] 31.4 kg/m2 Dr. Shaheed Marie Work Phone: [facility] 11-11-2022 10:23-0500 Body weight [address] Shaheed Marie Work Phone: [facility] 10-13-2022 08:16-0500 Body mass index (BMI) [Ratio] 31.7 kg/m2 Dr. Shaheed Marie Work Phone: [facility] 10-13-2022 08:16-0500 Body temperature 97.8 [degF] Dr. Shaheed Marie Work Phone: [facility] 10-13-2022 08:16-0500 Body weight 83.[address] Shaheed Marie Work Phone: [facility] 10-13-2022 08:16-0500 Diastolic blood pressure 118 mm[Hg] Dr. Shaheed Marie Work Phone: [facility] 10-13-2022 08:16-0500 Heart rate 106 /min Dr. Shaheed Marie Work Phone: [facility] 10-13-2022 08:16-0500 Respiratory rate 16 /min Dr. Shaheed Marie Work Phone: [facility] 10-13-2022 08:16-0500 SaO2% (BldA) [Mass fraction] 97 % Dr. Shaheed Marie Work Phone: [facility] 10-13-2022 08:16-0500 Systolic blood pressure 142 mm[Hg] Dr. Shaheed Marie Work Phone: [facility] 09-30-2022 14:32-0500 Diastolic blood pressure 104 mm[Hg] Dr. Shaheed Marie Work Phone: [facility] 09-30-2022 14:32-0500 Heart rate 74 /min Dr. Shaheed Marie Work Phone: [facility] 09-30-2022 14:32-0500 SaO2% (BldA) [Mass fraction] 97 % Dr. Shaheed Marie Work Phone: [facility] 09-30-2022 14:32-0500 Systolic blood pressure 174 mm[Hg] Dr. Shaheed Marie Work Phone: [facility] 09-30-2022 11:13-0500 Respiratory rate 14 /min Dr. Shaheed Marie Work Phone: [facility] 09-30-2022 10:14-0500 Body height 162.[address] Shaheed Marie Work Phone: [facility] Work Phone: 09-30-2022 10:14-0500 Body mass index (BMI) [Ratio] 29.2 kg/m2 Dr. Shaheed Marie Work Phone: [facility] 09-30-2022 10:14-0500 Body temperature 97 [degF] Dr. Shaheed Marie Work Phone: [facility] 09-30-2022 10:14-0500 Body weight 77.[address] Shaheed Marie Work Phone: [facility] 09-22-2022 08:20-0500 Body mass index (BMI) [Ratio] 30.5 kg/m2 Dr. Shaheed Marie Work Phone: [facility] 09-22-2022 08:20-0500 Body weight 80.[address] hSaheed Marie Work Phone: [facility] 08-05-2022 10:59-0400 Body mass index (BMI) [Ratio] 33.5 kg/m2 Dr. Shaheed Marie Work Phone: [facility] Work Phone: 08-05-2022 10:59-0400 Body weight 83.[address] Shaheed Marie Work Phone: [facility] Work Phone: 08-05-2022 10:59-0400 Diastolic blood pressure 107 mm[Hg] Dr. Shaheed Marie Work Phone: [facility] Work Phone: 08-05-2022 10:59-0400 Systolic blood pressure 146 mm[Hg] Dr. Shaheed Marie Work Phone: [facility] Work Phone: 07-17-2022 09:02-0400 Body temperature 98.5 [degF] Dr. Shaheed Marie Work Phone: [facility] Work Phone: 07-17-2022 09:02-0400 Diastolic blood pressure 90 mm[Hg] Dr. Shaheed Marie Work Phone: [facility] Work Phone: 07-17-2022 09:02-0400 Heart rate 83 /min Dr. Shaheed Marie Work Phone: [facility] Work Phone: 07-17-2022 09:02-0400 Respiratory rate 16 /min Dr. Shaheed Marie Work Phone: [facility] Work Phone: 07-17-2022 09:02-0400 SaO2% (BldA) [Mass fraction] 98 % Dr. Shaheed Marie Work Phone: [facility] Work Phone: 07-17-2022 09:02-0400 Systolic blood pressure 140 mm[Hg] Dr. Shaheed Marie Work Phone: [facility] Work Phone: 06-08-2022 13:07-0400 Body height 157.[address] Shaheed Marie Work Phone: [facility] Work Phone: 06-08-2022 13:05-0400 Body mass index (BMI) [Ratio] 33.3 kg/m2 Dr. Shaheed Marie Work Phone: [facility] Work Phone: 06-08-2022 13:05-0400 Body weight 82.[address] Shaheed Marie Work Phone: [facility] Work Phone: 06-08-2022 13:05-0400 Diastolic blood pressure 94 mm[Hg] Dr. Shaheed Marie Work Phone: [facility] Work Phone: 06-08-2022 13:05-0400 Systolic blood pressure 150 mm[Hg] Dr. Shaheed Marie Work Phone: [facility] Work Phone: Encounters Encounter Date Encounter Type Care Provider Facility Start: 06-14-2025 ambulatory Shaheed Marie [facility] ty:[facility] Start: 06-05-2025 Encounter for gynecological examination (general) (routine) with abnormal findings Ketty Borrego [employer]AR H[employer] WATER INSTALLER [facility] Start: 06-05-2025 End: 06-05-2025 Patient encounter procedure Sanna Pinto [employer]AR H[employer] WATER INSTALLER-C -[facility] Work Phone: Start: 06-05-2025 End: 06-05-[address] Shaheed Marie MD Work Phone: -[facility] Start: 06-04-2025 End: 06-04-2025 Patient encounter procedure Ketty Borrego SOLAR HOT WATER INSTALLER-C -[facility] Work Phone: Start: 06-04-2025 End: 06-04-2025 Patient encounter status Ketty Borrego SOLAR HOT WATER INSTALLER-C [facility] Start: 06-04-2025 End: 06-04-[address] Shaheed Marie MD Work Phone: -[facility] Start: 06-04-2025 End: 06-04-2025 ambulatory Shaheed Marie Facility:[facility] Start: 05-14-2025 End: 05-14-2025 Patient encounter procedure Jackelin Bullard [employer]AR H[employer] WATER INSTALLER-C -[facility] Work Phone: Start: 05-14-2025 End: 05-14-[address] Shaheed Marie MD Work Phone: -[facility] Start: 05-09-2025 End: 05-09-2025 Subsequent hospital visit by physician [facility] Work Phone: Radiology Comment on above: Pain of right hand [ M79.641] Start: 05-09-2025 End: 05-09-2025 Patient encounter procedure Buddy Blankenship MANAGER [employer]ARAGE.ADULT SERVICES LIBRARIAN Work Phone: [facility] Comment on above: Pain of right hand ( Primary Dx) Start: 05-09-2025 End: 05-09-2025 ambulatory BUDDY KRZYSZTOF Facility:[facility] Start: 02-28-2025 End: 02-28-2025 Emergency department patient visit Dr. Yolanda Louis DO -Emergency Department Work Phone: Start: 12-04-2024 End: 12-04-2024 ambulatory Efewongbe Adene Facility:[facility] Start: 11-26-2024 ambulatory Shaheed Marie Facili ty:[facility] Start: 11-12-2024 End: 11-12-2024 ambulatory Shaheed Marie Facility:[facility] Start: 11-07-2024 End: 11-07-2024 ambulatory [facility] Facility:[facility] Start: 11-06-2024 End: 11-06-2024 ambulatory Ketty Borrego NP Facility:[facility] Start: 10-30-2024 ambulatory Efewongbe Oleghe Facili ty:[facility] Start: 10-25-2024 End: 10-25-2024 ambulatory Ruddyongdelfino Marie Facility:[facility] Start: 10-22-2024 End: 10-22-2024 ambulatory [facility] Facility:[facility] Start: 10-19-2024 End: 10-19-2024 ambulatory Efewongbe Cachorroghe Facility:[facility] Start: 10-19-2024 End: 10-19-2024 ambulatory Efewongbe Cachorroghe Facility:[facility] Start: 10-15-2024 ambulatory Efewongbe Cachorroghe Facili ty:[facility] Start: 12-19-2023 End: 12-19-[address] Shaheed Marie Work Phone: [facility] Work Phone: Start: 12-19-2023 End: 12-19-[address] Shaheed Marie Work Phone: [facility] Work Phone: Start: 12-07-2023 Non-patient / Non-visit Dr. Lana Marie Work Phone: [facility] Start: 12-07-2023 End: 12-07-2023 Admission to same day surgery center Dr. Shaheed Marie Work Phone: [facility]-Endoscopy Work Phone: Start: 12-07-2023 End: 12-07-[address] Shaheed Marie Work Phone: [facility] Work Phone: Start: 11-07-2023 End: 11-07-[address] Shaheed Marie Work Phone: [facility] Work Phone: Start: 11-01-2023 End: 11-01-[address] Shaheed Marie Work Phone: [facility] Work Phone: Start: 10-18-2023 End: 10-18-[address] Shaheed Marie Work Phone: [facility] Work Phone: Start: 10-17-2023 End: 10-17-2023 Emergency department patient visit Dr. Shaheed Marie Work Phone: [facility]-Emergency Department Work Phone: Start: 10-13-2023 End: 10-13-[address] Shaheed Marie Work Phone: [facility] Work Phone: Start: 10-11-2023 End: 10-11-2023 Emergency department patient visit Dr. Shaheed Marie Work Phone: [facility]-Emergency Department Work Phone: Start: 08-18-2023 End: 08-18-[address] Shaheed Marie Work Phone: [facility] Work Phone: Start: 08-18-2023 End: 08-18-[address] Shaheed Marie Work Phone: [facility]-Outpatient Breast Imaging Work Phone: Start: 07-26-2023 End: 07-26-[address] Shaheed Marie Work Phone: [facility]-Laboratory, Specimen Work Phone: Start: 07-26-2023 End: 07-26-[address] Shaheed Marie Work Phone: [facility] Work Phone: Start: 07-26-2023 End: 07-26-[address] Shaheed Marie Work Phone: [facility] Work Phone: Start: 03-26-2023 End: 03-26-2023 Patient encounter procedure Elly Fontanez APRN.CNP Work Phone: [facility] Comment on above: Bronchitis (Primary Dx); Gastroesophageal reflux disease with esophagitis without hemorrhage Start: 11-18-2022 Non-patient / Non-visit Dr. Lana Marie Work Phone: [facility] Start: 11-17-2022 End: 11-17-[address] Shaheed Marie Work Phone: [facility] Work Phone: Start: 11-17-2022 End: 11-17-[address] Shaheed Marie Work Phone: [facility]-Pulmonary Services/Neurology Start: 11-11-2022 Non-patient / Non-visit Dr. Lana Marie Work Phone: [facility] Start: 11-11-2022 End: 11-11-2022 Admission to same day surgery center Dr. Shaheed Marie Work Phone: [facility]-Endoscopy Start: 10-13-2022 End: 10-13-[address] Shaheed Marie Work Phone: [facility] Start: 09-30-2022 End: 09-30-2022 Emergency department patient visit Dr. Shaheed Marie Work Phone: [facility]-Emergency Department Start: 09-22-2022 Non-patient / Non-visit Dr. Lana Marie Work Phone: [facility] Start: 08-05-2022 End: 08-05-[address] Shaheed Marie Work Phone: [facility]-Laboratory, Specimen Start: 08-05-2022 End: 08-05-[address] Shaheed Marie Work Phone: [facility] Start: 07-17-2022 End: 07-17-[address] Shaheed Marie Work Phone: [facility] Start: 07-15-2022 End: 07-15-[address] Shaheed Marie Work Phone: [facility] Work Phone: Start: 07-15-2022 End: 07-15-[address] Shaheed Marie Work Phone: [facility]-Outpatient Breast Imaging Start: 07-13-2022 End: 07-13-[address] Shaheed Marie Work Phone: [facility] Start: 06-08-2022 End: 06-08-[address] 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 Shaheed Marie MD Work Phone: Comment on above: Test not performed Start: 06-04-2025 Serologic test for herpes simplex Dr. Lana Marie MD Work Phone: Comment on above: Please note reference interval change* *HSV-1 IgG testing performed using the [employer] HSV-1IgG assay. Start: 06-04-2025 Serologic test for syphilis Dr. Coby Marie MD Work Phone: Start: 05-09-2025 Radex hand minimum 3 views Buddy King ANA PAULA Work Phone: Start: 12-19-2023 Plain x-ray of elbow Dr. Shaheed Marie Work Phone: Start: 12-07-[address] Shaheed Marie Work Phone: Start: 10-11-2023 Plain chest X-ray Dr. Shaheed Marie Work Phone: Start: 08-18-[address] Shaheed Marie Work Phone: Start: 08-18-[address] Shaheed Marie Work Phone: Start: 09-30-2022 Plain chest X-ray Dr. Shaheed Marie Work Phone: Start: 07-15-[address] Shaheed Marie Work Phone: Start: 07-15-[address] Shaheed Marie Work Phone: Start: 02-16-2016 Mammography Elly Fontanez MANAGER [employer]ARAGE.ADULT SERVICES LIBRARIAN Work Phone: Start: 02-22-2012 Lipid 1996 panel - Serum or Plasma Buddy Blankenship MANAGER [employer].ADULT SERVICES LIBRARIAN Work Phone: Cytopathology proced ure, preparation of smear, genital source Dr. Shaheed Marie Work Phone: H/O: hysterectomy H/O: hysterectomy Dr. Adriana Marie Work Phone: History of tonsillectomy Hx of tonsillect clark Dr. Shaheed Marie Work Phone: Investigation of tra nsfusion reaction Dr. Shaheed Marie Work Phone: Urine culture Dr. Shaheed Marie Work Phone: Plan of Treatment Date Care Activity Detail Author Start: 06-10-2025 [facility]enza [facility] Start: 06-04-2025 Hepatitis C virus RNA assay [facility] Start: 06-04-2025 Serologic test for syphilis [facility] Start: 06-04-2025 [facility] Start: 06-04-2025 Chlamydia deoxyribonucleic acid detection [facility] Start: 02-28-2025 [facility] Start: 2024 Pneumococcal Vaccine: 50+ (1 of 1 - PCV) Pneumococcal Vaccine: 50+ (1 of 1 - PCV) [facility] Start: 2024 Shingrix Vaccine (1 of 2) Shingrix Vaccine (1 of 2) [facility] Start: 12-19-2023 Patient referral [facility] Work Phone: Start: 12-07-2023 Egd removal tumor polyp/other lesion snare tech EGD REMOVE LESION SNARE [facility] Start: 12-07-2023 Egd transoral biopsy single/multiple EGD BIOPSY SINGLE/MULTIPLE [facility] Start: 12-07-2023 Patient discharge [facility] Start: 10-17-2023 [facility] Start: 10-11-2023 End: 10-11-2023 [facility] Start: 10-11-2023 [facility] Start: 08-18-2023 Digital breast tomosynthesis bilateral BREAST TOMOSYNTHESIS BI [facility] Start: 07-26-2023 Iadna chlamydia trachomatis amplified probe tq CHLMYD TRACH DNA AMP PROBE [facility] Start: 07-26-2023 Iadna neisseria gonorrhoeae amplified probe tq N.GONORRHOEAE DNA AMP PROB [facility] Start: 06-10-2023 Influenza vaccination INFLUENZA (Season Ended) [facility] Start: 11-11-2022 Colonoscopy w/biopsy single/multiple COLONOSCOPY AND BIOPSY [facility] Start: 11-11-2022 Patient discharge [facility] Start: 10-10-2022 DEPRESSION ASSESSMENT DEPRESSION ASSESSMENT [facility] Start: 09-30-2022 [facility] Start: 07-15-2022 Digital breast tomosynthesis unilateral [facility] Work Phone: Start: 2019 COLOGUARD (FIT-DNA) COLOGUARD (FIT-DNA) [facility] Start: 2019 Colonoscopy COLONOSCOPY [facility] Start: 2019 COLORECTAL CANCER SCREENING COLORECTAL CANCER SCREENING [facility] Start: [address] COLONOGRAPHY [facility] Start: 2019 DIABETES SCREEN DIABETES SCREEN [facility] Start: 2019 Diabetes Screening Diabetes Screening [facility] Start: 2019 FECAL OCCULT BLOOD FECAL OCCULT BLOOD [facility] Start: 2019 Lipid panel [facility] [facility] Start: 2019 LIPID SCREEN LIPID SCREEN [facility] Start: 2019 Screening for malignant neoplasm of colon [facility] Start: 2019 SIGMOIDOSCOPY SIGMOIDOSCOPY [facility] Start: 02-15-2017 Mammography MAMMOGRAM [facility] Start: 02-15-2017 Screening for malignant neoplasm of breast Mammogram Screening [facility] Start: 1993 Hepatitis B Vaccine (1 of 3 - 19+ 3-dose series) Hepatitis B Vaccine (1 of 3 - 19+ 3-dose series) [facility] Start: 1992 Depression Screening Depression Screening [facility] Start: 1985 Urine microalbumin profile [facility] Start: 03-17-1975 COVID-19 VACCINE (#1) COVID-19 VACCINE (#1) [facility] Start: 1974 HEPATITIS B (1 of 3 - 3-dose series) HEPATITIS B (1 of 3 - 3-dose series) [facility] Chlamydia deoxyribon ucleic acid detection [facility] Colonoscopy [facility] Work Phone: Colonoscopy [facility] Helicobacter pylori Ag [Presence] in Stool by Immunoassay [facility] Measurement of Human herpesvirus 2 antibody [facility] MG Breast - bilatera l Diagnostic [facility] MR Lower Extremity [facility] Neisseria gonorrhoea e rRNA [Presence] in Unspecified specimen by ALBERTO with probe detection [facility] Patient Education [facility] Work Phone: Patient referral [facility] Work Phone: PCR for Hepatitis C [facility] PCR test for Chlamyd ia trachomatis [facility] Serologic test for h erpes simplex [facility] US Breast limited [facility] Immunizations Immunization Date Immunization Notes Care Provider Aldair coles 03-19-1980 DTP-Haemophilus influenzae type b conjugate vaccine Elly Fontanez APRN.ADULT SERVICES LIBRARIAN Work Phone: [facility] Work Phone: 03-19-1980 trivalent poliovirus vaccine, live, oral Elly Fontanez APRN.ADULT SERVICES LIBRARIAN Work Phone: [facility] Work Phone: 05-18-1976 DTP-Haemophilus influenzae type b conjugate vaccine Elly Fontanez APRN.ADULT SERVICES LIBRARIAN Work Phone: [facility] Work Phone: 11-01-1975 measles and rubella virus vaccine Elly Fontanez APRN.ADULT SERVICES LIBRARIAN Work Phone: [facility] Work Phone: 07-09-1975 DTP-Haemophilus influenzae type b conjugate vaccine Elly Tannhof MANAGER [employer]AR[employer].ADULT SERVICES LIBRARIAN Work Phone: [facility] Work Phone: 05-18-1975 trivalent poliovirus vaccine, live, oral Elly Tannhof MANAGER [employer]ARAGE.ADULT SERVICES LIBRARIAN Work Phone: [facility] Work Phone: 03-07-1975 DTP-Haemophilus influenzae type b conjugate vaccine Elly Tannhof MANAGER [employer]ARAGE.ADULT SERVICES LIBRARIAN Work Phone: [facility] Work Phone: 03-07-1975 trivalent poliovirus vaccine, live, oral Elly Tannhof MANAGER [employer]ARAGE.ADULT SERVICES LIBRARIAN Work Phone: [facility] Work Phone: 1974 DTP-Haemophilus influenzae type b conjugate vaccine Elly Tannhof MANAGER [employer]AGE.ADULT SERVICES LIBRARIAN Work Phone: [facility] Work Phone: 1974 trivalent poliovirus vaccine, live, oral Elly Tannhof MANAGER [employer].[facility] Work Phone: [facility] Work Phone: 1974 trivalent poliovirus vaccine, live, oral Elly Tannhof MANAGER GARAGE.[facility] Work Phone: [facility] Work Phone: Payers Date Payer Category Payer Medicaid [id number] 2022 Medicaid [id number] 2017 Self-pay Unknown [id number] Unknown [facility] PLAN [id number] Unknown [id number] 2.16.8 [id number] Unknown [id number] 2.16.8 [id number] Unknown [id number] 2.16.8 [id number] Unknown [id number] 2.16.8 [id number] Unknown [id number] 2.16.8 [id number] Unknown [id number] 2.16.8 [id number] Unknown [id number] 2.16.8 40.1.382026.3.579.2.462 Unknown [id number] 2.16.8 40.1.491804.3.579.2.462 Unknown [id number] 2.16.8 40.1.674255.3.579.2.462 Unknown [id number] 2.16.8 40.1.741476.3.579.2.462 Unknown [id number] 2.16.8 40.1.443872.3.579.2.462 Unknown [id number] 2.16.8 [id number] Unknown [id number] 2.16.8 40.1.715642.3.579.2.462 Unknown [id number] 2.16.8 40.1.489397.3.579.2.462 Unknown [id number] 2.16.8 [id number] Unknown [id number] 2.16.8 [id number] Unknown [id number] 2.16.8 [id number] Unknown [id number] 2.16.8 [id number] Social History Date Type Detail Facility Start: 07-17-2022 End: 12-21-2023 Tobacco smoking status NHIS Unknown if ever smoked [facility] Start: 05-12-2020 None [facility] Start: 09-19-2018 With Family [facility] Start: 05-22-2020 Non-smoker [facility] Start: 1975 Sex Assigned At Female [facility] Start: 07-01-2011 End: 02-28-2025 Tobacco smoking status NHIS Never smoked tobacco [facility] Start: 07-01-2011 Tobacco use and exposure Smokeless tobacco non-user [facility] Start: 03-26-2023 End: 05-09-2025 Alcohol intake Current drinker of alcohol (finding) [facility] Start: 03-26-2023 End: 05-09-2025 Alcohol intake [facility] Start: 1975 Sex Assigned At Not on file [facility] Start: 05-09-2025 Tobacco use panel [facility] NEGATED: Highlighted row [facility] Medical Equipment Procedure Code Equipment Code Equipment Origin al Text Equipment Identifier Dates MESH,PROLENE [id number] FDA Start: 09-18-2018 MESH,PROLENE [id number] FDA Start: 09-18-2018 MESH,PROLENE [id number] FDA Start: 09-18-2018 MESH,PROLENE [id number] FDA Start: 09-18-2018 MESH,PROLENE [id number] FDA Start: 09-18-2018 MESH,PROLENE [id number] FDA Start: 09-18-2018 MESH,PROLENE [id number] FDA Start: 09-18-2018 MESH,PROLENE [id number] FDA Start: 09-18-2018 MESH,PROLENE [id number] FDA Start: 09-18-2018 MESH,PROLENE [id number] FDA Start: 09-18-2018 MESH,PROLENE [id number] FDA Start: 09-18-2018 MESH,PROLENE [id number] FDA Start: 09-18-2018 MESH,PROLENE [id number] FDA Start: 09-18-2018 Goals Date Patient Goal Desired Activity /State Functional Status Date Assessment Result Facility 11-08-2014 Are you deaf, or do you have serious difficulty hearing No 11/08/2014 1:29 PM Esmer Blake Ma [facility] 11-08-2014 Are you blind, or do you have serious difficulty seeing, even when wearing glasses No 11/08/2014 1:29 PM Esmer Blake Ma [facility] 11-08-2014 Do you have serious difficulty walking or climbing stairs No 11/08/2014 1:29 PM Esmer Blake Ma [facility] 11-08-2014 Do you have difficul ty dressing or bathing No 11/08/2014 1:29 PM Esmer Blake Ma [facility] 11-08-2014 Because of a physica l, mental, or emotional condition, do you have difficulty doing errands alone such as visiting a physician's office or shopping No 11/08/2014 1:29 PM Esmer Blake Ma [facility] Mental Status Date Assessment Result Facility 12-07-2023 Cognitive function Voice/Name [facility] Work Phone: 10-17-2023 Cognitive function Level Of Cons ciousness Awake;Alert;Appropriate;Fol lows Commands [facility] Work Phone: 10-11-2023 Cognitive function Level Of Cons ciousness Awake;Alert;Appropriate;Fol lows Commands [facility] Work Phone: 11-11-2022 Cognitive function Voice/Name [facility] Work Phone: 09-30-2022 Cognitive function Level Of Cons ciousness Awake;Alert;Appropriate;Fol lows Commands [facility] Work Phone: 11-08-2014 Because of a physica l, mental, or emotional condition, do you have serious difficulty concentrating, remembering, or making decisions No 11/08/2014 1:29 PM Esmer Blake Ma [facility] Clinical Notes 12-06-2006 to 06-04-2025 Note Date & Type Note Facility 06-04-2025 Progress note [facility] 06-04-2025 Progress note Note Date/Time June 04, 2025 3:37pm [address], [address] [place] [address] OFFICE VISIT Date of Service: 06/04/25 MR#: [id number] Acct: [id number] Name: HORTENCIA MARTE Rep #: [id number] : 1975 Provider: MARVIN Borrego Age/Sex: 49/F Location: [facility] Status: Signed Intake Vital Signs 05/14/25 15:09 06/04/25 15:19 06/04/25 15:20 Height 5 ft 4 in 5 ft 4 in 5 ft 4 in Weight: 146 lb 142 lb 4 oz BMI 25.0 24.4 BP 122/84 H 132/90 H Blood Pressure Location Lt brachial Position Sitting Respiration 16 Pulse 68 Pulse Source Monitor Temp 97.6 F L Pulse Oximetry (%) 96 Oxygen Delivery Method room air 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 [employer]icated [employer] Required: No Is patient in pain?: No Allergies No Known Allergies Allergy (Verified 06/04/25 15:19) Medications ?Medication ?Instructions ?Recorded ?Confirmed ?Type blood pressure monitor #1 ea 09/08/21 06/04/25 Rx valacyclovir 1 gram tablet 1,000 mg PO DAILY PRN cold sores 10/11/24 06/04/25 Rx (Valtrex) #60 tabs albuterol sulfate 90 mcg/actuation 2 puff inhalation Q 4H PRN cough 05/14/25 06/04/25 Rx aerosol inhaler #17 grams cyclobenzaprine 10 mg tablet 10 mg PO BID PRN muscle s pasm #60 05/14/25 06/04/25 Rx tabs esomeprazole magnesium 40 mg 40 mg PO BID #60 caps 03/0306/04/25 Rx capsule,delayed release gabapentin 100 mg capsule 100 mg PO BID PRN pain 30 da ys #60 05/14/25 06/04/25 Rx caps lidocaine 5 % topical patch 1 patch topical DAILY 5 da ys #5 ea 05/14/25 06/04/25 Rx (Lidoderm) meloxicam 15 mg tablet 15 mg PO QDAY PRN pain #30 t abs 05/14/25 06/04/25 Rx salicylic acid 17 % topical liquid 1 applic topical QH S #9.8 mL 05/14/25 06/04/25 Rx (Cheriton-Callus Remover) Is last menstrual period known: No Post menopausal: Yes Patient : No : No PFSH Medical History Lumbar radiculopathy, right Right shoulder pain Right elbow pain History of cold sores Anxiety Marijuana use Alcohol use Low iron Easy bruising Back pain Migraine headache Difficulty swallowing History of diverticulitis Gastric reflux Non-smoker Asthma Shortness of breath on exertion Chronic cough Hypertension History of stress test Hypertension skin cancer removal Skin cancer GERD (gastroesophageal reflux disease) Hypertension Headache, migraine History of gout Carpal tunnel syndrome history of breast lump/cyst Anemia SOB (shortness of breath) Anxiety Diverticulitis Asthma Surgical History S/P hysterectomy S/P tonsillectomy Hx of inguinal hernia repair Hx of esophagogastroduodenoscopy History of hernia repair S/P Family History Father Heart disease COPD (chronic obstructive pulmonary disease) Asthma CVA (cerebral vascular accident) Colon polyps Sister Diabetes GERD (gastroesophageal reflux disease) Cancer Skin Cancer Social History household members: significant other, children and other number of children: 3 current occupational status: unemployed history of recent travel: No sexually active: Yes other: oldest child - Lili adopted Smoking Status: Never smoker alcohol intake: current alcohol intake frequency: a few times a week substance use type: marijuana caffeine: Yes what type of physical activity do you participate in: none frequency: does not exercise seatbelt use: always do you feel safe at home: Yes additional social history: seperated History 2 Elective abortions Hx Para 2 Spontaneous abortions Hx # Term Pregnancies Ectopic pregnancies Hx # Pregnancies Multiple births # of living children 2 Past Pregnancies Del. Date Name GA/Weeks Outcome Route Bth Weight Gen Labor Lgth Anesthesia Del Locatn Provider FOB Unknown 07/27/98 Elly Unknown 08/19/00 John HPI Encounter for routine gynecological examination Details: HORTENCIA MARTE is a 49 year old who presents for annual exam. Wanting STD screen. Just reconciled with and he had other partners. Note elevated BP today. States feels it is up do to rushing for work. Seen by PCP 3 weeks ago and was ok. Takes at home and is normal. Denies headaches. Recent weight loss 30# in 4 months-now working at [employer] and getting over 13,000 steps a day andstop drinking all pop. Last PAP: hyst History of abnormal PAP: no Last mammogram: 10/2024 History of abnormal mammogram: benign bx Colon cancer screenin Other preventative health care screenings: Bernice Bullard Female Reproductive History Questions: sexually active: Yes, dyspareunia: No and PCB: No ROS Const Constitutional: Denies fatigue, weight gain or weight loss Cardio Card: Denies chest pain Resp Resp: Denies cough or dyspnea on exertion GI GI: Denies abdominal pain, bloating, change in stool character, constipation or vomiting : Reports as per HPI; Denies difficulty voiding, pelvic pain, urinary frequency, urinary incontinence,urinary urgency, vaginal discharge or vaginal pruritus Exam Const General: cooperative, healthy appearing, no acute distress and well developed Orientation: alert, oriented to person and oriented to place HENOH Head: normal to inspection Neck Neck: normal visual inspection Thyroid: thyroid normal Lymphatic: no lymphadenopathy noted Chest Breast inspection: normal inspection of the breasts and normal inspection of theaxillae Breast palpation: normal palpation of the breasts, normal palpation of the axillae and no axillary lymphadenopathy Resp Effort & Inspection: normal respiratory effort GI Palpation: soft, no masses and nontender Rectal Exam: deferred External Female Exam: normal external appearance and normal appearance of the urethra Urethra: normal appearance of the urethra and normal palpation Speculum Exam - Vagina: normal appearance of the vagina and normal vaginal discharge Speculum Exam - Cervix: absent Bimanual Exam- Vagina & Uterus: normal bimanual exam and uterus absent Bimanual Exam- Adnexa, other: normal adnexae, no masses, normal and non-tender Pelvic Support: normal Neuro General: patient alert and patient oriented x3 Psych Affect: normal affect Coding Level of Care Code Off vis,est,prev 40-64yrs Diagnoses Encounter for gynecological examination with abnormal finding Z01.411 Gynecological examination findings: abnormal findings PRESENT Possible exposure to STD Z20.2 Primary hypertension I10 Hypertension type: primary hypertension Assessment and Plan Assessment and Plan (1) Encounter for routine gynecological examination: Qualifiers: Gynecological examination findings: abnormal findings PRESENT QualifiedCode(s): Z01.411 - Encounter for gynecological examination (general) (routine) with abnormal findings (2) Possible exposure to STD: (3) Hypertension: Status: Chronic Qualifiers: Hypertension type: primary hypertension Qualified Code(s): I10 - Essential (primary) hypertension Orders: Orders HSV 1&2 IgG Today Z20.2 - Contact with and (suspected) exposure to infections with a predominantly sexual mode of transmission HIV Today Z20.2 - Contact with and (suspected) exposure to infections with a predominantly sexual mode of transmission Syphilis Antibodies Today Z20.2 - Contact with and (suspected) exposure to infections with a predominantly sexual mode of transmission Chlamydia/GC ALBERTO aptima Today Z20.2 - Contact with and (suspected) exposure to infections with a predominantly sexual mode of transmission Hepatitis C,RNA PCR Viral Load Today Z20.2 - Contact with and (suspected) exposure to infections with a predominantly sexual mode of transmission Plan Completed breast and pelvic exam Reviewed diet and exercise Pap NA Mammogram ordered breast self exam encouraged monthly Will call to be seen by PCP within 1 week. If headaches occur, go to ED Colonoscopy 2022 Alfredito trich, GCC and serum STD labs-call positives RTO 1 year, prn with problems Ketty Borrego ADULT SERVICES LIBRARIAN 06/04/25 [id number] <Electronically signed by Ketty webb SOLAR HOT WATER INSTALLER SOLAR HOT WATER INSTALLER-C> Date _ Ketty Borrego SOLAR HOT WATER INSTALLER SOLAR HOT WATER INSTALLER-C Cosigner Signature: Date (if applicable) CC: ~ [place] [facility] Work Phone: 1(148) 148-246308-05-2025 Evaluation note* Diagnosis Onset Date Resolution Status Admit Date Back pain chronic May 14 2:43pm Pain of right thumb resolved Augus t 2024 2:43pm Hypertension chronic June 04, 2025 3:02pm Possible exposure to STD noneactive June 04, 2025 3:02pm Encounter for routine gynecological examination noneactive June 04, 2025 3:02pm [facility] Work Phone: 1(975) 572-176308-05-2025 Evaluation note* Diagnosis Onset Date Resolution Status Admit Date Back pain chronic May 14 2:43pm Pain of right thumb resolved Mayus 2024 2:43pm Hypertension chronic June 04, 2025 3:02pm Possible exposure to STD noneactive June 04, 2025 3:02pm Encounter for routine gynecological examination noneactive June 04, 2025 3:02pm Thumb tendonitis acute May 112024 3:04pm [facility] Work Phone: 1(353) 839-502708-05-2025 Evaluation note* Diagnosis Onset Date Resolution Status Admit Date Back pain chronic May 14 2:43pm Pain of right thumb resolved Mayus t 2024 2:43pm Hypertension chronic June 04, 2025 3:02pm Possible exposure to STD noneactive June 04, 2025 3:02pm Encounter for routine gynecological examination noneactive June 04, 2025 3:02pm [facility] arthritis acute May 3:04pm Thumb tendonitis acute May 112024 3:04pm Trigger thumb of right hand acute June 05, 2025 3:04pm [facility] Work Phone: 1(245) 355-622907-31-2025 History of Present illness Narrative* Giana Mcgovern RT(R) - 05/09/2025 3:30 PM EDT Radiology Service Progress Note PATIENT NAME: Hortencia Marte DATE OF SERVICE: May 09, 2025 TIME: 3:26 PM PATIENT IDENTITY VERIFICATION COMPLETED USING TWO (2) IDENTIFIERS: Name and Date of confirmedby patient verbally. FALL SCREENING: Has the patient had 2 falls in the last year or 1 fall with injury or currently using an Ambulatory Assistive Device (Walker, Cane, Wheelchair, Crutches, etc.)? No PATIENT GENDER DATA: Assigned female at . status: : No status:NO. PATIENT RELEVANT IMPLANT DATA REVIEWED: Yes PATIENT PRESENTS WITH AN IMPLANTABLE OR ATTACHED MEDICAL LABORATORY SCIENTIST: No RADIOLOGY DEPARTMENT: General X-ray: Exam(s) Completed: Upper Extremity X- Ray(s): Hand, right PERIPHERAL IV DATA: Not applicable SIGNED BY: RT Genesis(Mary) May 09, 2025 3:26 PM [facility] NoteHNO ID: [id number] Author: GIANA MCGOVERN RT(R) Service: ? Author Type: Electrophysiology Technician Type: Progress Notes Filed: 05/09/2025 15:55 Note Text: Radiology Service Progress Note PATIENT NAME: Hortencia Marte DATE OF SERVICE: May 09, 2025 TIME: 3:26 PM PATIENT IDENTITY VERIFICATION COMPLETED USING TWO (2) IDENTIFIERS: Name and Date of confirmed by patient verbally. FALL SCREENING: Has the patient had 2 falls in the last year or 1 fall with injury or currently using an Ambulatory Assistive Device (Walker, Cane, Wheelchair, Crutches, etc.)? No PATIENT GENDER DATA: Assigned female at . status: : No status: NO. PATIENT RELEVANT IMPLANT DATA REVIEWED: Yes PATIENT PRESENTS WITH AN IMPLANTABLE OR ATTACHED MEDICAL LABORATORY SCIENTIST: No RADIOLOGY DEPARTMENT: General X-ray: Exam(s) Completed: Upper Extremity X-Ray(s): Hand, right PERIPHERAL IV DATA: Not applicable SIGNED BY: RT Genesis(Mary) May 09, 2025 3:26 [facility]07-31-2025 NoteHNO ID: [id number] Author: BUDDY BLANKENSHIP APRN.ADULT SERVICES LIBRARIAN Service: ? Author Type: Nurse Practitioner Type: Progress Notes Filed: 05/09/2025 16:30 Note Text: [facility] Subjective HPI HPI Hortencia Marte is a 49 year old female who presents today for CC of right hand pain, limited rom. This started 1 month ago. Has tried otc medication for relief. Risk factors started new job, heavy hand/wrist usage. Denies injury. .Patient presents with: Hand Pain: R hand pain x1 month, denies injury, recently started new job and lifts alot PAST MEDICAL HISTORY Diagnosis Date Atypical nevus [...] HYSTERECTOMY 08/2011 LSO; menorrhagia/dysmenorrhea ALLERGIES Penicillins MEDICATIONS pantoprazole DR (PROTONIX) 40 mg tablet Take 1 tablet by mouth daily before breakfast. Take on empty stomach, 1/2 hr before meal. clotrimazole-betamethasone (LOTRISONE) cream Apply 1 application to affected area twice daily. (Patient not taking: Reported on 03/26/2023) pantoprazole DR (PROTONIX) 40 mg tablet Take 1 tablet by mouth daily before breakfast. Take on empty stomach, 1/2 hr before meal. (Patient not taking: Reported on 03/26/2023) PARoxetine (PAXIL) 20 mg tablet Take 1 tablet by mouth once daily. fluticasone 50 mcg/actuation nasal spray Use 2 Sprays in each nostril once daily. Rinse mouth after use. FAMILY HISTORY Problem Relation Age of Onset [...] Substance Use Topics Alcohol use: Yes Alcohol/week: 1.0 standard drink of alcohol Types: 1 Glasses of Wine (5oz) per week Comment: Occasionally Drug use: No Review of Systems Objective BP 154/100 Pulse 70 Temp 36.7 ?C (98 ?F) Resp 18 Wt 65.7 kg (144 lb 13.5 oz) LMP 07/27/2011 SpO2 100% BMI 24.48 kg/m? Physical Exam Constitutional: General: She is not in acute distress. Appearance: She is not toxic-appearing or diaphoretic. HENT: Head: Normocephalic and atraumatic. Pulmonary: Effort: Pulmonary effort is normal. No accessory muscle usage or respiratory distress. Musculoskeletal: Hands: Neurological: Mental Status: She is alert and oriented to person, place, and time. {ASSESSMENT/PLAN: 1. Pain of right hand - ICD9: 729.5, ICD10: M79.641 -no bony abnormality noted on xray -Rest, Ice, Compression, Elevation discussed -discussed use of ibuprofen -follow up with primary care if symptoms persist/worsen in 10-14 days - XR HAND GENERAL 3V PA/LAT/OBL RIGHT IMPRESSION IMPRESSION: Unremarkable right hand x-ray. Dictated by : MD Buddy SMITH APRN.CNP History and Record Review External record(s) reviewed: prior outpatient record. Disposition The patient was [facility]. [facility] History of Present illness Narrative* Buddy Blankenship APRN.WARREN - 05/09/2025 3:15 PM EDT Images from the original note were not included. [facility] Subjective HPI HPI Hortencia Marte is a 49 year old female who presents today for CC of right hand pain, limited rom. This started 1 month ago. Has tried otc medication for relief. Risk factors started new job, heavy hand/wrist usage. Denies injury. .Patient presents with: Hand Pain: R hand pain x1 month, denies injury, recently started new job and lifts alot PAST MEDICAL HISTORY Diagnosis Date Atypical nevus [...] HYSTERECTOMY 08/2011 LSO; menorrhagia/dysmenorrhea ALLERGIES Penicillins MEDICATIONS pantoprazole DR (PROTONIX) 40 mg tablet Take 1 tablet by mouth daily before breakfast. Take on empty stomach, 1/2 hr before meal. clotrimazole-betamethasone (LOTRISONE) cream Apply 1 application to affected area twice daily. (Patient not taking: Reported on 03/26/2023) pantoprazole DR (PROTONIX) 40 mg tablet Take 1 tablet by mouth daily before breakfast. Take on empty stomach, 1/2 hr before meal. (Patient not taking: Reported on 03/26/2023) PARoxetine (PAXIL) 20 mg tablet Take 1 tablet by mouth once daily. fluticasone 50 mcg/actuation nasal spray Use 2 Sprays in each nostril once daily. Rinse mouth afteruse. FAMILY HISTORY Problem Relation Age of Onset [...] Substance Use Topics Alcohol use: Yes Alcohol/week: 1.0 standard drink of alcohol Types: 1 Glasses of Wine (5oz) per week Comment: Occasionally Drug use: No Review of Systems Objective BP 154/100 Pulse 70 Temp 36.7 C (98 F) Resp 18 Wt 65.7 kg (144 lb 13.5 oz) LMP 07/27/2011 SpO2 100% BMI 24.48 kg/m Physical Exam Constitutional: General: She is not in acute distress. Appearance: She is not toxic-appearing or diaphoretic. HENT: Head: Normocephalic and atraumatic. Pulmonary: Effort: Pulmonary effort is normal. No accessory muscle usage or respiratory distress. Musculoskeletal: Hands: Neurological: Mental Status: She is alert and oriented to person, place, and time. {ASSESSMENT/PLAN: 1. Pain of right hand - ICD9: 729.5, ICD10: M79.641 -no bony abnormality noted on xray -Rest, Ice, Compression, Elevation discussed -discussed use of ibuprofen -follow up with primary care if symptoms persist/worsen in 10-14 days - XR HAND GENERAL 3V PA/LAT/OBL RIGHT IMPRESSION IMPRESSION: Unremarkable right hand x-ray. Dictated by : MD Buddy SMITH APRN.WARREN History and Record Review External record(s) reviewed: prior outpatient record. Disposition The patient was discharged. [facility] Medical Records Department [address] [place] [address] History Physical Exam 12/04/24 0906 MR#: [id number] Acct: [id number] Name: HORTENCIA MARTE Rep #: [id number] : 1975 49 From: Filiberto Grimaldo MD PCP: Dr. Shaheed Marie MD Status:[facility] Location: [place] [address] History and Physical Date of Admission: 12/04/24 Intake Vital Signs 10/19/2508:45 11/12/2507:57 Height 5 ft 4 in 5 ft 4 in Weight: 162 lb BMI 27.8 BP 150/100 H Blood Pressure Location Rt brachial Position Sitting Respiration 18 Pulse 100 Pulse Source Monitor Pulse Oximetry (%) 100 Oxygen Delivery Method room air Intake Visit Reasons: DISCUSS EGD W DILATATION Chief Complaint: Difficulty swallowing food discuss EGD with dilatation Is patient in pain?: No Allergies No Known Allergies Allergy (Verified 11/12/24 09:01) Medications ???Medication ???Instructions ???Recorded ???Confirmed ???Type blood pressure monitor #1 ea 09/08/21 11/12/24 Rx sumatriptan succinate 25 mg tablet 25 mg PO PRN PRN MIGRAINES 11/08/22 11/12/24 Histo ry (Imitrex) albuterol sulfate 90 mcg/actuation 2 puff inhalation Q4H PRN cough 06/10/23 11/12/24 Rx aerosol inhaler #17 grams sucralfate 1 gram tablet 1 g PO QACHS #120 tabs 11/01/23 11/12/24 Rx esomeprazole magnesium 40 mg 40 mg PO BID #60 caps 12/07/23 11/12/24 Rx capsule,delayed release gabapentin 100 mg capsule 100 mg PO BID #60 caps 12/19/23 11/12/24 Rx lidocaine 5 % topical patch 1 patch topical DAILY 5 days #5 ea 05/10/24 Rx (Lidoderm) valacyclovir 1 gram tablet 1,000 mg PO DAILY PRN cold sores 10/11/24 11/12/24 Rx (Valtrex) #60 tabs cyclobenzaprine 10 mg tablet 10 mg PO BID PRN muscle spasm #60 10/19/24 5 Rx tabs PFSH Medical History (Updated 11/12/24 @ 08:56 by Margot García) Lumbar radiculopathy, right Right shoulder pain Right elbow pain History of cold sores Anxiety Marijuana use Alcohol use Low iron Easy bruising Back pain Migraine headache Difficulty swallowing History of diverticulitis Gastric reflux Non-smoker Asthma Shortness of breath on exertion Chronic cough Hypertension History of stress test Hypertension skin cancer removal Skin cancer GERD (gastroesophageal reflux disease) Hypertension Headache, migraine History of gout Carpal tunnel syndrome history of breast lump/cyst Anemia SOB (shortness of breath) Anxiety Diverticulitis Asthma Surgical History Hx of inguinal hernia repair Hx of esophagogastroduodenoscopy History of hernia repair S/P Hx of tonsillectomy H/O: hysterectomy Family History Father Heart disease COPD (chronic obstructive pulmonary disease) Asthma CVA (cerebral vascular accident) Colon polypsSister Diabetes GERD (gastroesophageal reflux disease) Cancer Skin Cancer Social History household members: significant other, children and other number of children: 3 current occupational status: unemployed history of recent travel: No sexually active: Yes other: oldest child - Lili adopted Smoking Status: Never smoker alcohol intake: current alcohol intake frequency: a few times a week substance use type: marijuana caffeine: Yes what type of physical activity do you participate in: none frequency: does not exercise seatbelt use: always do you feel safe at home: Yes additional social history: seperated HPI HPI HPI: Patient is a 49-year-old female who has dysphagia. She was diagnosed with this a year ago and was diagnosed with eosinophilic esophagitis. She has not seen an minister yet. She reports the food is still getting stuck especially out at restaurants. She had a barium swallow that showed trapping of the barium tablet. This was trapped at the GE junction. He is on a PPI. ROS General General: Yes fatigue; No weight change, appetite, colon cancer, breast cancer or weakness HEENT HEENT: Yes difficulty swallowing and swollen glands; No eye injury, eye surgery or hoarseness Endo Endocrine: No thyroid disease, diabetes mellitus, thyroid cancer, Hair loss, heat intolerance or cold intolerance Skin Skin: No rash or changing moles Musc Musculoskeletal: Yes back problems; No arthritis, rheumatoid arthritis, gout or joint pain Cardio Cardiovascular: No murmur, pacemaker, heart disease, atrial fibrillation, high blood pressure, heart attack, heart stent, palpitations, shortness of breat with exertion or chest pain Psych Psychiatric: No depression, anxiety or hearing voices Resp Respiratory: Yes shortness of breath, No sleep apnea, Yes cough, No COPD, No asthma, No emphysema (more content not included)...[facility] 10-11-2023 Discharge summary Author Salvador Espinoza [facility] October 11, 2023 12:30pm Note Date/Time October 11, 2023 9: 10am [facility] Medical Records Department [address] [place] [address] Emergency Department Summary 10/11/23 MR#: [id number] Acct: [id number] Name: HORTENCIA MARTE Rep #:[id number] : 1975 48 From: Salvador Espinoza MD PCP: Dr. Shaheed Marie MD Status:R EG ER Location: ED HPI History of Present Illness Chief Complaint: Chest Pain Informant: patient Narrative Narrative: Patient presents to the emergency department for pain in her left chest that hasbeen there for 2 months. She states recently it started going into her left upper back. She states it feels like it is on the inside. It is there most of the time. Initially she thought it had something to do with her breast because it was just beneath it, so she saw her auxiliary plant operator and had both an ultrasound and a mammogram and they were both fine. She states sometimes when the pain gets worse it takes her breath away makes her little short of breath but the discomfort is nonpleuritic does not get worse when she moves. She states it tends to hurt the worst at night and in the morning. No exertional worsening. No history of blood clots no recent leg pain or swelling, no recent long travel prior to the onset of this, no recent hospitalizations or surgeries. She statesshe has a known history of reflux and she takes omeprazole 40 mg twice a day. She also takes a lot of ibuprofen and has basically been taking that or Aleve for this pain and has not tried anything else. PFSH PFSH Medical History Alcohol use Anemia Anxiety Anxiety Asthma Asthma Back pain Carpal tunnel syndrome Chronic cough Difficulty swallowing Diverticulitis Easy bruising Gastric reflux GERD (gastroesophageal reflux disease) Headache, migraine history of breast lump/cyst History of diverticulitis History of gout History of stress test Hypertension Hypertension Hypertension Low iron Marijuana use Migraine headache Non-smoker Shortness of breath on exertion Skin cancer skin cancer removal SOB (shortness of breath) Home Medications blood pressure monitor #1 ea 09/08/21 [Rx Last Taken Unknown] sumatriptan succinate 25 mg tablet (Imitrex) 25 mg PO PRN PRN MIGRAINES 11/08/22[History Last Taken Unknown] losartan 100 mg-hydrochlorothiazide 25 mg tablet 1 tab PO DAILY 11/11/22 [History Last Taken Unknown] albuterol sulfate 90 mcg/actuation aerosol inhaler 2 puff inhalation Q4H PRN cough #17 grams 06/10/23 [Rx Last Taken Unknown] ibuprofen 600 mg tablet 600 mg PO TID PRN pain #20 TABLETS 07/26/23 [Rx Last Taken Unknown] omeprazole 40 mg capsule,delayed release 40 mg PO BID #180 caps 07/26/23 [Rx Last Taken Unknown] Allergy/AdvReac Type Severity Reaction Status Date / Time No Known Allergies Allergy Verified 10/11/23 09:27 Family History Father Heart disease COPD (chronic obstructive pulmonary disease) Asthma CVA (cerebral vascular accident) Colon polyps Sister Diabetes GERD (gastroesophageal reflux disease) Cancer Skin Cancer Surgical History H/O: hysterectomy History of hernia repair Hx of esophagogastroduodenoscopy Hx of inguinal hernia repair Hx of tonsillectomy S/P Social History household members: significant other, children and other number of children: 3 current occupational status: unemployed history of recent travel: No sexually active: Yes other: oldest child - Lili adopted Smoking Status: Never smoker alcohol intake: current alcohol intake frequency: a few times a week substance use type: marijuana caffeine: Yes what type of physical activity do you participate in: none frequency: does not exercise seatbelt use: always do you feel safe at home: Yes additional social history: seperated ROS ROS ED Constitutional Constitutional ED: Denies chills or fever(s) Eyes Eyes: Denies change in vision or diplopia ENT ENT ED: Denies rhinorrhea or sore throat Cardiovascular Cardiovascular: Reports chest pain; Denies leg edema or palpitations Respiratory/Chest Respiratory/Chest: Denies cough or dyspnea on exertion Gastrointestinal Gastrointestinal: Denies abdominal pain, diarrhea, nausea or vomiting Genitourinary Genitourinary ED: Denies dysuria or hematuria Musculoskeletal Musculoskeletal: Reports back pain; Denies neck pain Integumentary Denies abscess or rash Neurologic Neurologic: Denies headache(s), paresthesias or weakness Psychiatric Psychiatric: Denies suicidal ideation or suicidal thoughts EXAM Physical Exam Const Vital Signs: 10/11/23 08:53 10/11/23 09:30 10/11/23 11:00 Temperature 97.1 F L Temperature Source Temporal Pulse Rate 94 66 Respiratory Rate 16 20 H Blood Pressure 166/117 H 162/102 H Blood Pressure Mean 133 122 Pulse Ox 99 99 Oxygen Delivery Method Room Air Room Air Positive well nourished and well developed General Appearance ED: well developed and NAD HEENT Reports moist mucous membranes normocephalic and atraumatic Eyes PERRL and EOMs intact bilaterally Neck full ROM and supple Chest Wall inspection of chest normal and palpation of chest normal Resp normal respiratory effort and clear to auscultation bilaterally Cardio regular rate, regular rhythm and no murmurs Rate: Negative for tachycardic Peripheral Pulses: pulses 2+ throughout GI non-distended GI Narrative: Mild left upper quadrant tenderness otherwise benign abdomen. No guarding or rebound. Auscultation: normoactive bowel sounds Palpation: soft Back/Spine no CVA tenderness General Back: other FROM Extremity normal to inspection General Extremety ED: Negative for edema, pulses abnormal or tenderness General Extremity: Negative for edema or pulses abnormal Neuro oriented x3, CN's II-XII intact bilaterally and no sensory deficits noted Sensorium / Orientation: awake and alert Motor Exam: strength 5/5 throughout Psych mental status grossly normal Skin no rashes or lesions noted and no wounds Heart Score History: Slightly/Non-Suspicious ECG: Normal Age: >45 - <65 years Risk Factors: 1 or 2 Risk Factors Troponin: </= Normal Limit Score: 2 MDM MDM MDM Narrative Medical decision making narrative: Patient's EKG is normal in my interpretation, and her initial troponin is in thesingle digits 5, well within normal limits. 2 view chest x-ray normal in my interpretation without signs of infiltrate, pneumothorax, widened mediastinum. I also did a D-dimer because of the unilateral inside nature of the discomfort, although technically she meets PERC criteria to rule out PE, the D-dimer is within normal limits, firmly ruling out PE in this context. She was asking for something for the pain, at this time I recommend trying treatment foresophageal discomfort. She declined this initially but after I talk to her moreabout it she was willing to try it because she said that the pain was getting worse. After, her pain was significantly better, and her second troponin returned single digits also well within normal limits. At this time she stable for discharge I recommend following up with her doctor or GI. She is already neel PPI which she should continue. Lab Data Attestation: I reviewed the patient's lab results. Labs: Laboratory Results - last 24 hr 10/11/23 10/11/23 09:10 11:50 WBC 5.9 RBC 5.08 Hgb 14.0 Hct 43.4 MCV 85.4 MCH 27.6 MCHC 32.3 RDW Std Deviation 38.3 RDW Coeff of [facility] 12.3 Plt Count 322 MPV 10.2 Immature Gran % (Auto) 0.500 Neut % (Auto) 62.5 Lymph % (Auto) 22.5 Crisp % (Auto) 8.3 Eos % (Auto) 5.4 H Baso % (Auto) 0.8 Absolute Neuts (auto) 3.7 Absolute Lymphs (auto) 1.33 Nucleated RBC % 0 D-Dimer Quant (PE/DVT) < 0.27 L Sodium 140 Potassium 3.7 Chloride 105 Carbon Dioxide 31.0 Anion Gap 4 L BUN 11 Creatinine 0.94 Estim Creat Clear Calc 59.89 Est GFR (MDRD) Af Amer 81 Est GFR (MDRD) Non-Af 67 BUN/Creatinine Ratio 11.7 Glucose 87 Calcium 9.2 Troponin I High Sens 5 6 Radiography Diagnostic Testing: Clinical Impression(s) from Imaging Studies Chest X-Ray 10/11/23 09:05 IMPRESSION: No interval change and no acute or active cardiopulmonary disease. Electronically Signed: Taye Pak MD at 9:28 EST , Rhythm Strip Rhythm Strip: Sinus Rhythm Rate: 94 Ectopy: None EKG Initial EKG: Attestation: I personally reviewed and interpreted this EKG as follows: Interpretation: Sinus Rhythm and No Acute Injury Pattern Comments: nml ekg Discharge Plan Triage Chief Complaint: Chest Pain ED Provider: Salvador Espinoza Dx/Rx/DC Orders Clinical Impression: Non-cardiac chest pain, GERD (gastroesophageal reflux disease) Instructions: ED Chest Pain, Noncardiac, ED GERD (Adult) Prescriptions: No Action ibuprofen 600 mg tablet 600 mg PO TID PRN (Reason: pain) Qty: 20 0RF omeprazole 40 mg capsule,delayed release(DR/EC) 40 mg PO BID Qty: 180 0RF sumatriptan succinate [Imitrex] 25 mg tablet 25 mg PO PRN PRN (Reason: MIGRAINES) losartan-hydrochlorothiazide 100-25 mg tablet 1 tab PO DAILY Patient Comments: TAKE 1 TABLET BY MOUTH EVERY DAY (DME) blood pressure monitor Kit See Rx Instructions .ROUTE .MEDSUPPLY Qty: 1 0RF Rx Instructions: Check blood pressure twice a day albuterol sulfate 90 mcg/actuation HFA aerosol inhaler 2 puff INHALATION Q4H PRN (Reason: cough) Qty: 17 3RF Rx Instructions: administer with spacer Primary Care Provider: Shaheed Marie Referrals: Shaheed Marie MD [Primary Care Provider] - As soon as possible Activity Restrictions/Additional Instructions: Continue your Nexium or Prilosec at least once daily, consider trying a 10-day course of twice-daily dosing and follow-up with your doctor, if this does not help you may need to be referred to gastroenterology for a scope. Disposition Disposition: Home, Self Care What to do if you have Problems For any increased pain, shortness of breath, bleeding, nausea or vomiting, chestpain, or any unexpected problems, contact your Primary Care Provider. Call [facility] ([phone]) or report to the closest Emergency Room. Call 911 if necessary. 10/11/23 1230 <Electronically signed by Salvador Espinoza MD> Cosigner Signature (if applicable): CC: Dr. Shaheed Marie MD ~ Signed [facility] Work Phone: [phone]) 988-224106-17-2023 Instructions* Patient Instructions* Elly Fontanez APRN.CNP - 03/26/2023 10:37 AM EDT Start the [...] symptoms do not improvement. [facility] History of Present illness Narrative* Elly Fontanez APRN.CNP - 03/26/2023 10:28 AM EDT This is a 47 year old female who presents today with: Patient presents with: Cough: Cough and rib pain x 1 week HISTORY OF PRESENT ILLNESS: Hortencia Marte is a 47 year old female. Patient [...] in each nostril once daily. Rinse mouth afteruse. No current facility-administered medications for this visit. [...] Wt 84.2 kg (185 lb 9.6 oz) 07/27/2011 SpO2 97% BMI 31.37 kg/m PHYSICAL [...] - Continue albuterol inhaler - May use [id number] cold and cough medications as needed for [...] discussed and patient voices understanding. Elly Fontanez APRN.CNP This note was partially generated using [employer] voice recognition system. Note was reviewed for accuracy. There may be minor misspellings or grammar miscues with [employer] voice recognition. documented in this [facility]Tr[facility]02-[facility] Procedure [facility]02-27-2007 History of Past illness Narrative* Problem Noted Date Resolved Date Moderate dysplasia of cervix 12/06/2006 documented as of this encounter (statuses as of 03/26/2023) [facility] Author Efrain Mayen [facility] October 17, 2023 7:58am Note Date/Time October 17, 2023 7: 34am [facility] Medical Records Department [address] [place] [address] Emergency Department Summary 10/17/23 MR#: [id number] Acct: [id number] Name: HORTENCIA MARTE Rep #:[id number] : 1975 48 From: Efrain Mayen DO PCP: Dr. Shaheed Marie MD Status:R EG ER Location: ED HPI History of Present Illness Chief Complaint: Hypertension Informant: patient and spouse/S.O. Narrative Narrative: Patient is a 48-year-old female with past medical history of asthma hypertensionGERD and migraines as well as anxiety. She states that years ago she was on medication for her blood pressure but was taken off. She states she has been monitoring her blood pressure at home and recently has been having elevated values with a systolic value around 160-170. She states that last night into this morning she was getting higher values of approximately 190. She states that there was no excessive stimulant or illicit drug use prior to the elevated BP readings. She denies any headache chest pain shortness of breath or change in vision associate with this either. She states however that as the blood pressure has been higher than previous and she has concerned she may need to be started back on hypertensive medications once again she comes in for evaluation [facility] Medical History Alcohol use Anemia Anxiety Anxiety Asthma Asthma Back pain Carpal tunnel syndrome Chronic cough Difficulty swallowing Diverticulitis Easy bruising Gastric reflux GERD (gastroesophageal reflux disease) Headache, migraine history of breast lump/cyst History of diverticulitis History of gout History of stress test Hypertension Hypertension Hypertension Low iron Marijuana use Migraine headache Non-smoker Shortness of breath on exertion Skin cancer skin cancer removal SOB (shortness of breath) Home Medications blood pressure monitor #1 ea 09/08/21 [Rx Last Taken Unknown] sumatriptan succinate 25 mg tablet (Imitrex) 25 mg PO PRN PRN MIGRAINES 11/08/22[History Last Taken Unknown] albuterol sulfate 90 mcg/actuation aerosol inhaler 2 puff inhalation Q4H PRN cough #17 grams 06/10/23 [Rx Last Taken Unknown] omeprazole 40 mg capsule,delayed release 40 mg PO BID #180 caps 07/26/23 [Rx Last Taken Unknown] hydrochlorothiazide 25 mg tablet 25 mg PO DAILY 30 days #30 tabs 10/17/23 [Rx Last Taken Unknown] losartan 25 mg tablet 25 mg PO DAILY 30 days #30 tabs 10/17/23 [Rx Last Taken Unknown] Allergy/AdvReac Type Severity Reaction Status Date / Time No Known Allergies Allergy Verified 10/17/23 06:03 Family History Father Heart disease COPD (chronic obstructive pulmonary disease) Asthma CVA (cerebral vascular accident) Colon polyps Sister Diabetes GERD (gastroesophageal reflux disease) Cancer Skin Cancer Surgical History H/O: hysterectomy History of hernia repair Hx of esophagogastroduodenoscopy Hx of inguinal hernia repair Hx of tonsillectomy S/P Social History household members: significant other, children and other number of children: 3 current occupational status: unemployed history of recent travel: No sexually active: Yes other: oldest child - Lili adopted Smoking Status: Never smoker alcohol intake: current alcohol intake frequency: a few times a week substance use type: marijuana caffeine: Yes what type of physical activity do you participate in: none frequency: does not exercise seatbelt use: always do you feel safe at home: Yes additional social history: seperated ROS ROS ED Constitutional Constitutional ED: Denies chills or fever(s) Eyes Eyes: Denies change in vision ENT ENT ED: Denies sore throat Cardiovascular Cardiovascular: Denies chest pain, palpitations or racing heartbeat Respiratory/Chest Respiratory/Chest: Denies cough or dyspnea Gastrointestinal Gastrointestinal: Denies abdominal pain, diarrhea, nausea or vomiting Genitourinary Genitourinary ED: Denies dysuria Musculoskeletal Musculoskeletal: Denies myalgias Integumentary Denies rash Neurologic Neurologic: Denies headache(s) Psychiatric Psychiatric: Reports anxiety Hematologic/Lymphatic Hematologic/Lymphatic: Denies easy bleeding or easy bruising EXAM Physical Exam Const Vital Signs: 10/17/23 06:00 10/17/23 06:00 10/17/23 07:50 Temperature 97 F L Temperature Source Temporal Pulse Rate 91 63 Respiratory Rate 18 18 Respiratory Effort Normal Respiratory Pattern Normal Blood Pressure 195/126 H 155/106 H Blood Pressure Mean 149 122 Pulse Ox 98 97 Oxygen Delivery Method Room Air Room Air Positive well nourished and well developed General Appearance ED: well developed; Negative for pallor HEENT HEENT Narrative: Normocephalic atraumatic Eyes PERRL and EOMs intact bilaterally General Eye ED: Negative for scleral icterus Neck supple Neck Narrative: No nuchal rigidity or meningeal signs Resp normal respiratory effort and clear to auscultation bilaterally Cardio regular rate and regular rhythm Rate: other Other Details: Heart is regular rate and rhythm without murmurs rubsor gallops Radial and carotid pulses are equal and symmetric GI normal to inspection, nondistended, normoactive bowel sounds, non-tender, non-distended and no masses GI Narrative: No pulsatile mass Auscultation: normoactive bowel sounds Palpation: soft Extremity normal to inspection Extremity Narrative: No asymmetric edema no pitting edema negative Homans' sign bilaterally Neuro oriented x3, CN's II-XII intact bilaterally and no sensory deficits noted Neuro Narrative: No pronator drift no dysmetria no truncal ataxia NIH stroke scale score of 0 Sensorium / Orientation: alert Motor Exam: strength 5/5 throughout Psych Psych Narrative: Patient has a nervous/anxious affect Skin no rashes or lesions noted General Skin Exam: Negative for jaundice or pallor MDM MDM MDM Narrative Medical decision making narrative: Patient presented to the ER hypertensive but otherwise with stable vitals. She reported past medical history of hypertension but has no longer been on medication. Differential diagnosis is for accelerated hypertension secondary tolack of medication versus acute coronary syndrome versus acute kidney injury. There is also concern for hypertensive encephalopathy or acute CVA. She has a normal neurologic exam with no focal deficits and my concern for CVA is low especially with a normal neuroexam and no report of headache. She is awake alert and oriented this goes against hypertensive encephalopathy. In order to rule out acute coronary syndrome EKG was obtained which was normal and her troponin is normal as well. Blood work shows no signs of acute kidney injury orelectrolyte derangement. She also had her left and right arm blood pressures taken at the same time with the left being a of 173/126 and the right being a value of 172/123 going against dissection. Patient was medicated with IV labetalol IV Benadryl as she did have mild anxiety component to exam and oral clonidine. She was watched in the ER and her blood pressure did reduce between 15 and 25% which is the targeted goal in ER. And on reevaluation she remained awake and alert with normal neurologic exam and therefore there is no need for admission and she can be discharged home and follow-up with her family doctor todiscuss continued blood pressure control Chart review reveals that in 2020 she was on 25 mg of losartan and 25 mg of hydrochlorothiazide and therefore this will be prescribed as she has tolerated it well in the past History & Record Review Discussion w/independent historian: Patient Lab Data Attestation: I reviewed the patient's lab results. Labs: Laboratory Results - last 24 hr 10/17/23 06:38 WBC 4.9 RBC 5.19 Hgb 14.1 Hct 43.7 MCV 84.2 MCH 27.2 MCHC 32.3 RDW Std Deviation 37.8 RDW Coeff of Duke 12.4 Plt Count 269 MPV 10.2 Immature Gran % (Auto) 0.400 Neut % (Auto) 56.4 Lymph % (Auto) 27.0 Crisp % (Auto) 8.0 Eos % (Auto) 7.2 H Baso % (Auto) 1.0 Absolute Neuts (auto) 2.7 Absolute Lymphs (auto) 1.31 Nucleated RBC % 0 Sodium 139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 Provider Active Team Status: Active Member Role Status Dates Dr. Shaheed Marie MD Primary Care Provider, Refer ring Provider Active Dr. Ijeoma Escobedo MD Attending Provider, Other Pro vider Active Team Status: Inactive Member Role Status Dates Dr. Shaheed Marie MD Primary Care Provider Active Dr. Efrain Mayen DO Attending Provider, Emergency Pr ovider Active Team Status: Inactive Member Role Status Dates Dr. Shaheed Marie MD Primary Care Provider Active VARGAS Saavedra Attending Provider, Referring Prov ider Active Team Status: Inactive Member Role Status Dates Dr. Shaheed Marie MD Primary Care Provider, Refer ring Provider Active Dr. Ijeoma Escobedo MD Attending Provider Active Team Status: Active Member Role/Relationship Status Dates Dr. Shaheed Marie MD Primary Care Provider Active Team Status: Inactive Member Role/Relationship Status Dates Dr. Shaheed Marie MD Primary Care Provider Active Start: February 28, 2025 End: February 28, 2025 Dr. Yolanda Louis DO Attending Provider Active S tart: February 28, 2025 End: February 28, 2025 Dr. Yolanda Louis DO Emergency Provider Active S tart: February 28, 2025 End: February 28, 2025 Team Status: Inactive Member Role/Relationship Status Dates Dr. Shaheed Marie MD Primary Care Provider Active Start: May 14, 2025 End: May 14, 2025 Dr. Shaheed Marie MD Referring Provider Active Start: May 14, 2025 End: May 14, 2025 Jackelin Bullard NP-C Attending Provider Active Start: May 14, 2025 End: May 14, 2025 Team Status: Inactive Member Role/Relationship Status Dates Dr. Shaheed Marie MD Primary Care Provider Active Start: June 04, 2025 End: June 04, 2025 Dr. Shaheed Marie MD Referring Provider Active Start: June 04, 2025 End: June 04, 2025 Ketty Borrego NP, SOLAR HOT WATER INSTALLER-C Attending Provider Active Start: June 04, 2025 End: June 04, 2025 Team Status: Active Member Role/Relationship Status Dates Dr. Shaheed Marie MD Primary Care Provider Active Start: June 04, 2025 Ketty Borrego NP, SOLAR HOT WATER INSTALLER-C Attending Provider Active Start: June 04, 2025 Team Status: Inactive Member Role/Relationship Status Dates Dr. Shaheed Marie MD Primary Care Provider Active Start: June 05, 2025 End: June 05, 2025 Dr. Shaheed Marie MD Referring Provider Active Start: June 05, 2025 End: June 05, 2025 Sanna Pinto NP-C Attending Provider Active Start: June 05, 2025 End: June 05, 2025 Team Status: Inactive Member Role/Relationship Status Dates Dr. Shaheed Marie MD Primary Care Provider Active Start: June 04, 2025 End: June 04, 2025 Ketty Borrego NP, SOLAR HOT WATER INSTALLER-C Attending Provider Active Start: June 04, 2025 End: June 04, 2025 Source Comments (unrecognize d section and content) In the event this informatio n is protected by the Federal Confidentiality of Alcohol and Drug Abuse Patient Records regulations: The Federal rules restrict any use of the information to criminally investigate or prosecute any alcohol or drug abuse patient.[facility] the event this information is protected by the Federal Confidentiality of Alcohol and Drug Abuse Patient Records regulations: The Federal rules restrict any use of the information to criminally investigate or prosecute any alcohol or drug abuse patient.[facility] the event this information is protected by the Federal Confidentiality of Alcohol and Drug Abuse Patient Records regulations: The Federal rules restrict any use of the information to criminally investigate or prosecute any alcohol or drug abuse patient.[facility] Reason for Visit (unrecogniz ed section and content) Reason Comments Cough Cough and rib pain x 1 week Reason Comments Hand Pain R hand pain x1 month , denies injury, recently started new job and lifts alot FOR RECORDS PERTAINING TO PATIENTS WHO ARE [...] BE BASED ON THE PRIMARY CLINICAL RECORDS. [employer] provides no warranty or guarantee of the accuracy or completeness of information in this document.
== END | disposition home or self-care (01) ==
LOC: MRI 15:19
PROVIDERS: PCP Internal Medicine; Referring Provider Nurse Practitioner Family; Visit Provider Nurse Practitioner Family
DX: M77.8 Other enthesopathies, not elsewhere classified (principal); M65.311 Trigger thumb, right thumb; M19.049 Primary osteoarthritis, unspecified hand
CPT/HCPCS: 73221